=== PATIENT | male | born 1935 | race Caucasian/White ===

== ENCOUNTER 2020-04-06 07:11 | Observation (INO) ==
[2020-03-13 13:28] LABS: Basophils # (auto) 0.01 K/uL (0-0.2); Basophils % (auto) 0.2 %; Eosinophils # (auto) 0.07 K/uL (0-0.5); Eosinophils % (auto) 1.1 %; Hematocrit (blood only) 35.6 % (42-52); Hemoglobin 11.9 g/dL (14.0-18.0); Immature Granulocytes # (auto) 0.01 K/uL (0.00-0.02); Immature Granulocytes % (auto) 0.2 %; Lymphocytes # (auto) 1.46 K/uL (1.2-3.4); Lymphocytes % (auto) 22.8 %; Mean Corpuscular Hemoglobin 29.8 pg (25-34); Mean Corpuscular Hgb Conc 33.4 g/dL (32-36); Mean Corpuscular Volume 89.2 fL (80-100); Mean Platelet Volume 10.4 fL (7.4-10.4); Monocytes # (auto) 0.47 K/uL (0.11-0.59); Monocytes % (auto) 7.4 %; Neutrophils # (auto) 4.37 K/uL (1.4-6.5); Neutrophils % (auto) 68.3 %; Platelet Count 223 K/uL (130-400); RDW Coefficient of Variation 14.4 % (11.5-14.5); RDW Standard Deviation 47.3 fL (36.4-46.3); Red Blood Count 3.99 M/uL (4.7-6.1); White Blood Count 6.39 K/uL (4.8-10.8)
[2020-03-13 13:36] LABS: INR 1.1 (0.9-1.1); Prothrombin Time 11.5 Seconds (9.0-12.0)
[2020-03-13 13:53] LABS: Albumin Level 4.1 gm/dl (3.4-5.0); Aspartate Aminotransferase 24 U/L (15-37); BUN Creatinine Ratio 28.1 (10-20); Blood Urea Nitrogen 62 mg/dl (7-18); C Reactive Protein < 0.29 mg/dl (0-0.29); Calcium 9.4 mg/dl (8.5-10.1); Carbon Dioxide 20 mmol/L (21-32); Chloride 108 mmol/L (98-107); Est GFR (African American) 30.4; Est GFR (Non-African American) 26.2; Glucose 105 mg/dl (70-99); Potassium 4.6 mmol/L (3.5-5.1); Sodium 135 mmol/L (136-145)
[2020-03-13 14:03] LABS: Alanine Aminotransferase 25 U/L (12-78); Albumin Globulin Ratio 1.3 (0.9-2); Alkaline Phosphatase 48 U/L (45-117); Bilirubin,Total 0.4 mg/dl (0.2-1); Globulin 3.1 gm/dl (2.5-4.0); Total Protein 7.2 gm/dl (6.4-8.2)
--- NOTE | 2020-03-31 14:50 | Anesthesiology Consultation ---
Date of Service March 31, 2020 Assessment & Plan (1) Encounter for pre-operative examination: Pre op labs done 03/13 showed creatinine of 2.2, slightly worse than baseline of ~ 2.0. Results were sent to patient's adoption specialist for their records. Repeat BMP AM DOS at MDA discretion. COVID Status: As of 03/31 nurse assessment, patient denies travel to endemic area, known exposure/sick contacts, or symptoms of COVID19. Preoperative COVID19 testing to be completed on 04/01. Patient expressed concern on the phone with PAT nurse about memory loss/dementia with anesthesia. 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 He was encouraged to discuss these concerns with the anesthesia team AM DOS. Chart Review Chart Review: Acceptable Risk for Surgery and Patient NOT seen in Pre Admission Testing History Surgery Operation Date: 04/06/20 12:20 Proposed Procedures p Left Total Hip Replacement - Morteza Ruiz MD Height/Weight Height: 5 ft 10 in Weight: 79.379 kg Allergies Allergy/AdvReac Type Severity Reaction Status Date / Time hazelnut Allergy Severe Anaphylaxis Verified 03/31/20 12:34 Penicillins Allergy Severe AMOXICILLIN Verified 03/31/20 12:34 --diarrhea oyster extract Allergy Intermediate Vomiting Unverified 03/31/20 12:34 pollen extracts Allergy Intermediate TREE Verified 03/31/20 12:34 POLLEN-seasonal allergies Medications Home Medications Medication Instructions Recorded Confirmed Last Taken C,E,zinc,copper [id number] 1 cap PO HS 03/31/20 03/31/20 Unknown [Ocuvite Adult 50 Plus] allopurinol 300 mg PO QAM 03/31/20 03/31/20 Unknown amlodipine 10 mg PO QAM 03/31/20 03/31/20 Unknown cholecalciferol (vitamin D3) 2,000 mcg PO BID 03/31/20 03/31/20 Unknown [Vitamin D3] clindamycin HCl 600 mg PO UD PRN 03/31/20 03/31/20 Unknown clonidine HCl 0.1 mg PO HS 03/31/20 03/31/20 Unknown cyanocobalamin (vitamin B-12) 1,000 mcg PO DAILY 03/31/20 03/31/20 Unknown [Vitamin B-12] fenofibrate micronized 134 mg PO QAM 03/31/20 03/31/20 Unknown finasteride 5 mg PO HS 03/31/20 03/31/20 Unknown hydrochlorothiazide 12.5 mg PO QAM 03/31/20 03/31/20 Unknown levothyroxine 75 mcg PO QAM 03/31/20 03/31/20 Unknown lisinopril 10 mg PO QPM 03/31/20 03/31/20 Unknown magnesium oxide 400 mg PO DAILY 03/31/20 03/31/20 Unknown metoprolol succinate 50 mg PO QAM 03/31/20 03/31/20 Unknown metronidazole 1 applic TOPICAL BID 03/31/20 03/31/20 Unknown multivitamin 1 tab PO QAM 03/31/20 03/31/20 Unknown tamsulosin 0.4 mg PO QAM 03/31/20 03/31/20 Unknown Past Medical History Medical History (Updated 03/31/20 @ 15:14 by Shaan Prasad) Arthritis of left hip BPH (benign prostatic hyperplasia) CKD (chronic kidney disease) stage 3, GFR 30-59 ml/min Baseline creatinine ~ 2.0 GERD (gastroesophageal reflux disease) diet related, no medications High triglycerides Hypertension Hypothyroidism Lyme disease hx Osteoarthritis Peritonitis Seasonal allergies Skin cancer Small bowel obstruction Past Family History Family History Other No family history of adverse response to anesthesia Past Surgical History Surgical History H/O exploratory laparotomy r/t peritonitis and collapsed bowel. History of appendectomy with colon resection surgery History of cataract surgery bilateral History of cholecystectomy with colon resection surgery History of colonoscopy History of esophagogastroduodenoscopy (EGD) History of total hip arthroplasty right S/P colon resection 1950's Status post Mohs surgery Social History Smoking Status: Never smoker Do You Dip or Chew Tobacco: No Hx Alcohol Use: Yes Alcohol type: wine alcohol intake frequency: a few times a week Hx Substance Use: No substance use type: does not use Testing Laboratory Results 03/13/20 12:45 03/13/20 12:45 PT 11.5 Seconds (9.0-12.0) 03/13/20 12:45 INR 1.1 (0.9-1.1) 03/13/20 12:45 Blood Type O Positive 03/13/20 12:46 Antibody Screen NEGATIVE 03/13/20 12:46 Pt with known h/o CKD. Creatinine slightly above baseline of ~ 2.0. Labs forwarded to [facility] nephrology. Electrocardiogram Date: 03/13/20 Findings: + NSR @ (67bpm) Chest X-Ray Date: 03/13/20 Findings: + NAD
[~2020-04-06 07:11] MED LIST: ACETAMINOPHEN 500 MG TAB PO SCH; CEFAZOLIN 2000MG 2,000 MG/15 ML SYR IV SCH; FAMOTIDINE 20 MG TAB PO SCH; GABAPENTIN 300 MG CAP PO SCH; LR 500ML BOLUS, THEN 15ML/HR IV SCH; LR 60ML/HR IV SCH; METOCLOPRAMIDE HCL 10 MG TABLET PO SCH
[2020-04-06] MEDS ORDERED: BUPIVACAINE 0.5 % 5 MG/1 ML PF 10ML VIAL ONE (07:28)
[2020-04-06] MEDS ORDERED: fentaNYL citrate 100 MCG/2 ML VIAL ONE (07:45)
[2020-04-06] MEDS ORDERED: MIDAZOLAM HCL 1 MG/ML 2ML VIAL ONE (07:45)
[2020-04-06] MEDS ORDERED: fentaNYL citrate 100 MCG/2 ML VIAL IV PRN (08:47)
[2020-04-06] MEDS ORDERED: ePHEDrine sulfate 50 MG/ML AMP IV PRN (08:47)
[2020-04-06] MEDS ORDERED: ONDANSETRON INJ 2 MG/ML 2 ML VIAL IV PRN ×2 (08:47→11:34)
[2020-04-06] MEDS ORDERED: ATROPINE SULFATE 0.1 MG/ML 10ML SYR IV PRN (08:47)
--- NOTE | 2020-04-06 08:50 | History & Physical Bridge Note ---
Date of Service April 06, 2020 History & Physical Bridge Note I have examined the patient, reviewed the History & Physical and in the interval since the performance of the History & Physical I have noted the following changes of clinical significance: no changes noted
[2020-04-06] MEDS ORDERED: BACITRACIN INJ 50,000 UNIT VIAL ONE (08:54)
[2020-04-06] MEDS ORDERED: EPINEPHrine INJ 1 MG/ML AMP ONE (08:55)
[2020-04-06] MEDS ORDERED: BUPIVACAINE 0.5 % 5 MG/1 ML MPF 30ML VIAL ONE (08:55)
[2020-04-06] MEDS ORDERED: TRANEXAMIC ACID / 0.7% NACL 1000MG/100ML BAG IV ONE (09:33)
[2020-04-06] MEDS ORDERED: PROPOFOL IV EMULSION 10 MG/ML 20 ML VIAL IV ONE (10:25)
[2020-04-06] MEDS ORDERED: PHENYLEPHRINE 100MCG/ML 5ML SYR ONE (10:28)
[2020-04-06] MEDS ORDERED: ePHEDrine sulfate 50 MG/ML AMP ONE (10:28)
--- NOTE | 2020-04-06 10:43 | Post Operative Brief Note ---
PG Immediate Post Op with CF Date of Surgery April 06, 2020 Pre & Post Diagnosis Operation Date: 04/06/20 08:50 Pre-Op Diagnosis: Left Hip Degenerative Joint Disease Post-Op Diagnosis: Left Hip Degenerative Joint Disease I identified the patient and participated in the time-out.: Yes Procedure Operation Date: 04/06/20 08:50 Actual Procedures p Left Total Hip Arthroplasty--Uncemented(Left) - Morteza Ruiz MD Surgeon Morteza Ruiz MD Instructional Specialist Singh, PAC Estimated Blood Loss 200 Findings Consistent with Post-Op Diagnosis Fluids 1300 cc Specimens Specimen Description: A. Left Femoral Head Drains Rojas Catheter Anesthesia Type Spinal MAC Complications none Disposition Accompanied Patient To Recovery: Yes Disposition: Recovery Room
--- NOTE | 2020-04-06 10:57 | Operative Report ---
Post Operative Report Pre & Post Diagnosis Operation Date: 04/06/20 08:50 Pre-Op Diagnosis: Left Hip Degenerative Joint Disease Post-Op Diagnosis: Left Hip Degenerative Joint Disease I identified the patient and participated in the time-out.: Yes Procedure Operation Date: 04/06/20 08:50 Actual Procedures p Left Total Hip Arthroplasty--Uncemented(Left) - Morteza Ruiz MD Surgeon Morteza Ruiz MD Screen Making Supervisor Singh, PAC Estimated Blood Loss 200 Findings Consistent with Post-Op Diagnosis Operative findings revealed left hip DJD. He did have grade 4 [id number] disease of the superior aspect of the femoral head as well as some diffuse degenerative change of the acetabulum. Not a lot of osteophyte formation or eburnation. He did have some anterior acetabular osteophytes. Fluids 1300 cc. Specimens Left femoral head sent for pathology. Drains None. Anesthesia Type Spinal MAC Complications none Disposition Accompanied Patient To Recovery: Yes Disposition: Recovery Room Indications Patient is an 84-year-old quite healthy gentleman whose had a long history of intermittent hip problems. He had a right hip replacement done about 9 years ago and is done well from this. Over the past year he is developed increased pain discomfort in his left hip in a very similar fashion. He is actually resorted to using a cane for the past 6 months. X-rays show progressive hip arthritis. He elected proceed with total hip arthroplasty. Description of Procedure Operative implants consist of: 1. Biomet G7 size 58 mm acetabular shell. 2. 6.5 cancellus acetabular screws 135 mm length and 1 to 20 mm length. 3. Glenn hole eliminator. 4. Highly cross-linked polyethylene liner with a +5 offset, 58 mm outer diameter and 40 mm inner diameter. 5. [place] Corail size 14 KLA femoral stem. 6. +8.5/40 mm ceramic articular ball. Patient was taken to the operating room identified and placed on the operating table supine position protectors were properly padded. IV antibiotics arrived by anesthesia team. A spinal anesthetic and been implemented holding area. Rojas catheter was placed in sterile fashion. Patient was then placed in the right lateral decubitus position. An axillary roll was placed. A Stulberg hip positioner was used for positioning. The left hip and leg were then prepped and draped in usual sterile fashion. A posterior lateral posterior left hip was then performed through a curvilinear incision centered over the greater trochanter. Sharp dissection was cut through subcutaneous tissue down to level the IT band gluteal fascia. The IT band gluteal fascia then incised longitudinally in line with skin incision. The underlying greater truck bursa was excised. The piriformis and external rotators and the posterior capsule were then released as a single layer. Great care was taken throughout the procedure protect sciatic nerve at all times. Hip was internally rotated and dislocated. Femoral neck osteotomy cut was made with Final Cut about 15 mm above the lesser trochanter. Femoral head was removed and sent for pathology. The femur was retracted anteriorly. Attention drawn the acetabulum. The acetabular labrum was excised. Pulmonary fat was excised. Sequential reaming the acetabular was then performed begin with a size 47 and progressing up to 57. A 58 mm Biomet G7 acetabular shell was then placed in about 40 degrees lateral opening and 20 degrees of anteversion. Was fixed with two 6.5 cancellus acetabular screws. An anterior osteophyte was removed. Trial liner was placed. Attention drawn the femur. The proximal femur was entered with a cookie-cutter followed by canal finder. I broached beginning with size 8 and progressing up to 14. Got excellent fit of 14. Calcar reamer was used smooth and off the calcar. Then trialed the hip. His soft tissue tension was fairly lax. Therefore we elected to use a +5 offset acetabulum to move the femur away from the acetabular to maximize stability. I also increased the neck length slightly. I felt this re-created acceptable soft tissue tension. The hip was fully stable. And re-seem to re-create leg lengths equal. I did want maximize his stability based on his age. All trial implants were removed. An apex hole eliminator was placed. A +5 offset liner was impacted in position. A [place] KLA size 14 With a femoral stem was impacted in position. A +8.5/40 mm ceramic articular ball was placed. Hip was located and found to be stable. Attention drawn toward closing. The wound was irrigated cups ounce pulsatile lavage solution. I did inject locally with 60 cc of half percent Marcaine with epinephrine. The posterior capsule and external rotators were then repaired through drill holes in the posterior trochanter with #2 Tycron suture in a single layer. The IT band gluteal fascia then closed with #1 PDS suture running fashion with subcutaneous tissue then closed with 2 layers with a deep layer #1 Vicryl suture and subcutaneous tissues with 2-0 Dexon suture in a buried interrupted fashion. Sk in was closed with skin natalia. Leg was then cleaned dried a sterile dressing composed of Xeroform, 4 x 4's, sterile ABD pad and foam tape was applied. Patient then transferred to the recovery in stable condition. Patient tolerated procedure well no complications. I attest to the content of the Intraoperative Record and any orders documented therein. Any exceptions are noted below.
--- NOTE | 2020-04-06 11:04 | Anesthesiology Progress Note ---
Date of Service April 06, 2020 Anesthesia Post Procedure Vital Signs Vital Signs: Temp Pulse Pulse Resp BP BP Pulse Ox 04/06/20 10:40 97.3 F L 86 23 113/53 L 97 04/06/20 07:48 98.4 F 76 18 135/66 97 Transfer of Care Handoff Completed per policy Notes Mental Status: alert / awake / arousable and participated in evaluation Patient Amnestic to Procedure: Yes Nausea / Vomiting: adequately controlled Pain: adequately controlled Airway Patency, RR, SpO2: stable & adequate BP & HR: stable & adequate Hydration State: stable & adequate Neuraxial Anesthesia: was administered and sensory block is resolving Anesthetic Complications: no major complications apparent and Pt Satisfied with anesthetic care
--- NOTE | 2020-04-06 11:06 | XRay Report ---
AP PELVIS, CROSSTABLE LATERAL LEFT HIP History: Left total hip arthroplasty. Degenerative arthritis. Postop. FINDINGS: The patient is status post a left total hip arthroplasty. The hardware is intact. No fractu re or dislocation. Skin natalia are in place. Evidence for prior right total hip arthroplasty. IMPRESSION: Left total hip arthroplasty. No evidence for hardware complication. ACT 112: Negative or not required by law. Electronically signed by: Georges Jaimes M.D. 04/06/2020 11:05 AM
[2020-04-06] MEDS ORDERED: NO NSAIDS SCH (11:34)
[2020-04-06] MEDS ORDERED: METOCLOPRAMIDE HCL INJ 5 MG/ML 2 ML VIAL IV PRN (11:34)
[2020-04-06] MEDS ORDERED: bisacodyL 10 MG SUPP PR PRN (11:34)
[2020-04-06] MEDS ORDERED: SODIUM CHLORIDE 0.9% 1000ML 1,000 ML IV SCH (11:34)
[2020-04-06] MEDS ORDERED: NALOXONE HCL 0.4 MG/1 ML VIAL/CARP IV PRN (11:34)
[2020-04-06] MEDS ORDERED: HYDROmorphone INJ 0.5 MG/0.5 ML SYR IV PRN (11:34)
[2020-04-06] MEDS ORDERED: MAGNESIUM HYDROXIDE SUSP 30 ML UDC PO PRN (11:34)
[2020-04-06] MEDS ORDERED: ALUMINUM/MAGNESIUM SUSP 30 ML UDC PO PRN (11:34)
[2020-04-06] MEDS: TRAMADOL HCL 50 MG TABLET PO PRN ×2 (11:58→21:23)
[2020-04-06] MEDS: ACETAMINOPHEN 500 MG TAB PO SCH ×2 (14:13→21:24)
--- NOTE | 2020-04-06 15:01 | Progress Notes ---
DATE: 04/06/2020 SUBJECTIVE: An 84-year-old gentleman postop from left hip replacement. He is doing well. He says he feels great. No chest pain or shortness of breath. Not feeling dizzy or lightheaded. Does not have any hip pain yet. OBJECTIVE: VITAL SIGNS: Temperature 36.4. Vital signs stable. GENERAL: Shows a pleasant elderly male. He is sitting up in bed, looks comfortable. LUNGS: Clear to auscultation. HEART: Has a regular rate and rhythm. ABDOMEN: Soft, nontender, nondistended. EXTREMITIES: Grossly neurovascularly intact except as follows: Examination of the left lower extremity reveals the leg lengths are equal. Dressing is clean, dry and intact. Thigh is soft and supple. His hip is located. He is neurologically intact. X-RAYS: X-rays of the left hip from recovery room are reviewed. It shows left uncemented total hip arthroplasty. Components looked to be in good position. No signs of problems. ASSESSMENT: An 84-year-old gentleman postoperative from left hip replacement, doing well. Hip is located. He is neurologically intact. PLAN: 1. DVT prophylaxis including thigh-high TEDs, SCDs, and aspirin twice a day. 2. PT/OT. Weight bear as tolerated. Left total hip protocol. 3. Pain control, doing well with current pain regimen. 4. IV antibiotics x24 hours. 5. Disposition: Plan to discharge to home with some home health and his family's assistance once medically stable and adequately recovered.
[2020-04-06] MEDS: [UNRECOGNIZED DRUG - OTHER] SCH (15:05)
[2020-04-06] MEDS ORDERED: TRANEXAMIC ACID / 0.7% NACL 1,000 MG/100 ML BAG IV SCH (16:45)
[2020-04-06] MEDS: CEFAZOLIN 2000MG 2,000 MG/15 ML SYR IV SCH (16:45)
[2020-04-06] MEDS: ASCORBIC ACID 500 MG TAB PO SCH (17:56)
[2020-04-06] MEDS: FERROUS GLUCONATE 324 MG TAB PO SCH (17:56)
[2020-04-06] MEDS: cloNIDine HCL 0.1 MG TAB PO SCH (21:25)
[2020-04-06] MEDS: CHOLECALCIFEROL 1,000 UNITS 25 MCG TAB PO SCH (21:25)
[2020-04-06] MEDS: FINASTERIDE 5 MG TAB PO SCH (21:25)
[2020-04-06] MEDS: lisinopriL 10 MG TAB PO SCH (21:25)
[2020-04-06] MEDS: CEROVITE ADV FORMULA TAB PO SCH (21:25)
[2020-04-06] MEDS: SENNA 8.6 MG TAB PO SCH (21:26)
[2020-04-06] MEDS: DOCUSATE SODIUM 100 MG CAP PO SCH (21:29)
[2020-04-07] MEDS: [UNRECOGNIZED DRUG - OTHER] SCH ×3 (00:34→18:13)
[2020-04-07] MEDS: CEFAZOLIN 2000MG 2,000 MG/15 ML SYR IV SCH (00:34)
[2020-04-07] MEDS: LEVOTHYROXINE SODIUM 75 MCG TABLET PO SCH (06:01)
[2020-04-07] MEDS: ACETAMINOPHEN 500 MG TAB PO SCH ×3 (06:02→21:00)
[2020-04-07 06:48] LABS: Basophils # (auto) 0.01 K/uL (0-0.2); Basophils % (auto) 0.2 %; Eosinophils # (auto) 0.08 K/uL (0-0.5); Eosinophils % (auto) 1.2 %; Hemoglobin 10.8 g/dL (14.0-18.0); Immature Granulocytes # (auto) 0.01 K/uL (0.00-0.02); Immature Granulocytes % (auto) 0.2 %; Lymphocytes % (auto) 12.3 %; Mean Corpuscular Hemoglobin 29.3 pg (25-34); Mean Corpuscular Hgb Conc 32.7 g/dL (32-36); Mean Corpuscular Volume 89.4 fL (80-100); Mean Platelet Volume 9.7 fL (7.4-10.4); Monocytes # (auto) 0.92 K/uL (0.11-0.59); Monocytes % (auto) 14.2 %; Neutrophils # (auto) 4.67 K/uL (1.4-6.5); Neutrophils % (auto) 71.9 %; Platelet Count 177 K/uL (130-400); RDW Coefficient of Variation 14.3 % (11.5-14.5); RDW Standard Deviation 46.8 fL (36.4-46.3); Red Blood Count 3.69 M/uL (4.7-6.1); White Blood Count 6.49 K/uL (4.8-10.8)
[2020-04-07 07:31] LABS: BUN Creatinine Ratio 19.1 (10-20); Calcium 8.7 mg/dl (8.5-10.1); Creatinine Clr Calc Pharmacy 31.5 ml/min; Est GFR (African American) 39.2; Est GFR (Non-African American) 33.8
--- NOTE | 2020-04-07 08:25 | Anesthesiology Progress Note ---
Date of Service April 07, 2020 Anesthesia Post Procedure Vital Signs Vital Signs: Temp Pulse Pulse Pulse Resp BP BP 04/07/20 07:45 36.7 C 73 16 119/70 04/07/20 04:22 37.2 C 66 15 107/61 04/07/20 00:40 74 112/67 04/06/20 23:51 36.8 C 69 16 96/58 L 04/06/20 20:14 36.6 C 71 17 143/68 H 04/06/20 14:30 69 16 135/74 04/06/20 13:28 80 16 135/68 04/06/20 11:55 86 16 139/67 04/06/20 11:34 36.4 C L 90 17 138/70 04/06/20 11:20 88 16 131/65 04/06/20 11:10 36.2 C L 85 14 131/60 04/06/20 11:00 85 15 109/49 L 04/06/20 10:50 85 21 117/56 L 04/06/20 10:40 36.3 C L 86 23 113/53 L Pulse Ox 04/07/20 07:45 97 04/07/20 04:22 97 04/07/20 00:40 04/06/20 23:51 98 04/06/20 20:14 99 04/06/20 14:30 99 04/06/20 13:28 98 04/06/20 11:55 99 04/06/20 11:34 97 04/06/20 11:20 96 04/06/20 11:10 96 04/06/20 11:00 97 04/06/20 10:50 96 04/06/20 10:40 97 Notes Mental Status: alert / awake / arousable and participated in evaluation Patient Amnestic to Procedure: Yes Nausea / Vomiting: adequately controlled Pain: adequately controlled Airway Patency, RR, SpO2: stable & adequate BP & HR: stable & adequate Hydration State: stable & adequate Neuraxial Anesthesia: was administered and sensory block resolved Anesthetic Complications: no major complications apparent and Pt Satisfied with anesthetic care
[2020-04-07] MEDS: hydroCHLOROthiazide 25 MG TAB PO SCH (08:26)
[2020-04-07] MEDS: ASCORBIC ACID 500 MG TAB PO SCH ×2 (08:26→18:14)
[2020-04-07] MEDS: allopurinoL 300 MG TAB PO SCH (08:26)
[2020-04-07] MEDS: CHOLECALCIFEROL 1,000 UNITS 25 MCG TAB PO SCH ×2 (08:26→20:55)
[2020-04-07] MEDS: AMLODIPINE BESYLATE 5 MG TAB PO SCH (08:26)
[2020-04-07] MEDS: MULTIVITAMIN TAB PO SCH (08:26)
[2020-04-07] MEDS: FERROUS GLUCONATE 324 MG TAB PO SCH ×2 (08:26→18:15)
[2020-04-07] MEDS: MAGNESIUM OXIDE 400 MG TAB PO SCH (08:26)
[2020-04-07] MEDS: CYANOCOBALAMIN 500 MCG TABLET (VITAMIN B-12) PO SCH (08:26)
[2020-04-07] MEDS: METOPROLOL SUCC 50MG EXT REL TAB PO SCH (08:26)
[2020-04-07] MEDS: DOCUSATE SODIUM 100 MG CAP PO SCH ×2 (08:26→20:53)
[2020-04-07] MEDS: TAMSULOSIN HCL 0.4 MG CAP PO SCH (08:27)
[2020-04-07] MEDS: TRAMADOL HCL 50 MG TABLET PO PRN (08:32)
[2020-04-07] MEDS ORDERED: MULTIVITAMIN TAB PO SCH (09:00)
--- NOTE | 2020-04-07 15:48 | Progress Notes ---
DATE: 04/07/2020 SUBJECTIVE: An 84-year-old gentleman postop day 1 from a left hip replacement. He is doing well. Pain is controlled. Therapy went well. Denies any chest pain or shortness of breath. Not feeling dizzy or lightheaded. OBJECTIVE: VITAL SIGNS: Temperature 36.7. Vital signs stable. GENERAL: Shows a pleasant elderly male. He is sitting up at his bedside chair, looks comfortable. EXTREMITIES: Examination of the left hip reveals the dressing to be clean, dry and intact. Thigh is soft and supple. Hip is located. He can dorsiflex and plantarflex his foot appropriately. He is neurologically intact. LABORATORY DATA: Hemoglobin 10.8. Hematocrit 33.0. Electrolytes are stable. Creatinine is actually improved at 1.80. ASSESSMENT: An 84-year-old gentleman postoperative day 1 from left hip replacement, doing well. His pain is controlled. He is neurologically intact. Appears medically stable. PLAN: 1. DVT prophylaxis including thigh-high TEDs, SCDs, and aspirin twice a day. 2. PT/OT. Weight bear as tolerated. Left total hip protocol. 3. Pain control, doing well with current pain regimen. 4. Disposition: Plan to discharge to home with some home health once adequately recovered and medically stable.
[2020-04-07] MEDS: SENNA 8.6 MG TAB PO SCH (20:53)
[2020-04-07] MEDS: CEROVITE ADV FORMULA TAB PO SCH (20:53)
[2020-04-07] MEDS: FINASTERIDE 5 MG TAB PO SCH (20:53)
[2020-04-07] MEDS: cloNIDine HCL 0.1 MG TAB PO SCH (20:54)
[2020-04-07] MEDS: lisinopriL 10 MG TAB PO SCH (20:55)
[2020-04-07] MEDS: ASPIRIN 81 MG ECTAB PO SCH (21:25)
[2020-04-08] MEDS: [UNRECOGNIZED DRUG - OTHER] SCH ×2 (00:58→09:15)
[2020-04-08] MEDS: ACETAMINOPHEN 500 MG TAB PO SCH (05:16)
[2020-04-08] MEDS: LEVOTHYROXINE SODIUM 75 MCG TABLET PO SCH (05:17)
--- NOTE | 2020-04-08 07:28 | Orthopedic Progress Note ---
Date of Service April 08, 2020 Assessment & Plan (1) Status post total hip replacement, left: He is doing well and his pain is controlled. We will plan to discharge him home today with home health after physical therapy. Continue PT/OT. He is weightbearing as tolerated. Total hip precautions. Continue JACQUELINE stockings/SCDs, aspirin for DVT prophylaxis. Follow-up approximately 2 weeks postop. Subjective 84-year-old male now postop day 2 from a left total hip replacement. He is doing well. Not really having much pain. He describes a soreness around his hip. No chest pain or shortness of breath. Physical Exam Physical Exam: He is alert and oriented. No distress. He sitting in the bedside chair. He is able to stand on his own using a walker. Dressing is clean dry and intact to the left hip. Minimal swelling to his leg. He is able dorsiflex plantarflex appropriately. He is neurovascular intact. Results & Data ([facility]) Vital Signs (Past 12 Hours) Vital Signs Temp Pulse Resp BP Pulse Ox 04/07/20 23:11 37.1 C 72 15 94/54 L 97 PG Care Time/CCT Total # of Minutes Spent Total Time Spent with Patient: Total time spent is greater than 50% in coordination of care (as documented) at patient's floor/unit and/or counseling patient: Coding Level of Care Code None Diagnoses Status post total hip replacement, left Z96.642
[2020-04-08] MEDS: DOCUSATE SODIUM 100 MG CAP PO SCH (09:16)
[2020-04-08] MEDS: allopurinoL 300 MG TAB PO SCH (09:17)
[2020-04-08] MEDS: MULTIVITAMIN TAB PO SCH (09:17)
[2020-04-08] MEDS: CYANOCOBALAMIN 500 MCG TABLET (VITAMIN B-12) PO SCH (09:17)
[2020-04-08] MEDS: AMLODIPINE BESYLATE 5 MG TAB PO SCH (09:17)
[2020-04-08] MEDS: CHOLECALCIFEROL 1,000 UNITS 25 MCG TAB PO SCH (09:17)
[2020-04-08] MEDS: FERROUS GLUCONATE 324 MG TAB PO SCH (09:18)
[2020-04-08] MEDS: ASCORBIC ACID 500 MG TAB PO SCH (09:18)
[2020-04-08] MEDS: ASPIRIN 81 MG ECTAB PO SCH (09:18)
[2020-04-08] MEDS: METOPROLOL SUCC 50MG EXT REL TAB PO SCH (09:18)
[2020-04-08] MEDS: MAGNESIUM OXIDE 400 MG TAB PO SCH (09:18)
[2020-04-08] MEDS: TAMSULOSIN HCL 0.4 MG CAP PO SCH (09:18)
[2020-04-08] MEDS: hydroCHLOROthiazide 25 MG TAB PO SCH (09:18)
--- NOTE | 2020-04-13 07:35 | Discharge Summary ---
Date of Service April 13, 2020 Admission HPI Per Admitting Provider Documented in the H&P Admission Exam (Per Admitting) Constitutional Documented in the H&P Discharge Data Consultations 04/07/20 08:00 Consult Case Management - Discharge Planning Routine Procedures Performed Operation Date: 04/06/20 08:50 Actual Procedures p Left Total Hip Arthroplasty--Uncemented(Left) - Morteza Ruiz MD Hospital Course (1) Status post total hip replacement, left: 84-year-old male admitted on 04/06/2020 underwent total hip replacement. Tolerated the procedure well and there were no complications. He was transferred to the PACU postoperatively and later to the orthopedic floor for further care. He was given Ancef for antibiotic prophylaxis. He was given JACQUELINE stockings, SCDs, and aspirin for DVT prophylaxis. His hemoglobin, hematocrit, and vital signs were monitored during his hospital stay remained stable. He not requiring blood transfusions. There were no complications. By postoperative day 2 he was tolerating a regular diet, pain was controlled with oral pain medicine, and he was participating in physical therapy. On postop day 2 he was discharged home set up with home health services. He was given printed discharge instructions as well as new prescriptions for extra strength Tylenol, aspirin, and tramadol. Continue physical therapy. Continue total hip precautions. Weightbearing as tolerated. Continue JACQUELINE stockings. Follow-up approximately 2 weeks postop or sooner if any problems or concerns. Coding Level of Care Code None Diagnoses Status post total hip replacement, left Z96.642
== END 2020-04-08 13:47 | disposition home health service (06) ==
LOC: ASU 07:11 → 3E 07:11

== ENCOUNTER 2020-04-09 20:44 | Observation (INO) ==
[2020-04-09] MEDS ORDERED: SODIUM CHLORIDE 0.9% 1000ML 500 ML IV ONE (21:54)
--- NOTE | 2020-04-09 22:01 | Emergency Department Note ---
History of Present Illness General Chief complaint: Urinary Symptoms Stated complaint: URINARY ISSUES, BLOOD IN URINE Time Seen by Provider: 04/09/20 21:24 History of Present Illness Provider complaint: Difficulty urinating Onset (ago): day(s) 1 Location: genitals Severity: moderate Maximum Pain Intensity: 8 Current Pain Intensity: 8 Relieved By: + none 84-year-old male presents emergency department with difficulty urinating. Patient states he had his hip replaced yesterday and was discharged yesterday. He states today he noticed difficulty urinating and when the small amount of urine did come out it was bloody. He states he has a history of kidney stones. He denies any fevers. He states he has had problems with urinary retention in the past and has required catheters in the past. Home Medications Home Medications Medication Instructions Recorded Confirmed Type Ocuvite Adult 50 Plus 1 cap PO HS 03/31/20 04/09/20 History allopurinol 300 mg PO QAM 03/31/20 04/09/20 History amlodipine [Norvasc] 10 mg PO QAM 03/31/20 04/09/20 History cholecalciferol (vitamin D3) 2,000 mcg PO BID 03/31/20 04/09/20 History [Vitamin D3] clonidine HCl 0.1 mg PO HS 03/31/20 04/09/20 History cyanocobalamin (vitamin B-12) 1,000 mcg PO DAILY 03/31/20 04/09/20 History [Vitamin B-12] fenofibrate micronized 134 mg PO QAM 03/31/20 04/09/20 History finasteride 5 mg PO HS 03/31/20 04/09/20 History hydrochlorothiazide 12.5 mg PO QAM 03/31/20 04/09/20 History levothyroxine 75 mcg PO QAM 03/31/20 04/09/20 History lisinopril 10 mg PO QPM 03/31/20 04/09/20 History magnesium oxide 400 mg PO DAILY 03/31/20 04/09/20 History metoprolol succinate 50 mg PO QAM 03/31/20 04/09/20 History metronidazole 1 applic TOPICAL BID 03/31/20 04/09/20 History multivitamin 1 tab PO QAM 03/31/20 04/09/20 History tamsulosin 0.4 mg PO QAM 03/31/20 04/09/20 History acetaminophen 1,000 mg PO Q8 30 Days #180 tab 04/07/20 04/09/20 Rx aspirin 81 mg PO BID 45 Days #90 tab 04/07/20 04/09/20 Rx tramadol 50 - 100 mg PO Q6H PRN #30 tab 04/07/20 04/09/20 Rx Allergies Allergy/AdvReac Type Severity Reaction Status Date / Time hazelnut Allergy Severe Anaphylaxis Verified 04/09/20 21:41 Penicillins Allergy Severe AMOXICILLIN Verified 04/09/20 21:41 --diarrhea oyster extract Allergy Intermediate Vomiting Verified 04/09/20 21:41 pollen extracts Allergy Intermediate TREE Verified 04/09/20 21:41 POLLEN-seasonal allergies Past Med/Surg History Medical History Arthritis of left hip BPH (benign prostatic hyperplasia) CKD (chronic kidney disease) stage 3, GFR 30-59 ml/min Baseline creatinine ~ 2.0 GERD (gastroesophageal reflux disease) diet related, no medications High triglycerides Hypertension Hypothyroidism Lyme disease hx Osteoarthritis Peritonitis Seasonal allergies Skin cancer Small bowel obstruction Surgical History H/O exploratory laparotomy r/t peritonitis and collapsed bowel. 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 Beliefs That Will Affect Care: None marital status: Current Living Situation: Spouse Current Living Situation Comment: has dementia Feels Safe at Home: Yes Smoking Status: Never smoker Second Hand Exposure: No ; Hx Alcohol Use: Yes Alcohol type: wine Hx Substance Use: No Review of Systems A total of 10 systems reviewed and were otherwise negative Physical Exam Vital Signs Vital Signs - 24 hr 04/09/20 21:08 04/09/20 22:15 Temperature 37.1 C Temperature Source Oral Pulse Rate 86 Pulse Rate [Radial] 70 Pulse Rhythm Regular Pulse Rhythm [Radial] Regular Pulse Strength [Radial] Normal Respiratory Rate 16 18 Respiratory Effort / Characteristics Non-Labored Spontaneous Non-Labored Spontaneous Respiratory Depth Normal Normal Respiratory Pattern Regular Regular Blood Pressure 135/68 Blood Pressure [Left Arm] 112/50 L Blood Pressure Mean 90 Blood Pressure Mean [Left Arm] 70 Pulse Oximetry 97 98 Oxygen Delivery Method Room Air Room Air Sepsis Recent Fever Within 48 Hours No Sepsis New/Unexplained Change in Mental Status No Sepsis Action Taken by Nursing No Action Required Physical Exam GENERAL: He is oriented to person, place, and time. He appears well-developed and well-nourished. He does not appear distressed. HENT: Exam performed. - Head: Normocephalic and atraumatic. - Right Ear: External ear normal. No mastoid tenderness. - Left Ear: External ear normal. No mastoid tenderness. - Mouth/Throat: The oropharynx is clear and moist. No trismus in the jaw. No dental abscesses or uvula swelling. No oropharyngeal exudate or tonsillar abscesses. EYES: Conjunctivae and EOM are normal. Pupils are equal, round, and reactive to light. Right eye exhibits no discharge. Left eye exhibits no discharge. No scleral icterus. NECK: Normal range of motion. Neck supple. No JVD present. No spinous process tenderness present. No carotid bruit present. No rigidity. No tracheal deviation and normal range of motion present. No Brudzinski's sign and no Kernig's sign noted. CV: Normal rate, regular rhythm, normal heart sounds and intact distal pulses. There is no peripheral edema. Palpable radial pulses bue. PULM/CHEST: Effort normal and breath sounds normal. No respiratory distress. No stridor. He has no wheezes. He has no rales. - Chest Wall: He exhibits no tenderness. ABD: The abdomen is soft. Pain on palpation of the suprapubic area NEURO: He is alert and oriented to person, place, and time. No cranial nerve deficit or sensory deficit. Course Course 2129: The patient was evaluated in room A4. A complete history and physical exam was performed. 2199: Vital signs stable. Patient's POC creatinine 2.8. Baseline creatinine is 1.8. We will give the patient's and check formal labs. 2324: Vital signs stable. Patient's creatinine is 2.6 up from baseline of 1.8. Given the patient's urinary retention and elevated creatinine, patient will be admitted for acute kidney injury. Discussed with Dr. Alonso Mckeon hospitalist who accepts the patient. Administered Medications Discontinued Medications Sodium Chloride (Nss 1000ml) 500 mls @ 999 mls/hr IV .Q31M ONE Stop: 04/09/20 22:24 Last Infusion: 04/09/20 23:04 Dose: 0 mls/hr Documented by: [id number] Admin: 04/09/20 22:16 Dose: 999 mls/hr Documented by: [id number] Medical Decision Making Laboratory Data Result diagrams: 04/09/20 22:10 04/09/20 22:10 Lab Results 04/09/20 04/09/20 04/09/20 Range/Units 21:45 21:52 22:10 WBC 7.42 (4.8-10.8) K/uL RBC 3.33 L (4.7-6.1) M/uL Hgb 9.8 L (14.0-18.0) g/dL POC Hgb 9.5 L (14.0-18.0) g/dl Hct 30.1 L (42-52) % POC Hct 28 L (42-52) % MCV 90.4 (80-100) fL MCH 29.4 (25-34) pg MCHC 32.6 (32-36) g/dL RDW Std Deviation 48.2 H (36.4-46.3) fL RDW Coeff of Addie 14.4 (11.5-14.5) % Plt Count 200 (130-400) K/uL MPV 10.2 (7.4-10.4) fL Immature Gran % (Auto) 0.3 % Neut % (Auto) 73.2 % Lymph % (Auto) 14.0 % [place] % (Auto) 10.9 % Eos % (Auto) 1.5 % Baso % (Auto) 0.1 % Neut # (Auto) 5.43 (1.4-6.5) K/uL Lymph # (Auto) 1.04 L (1.2-3.4) K/uL [place] # (Auto) 0.81 H (0.11-0.59) K/uL Eos # (Auto) 0.11 (0-0.5) K/uL Baso # (Auto) 0.01 (0-0.2) K/uL Immature Gran # (Auto) 0.02 (0.00-0.02) K/uL POC Sodium 131 L (135-144) mmol/L Sodium (136-145) mmol/L POC Potassium 4.6 (3.3-5.0) mmol/L Potassium (3.5-5.1) mmol/L POC Chloride 102 (101-112) mmol/L Chloride (98-107) mmol/L Carbon Dioxide (21-32) mmol/L POC Total CO2 18 L (24-31) mmol/L Anion Gap (3-11) POC Anion Gap 16.0 (16-25) mmol/L POC BUN 47 H (7-18) mg/dl BUN (7-18) mg/dl Creatinine (0.6-1.4) mg/dl POC Creatinine 2.8 H (0.6-1.3) mg/dl Est Cr Clr Drug Dosing ml/min Est GFR ( Amer) Est GFR (Non-Af Amer) BUN/Creatinine Ratio (10-20) Glucose (70-99) mg/dl POC Glucose (other) 132 H (70-99) mg/dl Calcium (8.5-10.1) mg/dl POC Ioniz Calcium Flower 1.26 (1.12-1.32) mmol/l Urine Color [place] Urine Appearance Cloudy A (Clear) Urine pH 5.0 (4.5-7.5) Ur Specific [place] 1.019 (1.000-1.030) Urine Protein 1+ H (Negative) Urine Glucose (UA) Negative (Negative) Urine Ketones Negative (Negative) Urine Blood 3+ H (Negative) Urine Nitrite Negative (Negative) Urine Bilirubin Negative (Negative) Urine Urobilinogen Negative (Negative) Ur Leukocyte Esterase 2+ H (Negative) Urine WBC (Auto) 10-30 H (0-5) /hpf Urine RBC (Auto) >30 H (0-4) /hpf U Hyaline Cast (Auto) 0 (0-5) /lpf U Epithel Cells (Auto) 5-10 H (0-5) /lpf Urine Bacteria (Auto) Negative (Negative) Ur Renal Epithelial Cell Not Reportable Urine Yeast Not Reportable 04/09/20 Range/Units 22:10 WBC (4.8-10.8) K/uL RBC (4.7-6.1) M/uL Hgb (14.0-18.0) g/dL POC Hgb (14.0-18.0) g/dl Hct (42-52) % POC Hct (42-52) % MCV (80-100) fL MCH (25-34) pg MCHC (32-36) g/dL RDW Std Deviation (36.4-46.3) fL RDW Coeff of Addie (11.5-14.5) % Plt Count (130-400) K/uL MPV (7.4-10.4) fL Immature Gran % (Auto) % Neut % (Auto) % Lymph % (Auto) % [place] % (Auto) % Eos % (Auto) % Baso % (Auto) % Neut # (Auto) (1.4-6.5) K/uL Lymph # (Auto) (1.2-3.4) K/uL [place] # (Auto) (0.11-0.59) K/uL Eos # (Auto) (0-0.5) K/uL Baso # (Auto) (0-0.2) K/uL Immature Gran # (Auto) (0.00-0.02) K/uL POC Sodium (135-144) mmol/L Sodium 133 L (136-145) mmol/L POC Potassium (3.3-5.0) mmol/L Potassium 4.8 (3.5-5.1) mmol/L POC Chloride (101-112) mmol/L Chloride 103 (98-107) mmol/L Carbon Dioxide 22 (21-32) mmol/L POC Total CO2 (24-31) mmol/L Anion Gap 7.0 (3-11) POC Anion Gap (16-25) mmol/L POC BUN (7-18) mg/dl BUN 50 H (7-18) mg/dl Creatinine 2.61 H (0.6-1.4) mg/dl POC Creatinine (0.6-1.3) mg/dl Est Cr Clr Drug Dosing 21.8 ml/min Est GFR ( Amer) 25.0 Est GFR (Non-Af Amer) 21.6 BUN/Creatinine Ratio 19.1 (10-20) Glucose 127 H (70-99) mg/dl POC Glucose (other) (70-99) mg/dl Calcium 9.4 (8.5-10.1) mg/dl POC Ioniz Calcium [place]lower (1.12-1.32) mmol/l Urine Color Urine Appearance (Clear) Urine pH (4.5-7.5) Ur Specific [place] (1.000-1.030) Urine Protein (Negative) Urine Glucose (UA) (Negative) Urine Ketones (Negative) Urine Blood (Negative) Urine Nitrite (Negative) Urine Bilirubin (Negative) Urine Urobilinogen (Negative) Ur Leukocyte Esterase (Negative) Urine WBC (Auto) (0-5) /hpf Urine RBC (Auto) (0-4) /hpf U Hyaline Cast (Auto) (0-5) /lpf U Epithel Cells (Auto) (0-5) /lpf Urine Bacteria (Auto) (Negative) Ur Renal Epithelial Cell Urine Yeast Imaging Data Radiologist's Impression: PreliminaryFindingsOnly See Final Report For Complete Findings CT ABDOMEN & PELVIS Without Contrast: Artifact in the pelvis related to the patient's hip arthroplastieswhich limits evaluation of the distal ureters and bladder. Mild prominence of the right renal collecting systemand ureter. No obstructing stone seen along the visualized course of the ureter. Multiple nonobstructing stoneswithin the kidneys bilaterally. Few incompletelycharacterized high densityexophytic cortical lesions. Cholecystectomy. Recent postsurgical changes froma left hip arthroplasty. Postsurgical subcutaneous emphysema within the adjacent musculature. No hematoma or complication. Radiologist: Shorty Pineda MD Study ready at 22:00 and initial results transmitted at 22:08 MDM Narrative 2129: The patient was evaluated in room A4. A complete history and physical exam was performed. 2199: Vital signs stable. Patient's POC creatinine 2.8. Baseline creatinine is 1.8. We will give the patient's and check formal labs. 2324: Vital signs stable. Patient's creatinine is 2.6 up from baseline of 1.8. Given the patient's urinary retention and elevated creatinine, patient will be admitted for acute kidney injury. Discussed with Dr. Alonso gonzalez spitalist who accepts the patient. Impression & Plan PABLO (acute kidney injury), Acute retention of urine Discharge Plan Visit Data Chief Complaint: Urinary Symptoms Stated Complaint: URINARY ISSUES, BLOOD IN URINE ED Provider: Amador Landon Discharge Problem: PABLO (acute kidney injury), Acute retention of urine Patient Disposition: Being Evaluated by Hospitalist Forms Stand Alone Forms: My [facility] Prescriptions Prescriptions: No Action multivitamin Tablet 1 tab PO QAM RF: 0 clonidine HCl 0.1 mg Tablet 0.1 mg PO HS RF: 0 metoprolol succinate 50 mg Tablet Extended Release 24 Hr 50 mg PO QAM RF: 0 cyanocobalamin (vitamin B-12) [Vitamin B-12] 1,000 mcg Tablet 1,000 mcg PO DAILY RF: 0 fenofibrate micronized 134 mg Capsule 134 mg PO QAM RF: 0 levothyroxine 75 mcg Tablet 75 mcg PO QAM RF: 0 tamsulosin 0.4 mg Capsule 0.4 mg PO QAM RF: 0 amlodipine [Norvasc] 10 mg Tablet 10 mg PO QAM RF: 0 allopurinol 300 mg Tablet 300 mg PO QAM RF: 0 metronidazole 1 % Cream 1 applic TOPICAL BID RF: 0 hydrochlorothiazide 12.5 mg Tablet 12.5 mg PO QAM RF: 0 cholecalciferol (vitamin D3) [Vitamin D3] 50 mcg (2,000 unit) Capsule 2,000 mcg PO BID RF: 0 Ocuvite Adult 50 Plus 250-5-1 mg Capsule 1 cap PO HS RF: 0 finasteride 5 mg Tablet 5 mg PO HS RF: 0 lisinopril 10 mg Tablet 10 mg PO QPM RF: 0 magnesium oxide 400 mg magnesium Tablet 400 mg PO DAILY RF: 0 acetaminophen 500 mg Tablet 1,000 mg PO Q8 30 Days Qty: 180 RF: 0 tramadol 50 mg Tablet 50 - 100 mg PO Q6H PRN (Reason: pain) Qty: 30 RF: 0 aspirin 81 mg Tablet,Delayed Release (Dr/Ec) 81 mg PO BID 45 Days Qty: 90 RF: 0 Referrals Referrals: Celia Prajapati DO [Primary Care Provider] -
[2020-04-09 22:04] LABS: iSTAT Creatinine 2.8 mg/dl (0.6-1.3); iSTAT Hemoglobin 9.5 g/dl (14.0-18.0); iSTAT Ionized Calcium 1.26 mmol/l (1.12-1.32); iSTAT Potassium 4.6 mmol/L (3.3-5.0)
[2020-04-09 22:09] LABS: Appearance Urine Cloudy (Clear); Bacteria Urine Automated Negative (Negative); Bilirubin Urine Negative (Negative); Blood Urine 3+ (Negative); Color Urine Orange; Glucose Urine UA Negative (Negative); Ketones Urine Negative (Negative); Leukocyte Esterase Urine 2+ (Negative); Nitrite Urine Negative (Negative); Protein Urine 1+ (Negative); Specific Gravity Urine 1.019 (1.000-1.030); Urobilinogen Urine Negative (Negative)
[2020-04-09 22:24] LABS: Cast Urine Automated 0 /lpf (0-5); RBC Urine Automated >30 /hpf (0-4)
[2020-04-09 22:30] LABS: Basophils # (auto) 0.01 K/uL (0-0.2); Basophils % (auto) 0.1 %; Eosinophils # (auto) 0.11 K/uL (0-0.5); Eosinophils % (auto) 1.5 %; Hematocrit (blood only) 30.1 % (42-52); Hemoglobin 9.8 g/dL (14.0-18.0); Immature Granulocytes # (auto) 0.02 K/uL (0.00-0.02); Immature Granulocytes % (auto) 0.3 %; Lymphocytes # (auto) 1.04 K/uL (1.2-3.4); Mean Corpuscular Hemoglobin 29.4 pg (25-34); Mean Corpuscular Hgb Conc 32.6 g/dL (32-36); Mean Corpuscular Volume 90.4 fL (80-100); Mean Platelet Volume 10.2 fL (7.4-10.4); Monocytes # (auto) 0.81 K/uL (0.11-0.59); Monocytes % (auto) 10.9 %; Neutrophils # (auto) 5.43 K/uL (1.4-6.5); Neutrophils % (auto) 73.2 %; Platelet Count 200 K/uL (130-400); RDW Coefficient of Variation 14.4 % (11.5-14.5); RDW Standard Deviation 48.2 fL (36.4-46.3); Red Blood Count 3.33 M/uL (4.7-6.1); White Blood Count 7.42 K/uL (4.8-10.8)
[2020-04-09 22:57] LABS: BUN Creatinine Ratio 19.1 (10-20); Calcium 9.4 mg/dl (8.5-10.1); Creatinine Clr Calc Pharmacy 21.8 ml/min; Est GFR (Non-African American) 21.6; Potassium 4.8 mmol/L (3.5-5.1)
--- NOTE | 2020-04-10 02:18 | History and Physical Report ---
DATE OF ADMISSION: 04/10/2020 CHIEF COMPLAINT: Urinary retention, hematuria. HISTORY OF PRESENT ILLNESS: This is an 84-year-old male with past medical history significant for hypertriglyceridemia, hypomagnesemia, hypothyroidism, hypertension, chronic kidney disease stage III, vitamin B12 deficiency, vitamin D deficiency, BPH, rosacea, generalized osteoarthritis, who presents with urinary retention. The patient is status post recent left total hip replacement, was discharged yesterday home. After going home, he had trouble micturating. Initially he had micturated a little bit, but also noticed some blood in the micturition and today in the evening he was not able to micturate and had abdominal discomfort when he decided to come to the ER. He is status post Rojas and retention resolved. Now abdominal discomfort has resolved. CT of abdomen and pelvis was done and shows some bilateral nonobstructing kidney stones and UA was positive for hematuria and also urinary tract infection. The patient is currently resting comfortably and hemodynamically stable. The patient says it happened before with the prior surgeries. Denies any headache, no blurred vision, no earache, no runny nose, no sore throat, no cough, no chest pain, no shortness of breath, no nausea. Currently no abdominal pain. No blood in the stools or black stools. No swelling in the legs, no rash. ALLERGIES: TO AMOXICILLIN AND NUTS. PAST MEDICAL HISTORY: As mentioned above. PAST SURGICAL HISTORY: Removal of the terminal ileum and cecum in 1954, colonoscopy, cystourethroscopy for stone removal, multiple cystoscopies, EGDs, multiple lithotripsies, cataract surgeries bilateral, cholecystectomy, right total hip replacement in 2010 and left total hip replacement on 04/06/2020. MEDICATIONS: The patient is on hydrochlorothiazide 12.5 mg p.o. daily, metoprolol XL 50 mg p.o. daily, allopurinol 300 mg p.o. daily, amlodipine 10 mg p.o. daily, clonidine 0.5 mg p.o. at bedtime, fenofibrate 134 mg p.o. daily, levothyroxine 75 mcg p.o. daily, metronidazole gel apply twice daily to facial rash, Proscar 5 mg p.o. daily, Flomax 0.4 mg p.o. daily, lisinopril 10 mg p.o. daily, magnesium oxide 400 mg p.o. daily, vitamin D 4000 units p.o. daily, Ocuvite 1 tablet daily, vitamin B12 1000 mcg p.o. daily, multivitamin 1 tablet p.o. daily. FAMILY HISTORY: Significant for mother had diabetes and heart disorder; father had nephritis, at the age of 48; sister had lung disorder, at age of 53. SOCIAL HISTORY: . No smoking. Alcohol, 3 standard drinks of alcohol per week. No drug use. REVIEW OF SYSTEMS: As per HPI. Rest of the review of symptoms negative. PHYSICAL EXAMINATION: GENERAL: The patient is of moderate build, not in acute distress. VITAL SIGNS: Temperature 37.1, pulse 70, respiratory rate 16, blood pressure 115/56, oxygen 98% on room air. HEENT: No pallor, no icterus. NECK: No JVD, no neck masses. CARDIOVASCULAR: S1, S2 heard, regular rate and rhythm, no murmur, no gallop. RESPIRATORY SYSTEM: Normal AP diameter. No accessory muscle use. No wheezing, no crackles. ABDOMEN: Soft, bowel sounds present, nontender. No distention. CENTRAL NERVOUS SYSTEM: Cranial nerves II-XII grossly intact. Nonfocal. EXTREMITIES: No edema, no erythema. LABORATORY DATA: WBC 7.4, hemoglobin 9.8, hematocrit 30.1, platelets 200. Sodium 133, potassium 4.8, chloride 103, bicarbonate 22, BUN 50, creatinine 2.6, serum glucose 132, calcium 9.4. Urinalysis, positive for +1 protein, +3 blood, positive for leukocyte esterase, negative for bacteria. IMAGING DATA: CT of the abdomen and pelvis, preliminary report shows mild prominence of the right renal collecting system and ureter. No obstructing stones seen along the visualized course of the ureter, multiple nonobstructing stones within the kidneys bilaterally. ASSESSMENT AND PLAN: This is an 84-year-old male who presents with urinary retention and mild hematuria. 1. Urinary retention and mild hematuria. Just got discharged yesterday after left total hip replacement. Had similar episodes after surgeries in the past. Has history of benign prostatic hypertrophy, on Flomax and finasteride, which will continue. Currently status post Rojas and clear urine is draining. We will continue with IV fluids and consult urology in the a.m. for further recommendations and follow the final report of the CT scan. 2. Possible urinary tract infection. We will place him on Rocephin and follow the cultures. 3. Acute kidney injury on chronic kidney disease stage III, baseline creatinine around 2, final creatinine of 2.6. Getting fluids. Holding lisinopril/hydrochlorothiazide. Follow the labs in a.m. 4. Hypertriglyceridemia. Continue his home fenofibrate. 5. Hypertension. Continue amlodipine, Catapres, Toprol-XL. Holding lisinopril/hydrochlorothiazide. Will monitor the blood pressure. 6. Hypothyroidism. Continue Synthroid. 7. Hypomagnesemia, continue magnesium supplement. 8. Vitamin B12 and vitamin D deficiency, continue supplements. 9. Deep venous thrombosis prophylaxis, sequential compression devices for now and continue aspirin 81 mg b.i.d. Will hold aspirin if continues to have hematuria. DISPOSITION: Admit to medical floor. Expect to discharge home and follow with family doctor. PT and OT prior to discharge. Social service to help with discharge planning. RAY
[2020-04-10] MEDS ORDERED: SODIUM CHLORIDE 0.9% 1000ML 1,000 ML IV SCH (02:55)
[2020-04-10] MEDS ORDERED: ONDANSETRON INJ 2 MG/ML 2 ML VIAL IV PRN (02:55)
[2020-04-10] MEDS ORDERED: POLYETHYLENE (MIRALAX) 17 GM PACK PO PRN (02:55)
[2020-04-10] MEDS ORDERED: ACETAMINOPHEN 325 MG TAB PO PRN (02:55)
[2020-04-10] MEDS ORDERED: TRAMADOL HCL 50 MG TABLET PO PRN (02:55)
[2020-04-10] MEDS: ACETAMINOPHEN 500 MG TAB PO SCH ×2 (03:16→11:00)
[2020-04-10] MEDS ORDERED: cefTRIAXone SODIUM 2,000 MG in DEXTROSE 5% 50 ML IV SCH (04:00)
[2020-04-10] MEDS ORDERED: LEVOTHYROXINE SODIUM 75 MCG TABLET PO SCH (06:30)
[2020-04-10 07:21] LABS: Basophils # (auto) 0.01 K/uL (0-0.2); Basophils % (auto) 0.2 %; Eosinophils # (auto) 0.17 K/uL (0-0.5); Eosinophils % (auto) 2.8 %; Hematocrit (blood only) 29.2 % (42-52); Hemoglobin 9.9 g/dL (14.0-18.0); Immature Granulocytes # (auto) 0.02 K/uL (0.00-0.02); Immature Granulocytes % (auto) 0.3 %; Lymphocytes # (auto) 0.79 K/uL (1.2-3.4); Lymphocytes % (auto) 13.1 %; Mean Corpuscular Hemoglobin 29.9 pg (25-34); Mean Corpuscular Hgb Conc 33.9 g/dL (32-36); Mean Corpuscular Volume 88.2 fL (80-100); Mean Platelet Volume 9.9 fL (7.4-10.4); Monocytes # (auto) 0.69 K/uL (0.11-0.59); Monocytes % (auto) 11.5 %; Neutrophils # (auto) 4.34 K/uL (1.4-6.5); Neutrophils % (auto) 72.1 %; Platelet Count 206 K/uL (130-400); RDW Coefficient of Variation 14.6 % (11.5-14.5); RDW Standard Deviation 47.4 fL (36.4-46.3); Red Blood Count 3.31 M/uL (4.7-6.1); White Blood Count 6.02 K/uL (4.8-10.8)
--- NOTE | 2020-04-10 07:31 | CT Scan Report ---
CT SCAN OF THE ABDOMEN AND PELVIS WITHOUT CONTRAST CLINICAL HISTORY: hematuria difficulty urinating COMPARISON STUDY: No previous studies for comparison. TECHNIQUE: CT scan of the abdomen and pelvis was performed from the lung bases to the proximal femurs . Images are reviewed in the axial, sagittal, and coronal planes. IV contrast was not administered fo r this examination. A dose lowering technique was utilized adhering to the principles of ALARA. CT DOSE: 538.09 mGy.cm FINDINGS: Lower chest: There are mild dependent atelectatic changes. Liver: There is a nonspecific 1 cm right lobe hepatic hypodensity, possibly representing a cyst Gallbladder: Not visualized presumed surgically absent Spleen: There is mild splenomegaly (14 cm). Pancreas: Unremarkable. Adrenal glands: Unremarkable. Kidneys: There is bilateral nephrolithiasis. Is a 14 mm left renal cyst. Additionally there are bilat eral hyperdense exophytic renal lesions likely representing hyperdense cysts. No ureteral or bladder calculi are visualized. The distal ureters and bladder are partially obscured due to artifact from bi lateral hip arthroplasties Bowel: There are no transition zones to indicate bowel obstruction. There is no acute diverticulitis. By history the appendix is surgically absent. Peritoneum: There is no intraperitoneal free air or abdominal ascites. Vasculature: The abdominal aorta is normal in course and caliber. Adenopathy: None. Pelvic viscera: Evaluation of pelvis is limited due to artifact from bilateral hip arthroplasties. Th ere is an indwelling Rojas catheter present. Skeletal structures: No destructive osseous lesions are seen. There is gas present within the soft ti ssues and muscles surrounding the left hip consistent with recent surgery. IMPRESSION: 1. Bilateral nephrolithiasis. No ureteral calculi identified 2. Indwelling Rojas catheter 3. No evidence of bowel obstruction. No evidence of free air 4. Postsurgical changes relating to a recent total left hip arthroplasty. ACT 112: Negative or not required by law. Electronically signed by: Chris Bonilla M.D. 04/10/2020 7:29 AM
[2020-04-10 07:54] LABS: BUN Creatinine Ratio 23.8 (10-20); Creatinine Clr Calc Pharmacy 27.8 ml/min; Est GFR (African American) 33.7; Est GFR (Non-African American) 29.1; Potassium 4.3 mmol/L (3.5-5.1)
[2020-04-10] MEDS ORDERED: TRICOR~ORDER AWAITING ACTION SCH (08:00)
[2020-04-10] MEDS ORDERED: [UNRECOGNIZED DRUG - OTHER] SCH (08:00)
[2020-04-10] MEDS ORDERED: CYANOCOBALAMIN 500 MCG TABLET (VITAMIN B-12) PO SCH (09:00)
[2020-04-10] MEDS ORDERED: CHOLECALCIFEROL 1,000 UNITS 25 MCG TAB PO SCH (09:00)
[2020-04-10] MEDS ORDERED: AMLODIPINE BESYLATE 5 MG TAB PO SCH (09:00)
[2020-04-10] MEDS ORDERED: ASPIRIN 81 MG ECTAB PO SCH (09:00)
[2020-04-10] MEDS ORDERED: MAGNESIUM OXIDE 400 MG TAB PO SCH (09:00)
[2020-04-10] MEDS ORDERED: TAMSULOSIN HCL 0.4 MG CAP PO SCH (09:00)
[2020-04-10] MEDS ORDERED: allopurinoL 300 MG TAB PO SCH (09:00)
[2020-04-10] MEDS ORDERED: METOPROLOL SUCC 50MG EXT REL TAB PO SCH (09:00)
[2020-04-10] MEDS ORDERED: MULTIVITAMIN TAB PO SCH (09:00)
--- NOTE | 2020-04-10 10:56 | Urology Consultation ---
Date of Consultation April 10, 2020 Assessment & Plan (1) Acute retention of urine: Patient has a well known urologic history and is previously been a longtime Dr. Saravia patient. He has multiple issues including kidney stones, history of retention, incomplete emptying, gross hematuria, and meatal/urethral stricture. Discussed findings. Discussed concerns and issues. Patient is tolerating catheter very well at this time. He is previously attempted to get catheters out early and has at times ended up in the ER with retention. Patient is tolerating catheter well without major problems or issues. No current blood within the urine. Does have some mild blood at the meatus. Patient describes what sounds like a meatal stricture which is been previously dilated and has bled like this in the past. Discussed different options for this including application of triple antibiotic ointment or petroleum jelly or some other barrier type paste otherwise continue with catheter. Discussed options for removal. We will plan to keep for approximately 5 to 7 days and will set up a appointment in our office to have catheter removed. He was planning to get established with Dr. Whitt as he lives in the [facility] and would like to go to the clinic out there. Has been typically followed yearly with Dr. Saravia. Has a well-known history of kidney stones and on most recent imaging does have some small stones. Also has family history of stones Patient is very complicated medical and surgical history was all reviewed and summarized as above. Patient's imaging was reviewed interpreted by myself. We will set up for office visit with nursing and plan for future follow-up to establish with Dr. Whitt. (2) PABLO (acute kidney injury): (3) Hematuria, gross: History of Present Illness Attending Physician: Ortega Velázquez DO History of Present Illness Consult for urinary issues with incomplete emptying and possible retention. Patient has mild to moderate discomfort in pelvis and groin going to back and side in waves. Is dealing with acute illness. Has been deconditioned from this. Has decreased mobility significantly with acute issues. Patient is a longtime patient of Dr. Saravia and is previously had severe issues with kidney stones. Also developed urethral strictures as well as a meatal stricture. Patient has recently had episodes of bleeding and was most recently scoped by Dr. Saravia in September. At that time had somewhat irritated bladder due to stricture of the urethra which had been dilated. At this point patient has a new catheter in due to inability to void. During the placement of this catheter developed a meatal bleed which continues to have some mild oozing. Patient has not had complete return to normal bowel function. Has had some minor urinary issues in the past. Denies bleeding. No severe nausea or vomiting. Currently no fevers. Discussed with patient multifactorial nature of urinary issues, retention, and incomplete bladder emptying. Discussed concerns and issues. Discussed decreased mobility and trouble voiding. Discussed issues related to deconditioning and weakened state. Discussed possibility that patient had more moderate to severe issues and with the acute illness and deconditioning these issues became more prevalent and obvious. Discussed bowel function and possible issues related to decrease in function and its relation to other pelvic organs and systems. Discussed different medications, will use during hospitalization and their effect on ability to empty. Allergies Allergy/AdvReac Type Severity Reaction Status Date / Time hazelnut Allergy Severe Anaphylaxis Verified 04/09/20 21:41 Penicillins Allergy Severe AMOXICILLIN Verified 04/09/20 21:41 --diarrhea oyster extract Allergy Intermediate Vomiting Verified 04/09/20 21:41 pollen extracts Allergy Intermediate TREE Verified 04/09/20 21:41 POLLEN-seasonal allergies Home Medications Home Medications Medication Instructions Recorded Confirmed Type Ocuvite Adult 50 Plus 1 cap PO HS 03/31/20 04/09/20 History allopurinol 300 mg PO QAM 03/31/20 04/09/20 History amlodipine [Norvasc] 10 mg PO QAM 03/31/20 04/09/20 History cholecalciferol (vitamin D3) 2,000 mcg PO BID 03/31/20 04/09/20 History [Vitamin D3] clonidine HCl 0.1 mg PO HS 03/31/20 04/09/20 History cyanocobalamin (vitamin B-12) 1,000 mcg PO DAILY 03/31/20 04/09/20 History [Vitamin B-12] fenofibrate micronized 134 mg PO QAM 03/31/20 04/09/20 History finasteride 5 mg PO HS 03/31/20 04/09/20 History hydrochlorothiazide 12.5 mg PO QAM 03/31/20 04/09/20 History levothyroxine 75 mcg PO QAM 03/31/20 04/09/20 History lisinopril 10 mg PO QPM 03/31/20 04/09/20 History magnesium oxide 400 mg PO DAILY 03/31/20 04/09/20 History metoprolol succinate 50 mg PO QAM 03/31/20 04/09/20 History metronidazole 1 applic TOPICAL BID 03/31/20 04/09/20 History multivitamin 1 tab PO QAM 03/31/20 04/09/20 History tamsulosin 0.4 mg PO QAM 03/31/20 04/09/20 History acetaminophen 1,000 mg PO Q8 30 Days #180 tab 04/07/20 04/09/20 Rx aspirin 81 mg PO BID 45 Days #90 tab 04/07/20 04/09/20 Rx tramadol 50 - 100 mg PO Q6H PRN #30 tab 04/07/20 04/09/20 Rx Patient History Medical History Arthritis of left hip BPH (benign prostatic hyperplasia) CKD (chronic kidney disease) stage 3, GFR 30-59 ml/min Baseline creatinine ~ 2.0 GERD (gastroesophageal reflux disease) diet related, no medications High triglycerides Hypertension Hypothyroidism Lyme disease hx Osteoarthritis Peritonitis Seasonal allergies Skin cancer Small bowel obstruction Surgical History H/O exploratory laparotomy r/t peritonitis and collapsed bowel. History of appendectomy with colon resection surgery History of cataract surgery bilateral History of cholecystectomy with colon resection surgery History of colonoscopy History of esophagogastroduodenoscopy (EGD) History of total hip arthroplasty right S/P colon resection 1950's Status post Mohs surgery Family History Other No family history of adverse response to anesthesia Social History Preferred Language: Palestinian Communication Ability: Effective Physical Plant Manager Required: No Beliefs That Will Affect Care: None marital status: Current Living Situation: Spouse Current Living Situation Comment: has dementia Other Information That Helps Us Care for You: No Feels Safe at Home: Yes Safety Concerns: Feels Safe At This Time Smoking Status: Never smoker Second Hand Exposure: No ; Hx Alcohol Use: Yes Alcohol type: wine Hx Substance Use: No Review of Systems Review of Systems: All systems reviewed & are unremarkable except as noted in HPI & below Physical Exam Physical Exam: General: Alert and oriented x 3 in no acute distress. Patient is well nourished and well kept. HEENT: Normocephalic Atraumatic. Inspection normal. Cranial Nerves 2-12 Grossly intact. Nares are clear. Neck is supple. Normal inspection of face. Normal inspection of neck. Neurologic: No deficits on inspection. Baseline for motor function and sensory. Psychologic: Normal affect. Respiratory: Nonlabored. No use of accessory muscles. No tachypnea or dyspnea. Cardiovascular: No tachycardia Skin: [place] and Dry. No rashes or visible lesions. Extremities: Moving slowly secondary to recent surgery. No motor deficits on inspection Lymphatics: No edema Abdomen: Soft Non-distended. No acites. No rebound or guarding. Results & Data Vital Signs (Past 12 Hours) Vital Signs Temp Pulse Pulse Resp BP BP Pulse Ox 04/10/20 07:48 36.6 C 79 18 123/66 96 04/10/20 03:21 36.8 C 84 18 139/75 98 04/10/20 02:06 71 18 96/40 L 97 04/10/20 00:30 70 16 115/56 L 98 04/09/20 23:30 71 18 120/60 98 PG Care Time/CCT Total # of Minutes Spent Total Time Spent with Patient: Total time spent is greater than 50% in coordination of care (as documented) at patient's floor/unit and/or counseling patient: Coding Level of Care Code 06276 Inpt Consult Level 5 Diagnoses Acute retention of urine R33.8 PABLO (acute kidney injury) N17.9 Hematuria, gross R31.0
--- NOTE | 2020-04-10 12:23 | Hospitalist Progress Note ---
Date of Service April 10, 2020 Assessment & Plan (1) Hematuria, gross: (2) PABLO (acute kidney injury): (3) Acute retention of urine: (4) Status post total hip replacement, left: Zaman in Place and Feeling much better. DC 1-2 days as renal function improves, f/u c Dr Whitt as outpatient and remove zaman in the office. ROS-No Headache, No Visual Changes, No Nausea, No Vomiting, No Fever, No Chills, No Neck Pain or Stiffness, No Chest Pain, No Palpitations, No SOB, No HERNANDEZ, No Cough, No Sputum, No Wheezing, No Abdominal Pain, No Diarrhea, No Hematemesis, No Hemoptysis, No Unexpected Weight Loss, No Flank pain, No Melena, No Hematochezia, No Frequency, No Urgency, No Burning, No Hematuria, No Rashes, No Diaphoresis. Appetite is Normal Physical Exam Gen-AAO x 3, NAD, Afebrile Head-NCAT, EOMI, PERRLA, Anicteric Sclera, No Posterior Pharyngeal Erythema Neck-Supple, No JVD, No Thyromegaly, No Masses, No LAD, No Bruits Lungs-Clear to Auscultation Bilaterally, No Rales, No Rhonchi, No Wheezing, No Crepitus Chest-No S4, +S1, +S2, No S3, No Murmurs, No Rubs, No Gallops, No Ectopy Abdomen-Soft, Bowel Sounds Present, Non Tender, Non Distended, No Hepatomegaly, No Splenomegaly, No Palpable Masses, No Rebound, No Rigidity, No Guarding Musculoskeletal-Full Range of Motion Bilaterally, No CVAT Extremities-No Cyanosis, No Clubbing, No Edema Nuero-Cranial Nerves II-XII grossly intact, Motor WNL, DTRs WNL, Strength WNL, Non Focal Psych-Normal Mood Admission and Anticipated Discharge Date Admission Date: April 10, 2020 Anticipated date of discharge: 04/11/20 Results & Data Results & Data ([facility]) Vital Signs (Past 12 Hours) Vital Signs Temp Pulse Pulse Resp BP BP Pulse Ox 04/10/20 07:48 36.6 C 79 18 123/66 96 04/10/20 03:21 36.8 C 84 18 139/75 98 04/10/20 02:06 71 18 96/40 L 97 04/10/20 00:30 70 16 115/56 L 98
--- NOTE | 2020-04-10 13:31 | Discharge Summary ---
Date of Service April 10, 2020 Admission HPI Per Admitting Provider 84-year-old male with past medical history significant for hypertriglyceridemia, hypomagnesemia, hypothyroidism, hypertension, chronic kidney disease stage III, vitamin B12 deficiency, vitamin D deficiency, BPH, rosacea, generalized osteoarthritis, who presents with urinary retention. The patient is status post recent left total hip replacement, was discharged yesterday home. After going home, he had trouble micturating. Initially he had micturated a little bit, but also noticed some blood in the micturition and today in the evening he was not able to micturate and had abdominal discomfort when he decided to come to the ER. He is status post Zaman and retention resolved. Now abdominal discomfort has resolved. CT of abdomen and pelvis was done and shows some bilateral nonobstructing kidney stones and UA was positive for hematuria and also urinary tract infection. The patient is currently resting comfortably and hemodynamically stable. The patient says it happened before with the prior surgeries. Denies any headache, no blurred vision, no earache, no runny nose, no sore throat, no cough, no chest pain, no shortness of breath, no nausea. Currently no abdominal pain. No blood in the stools or black stools. No swelling in the legs, no rash. Admission Exam Per Admitting Provider PHYSICAL EXAMINATION: GENERAL: The patient is of moderate build, not in acute distress. VITAL SIGNS: Temperature 37.1, pulse 70, respiratory rate 16, blood pressure 115/56, oxygen 98% on room air. HEENT: No pallor, no icterus. NECK: No JVD, no neck masses. CARDIOVASCULAR: S1, S2 heard, regular rate and rhythm, no murmur, no gallop. RESPIRATORY SYSTEM: Normal AP diameter. No accessory muscle use. No wheezing, no crackles. ABDOMEN: Soft, bowel sounds present, nontender. No distention. CENTRAL NERVOUS SYSTEM: Cranial nerves II-XII grossly intact. Nonfocal. EXTREMITIES: No edema, no erythema. Principal Diagnosis Urine retention Hematuria, gross: PABLO (acute kidney injury): Acute retention of urine: Status post total hip replacement, left: Discharge Exam ROS-No Headache, No Visual Changes, No Nausea, No Vomiting, No Fever, No Chills, No Neck Pain or Stiffness, No Chest Pain, No Palpitations, No SOB, No HERNANDEZ, No Cough, No Sputum, No Wheezing, No Abdominal Pain, No Diarrhea, No Hematemesis, No Hemoptysis, No Unexpected Weight Loss, No Flank pain, No Melena, No Hematochezia, No Frequency, No Urgency, No Burning, No Hematuria, No Rashes, No Diaphoresis. Appetite is Normal Physical Exam Gen-AAO x 3, NAD, Afebrile Head-NCAT, EOMI, PERRLA, Anicteric Sclera, No Posterior Pharyngeal Erythema Neck-Supple, No JVD, No Thyromegaly, No Masses, No LAD, No Bruits Lungs-Clear to Auscultation Bilaterally, No Rales, No Rhonchi, No Wheezing, No Crepitus Chest-No S4, +S1, +S2, No S3, No Murmurs, No Rubs, No Gallops, No Ectopy Abdomen-Soft, Bowel Sounds Present, Non Tender, Non Distended, No Hepatomegaly, No Splenomegaly, No Palpable Masses, No Rebound, No Rigidity, No Guarding Musculoskeletal-Full Range of Motion Bilaterally, No CVAT Extremities-No Cyanosis, No Clubbing, No Edema Nuero-Cranial Nerves II-XII grossly intact, Motor WNL, DTRs WNL, Strength WNL, Non Focal Psych-Normal Mood +Zaman Discharge Data Allergies Allergy/AdvReac Type Severity Reaction Status Date / Time hazelnut Allergy Severe Anaphylaxis Verified 04/09/20 21:41 Penicillins Allergy Severe AMOXICILLIN Verified 04/09/20 21:41 --diarrhea oyster extract Allergy Intermediate Vomiting Verified 04/09/20 21:41 pollen extracts Allergy Intermediate TREE Verified 04/09/20 21:41 POLLEN-seasonal allergies Consultations 04/09/20 23:24 ED Decision to Admit Stat 04/10/20 02:55 Consult Case Management - Discharge Planning Routine 04/10/20 07:00 Consult Urology Routine Ordered Studies 04/09/20 21:29 CT abd pelvis wo con Urgent Current Diagnoses Acute kidney failure, unspecified (04/10/20) Gross hematuria (04/10/20) Other retention of urine (04/10/20) Presence of left artificial hip joint (04/10/20) Allergies hazelnut Allergy (Severe, Verified 04/09/20 21:41) Anaphylaxis Penicillins Allergy (Severe, Verified 04/09/20 21:41) AMOXICILLIN--diarrhea oyster extract Allergy (Intermediate, Verified 04/09/20 21:41) Vomiting pollen extracts Allergy (Intermediate, Verified 04/09/20 21:41) TREE POLLEN-seasonal allergies Height/Weight/Isolation Height 5 ft 10 in Weight 80.4 kg Chemistry 04/09/20 04/10/20 22:10 07:02 Sodium 133 L 139 Potassium 4.8 4.3 Chloride 103 110 H Carbon Dioxide 22 21 Anion Gap 7.0 8.0 BUN 50 H 49 H Creatinine 2.61 H 2.04 H D Glucose 127 H 138 H Urinalysis 04/09/20 21:45 Urine Color Cross Urine Appearance Cloudy A Urine pH 5.0 Ur Specific [place] 1.019 Urine Protein 1+ H Urine Glucose (UA) Negative Urine Ketones Negative Urine Blood 3+ H Urine Nitrite Negative Urine Bilirubin Negative Microbiology 04/09/20 21:45 Urine,Straight Cath Urine Culture - Preliminary No growth - Less than 1,000 colonies/mL, Final report to follow. Hospital Course (1) Hematuria, gross: (2) PABLO (acute kidney injury): (3) Acute retention of urine: (4) Status post total hip replacement, left: Zaman in Place and Feeling much better. DC today, f/u c Dr Whitt as outpatient and remove zaman in the office. Total Time Total Time Spent Total Time Spent (In Minutes): 45 mins Total Time Includes: Examination of the Patient, Discharge Planning, Medication Reconciliation and Communication With Other Providers Discharge Plan Discharge Items Patient Disposition: Home - Self-Care Reason For Visit: URINARY RETENTION Discharge Diagnosis: Urine retention Hematuria, gross: PABLO (acute kidney injury): Acute retention of urine: Status post total hip replacement, left: Condition on Discharge: Good Activity: Resume your previous activity Lifting: None Bathing: Keep incision dry Sexual Activity: When tolerated Exercise/Sports: None Driving/Machine Use: As directed by Ortho Weightbearing: Full weightbearing Non-emergency contact: Primary Care Provider, Surgeon and Urologist Call non-emergency contact if: you have any medication questions Follow-up/Referrals: Celia Prajapati DO [Primary Care Provider] - Rey Whitt MD [Physician] - (5-7 days) Diet: Regular Addtl Attending Provider Instructions: Remove zaman in office c Md [facility] Pending Studies at Discharge: No Stand-Alone Forms: My [facility], Smoking Cessation Medications and DC Order Prescriptions: Continued multivitamin Tablet 1 tab PO QAM RF: 0 clonidine HCl 0.1 mg Tablet 0.1 mg PO HS RF: 0 metoprolol succinate 50 mg Tablet Extended Release 24 Hr 50 mg PO QAM RF: 0 cyanocobalamin (vitamin B-12) [Vitamin B-12] 1,000 mcg Tablet 1,000 mcg PO DAILY RF: 0 fenofibrate micronized 134 mg Capsule 134 mg PO QAM RF: 0 levothyroxine 75 mcg Tablet 75 mcg PO QAM RF: 0 tamsulosin 0.4 mg Capsule 0.4 mg PO QAM RF: 0 amlodipine [Norvasc] 10 mg Tablet 10 mg PO QAM RF: 0 allopurinol 300 mg Tablet 300 mg PO QAM RF: 0 metronidazole 1 % Cream 1 applic TOPICAL BID RF: 0 hydrochlorothiazide 12.5 mg Tablet 12.5 mg PO QAM RF: 0 cholecalciferol (vitamin D3) [Vitamin D3] 50 mcg (2,000 unit) Capsule 2,000 mcg PO BID RF: 0 Ocuvite Adult 50 Plus 250-5-1 mg Capsule 1 cap PO HS RF: 0 finasteride 5 mg Tablet 5 mg PO HS RF: 0 lisinopril 10 mg Tablet 10 mg PO QPM RF: 0 magnesium oxide 400 mg magnesium Tablet 400 mg PO DAILY RF: 0 acetaminophen 500 mg Tablet 1,000 mg PO Q8 30 Days Qty: 180 RF: 0 tramadol 50 mg Tablet 50 - 100 mg PO Q6H PRN (Reason: pain) Qty: 30 RF: 0 aspirin 81 mg Tablet,Delayed Release (Dr/Ec) 81 mg PO BID 45 Days Qty: 90 RF: 0 Discharge Orders: Discharge Order (Routine); Ordered 04/10/20 Ordered By: Ortega Velázquez Admission Data Admit Date/Time: 04/10/20 00:59 Attending Provider: Ortega Velázquez Admit Provider: Delfino Gupta Primary Care Provider: Celia Prajapati Other Providers: Delfino Gupta ; Rodriguez aMyers ; Sinan Eng ; Channing Jasmine I. ; Rey Whitt ; Suzan Johns ; Mindy Alicea ; Jose Gamez ; Dinora Cuevas ; Yolette Oakley ; Filemon Alexander ; Jillian Shaw
[2020-04-10] MEDS ORDERED: cloNIDine HCL 0.1 MG TAB PO SCH (21:00)
[2020-04-10] MEDS ORDERED: FINASTERIDE 5 MG TAB PO SCH (21:00)
[2020-04-10] MEDS ORDERED: CEROVITE ADV FORMULA TAB PO SCH (21:00)
== END 2020-04-10 17:15 | disposition home or self-care (01) | DRG 683 ==
LOC: ED 20:44 → 3W 04-10 00:59 → INTOOBSV 04-10 00:59 → 3W 04-10 02:25

== ENCOUNTER 2021-08-19 10:52 | Inpatient (IN) ==
[2021-08-19] MEDS ORDERED: ONDANSETRON INJ 2 MG/ML 2 ML VIAL IV STA (11:06)
[2021-08-19] MEDS ORDERED: SODIUM CHLORIDE 0.9% 1000ML 1,000 ML IV SCH (11:15)
[2021-08-19] MEDS ORDERED: SODIUM CHLORIDE 0.9% 1000ML 500 ML IV ONE (11:25)
[2021-08-19 11:26] LABS: Basophils # (auto) 0.01 K/uL (0-0.2); Basophils % (auto) 0.2 %; Eosinophils # (auto) 0.02 K/uL (0-0.5); Eosinophils % (auto) 0.4 %; Hematocrit (blood only) 37.2 % (42-52); Hemoglobin 12.5 g/dL (14.0-18.0); Immature Granulocytes # (auto) 0.01 K/uL (0.00-0.02); Immature Granulocytes % (auto) 0.2 %; Lymphocytes # (auto) 1.18 K/uL (1.2-3.4); Lymphocytes % (auto) 21.1 %; Mean Corpuscular Hemoglobin 29.7 pg (25-34); Mean Corpuscular Hgb Conc 33.6 g/dL (32-36); Mean Corpuscular Volume 88.4 fL (80-100); Mean Platelet Volume 9.7 fL (7.4-10.4); Monocytes # (auto) 0.64 K/uL (0.11-0.59); Monocytes % (auto) 11.5 %; Neutrophils # (auto) 3.72 K/uL (1.4-6.5); Neutrophils % (auto) 66.6 %; Platelet Count 266 K/uL (130-400); RDW Coefficient of Variation 15.5 % (11.5-14.5); RDW Standard Deviation 49.6 fL (36.4-46.3); Red Blood Count 4.21 M/uL (4.7-6.1); White Blood Count 5.58 K/uL (4.8-10.8)
--- NOTE | 2021-08-19 12:21 | CT Scan Report ---
CT OF THE ABDOMEN AND PELVIS WITHOUT CONTRAST CLINICAL HISTORY: Abdominal pain and vomiting. COMPARISON STUDY: CT of the abdomen and pelvis May 26, 2020. KUB December 30, 2020. TECHNIQUE: Axial images of the abdomen and pelvis were obtained without IV contrast. Images were revi ewed in the axial, sagittal, and coronal planes. Automated exposure control was utilized for the swapna dy. A dose lowering technique was utilized adhering to the principles of ALARA. FINDINGS: Lung bases are unremarkable. There is mild cardiomegaly. A small hiatal hernia is present. No pneumatosis, free air or portal venous gas is present. Evaluation of the abdomen and pelvis is sub optimal on this unenhanced exam. A few small hypodense hepatic lesions are unchanged and CT of May 26, 2020. There is no biliary or pancreatic ductal dilatation. Unenhanced images of the spleen, adre nal glands and pancreas are unremarkable. Gallbladder is not visualized. Multiple bilateral renal les ions are noted. Several these are hyperdense. These are suboptimally assessed on this unenhanced exam but may reflect hyperdense cysts. Several left renal calculi measure up to 6 mm. No ureteral calculi are identified. Images of the pelvis are suboptimal given streak artifact from bilateral hip arthrop lasties. Colonic diverticulosis is noted without evidence for acute diverticulitis. There is moderate dilatation of the proximal to mid small bowel. Definite transition point is not identified however t he findings suggest a small bowel obstruction. Similar pattern was shown on CT of May 26, 2020. Th ere is mild associated mesenteric infiltration. Distal ileum is relatively decompressed. Caliber of t he abdominal aorta is normal. There is moderate plaque. No acute fracture or suspicious lesion is joshua ntified within the visualized skeletal structures. IMPRESSION: 1. Moderate dilatation of the proximal to mid small bowel. No discrete transition point identified ho wever the distal ileum is relatively decompressed. These findings favor a small bowel obstruction. An enteritis could appear similar although is considered less likely. Mild associated mesenteric infilt ration. 2. Left-sided nephrolithiasis. No ureteral calculi. 3. Colonic diverticulosis without evidence for acute diverticulitis. ACT 112: Negative or not required by law. Electronically signed by: Nilesh Mckeon M.D. 08/19/2021 12:20 PM
--- NOTE | 2021-08-19 12:27 | Emergency Department Note ---
Impression & Plan Small bowel obstruction, Nausea, vomiting, and diarrhea, Acute kidney injury superimposed on chronic kidney disease ED Provider Note Provider: Tk Gracia MD DATE OF SERVICE: 08/19/2021 CHIEF COMPLAINT: Abdominal distention, nausea HISTORY OF PRESENT ILLNESS: Patient is a 85-year-old female history of CKD, SBO, hip replacement presenting here today complaining of developing yesterday some nausea and some slight diarrhea. No longer passing gas but having belching and nausea one episode of vomiting. Patient states has not been able eat or drink much overnight. Patient with significant abdominal history and history of SBO. Patient states it feels similar. No fevers reported or trauma. Little bit unsteady or slightly lightheaded but denies any headache or focal numbness or weakness. Recovering from antibiotics for recent right lower leg cellulitis although he states this is much improved. REVIEW OF SYSTEMS: A total of 10 review of systems was obtained and negative except as stated above in the HPI. PAST MEDICAL HISTORY: As noted above MEDICATIONS: Reviewed home medications SOCIAL HISTORY: Lives at home with PHYSICAL EXAM: GENERAL: alert and oriented in no acute distress on stretcher Head: normocephalic and atraumatic EYES: No injection, discharge or icterus. NECK: Trachea midline. ENT: Mucous membranes pink and moist. LUNGS: Airway patent. No retractions. Breath sounds clear HEART: Regular rate and rhythm. No chest wall tenderness ABDOMEN: Abdominal distention minimal tenderness. SKIN: Acyanotic, warm, dry, without rashes EXTREMITIES: Without swelling, tenderness or deformity NEUROLOGICAL: No focal deficits. No aphasia. No facial droop or slurred speech. Ambulatory. EK beats per normal sinus rhythm with sinus arrhythmia. No PVC or PAC. No acute ST segment elevation or depression. QTC 435. CONTINUOUS CARDIAC MONITORING: was ordered and showed a heart rate of 70s-80s bpm in normal sinus rhythm Patient's laboratory studies and imaging reviewed. Differential includes Appendicitis, testicular torsion, infections, diverticulitis, UTI, obstruction, mesenteric ischemia, aortic pathology, inflammatory bowel disease, renal colic, PUD, pancreatitis, biliary pathology, hernia, volvulus, constipation, as well as other pathologies. IMPRESSION/MEDICAL DECISION MAKING: Patient presentation seem consistent unfortunately with recurrent of bowel obstruction. Basic labs were completed. CT scan favors small bowel obstruction less likely an enteritis. No longer passing flatus or having significant diarrhea today and more likely an SBO given the clinical history. No significant leukocytosis. Mild PABLO. Borderline hyponatremia. No labs concerning for hepatitis or pancreatitis. EKG reassuring and negative troponin doubt ACS/PA. Given the patient's age and comorbidities feel that nasal gastric tube decompression which has helped before will be beneficial as well some IV fluids (500mL gentle IVF hydration in ED). We further observation be beneficial. Do not feel he is a surgical abdomen. Hospitalist was consulted. X-ray to confirm NG tube placement was obtained. DIAGNOSIS: Small bowel obstruction, nausea and vomiting, PABLO on CKD DISPOSITION: Hospitalist will evaluate Patient was agreeable with this plan. Past Med/Surg History Medical History Arthritis of left hip BPH (benign prostatic hyperplasia) CKD (chronic kidney disease) stage 3, GFR 30-59 ml/min CKD (chronic kidney disease), stage IV GERD (gastroesophageal reflux disease) High triglycerides Hypertension Hypothyroidism Lyme disease Osteoarthritis Peritonitis Seasonal allergies Skin cancer Small bowel obstruction Surgical History H/O exploratory laparotomy History of appendectomy History of cataract surgery History of cholecystectomy History of colonoscopy History of esophagogastroduodenoscopy (EGD) History of total hip arthroplasty S/P colon resection Status post Mohs surgery Status post right hip replacement Family History Other Diabetes No family history of adverse response to anesthesia Social History Smoking Status: Never smoker Second Hand Exposure: No; Hx Alcohol Use: Yes Alcohol type: wine Hx Substance Use: No Preferred Language: Citizen Of [place] Communication Ability: Effective Technical Supervisor Required: No Beliefs That Will Affect Care: None marital status: Current Living Situation: Spouse Current Living Situation Comment: has dementia Feels Safe at Home: Yes Assistive Devices: Glasses Allergies Allergies Allergy/AdvReac Type Severity Reaction Status Date / Time hazelnut Allergy Severe Anaphylaxis Verified 08/19/21 11:43 Penicillins Allergy Severe AMOXICILLIN Verified 08/19/21 11:43 --diarrhea oyster extract Allergy Intermediate Vomiting Verified 08/19/21 11:43 pollen extracts Allergy Intermediate TREE Verified 08/19/21 11:43 POLLEN-seasonal allergies Home Meds Home Medications Medication Instructions Recorded Confirmed allopurinol 300 mg tablet 300 mg PO QAM 03/31/20 08/19/21 amlodipine 10 mg tablet (Norvasc) 10 mg PO QAM 03/31/20 08/19/21 cholecalciferol (vitamin D3) 50 4,000 unit PO DAILY 03/31/20 08/19/21 mcg (2,000 unit) capsule (Vitamin D3) clonidine HCl 0.1 mg tablet 0.1 mg PO HS 03/31/20 08/19/21 cyanocobalamin (vitamin B-12) 1,000 mcg PO DAILY 03/31/20 08/19/21 1,000 mcg tablet (Vitamin B-12) fenofibrate micronized 134 mg 134 mg PO QAM 03/31/20 08/19/21 capsule levothyroxine 75 mcg tablet 75 mcg PO QAM 03/31/20 08/19/21 magnesium oxide 400 mg PO DAILY 03/31/20 08/19/21 metoprolol succinate 50 mg 50 mg PO QAM 03/31/20 08/19/21 tablet,extended release 24 hr multivitamin 1 tab PO QAM 03/31/20 08/19/21 vit C,E,zinc,copper-[id number] 250 1 cap PO HS 03/31/20 08/19/21 mg-lutein 5 mg-zeaxanthin 1 mg capsule (Ocuvite Adult 50 Plus) furosemide 20 mg tablet 20 mg PO DAILY 07/09/21 08/19/21 metronidazole 0.75 % topical gel 1 applic TOPICAL BID 07/09/21 08/19/21 lisinopril 2.5 mg tablet 2.5 mg PO DAILY 08/19/21 08/19/21 Previous Rx's Medication Instructions Recorded finasteride 5 mg tablet 5 mg PO HS #90 tab 07/09/21 tamsulosin 0.4 mg capsule 0.4 mg PO QAM #90 cap 07/09/21 Results & Data (ED) Vital Signs Vital Signs - 24 hr 08/19/21 10:54 08/19/21 11:09 08/19/21 11:26 Temperature 36.9 C Temperature Source Temporal Artery Scan Pulse Rate 74 78 75 Pulse Rate from SpO2 Sensor 80 Pulse Rhythm Regular Respiratory Rate 18 18 18 Respiratory Effort / Characteristics Non-Labored Respiratory Depth Normal Blood Pressure 146/77 H Blood Pressure Mean 100 Pulse Oximetry 97 97 97 Oxygen Delivery Method Room Air Room Air Room Air Sepsis Recent Fever Within 48 Hours No Sepsis New/Unexplained Change in Mental Status No Sepsis Action Taken by Nursing No Action Required 08/19/21 11:30 08/19/21 12:30 Temperature Temperature Source Pulse Rate 74 68 Pulse Rate from SpO2 Sensor 78 Pulse Rhythm Respiratory Rate 17 16 Respiratory Effort / Characteristics Respiratory Depth Blood Pressure 134/90 143/83 H Blood Pressure Mean 104 103 Pulse Oximetry 96 97 Oxygen Delivery Method Room Air Room Air Sepsis Recent Fever Within 48 Hours Sepsis New/Unexplained Change in Mental Status Sepsis Action Taken by Nursing Laboratory Data Result diagrams: 08/19/21 11:17 08/19/21 12:31 Lab Results 08/19/21 08/19/21 08/19/21 Range/Units 11:17 11: 11:26 WBC 5.58 (4.8-10.8) K/uL RBC 4.21 L (4.7-6.1) M/uL Hgb 12.5 L (14.0-18.0) g/dL Hct 37.2 L (42-52) % MCV 88.4 (80-100) fL MCH 29.7 (25-34) pg MCHC 33.6 (32-36) g/dL RDW Std Deviation 49.6 H (36.4-46.3) fL RDW Coeff of Addie 15.5 H (11.5-14.5) % Plt Count 266 (130-400) K/uL MPV 9.7 (7.4-10.4) fL Immature Gran % (Auto) 0.2 % Neut % (Auto) 66.6 % Lymph % (Auto) 21.1 % Carroll % (Auto) 11.5 % Eos % (Auto) 0.4 % Baso % (Auto) 0.2 % Neut # (Auto) 3.72 (1.4-6.5) K/uL Lymph # (Auto) 1.18 L (1.2-3.4) K/uL Carroll # (Auto) 0.64 H (0.11-0.59) K/uL Eos # (Auto) 0.02 (0-0.5) K/uL Baso # (Auto) 0.01 (0-0.2) K/uL Immature Gran # (Auto) 0.01 (0.00-0.02) K/uL Sodium (136-145) mmol/L Potassium (3.5-5.1) mmol/L Chloride (98-107) mmol/L Carbon Dioxide (21-32) mmol/L Anion Gap (3-11) BUN (7-18) mg/dl Creatinine (0.6-1.4) mg/dl Est Cr Clr Drug Dosing ml/min Est GFR ( Amer) ml/min Est GFR (Non-Af Amer) ml/min BUN/Creatinine Ratio (10-20) Glucose (70-99) mg/dl Calcium (8.5-10.1) mg/dl Total Bilirubin (0.2-1) mg/dl AST (15-37) U/L ALT (12-78) U/L Alkaline Phosphatase (45-117) U/L Troponin I (0-0.045) ng/ml Total Protein (6.4-8.2) gm/dl Albumin (3.4-5.0) gm/dl Globulin (2.5-4.0) gm/dl Albumin/Globulin Ratio (0.9-2) Lipase (73-393) U/L COVID-19 Eval Order Covid19 at [facility] SARS-CoV-2 (PCR) NEGATIVE (Negative) 08/19/21 Range/Units 12:31 WBC (4.8-10.8) K/uL RBC (4.7-6.1) M/uL Hgb (14.0-18.0) g/dL Hct (42-52) % MCV (80-100) fL MCH (25-34) pg MCHC (32-36) g/dL RDW Std Deviation (36.4-46.3) fL RDW Coeff of Addie (11.5-14.5) % Plt Count (130-400) K/uL MPV (7.4-10.4) fL Immature Gran % (Auto) % Neut % (Auto) % Lymph % (Auto) % Carroll % (Auto) % Eos % (Auto) % Baso % (Auto) % Neut # (Auto) (1.4-6.5) K/uL Lymph # (Auto) (1.2-3.4) K/uL Carroll # (Auto) (0.11-0.59) K/uL Eos # (Auto) (0-0.5) K/uL Baso # (Auto) (0-0.2) K/uL Immature Gran # (Auto) (0.00-0.02) K/uL Sodium 135 L (136-145) mmol/L Potassium 4.7 (3.5-5.1) mmol/L Chloride 108 H (98-107) mmol/L Carbon Dioxide 21 (21-32) mmol/L Anion Gap 6.0 (3-11) BUN 51 H (7-18) mg/dl Creatinine 2.24 H (0.6-1.4) mg/dl Est Cr Clr Drug Dosing 25.7 ml/min Est GFR ( Amer) 29.9 ml/min Est GFR (Non-Af Amer) 25.8 ml/min BUN/Creatinine Ratio 22.9 H (10-20) Glucose 127 H (70-99) mg/dl Calcium 8.9 (8.5-10.1) mg/dl Total Bilirubin 0.4 (0.2-1) mg/dl AST 14 L (15-37) U/L ALT 17 (12-78) U/L Alkaline Phosphatase 46 (45-117) U/L Troponin I < 0.015 (0-0.045) ng/ml Total Protein 6.8 (6.4-8.2) gm/dl Albumin 3.2 L (3.4-5.0) gm/dl Globulin 3.6 (2.5-4.0) gm/dl Albumin/Globulin Ratio 0.9 (0.9-2) Lipase 82 (73-393) U/L COVID-19 Eval Order SARS-CoV-2 (PCR) (Negative) Administered Medications Discontinued Medications Sodium Chloride (Nss 1000ml) 1,000 mls @ 999 mls/hr IV .[id number] [id number] Stop: 08/19/21 12:15 Last Admin: 08/19/21 11:35 Dose: Not Given Documented by: [id number] Sodium Chloride (Nss 1000ml) 500 mls @ 999 mls/hr IV .Q31M ONE Stop: 08/19/21 11:55 Last Infusion: 08/19/21 12:02 Dose: 0 mls/hr Documented by: [id number] Admin: 08/19/21 11:31 Dose: 999 mls/hr Documented by: [id number] Ondansetron HCl (Ondansetron Inj 2 Mg/Ml 2 Ml Vial) 4 mg IV NOW STA Stop: 08/19/21 11:07 Last Admin: 08/19/21 11:34 Dose: 4 mg Documented by: [id number] Imaging Data Radiologist's Impression: Abdomen/Pelvis CT 08/19/21 11:06 CT OF THE ABDOMEN AND PELVIS WITHOUT CONTRAST CLINICAL HISTORY: Abdominal pain and vomiting. COMPARISON STUDY: CT of the abdomen and pelvis May 26, 2020. KUB December 30, 2020. TECHNIQUE: Axial images of the abdomen and pelvis were obtained without IV contrast. Images were reviewed in the axial, sagittal, and coronal planes. Automated exposure control was utilized for the study. A dose lowering technique was utilized adhering to the principles of ALARA. FINDINGS: Lung bases are unremarkable. There is mild cardiomegaly. A small hiatal hernia is present. No pneumatosis, free air or portal venous gas is present. Evaluation of the abdomen and pelvis is suboptimal on this unenhanced exam. A few small hypodense hepatic lesions are unchanged and CT of May 26, 2020. There is no biliary or pancreatic ductal dilatation. Unenhanced images of the spleen, adrenal glands and pancreas are unremarkable. Gallbladder is not visualized. Multiple bilateral renal lesions are noted. Several these are hyperdense. These are suboptimally assessed on this unenhanced exam but may reflect hyperdense cysts. Several left renal calculi measure up to 6 mm. No ureteral calculi are identified. Images of the pelvis are suboptimal given streak artifact from bilateral hip arthroplasties. Colonic diverticulosis is noted without evidence for acute diverticulitis. There is moderate dilatation of the proximal to mid small bowel. Definite transition point is not identified however the findings suggest a small bowel obstruction. Similar pattern was shown on CT of May 26, 2020. There is mild associated mesenteric infiltration. Distal ileum is relatively decompressed. Caliber of the abdominal aorta is normal. There is moderate plaque. No acute fracture or suspicious lesion is identified within the visualized skeletal structures. IMPRESSION: 1. Moderate dilatation of the proximal to mid small bowel. No discrete transition point identified however the distal ileum is relatively decompressed. These findings favor a small bowel obstruction. An enteritis could appear si milar although is considered less likely. Mild associated mesenteric infiltration. 2. Left-sided nephrolithiasis. No ureteral calculi. 3. Colonic diverticulosis without evidence for acute diverticulitis. ACT 112: Negative or not required by law. Electronically signed by: Nilesh Mckeon M.D. 08/19/2021 12:20 PM Discharge Plan Visit Data Chief Complaint: Diarrhea Stated Complaint: DIARRHEA,VOMITING ED Provider: Tk Gracia Discharge Problem: Small bowel obstruction, Nausea, vomiting, and diarrhea, Acute kidney injury superimposed on chronic kidney disease Patient Disposition: Admitted As Inpatient Discharge Instructions Interventions: ED Discharge Assessment Last Done: 08/19/21 16:02
--- NOTE | 2021-08-19 12:50 | History & Physical Report ---
Date of Service August 19, 2021 Assessment & Plan (1) SBO (small bowel obstruction): Plan: - Admit to med surg CT abd reviewed showin. Moderate dilatation of the proximal to mid small bowel. No discrete transition point identified however the distal ileum is relatively decompressed. These findings favor a small bowel obstruction. An enteritis could appear similar although is considered less likely. Mild associated mesenteric infiltration. 2. Left-sided nephrolithiasis. No ureteral calculi. 3. Colonic diverticulosis without evidence for acute diverticulitis. - NGT to be in the ER - Keep NPO, allow chips to moisten mouth, cont IVFs, recieved 1 L so far. Hold lasix, appears euvolemic to slightly hypovolemic with dry MM. - Pain control and bowel regimen on board - Conservative treatment for now - Consult general surgery - has followed previously with Dr. Michael (2) CKD (chronic kidney disease), stage IV: Plan: - Hx of such, chronic, holding lasix as above - Cr 2.24 BUN 51 on admission, appears cr. baseline is 1.8-1.2. Continue IVFs. (3) Hypertension: Plan: - Convert antihypertensive medications to IV -metoprolol to IV vasotec, hold PO meds - Has not taken BP meds since 08/18 morning, and took lasix last on 08/17 due to feeling dehydrated. Continue to hold lasix while NPO and getting fluids. Monitor volume status closely. (4) Hypothyroidism: Plan: -Continue levothyroxine IV for now, convert to po again once allowed (5) BPH (benign prostatic hyperplasia): Plan: -Resume Flomax once able to take p.o. meds DVT ppx: - teds, scds CODE: DNR/DNI Dispo: From home, likely to remain in the hospital x 1-2 days History of Present Illness Primary Care Provider: Celia Prajapati, This is an 85 yo M with PMHx of CKD stage IV, hypothyroidism, HLD, BPH and multiple abdominal surgeries including bowel resection, cholecystectomy, appendectomy. Pt has hx of SBO, last episode was in May 2020 where he was admitted for a similar presentation. Today pt presented with diarrhea, belching, increased abdominal pain, distention, nausea and vomiting. He repor ts this worsened yesterday morning after eating a piece of toast. By dinnertime when he attempted to eat chicken noodle soup his abdominal was significantly distended, at 9 PM he started vomiting. Patient continues to vomit through today and belching excessively however it does relieve some pressure. He has been walking without any difficulty. Diarrhea episodes of seem to slow down at this point. He also notes he did not take Lasix yesterday morning as he was beginning to feel dehydrated, i.e. dry mouth. CT abd/pelvis confirms SBO. NGT discussed with the patient and he is willing to have it placed. Allergies Allergy/AdvReac Type Severity Reaction Status Date / Time hazelnut Allergy Severe Anaphylaxis Verified 08/19/21 11:43 Penicillins Allergy Severe AMOXICILLIN Verified 08/19/21 11:43 --diarrhea oyster extract Allergy Intermediate Vomiting Verified 08/19/21 11:43 pollen extracts Allergy Intermediate TREE Verified 08/19/21 11:43 POLLEN-seasonal allergies Home Medications Medication Instructions Recorded Confirmed Type allopurinol 300 mg tablet 300 mg PO QAM 03/31/20 08/19/21 History amlodipine 10 mg tablet (Norvasc) 10 mg PO QA 03/31/20 08/19/21 History cholecalciferol (vitamin D3) 50 4,000 unit PO DAILY 03/31/20 08/19/21 History mcg (2,000 unit) capsule (Vitamin D3) clonidine HCl 0.1 mg tablet 0.1 mg PO 03/31/20 08/19/21 History cyanocobalamin (vitamin B-12) 1,000 mcg PO DAILY 03/31/20 08/19/21 History 1,000 mcg tablet (Vitamin B-12) fenofibrate micronized 134 mg 134 mg PO QA 03/31/20 08/19/21 History capsule levothyroxine 75 mcg tablet 75 mcg PO QAM 03/31/20 08/19/21 History magnesium oxide 400 mg PO DAILY 03/31/20 08/19/21 History metoprolol succinate 50 mg 50 mg PO QAM 03/31/20 08/19/21 History tablet,extended release 24 hr multivitamin 1 tab PO QAM 03/31/20 08/19/21 History vit C,E,zinc,copper-[id number] 250 1 cap PO 03/31/20 08/19/21 History mg-lutein 5 mg-zeaxanthin 1 mg capsule (Ocuvite Adult 50 Plus) finasteride 5 mg tablet 5 mg PO HS #90 tab 07/09/21 08/19/21 Rx furosemide 20 mg tablet 20 mg PO DAILY 07/09/21 08/19/21 History metronidazole 0.75 % topical gel 1 applic TOPICAL BID 07/09/21 08/19/21 History tamsulosin 0.4 mg capsule 0.4 mg PO QAM #90 cap 07/09/21 08/19/21 Rx lisinopril 2.5 mg tablet 2.5 mg PO DAILY 08/19/21 08/19/21 History Past Med/Surg History Medical History Arthritis of left hip BPH (benign prostatic hyperplasia) CKD (chronic kidney disease) stage 3, GFR 30-59 ml/min CKD (chronic kidney disease), stage IV GERD (gastroesophageal reflux disease) High triglycerides Hypertension Hypothyroidism Lyme disease Osteoarthritis Peritonitis Seasonal allergies Skin cancer Small bowel obstruction Surgical History H/O exploratory laparotomy History of appendectomy History of cataract surgery History of cholecystectomy History of colonoscopy History of esophagogastroduodenoscopy (EGD) History of total hip arthroplasty S/P colon resection Status post Mohs surgery Status post right hip replacement Family History Other Diabetes No family history of adverse response to anesthesia Social History Smoking Status: Never smoker Second Hand Exposure: No; Hx Alcohol Use: Yes Alcohol type: wine Hx Substance Use: No Preferred Language: Romanian Communication Ability: Effective Custodial Services Manager Required: No Beliefs That Will Affect Care: None marital status: Current Living Situation: Spouse Current Living Situation Comment: has dementia Other Information That Helps Us Care for You: No Feels Safe at Home: Yes Assistive Devices: None Review of Systems Review of Systems: Constitutional: No fever, sweats or chills Eyes: No diplopia, no worsening or blurred vision ENT: normal hearing, no trouble swallowing Respiratory: No cough, sputum, dyspnea at rest or on exertion Cardiovascular: No chest pain, tightness or palpitations Abdomen: + As per HPI, + pain, + nausea, +, +diarrhea, no constipation Musculoskeletal: No joint pain, calf pain, swelling Neurologic: No weakness, numbness/tingling, or balance problems Psychiatric: No anxiety or depression Skin: No rash or itch Physical Exam Physical Exam: General: awake, alert, no apparent distress Head: Normocephalic, atraumatic ENT: PERRL, EOMI, no pharyngeal exudate, + mucous membranes dry Chest: Clear to auscultation, on room air, no adventitious breath sounds Cardiac: Regular rate and rhythm, no murmur, no JVD, normal peripheral pulses, good capillary refill Abdominal: + Significantly distended, high-pitched tinkling bowel sounds heard in right upper quadrant, + hypoactive elsewhere, pain with palpation, no guarding or rebound. Extremities: Normal inspection, no peripheral edema or erythema, calfs nontender to palpation Psych: Normal mood and affect Neuro: AAO x 3, strength intact bilaterally and rated 5/5, no motor deficits, speech is clear, no peripheral sensory deficits Results & Data Results & Data ([facility]) Vital Signs (Past 12 Hours) Vital Signs Temp Pulse Resp BP Pulse Ox 08/19/21 11:26 75 18 97 08/19/21 10:54 36.9 C 74 18 146/77 H 97 Diagnostic Findings Abdomen/Pelvis CT 08/19/21 11:06 CT OF THE ABDOMEN AND PELVIS WITHOUT CONTRAST CLINICAL HISTORY: Abdominal pain and vomiting. COMPARISON STUDY: CT of the abdomen and pelvis May 26, 2020. KUB December 30, 2020. TECHNIQUE: Axial images of the abdomen and pelvis were obtained without IV contrast. Images were reviewed in the axial, sagittal, and coronal planes. Automated exposure control was utilized for the study. A dose lowering technique was utilized adhering to the principles of ALARA. FINDINGS: Lung bases are unremarkable. There is mild cardiomegaly. A small hiatal hernia is present. No pneumatosis, free air or portal venous gas is present. Evaluation of the abdomen and pelvis is suboptimal on this unenhanced exam. A few small hypodense hepatic lesions are unchanged and CT of May 26, 2020. There is no biliary or pancreatic ductal dilatation. Unenhanced images of the spleen, adrenal glands and pancreas are unremarkable. Gallbladder is not visualized. Multiple bilateral renal lesions are noted. Several these are hyperdense. These are suboptimally assessed on this unenhanced exam but may reflect hyperdense cysts. Several left renal calculi measure up to 6 mm. No ureteral calculi are identified. Images of the pelvis are suboptimal given streak artifact from bilateral hip arthroplasties. Colonic diverticulosis is noted without evidence for acute diverticulitis. There is moderate dilatation of the proximal to mid small bowel. Definite transition point is not identified however the findings suggest a small bowel obstruction. Similar pattern was shown on CT of May 26, 2020. There is mild associated mesenteric infiltration. Distal ileum is relatively decompressed. Caliber of the abdominal aorta is normal. There is moderate plaque. No acute fracture or suspicious lesion is identified within the visualized skeletal structures. IMPRESSION: 1. Moderate dilatation of the proximal to mid small bowel. No discrete transition point identified however the distal ileum is relatively decompressed. These findings favor a small bowel obstruction. An enteritis could appear similar although is considered less likely. Mild associated mesenteric infiltration. 2. Left-sided nephrolithiasis. No ureteral calculi. 3. Colonic diverticulosis without evidence for acute diverticulitis. ACT 112: Negative or not required by law. Electronically signed by: Nilesh Mckeon M.D. 08/19/2021 12:20 PM Code Status & VTE Plan Code Status DNR/DNI-discussed with the patient and his daughter at bedside Supervising Physician Co-Signing Physician Notes Patient is an 84-year-old male with history of CKD stage IV, hypothyroidism, history of multiple abdominal surgeries and other medical problems presents with history of abdominal distention, pain, diarrhea, nausea, vomiting since this morning. Patient denies any chest pain, shortness of breath, fever, chills, blood in stools, dysuria. He admits to having dizziness with ambulation today. Please review HPI for complete details of presentation. CT abdomen showed proximal to mid small bowel dilatation, distal ileus decompressed, findings suggestive of small bowel obstruction. Also noted nephrolithiasis on the left side. NG tube was placed. Blood work showed creatinine 2.24. Sodium 135. Patient admits to not eating well since couple of days. On exam patient is moderately built and nourished, no apparent distress, normocephalic atraumatic, lungs are clear to auscultation, normal breath sounds, S1-S2, no murmur, trace pedal edema, abdomen soft, distended, mild generalized tenderness, decreased bowel sounds, alert, awake, oriented, grossly no focal deficits. Patient is admitted for management of small bowel obstruction. Conservative management for now including n.p.o., IV fluids, NG tube placement. General surgery consulted. Will obtain stool studies if patient develops diarrhea. Monitor renal function closely. I personally reviewed the record. Patient is interviewed and examined at bedside. Patient's care is coordinated with Adriana Cano PA-C. Please refer to the documentation above for details of patient's presentation and for discussion of other issues.
[2021-08-19 13:21] LABS: Alanine Aminotransferase 17 U/L (12-78); Albumin Level 3.2 gm/dl (3.4-5.0); Aspartate Aminotransferase 14 U/L (15-37); BUN Creatinine Ratio 22.9 (10-20); Blood Urea Nitrogen 51 mg/dl (7-18); Calcium 8.9 mg/dl (8.5-10.1); Carbon Dioxide 21 mmol/L (21-32); Chloride 108 mmol/L (98-107); Creatinine Clr Calc Pharmacy 25.7 ml/min; Est GFR (African American) 29.9 ml/min; Est GFR (Non-African American) 25.8 ml/min; Glucose 127 mg/dl (70-99); Lipase 82 U/L (73-393); Potassium 4.7 mmol/L (3.5-5.1); Sodium 135 mmol/L (136-145)
[2021-08-19 13:26] LABS: Albumin Globulin Ratio 0.9 (0.9-2); Alkaline Phosphatase 46 U/L (45-117); Bilirubin,Total 0.4 mg/dl (0.2-1); Globulin 3.6 gm/dl (2.5-4.0); Total Protein 6.8 gm/dl (6.4-8.2); Troponin I < 0.015 ng/ml (0-0.045)
--- NOTE | 2021-08-19 14:20 | XRay Report ---
XR chest 1V portable CLINICAL HISTORY: Nasogastric tube. COMPARISON STUDY: Chest radiograph March 13, 2020. FINDINGS: Mild bibasilar opacities favor atelectasis. There is no pneumothorax or pleural effusion. C ardiomediastinal silhouette is stable. Tip of nasogastric tube projects over the gastric cardia. IMPRESSION: 1. Tip of nasogastric tube projects over the gastric cardia. The tube could be advanced 6 cm. 2. Bibasilar opacities which favor atelectasis. ACT 112: Negative or not required by law. Electronically signed by: Nilesh Mckeon M.D. 08/19/2021 2:19 PM
--- NOTE | 2021-08-19 15:59 | Electrocardiogram Report ---
Test Reason : Blood Pressure : / mmHG Vent. Rate : 074 BPM Atrial Rate : 074 BPM P-R Int : 188 ms QRS Dur : 078 ms QT Int : 392 ms P-R-T Axes : 053 018 034 degrees QTc Int : 435 ms Normal sinus rhythm with sinus arrhythmia Normal ECG When compared with ECG of 13-MAR-2020 13:20, No significant change was found Confirmed by Eladio Kline ([id number]) on 08/19/2021 3:58:54 PM Referred By: REFERRED SELF Confirmed By:Jer Kline
--- NOTE | 2021-08-19 16:16 | XRay Report ---
KUB HISTORY: Status post placement of an enteric tube NG tube placement COMPARISON: CT abdomen and pelvis of same day FINDINGS: Persistent small bowel distention suggestive of obstruction. Air is also noted within the l arge bowel. Status post placement of an enteric tube with distal tip projected medially within the ga stric fundus. No renal calculi. No ureteral calculi. No pneumoperitoneum or pneumatosis. Lower abdom en is excluded from the [id number]. Spondylitic spurring of the spine. No fracture. IMPRESSION: 1. Persistent small bowel distention suggestive of obstruction. 2. Status post placement of an enteric tube with distal tip within the gastric fundus. ACT 112: Negative or not required by law. The above report was generated using voice recognition software. It may contain grammatical, syntax o r spelling errors. Electronically signed by: Boris Alvarado M.D. 08/19/2021 4:15 PM
[2021-08-19] MEDS ORDERED: ACETAMINOPHEN 325 MG TAB PO PRN (16:30)
[2021-08-19] MEDS ORDERED: ONDANSETRON INJ 2 MG/ML 2 ML VIAL IV PRN (16:30)
[2021-08-19] MEDS ORDERED: ENALAPRILAT 0.625 MG in SYRINGE 9.5 ML IV PRN (16:30)
[2021-08-19] MEDS ORDERED: MoRPHine SULFATE 2 MG/ML CARP IV PRN (18:28)
[2021-08-19] MEDS: SODIUM CHLORIDE 0.9% 1000ML 1,000 ML IV SCH (18:45)
--- NOTE | 2021-08-19 20:03 | Surgery Consultation ---
Date of Consultation August 19, 2021 Assessment & Plan (1) SBO (small bowel obstruction): pt is a 85 year-old male who was admitted to hospital for SBO, IMP: SBO Plan, no emergent surgery indication now, agree with conservative treatment, NPO, NG tube, IV fluid, control pain, repeat labs and KUB in morning, will F/U, possible surgery treatment if pt develops worse symptoms, pt understood, he agrees with the plan, I answered all questions, Supervising Physician Co-Signing Physician Notes Patient is an 84-year-old male with history of CKD stage IV, hypothyroidism, history of multiple abdominal surgeries and other medical problems presents with history of abdominal distention, pain, diarrhea, nausea, vomiting since this morning. Patient denies any chest pain, shortness of breath, fever, chills, blood in stools, dysuria. He admits to having dizziness with ambulation today. Please review HPI for complete details of presentation. CT abdomen showed proximal to mid small bowel dilatation, distal ileus decompressed, findings suggestive of small bowel obstruction. Also noted nephrolithiasis on the left side. NG tube was placed. Blood work showed creatinine 2.24. Sodium 135. Patient admits to not eating well since couple of days. On exam patient is moderately built and nourished, no apparent distress, normocephalic atraumatic, lungs are clear to auscultation, normal breath sounds, S1-S2, no murmur, trace pedal edema, abdomen soft, distended, mild generalized tenderness, decreased bowel sounds, alert, awake, oriented, grossly no focal deficits. Patient is admitted for management of small bowel obstruction. Conservative management for now including n.p.o., IV fluids, NG tube placement. General surgery consulted. Will obtain stool studies if patient develops diarrhea. Monitor renal function closely. I personally reviewed the record. Patient is interviewed and examined at bedside. Patient's care is coordinated with Adriana Cano PA-C. Please refer to the documentation above for details of patient's presentation and for discussion of other issues. History of Present Illness Reason for Consultation: SBO Attending Physician: Elton La MD History of Present Illness History of Present Illness Primary Care Provider: Celia Prajapati, DO This is an 85 yo M with PMHx of CKD stage IV, hypothyroidism, HLD, BPH and multiple abdominal surgeries including bowel resection, cholecystectomy, appendectomy. Pt has hx of SBO, last episode was in May 2020 where he was admitted for a similar presentation. Today pt presented with diarrhea, belching, increased abdominal pain, distention, nausea and vomiting. He reports this worsened yesterday morning after eating a piece of toast. By dinnertime when he attempted to eat chicken noodle soup his abdominal was significantly distended, at 9 PM he started vomiting. Patient continues to vomit through today and belching excessively however it does relieve some pressure. He has been walking without any difficulty. Diarrhea episodes of seem to slow down at this point. He also notes he did not take Lasix yesterday morning as he was beginning to feel dehydrated, i.e. dry mouth. CT abd/pelvis confirms SBO. NGT discussed with the patient and he is willing to have it placed. I ( Sadie nowak MD ) got a call for consult SBO, I reviewed pt's H/P, labs, CT scan with pt, Allergies Allergy/AdvReac Type Severity Reaction Status Date / Time hazelnut Allergy Severe Anaphylaxis Verified 08/19/21 11:43 Penicillins Allergy Severe AMOXICILLIN Verified 08/19/21 11:43 --diarrhea oyster extract Allergy Intermediate Vomiting Verified 08/19/21 11:43 pollen extracts Allergy Intermediate TREE Verified 08/19/21 11:43 POLLEN-seasonal allergies Home Medications Medication Instructions Recorded Confirmed Type allopurinol 300 mg tablet 300 mg PO QAM 03/31/20 08/19/21 Histo ry amlodipine 10 mg tablet (Norvasc) 10 mg PO QAM 03/31/20 History cholecalciferol (vitamin D3) 50 4,000 unit PO DAILY 03/31/20 08/19/21 History mcg (2,000 unit) capsule (Vitamin D3) clonidine HCl 0.1 mg tablet 0.1 mg PO HS 03/31/20 08/19/21 His tory cyanocobalamin (vitamin B-12) 1,000 mcg PO DAILY 03/31/20 08/19/21 H istory 1,000 mcg tablet (Vitamin B-12) fenofibrate micronized 134 mg 134 mg PO QAM 03/31/20 08/19/21 H istory capsule levothyroxine 75 mcg tablet 75 mcg PO QAM 03/31/20 08/19/21 His tory magnesium oxide 400 mg PO DAILY 03/31/20 08/19/21 History metoprolol succinate 50 mg 50 mg PO QAM 03/31/20 08/19/21 Hist ory tablet,extended release 24 hr multivitamin 1 tab PO QAM 03/31/20 08/19/21 History vit C,E,zinc,copper-wysnp2g 250 1 cap PO HS 03/31/20 08/19/21 History mg-lutein 5 mg-zeaxanthin 1 mg capsule (Ocuvite Adult 50 Plus) finasteride 5 mg tablet 5 mg PO HS #90 tab 07/09/21 08/19/21 Rx furosemide 20 mg tablet 20 mg PO DAILY 07/09/21 08/19/21 History metronidazole 0.75 % topical gel 1 applic TOPICAL BID 07/09/21 History tamsulosin 0.4 mg capsule 0.4 mg PO QAM #90 cap 07/09/21 08/19/21 Rx lisinopril 2.5 mg tablet 2.5 mg PO DAILY 08/19/21 08/19/21 Histor y Past Med/Surg History Medical History Arthritis of left hip BPH (benign prostatic hyperplasia) CKD (chronic kidney disease) stage 3, GFR 30-59 ml/min CKD (chronic kidney disease), stage IV GERD (gastroesophageal reflux disease) High triglycerides Hypertension Hypothyroidism Lyme disease Osteoarthritis Peritonitis Seasonal allergies Skin cancer Small bowel obstruction Surgical History H/O exploratory laparotomy History of appendectomy History of cataract surgery History of cholecystectomy History of colonoscopy History of esophagogastroduodenoscopy (EGD) History of total hip arthroplasty S/P colon resection Status post Mohs surgery Status post right hip replacement Family History Other Diabetes No family history of adverse response to anesthesia Social History Smoking Status: Never smoker Second Hand Exposure: No; Hx Alcohol Use: Yes Alcohol type: wine Hx Substance Use: No Preferred Language: [place] Communication Ability: Effective Er Medical Technician Required: No Beliefs That Will Affect Care: None marital status: Current Living Situation: Spouse Current Living Situation Comment: has dementia Other Information That Helps Us Care for You: No Feels Safe at Home: Yes Assistive Devices: None Review of Systems Review of Systems: Constitutional: No fever, sweats or chills Eyes: No diplopia, no worsening or blurred vision ENT: normal hearing, no trouble swallowing Respiratory: No cough, sputum, dyspnea at rest or on exertion Cardiovascular: No chest pain, tightness or palpitations Abdomen: + As per HPI, + pain, + nausea, +, +diarrhea, no constipation Musculoskeletal: No joint pain, calf pain, swelling Neurologic: No weakness, numbness/tingling, or balance problems Psychiatric: No anxiety or depression Skin: No rash or itch Allergies Allergy/AdvReac Type Severity Reaction Status Date / Time hazelnut Allergy Severe Anaphylaxis Verified 08/19/21 11:43 Penicillins Allergy Severe AMOXICILLIN Verified 08/19/21 11:43 --diarrhea oyster extract Allergy Intermediate Vomiting Verified 08/19/21 11:43 pollen extracts Allergy Intermediate TREE Verified 08/19/21 11:43 POLLEN-seasonal allergies Home Medications Medication Instructions Recorded Confirmed Type allopurinol 300 mg tablet 300 mg PO QAM 03/31/20 08/19/21 History amlodipine 10 mg tablet (Norvasc) 10 mg PO QAM 03/31/20 08/19/21 History cholecalciferol (vitamin D3) 50 4,000 unit PO DAILY 03/31/20 08/19/21 History mcg (2,000 unit) capsule (Vitamin D3) clonidine HCl 0.1 mg tablet 0.1 mg PO HS 03/31/20 08/19/21 History cyanocobalamin (vitamin B-12) 1,000 mcg PO DAILY 03/31/20 08/19/21 History 1,000 mcg tablet (Vitamin B-12) fenofibrate micronized 134 mg 134 mg PO QAM 03/31/20 08/19/21 History capsule levothyroxine 75 mcg tablet 75 mcg PO QAM 03/31/20 08/19/21 History magnesium oxide 400 mg PO DAILY 03/31/20 08/19/21 History metoprolol succinate 50 mg 50 mg PO QAM 03/31/20 08/19/21 History tablet,extended release 24 hr multivitamin 1 tab PO QAM 03/31/20 08/19/21 History vit C,E,zinc,copper-acnwg5p 250 1 cap PO HS 03/31/20 08/19/21 History mg-lutein 5 mg-zeaxanthin 1 mg capsule (Ocuvite Adult 50 Plus) finasteride 5 mg tablet 5 mg PO HS #90 tab 07/09/21 08/19/21 Rx furosemide 20 mg tablet 20 mg PO DAILY 07/09/21 08/19/21 History metronidazole 0.75 % topical gel 1 applic TOPICAL BID 07/09/21 08/19/21 History tamsulosin 0.4 mg capsule 0.4 mg PO QAM #90 cap 07/09/21 08/19/21 Rx lisinopril 2.5 mg tablet 2.5 mg PO DAILY 08/19/21 08/19/21 History Patient History Medical History Arthritis of left hip BPH (benign prostatic hyperplasia) CKD (chronic kidney disease) stage 3, GFR 30-59 ml/min CKD (chronic kidney disease), stage IV GERD (gastroesophageal reflux disease) High triglycerides Hypertension Hypothyroidism Lyme disease Osteoarthritis Peritonitis Seasonal allergies Skin cancer Small bowel obstruction Surgical History H/O exploratory laparotomy History of appendectomy History of cataract surgery History of cholecystectomy History of colonoscopy History of esophagogastroduodenoscopy (EGD) History of total hip arthroplasty S/P colon resection Status post Mohs surgery Status post right hip replacement Family History Other Diabetes No family history of adverse response to anesthesia Social History Smoking Status: Never smoker Second Hand Exposure: No; Hx Alcohol Use: Yes Alcohol type: wine Hx Substance Use: No Preferred Language: [place] Communication Ability: Effective Er Medical Technician Required: No Beliefs That Will Affect Care: None marital status: Current Living Situation: Spouse Current Living Situation Comment: has dementia Other Information That Helps Us Care for You: No Feels Safe at Home: Yes Assistive Devices: None Physical Exam Constitutional: WD/WN, vitals as above Eyes: PERRL, conjunctivae normal, anicteric sclerae Neck: trachea midline, no thyromegaly Respiratory: normal respiratory effort, lungs clear to auscultation Cardiovascular: RRR, no murmur, no edema Gastrointestinal (Abdomen): multiple scar on abdomen, mild tenderness at periumbilical area, no rebound pain, BS +, no distend Musculoskeletal: no cyanosis or clubbing, extremities motor strength 5/5 Neurologic: patellar DTR's 2+ bilat, sensation intact Psychiatric: A+Ox3, euthymic affect Results & Data ([facility]) Vital Signs (Past 12 Hours) Vital Signs Temp Pulse Resp BP BP Pulse Ox 08/19/21 17:50 36.4 C L 16 170/95 H 96 08/19/21 15:30 88 17 153/69 H 96 08/19/21 15:00 85 16 94 08/19/21 14:30 89 16 160/83 H 95 08/19/21 14:00 85 16 152/74 H 95 08/19/21 13:30 84 14 141/68 H 96 08/19/21 13:00 82 20 152/74 H 97 08/19/21 12:30 68 16 143/83 H 97 08/19/21 11:30 74 17 134/90 96 08/19/21 11:26 75 18 97 08/19/21 11:09 78 18 97 08/19/21 10:54 36.9 C 74 18 146/77 H 97 Laboratory Results Abnormal lab results 08/19/21 08/19/21 Range/Units 11:17 12:31 RBC 4.21 L (4.7-6.1) M/uL Hgb 12.5 L (14.0-18.0) g/dL Hct 37.2 L (42-52) % RDW Std Deviation 49.6 H (36.4-46.3) fL RDW Coeff of Addie 15.5 H (11.5-14.5) % Lymph # (Auto) 1.18 L (1.2-3.4) K/uL Nance # (Auto) 0.64 H (0.11-0.59) K/uL Sodium 135 L (136-145) mmol/L Chloride 108 H (98-107) mmol/L BUN 51 H (7-18) mg/dl Creatinine 2.24 H (0.6-1.4) mg/dl BUN/Creatinine Ratio 22.9 H (10-20) Glucose 127 H (70-99) mg/dl AST 14 L (15-37) U/L Albumin 3.2 L (3.4-5.0) gm/dl Diagnostic Findings CT OF THE ABDOMEN AND PELVIS WITHOUT CONTRAST CLINICAL HISTORY: Abdominal pain and vomiting. COMPARISON STUDY: CT of the abdomen and pelvis May 26, 2020. KUB December 30, 2020. TECHNIQUE: Axial images of the abdomen and pelvis were obtained without IV contrast. Images were reviewed in the axial, sagittal, and coronal planes. Automated exposure control was utilized for the study. A dose lowering technique was utilized adhering to the principles of ALARA. FINDINGS: Lung bases are unremarkable. There is mild cardiomegaly. A small hiatal hernia is present. No pneumatosis, free air or portal venous gas is present. Evaluation of the abdomen and pelvis is suboptimal on this unenhanced exam. A few small hypodense hepatic lesions are unchanged and CT of May 26, 2020. There is no biliary or pancreatic ductal dilatation. Unenhanced images of the spleen, adrenal glands and pancreas are unremarkable. Gallbladder is not visualized. Multiple bilateral renal lesions are noted. Several these are hyperdense. These are suboptimally assessed on this unenhanced exam but may reflect hyperdense cysts. Several left renal calculi measure up to 6 mm. No ureteral calculi are identified. Images of the pelvis are suboptimal given streak artifact from bilateral hip arthroplasties. Colonic diverticulosis is noted without evidence for acute diverticulitis. There is moderate dilatation of the proximal to mid small bowel. Definite transition point is not identified however the findings suggest a small bowel obstruction. Similar pattern was show n on CT of May 26, 2020. There is mild associated mesenteric infiltration. Distal ileum is relatively decompressed. Caliber of the abdominal aorta is normal. There is moderate plaque. No acute fracture or suspicious lesion is identified within the visualized skeletal structures. IMPRESSION: 1. Moderate dilatation of the proximal to mid small bowel. No discrete transition point identified however the distal ileum is relatively decompressed. These findings favor a small bowel obstruction. An enteritis could appear similar although is considered less likely. Mild associated mesenteric infil tration. 2. Left-sided nephrolithiasis. No ureteral calculi. 3. Colonic diverticulosis without evidence for acute diverticulitis.
[2021-08-20] MEDS: SODIUM CHLORIDE 0.9% 1000ML 1,000 ML IV SCH ×2 (04:51→14:52)
[2021-08-20 08:42] LABS: Hemoglobin 12.7 g/dL (14.0-18.0); Mean Corpuscular Hemoglobin 29.4 pg (25-34); Mean Corpuscular Hgb Conc 33.4 g/dL (32-36); Mean Platelet Volume 9.7 fL (7.4-10.4); Platelet Count 282 K/uL (130-400); RDW Coefficient of Variation 15.4 % (11.5-14.5); RDW Standard Deviation 49.9 fL (36.4-46.3); Red Blood Count 4.32 M/uL (4.7-6.1); White Blood Count 5.48 K/uL (4.8-10.8)
[2021-08-20] MEDS: LEVOTHYROXINE SODIUM IV SCH (08:44)
[2021-08-20 09:55] LABS: Calcium 10.1 mg/dl (8.5-10.1); Creatinine Clr Calc Pharmacy 30.8 ml/min; Est GFR (African American) 38.6 ml/min; Est GFR (Non-African American) 33.3 ml/min; Magnesium 2.1 mg/dl (1.8-2.4); Phosphorus 2.9 mg/dl (2.5-4.9); Potassium 3.8 mmol/L (3.5-5.1)
--- NOTE | 2021-08-20 10:42 | Surgery Progress Note ---
Date of Service August 20, 2021 Assessment & Plan (1) SBO (small bowel obstruction): Plan: Recurrent SBO in setting of multiple abdominal surgeries + liquid stool abdomen distended but soft no leukocytosis KUB ordered today NGT with dark bilious/brown output- 700 cc since placement + bowel sounds Plan: Will repeat KUB today to further evaluate Continue NPO, NGT to LIS ambulate hallway to increase GI motility pain management as needed [facility] surgery covering this weekend Dr. Brar has seen patient and agrees with above. Admission and Anticipated Discharge Date Admission Date: August 19, 2021 Subjective not having much abdominal pain bloating, gas sensation, abdomen feels bloated but less firm today liquid stool again this morning + belching no nausea or vomiting Physical Exam Constitutional: WD/WN, vitals as above no acute distress and not ill appearing Respiratory: normal respiratory effort; no respiratory distress, no labored breathing and no retractions Gastrointestinal (Abdomen): Inspection/Auscultation: + abdomen distended, normal bowel sounds and + abdominal surgical scar (midline laparotomy scars ); no high-pitched sounds Percussion/Palpation: + abdomen tender (upper mid and right abdomen) and abdomen soft; no guarding and abdomen not rigid NGT tube with dark bilious brown output Skin: no rashes, warm and dry Psychiatric: Orientation: alert and oriented x 3 Results & Data ([facility]) Vital Signs (Past 12 Hours) Vital Signs Temp Pulse Resp BP Pulse Ox 08/20/21 07:36 37.5 C 82 16 152/70 H 94 Laboratory Results 08/20/21 08/20/21 08/20/21 Range/Units Unknown 08:17 08:17 WBC 5.48 (4.8-10.8) K/uL RBC 4.32 L (4.7-6.1) M/uL Hgb 12.7 L (14.0-18.0) g/dL Hct 38.0 L (42-52) % MCV 88.0 (80-100) fL MCH 29.4 (25-34) pg MCHC 33.4 (32-36) g/dL RDW Std Deviation 49.9 H (36.4-46.3) fL RDW Coeff of Addie 15.4 H (11.5-14.5) % Plt Count 282 (130-400) K/uL MPV 9.7 (7.4-10.4) fL Immature Gran % (Auto) % Neut % (Auto) % Lymph % (Auto) % [place] % (Auto) % Eos % (Auto) % Baso % (Auto) % Neut # (Auto) (1.4-6.5) K/uL Lymph # (Auto) (1.2-3.4) K/uL [place] # (Auto) (0.11-0.59) K/uL Eos # (Auto) (0-0.5) K/uL Baso # (Auto) (0-0.2) K/uL Immature Gran # (Auto) (0.00-0.02) K/uL Sodium 142 D (136-145) mmol/L Potassium 3.8 D (3.5-5.1) mmol/L Chloride 113 H (98-107) mmol/L Carbon Dioxide 20 L (21-32) mmol/L Anion Gap 9.0 (3-11) BUN 40 H (7-18) mg/dl Creatinine 1.81 H D (0.6-1.4) mg/dl Est Cr Clr Drug Dosing 30.8 ml/min Est GFR ( Amer) 38.6 ml/min Est GFR (Non-Af Amer) 33.3 ml/min BUN/Creatinine Ratio 22.0 H (10-20) Glucose 112 H (70-99) mg/dl Calcium 10.1 (8.5-10.1) mg/dl Phosphorus 2.9 (2.5-4.9) mg/dl Magnesium 2.1 (1.8-2.4) mg/dl Total Bilirubin (0.2-1) mg/dl AST (15-37) U/L ALT (12-78) U/L Alkaline Phosphatase (45-117) U/L Troponin I (0-0.045) ng/ml Total Protein (6.4-8.2) gm/dl Albumin (3.4-5.0) gm/dl Globulin (2.5-4.0) gm/dl Albumin/Globulin Ratio (0.9-2) Lipase (73-393) U/L Stl C. diff Tox B Gene Negative Cdiff Gene (Neg) COVID-19 Eval Order SARS-CoV-2 (PCR) (Negative) 08/19/21 08/19/21 08/19/21 Range/Units 12:31 11:26 11:26 WBC (4.8-10.8) K/uL RBC (4.7-6.1) M/uL Hgb (14.0-18.0) g/dL Hct (42-52) % MCV (80-100) fL MCH (25-34) pg MCHC (32-36) g/dL RDW Std Deviation (36.4-46.3) fL RDW Coeff of Addie (11.5-14.5) % Plt Count (130-400) K/uL MPV (7.4-10.4) fL Immature Gran % (Auto) % Neut % (Auto) % Lymph % (Auto) % [place] % (Auto) % Eos % (Auto) % Baso % (Auto) % Neut # (Auto) (1.4-6.5) K/uL Lymph # (Auto) (1.2-3.4) K/uL [place] # (Auto) (0.11-0.59) K/uL Eos # (Auto) (0-0.5) K/uL Baso # (Auto) (0-0.2) K/uL Immature Gran # (Auto) (0.00-0.02) K/uL Sodium 135 L (136-145) mmol/L Potassium 4.7 (3.5-5.1) mmol/L Chloride 108 H (98-107) mmol/L Carbon Dioxide 21 (21-32) mmol/L Anion Gap 6.0 (3-11) BUN 51 H (7-18) mg/dl Creatinine 2.24 H (0.6-1.4) mg/dl Est Cr Clr Drug Dosing 25.7 ml/min Est GFR ( Amer) 29.9 ml/min Est GFR (Non-Af Amer) 25.8 ml/min BUN/Creatinine Ratio 22.9 H (10-20) Glucose 127 H (70-99) mg/dl Calcium 8.9 (8.5-10.1) mg/dl Phosphorus (2.5-4.9) mg/dl Magnesium (1.8-2.4) mg/dl Total Bilirubin 0.4 (0.2-1) mg/dl AST 14 L (15-37) U/L ALT 17 (12-78) U/L Alkaline Phosphatase 46 (45-117) U/L Troponin I < 0.015 (0-0.045) ng/ml Total Protein 6.8 (6.4-8.2) gm/dl Albumin 3.2 L (3.4-5.0) gm/dl Globulin 3.6 (2.5-4.0) gm/dl Albumin/Globulin Ratio 0.9 (0.9-2) Lipase 82 (73-393) U/L Stl C. diff Tox B Gene (Neg) COVID-19 Eval Order Covid19 at [facility] SARS-CoV-2 (PCR) NEGATIVE (Negative) 08/19/21 Range/Units 11:17 WBC 5.58 (4.8-10.8) K/uL RBC 4.21 L (4.7-6.1) M/uL Hgb 12.5 L (14.0-18.0) g/dL Hct 37.2 L (42-52) % MCV 88.4 (80-100) fL MCH 29.7 (25-34) pg MCHC 33.6 (32-36) g/dL RDW Std Deviation 49.6 H (36.4-46.3) fL RDW Coeff of Addie 15.5 H (11.5-14.5) % Plt Count 266 (130-400) K/uL MPV 9.7 (7.4-10.4) fL Immature Gran % (Auto) 0.2 % Neut % (Auto) 66.6 % Lymph % (Auto) 21.1 % [place] % (Auto) 11.5 % Eos % (Auto) 0.4 % Baso % (Auto) 0.2 % Neut # (Auto) 3.72 (1.4-6.5) K/uL Lymph # (Auto) 1.18 L (1.2-3.4) K/uL [place] # (Auto) 0.64 H (0.11-0.59) K/uL Eos # (Auto) 0.02 (0-0.5) K/uL Baso # (Auto) 0.01 (0-0.2) K/uL Immature Gran # (Auto) 0.01 (0.00-0.02) K/uL Sodium (136-145) mmol/L Potassium (3.5-5.1) mmol/L Chloride (98-107) mmol/L Carbon Dioxide (21-32) mmol/L Anion Gap (3-11) BUN (7-18) mg/dl Creatinine (0.6-1.4) mg/dl Est Cr Clr Drug Dosing ml/min Est GFR ( Amer) ml/min Est GFR (Non-Af Amer) ml/min BUN/Creatinine Ratio (10-20) Glucose (70-99) mg/dl Calcium (8.5-10.1) mg/dl Phosphorus (2.5-4.9) mg/dl Magnesium (1.8-2.4) mg/dl Total Bilirubin (0.2-1) mg/dl AST (15-37) U/L ALT (12-78) U/L Alkaline Phosphatase (45-117) U/L Troponin I (0-0.045) ng/ml Total Protein (6.4-8.2) gm/dl Albumin (3.4-5.0) gm/dl Globulin (2.5-4.0) gm/dl Albumin/Globulin Ratio (0.9-2) Lipase (73-393) U/L Stl C. diff Tox B Gene (Neg) COVID-19 Eval Order SARS-CoV-2 (PCR) (Negative) Diagnostic Findings XR KUB/Abdomen 1 view CLINICAL HISTORY: follow-up SBO. COMPARISON STUDY: CT of the abdomen and pelvis from 08/19/2021 TECHNIQUE: Single view of the abdomen. FINDINGS: Compared to the CT examination, moderately dilated loops of small bowel are again seen within the mid upper abdomen. Findings are again characteristic of at least a partial small bowel obstruction. There is noted to be air within the colon. The patient's NG tube has been slightly retracted and is just entering the gastric fundus. It should be further advanced. There is no evidence for organomegaly or gross intra-abdominal mass. No abnormal calcifications are seen along the course of the urinary tracts bilaterally. No acute osseous pathology. IMPRESSION: 1.Compared to the CT, radiographic findings of a partial small bowel obstruction are seen. 2. NG tube has been slightly retracted and should be further advanced into the stomach.
--- NOTE | 2021-08-20 13:06 | XRay Report ---
XR KUB/Abdomen 1 view CLINICAL HISTORY: follow-up SBO. COMPARISON STUDY: CT of the abdomen and pelvis from 08/19/2021 TECHNIQUE: Single view of the abdomen. FINDINGS: Compared to the CT examination, moderately dilated loops of small bowel are again seen within the mid upper abdomen. Findings are again characteristic of at least a partial small bowel obstruction. Ther e is noted to be air within the colon. The patient's NG tube has been slightly retracted and is just entering the gastric fundus. It should be further advanced. There is no evidence for organomegaly or gross intra-abdominal mass. No abnormal calcifications are seen along the course of the urinary tracts bilaterally. No acute osseous patholo gy. IMPRESSION: 1.Compared to the CT, radiographic findings of a partial small bowel obstruction are seen. 2. NG tube has been slightly retracted and should be further advanced into the stomach. The floor will be called with the results of the study. ACT 112: Negative or not required by law. Electronically signed by: Monster Ibarra M.D. 08/20/2021 1:04 PM
--- NOTE | 2021-08-20 14:31 | Hospitalist Progress Note ---
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 No discrete transition point identified however the distal ileum is relatively decompressed. These findings favor a small bowel obstruction NGT placed in ED Repeat KUB with persistent small bowel dilatation which favors a small bowel ob struction Keep NPO, allow chips to moisten mouth, cont IVFs, continue to hold lasix Per surgery, continue NPO, NGT to LIS, ambulate hallway to increase GI motility, added IV PPI, pain management as needed [place] [facility] covering this weekend (2) CKD (chronic kidney disease), stage IV: Plan: Hx of such, chronic, holding lasix as above Cr 2.24 BUN 51 on admission, appears cr. baseline is 1.8-1.2 --> Cr improved to 1.81 today Continue IV fluids (3) Hypertension: Plan: Antihypertensive medications converted to IV -Metoprolol to IV Vasotec, hold lasix (4) Hypothyroidism: Plan: Continue levothyroxine IV for now, convert to po again once allowed (5) BPH (benign prostatic hyperplasia): Plan: Resume Flomax once able to take p.o. meds DVT ppx: Started on SQ heparin CODE: DNR/DNI Dispo: Admitted to med/surg Patient seen in collaboration with Dr. La. Please see addendum. Admission and Anticipated Discharge Date Admission Date: August 19, 2021 Supervising Physician Co-Signing Physician Notes Patient is seen and examined at bedside. States having bowel movement this morning. Still feels bloated and complains to have belching. Abdomen less d istended today. Offers no other complaints. On exam patient is moderately built and nourished, no apparent distress, normocephalic atraumatic, lungs are clear to auscultation, normal breath sounds, S1-S2, no murmur, trace pedal edema, abdomen soft, distended, non tender, decreased bowel sounds, alert, awake, oriented, grossly no focal deficits. Small bowel obstruction. Continue NG tube, bowel rest, IV fluids. KUB today showed persistent SBO. Plan to repeat KUB tomorrow again. Renal function slowly improving with IV fluids. I personally reviewed the record. Patient is interviewed and examined at bedside. Patient's care is coordinated with Brianna Ruiz PA-C. Please refer to the documentation above for details of patient's presentation and for discussion of other issues. Subjective Seen and examined in 375-1. Abdominal pain improved but still feeling bloated with belching. Liquid stool this morning. No fever, chills, headache, light headedness, nausea, vomiting, CP, SOB, dysuria. Review of Systems Review of Systems: At least ten systems reviewed and negative except as noted in the HPI. Physical Exam Physical Exam: Gen: WD/WN, NAD, sitting in bedside chair, A&Ox3, NG tube in place with dark output HEENT: Normocephalic, atraumatic, conjunctivae moist, sclerae anicteric, mucous membranes moist Lung: Clear to Auscultation bilaterally, no wheezes/rales/rhonchi Heart: Regular rate, regular rhythm, no murmurs, rubs, or gallops Abdomen: Distended and firm, non-tender, +BS x 4 Extremities: no edema Skin: Warm, no rash Results & Data Results & Data ([facility]) Vital Signs (Past 12 Hours) Vital Signs Temp Pulse Resp BP Pulse Ox 08/20/21 07:36 37.5 C 82 16 152/70 H 94 Laboratory Results Short CBC 08/20/21 Range/Units 08:17 WBC 5.48 (4.8-10.8) K/uL Hgb 12.7 L (14.0-18.0) g/dL Hct 38.0 L (42-52) % Plt Count 282 (130-400) K/uL BMP 08/20/21 08:17 Sodium 142 D Potassium 3.8 D Chloride 113 H Carbon Dioxide 20 L BUN 40 H Creatinine 1.81 H D Glucose 112 H Calcium 10.1 Diagnostic Findings Abdomen/Pelvis CT 08/19/21 11:06 CT OF THE ABDOMEN AND PELVIS WITHOUT CONTRAST CLINICAL HISTORY: Abdominal pain and vomiting. COMPARISON STUDY: CT of the abdomen and pelvis May 26, 2020. KUB December 30, 2020. TECHNIQUE: Axial images of the abdomen and pelvis were obtained without IV contrast. Images were reviewed in the axial, sagittal, and coronal planes. Automated exposure control was utilized for the study. A dose lowering technique was utilized adhering to the principles of ALARA. FINDINGS: Lung bases are unremarkable. There is mild cardiomegaly. A small hiatal hernia is present. No pneumatosis, free air or portal venous gas is present. Evaluation of the abdomen and pelvis is suboptimal on this unenhanced exam. A few small hypodense hepatic lesions are unchanged and CT of May 26, 2020. There is no biliary or pancreatic ductal dilatation. Unenhanced images of the spleen, adrenal glands and pancreas are unremarkable. Gallbladder is not visualized. Multiple bilateral renal lesions are noted. Several these are hyperdense. These are suboptimally assessed on this unenhanced exam but may reflect hyperdense cysts. Several left renal calculi measure up to 6 mm. No ureteral calculi are identified. Images of the pelvis are suboptimal given streak artifact from bilateral hip arthroplasties. Colonic diverticulosis is noted without evidence for acute diverticulitis. There is moderate dilatation of the proximal to mid small bowel. Definite transition point is not identified however the findings suggest a small bowel obstruction. Similar pattern was shown on CT of May 26, 2020. There is mild associated mesenteric infiltration. Distal ileum is relatively decompressed. Caliber of the abdominal aorta is normal. There is moderate plaque. No acute fracture or suspicious lesion is identified within the visualized skeletal structures. IMPRESSION: 1. Moderate dilatation of the proximal to mid small bowel. No discrete transition point identified however the distal ileum is relatively decompressed. These findings favor a small bowel obstruction. An enteritis could appear similar although is considered less likely. Mild associated mesenteric infiltration. 2. Left-sided nephrolithiasis. No ureteral calculi. 3. Colonic diverticulosis without evidence for acute diverticulitis. ACT 112: Negative or not required by law. Electronically signed by: Nilesh Mckeon M.D. 08/19/2021 12:20 PM Chest X-Ray 08/19/21 13:47 XR chest 1V portable CLINICAL HISTORY: Nasogastric tube. COMPARISON STUDY: Chest radiograph March 13, 2020. FINDINGS: Mild bibasilar opacities favor atelectasis. There is no pneumothorax or pleural effusion. Cardiomediastinal silhouette is stable. Tip of nasogastric tube projects over the gastric cardia. IMPRESSION: 1. Tip of nasogastric tube projects over the gastric cardia. The tube could be advanced 6 cm. 2. Bibasilar opacities which favor atelectasis. ACT 112: Negative or not required by law. Electronically signed by: Nilesh Mckeon M.D. 08/19/2021 2:19 PM KUB X-Ray 08/19/21 15:54 KUB HISTORY: Status post placement of an enteric tube NG tube placement COMPARISON: CT abdomen and pelvis of same day FINDINGS: Persistent small bowel distention suggestive of obstruction. Air is also noted within the large bowel. Status post placement of an enteric tube with distal tip projected medially within the gastric fundus. No renal calculi. No ureteral calculi. No pneumoperitoneum or pneumatosis. Lower abdomen is excluded from the [id number]. Spondylitic spurring of the spine. No fracture. IMPRESSION: 1. Persistent small bowel distention suggestive of obstruction. 2. Status post placement of an enteric tube with distal tip within the gastric fundus. ACT 112: Negative or not required by law. The above report was generated using voice recognition software. It may contain grammatical, syntax or spelling errors. Electronically signed by: Boris Alvarado M.D. 08/19/2021 4:15 PM KUB X-Ray 08/20/21 08:48 XR KUB/Abdomen 1 view CLINICAL HISTORY: follow-up SBO. COMPARISON STUDY: CT of the abdomen and pelvis from 08/19/2021 TECHNIQUE: Single view of the abdomen. FINDINGS: Compared to the CT examination, moderately dilated loops of small bowel are again seen within the mid upper abdomen. Findings are again characteristic of at least a partial small bowel obstruction. There is noted to be air within the colon. The patient's NG tube has been slightly retracted and is just entering the gastric fundus. It should be further advanced. There is no evidence for organomegaly or gross intra-abdominal mass. No abnormal calcifications are seen along the course of the urinary tracts bilaterally. No acute osseous pathology. IMPRESSION: 1.Compared to the CT, radiographic findings of a partial small bowel obstruction are seen. 2. NG tube has been slightly retracted and should be further advanced into the stomach. The floor will be called with the results of the study. ACT 112: Negative or not required by law. Electronically signed by: Monster Ibarra M.D. 08/20/2021 1:04 PM KUB X-Ray 08/20/21 13:22 KUB CLINICAL HISTORY: Evaluate NG tube. COMPARISON STUDY: KUB performed earlier today. FINDINGS: Tip of nasogastric tube projects over the proximal body the stomach. Sidehole is at the gastroesophageal junction. The tube could be advanced an additional 5 cm. Moderate small bowel dilatation is again noted. 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 IMPRESSION: 1. Tip of nasogastric tube projects over the proximal body of the stomach with sidehole at the level of the gastroesophageal junction. The tube could be advanced an additional 5 cm. 2. Persistent small bowel dilatation which favors a small bowel obstruction. ACT 112: Negative or not required by law. Electronically signed by: Nilesh Mckeon M.D. 08/20/2021 2:29 PM
[2021-08-20] MEDS: FAMOTIDINE 20 MG in SYRINGE 3 ML IV SCH (15:05)
[2021-08-20] MEDS: HEPARIN SOD 5,000 UNIT/0.5 ML VIAL SQ SCH (20:53)
--- NOTE | 2021-08-21 05:21 | Surgery Progress Note ---
Date of Service August 21, 2021 Assessment & Plan (1) SBO (small bowel obstruction): Plan: Continue NG tube until abdomen is less distended; NG tube is drained 40 cc last shift Continue analgesics Continue antiemetics Encourage use of incentive spirometry Increase activity as tolerated Repeat KUB is ordered for this morning; will follow up when available Follow up on a.m. labs when available She is currently not receiving any IV fluids; will reinstitute IV fluids until oral intake able to be advanced Subcutaneous heparin is in place for DVT prevention Admission and Anticipated Discharge Date Admission Date: August 19, 2021 Supervising Physician Co-Signing Physician Notes I personally saw and evaluated the patient with Garcia Delgado PA-C and agree with the assessment and plan. 85 yo with SBO -Still with abdominal distension, KUB with some improvement -He HGT with bilious output still, will leave in place today -Repeat KUB in AM Subjective Patient is resting comfortably in bed. He denies any nausea or vomiting. Patient says that he had a liquid bowel movement earlier this morning and is passing some flatus. He notes he does not have much in the way of an appetite. He denies any shortness of breath. Physical Exam Gastrointestinal (Abdomen): Abdomen is noted to have mild distention. There is some tympany with percussion. There is minimal tenderness with palpation. Sounds are hypoactive. Results & Data ([facility]) Vital Signs (Past 12 Hours) Vital Signs Temp Pulse Resp BP Pulse Ox 08/20/21 22:48 36.8 C 95 H 14 137/70 96 PG Care Time/CCT Total # of Minutes Spent Total Time Spent with Patient: Total time spent is greater than 50% in coordination of care (as documented) at patient's floor/unit and/or counseling patient: Coding Level of Care Code 16134 Subseq Hosp Care Lvl 1 Diagnoses SBO (small bowel obstruction) K56.609
[2021-08-21] MEDS: LACTATED RINGER'S 1,000 ML IV SCH ×2 (05:48→18:22)
[2021-08-21 06:23] LABS: Hemoglobin 11.8 g/dL (14.0-18.0); Mean Corpuscular Hemoglobin 29.6 pg (25-34); Mean Corpuscular Hgb Conc 33.7 g/dL (32-36); Mean Corpuscular Volume 87.9 fL (80-100); Mean Platelet Volume 9.6 fL (7.4-10.4); Platelet Count 230 K/uL (130-400); RDW Coefficient of Variation 15.6 % (11.5-14.5); RDW Standard Deviation 49.7 fL (36.4-46.3); Red Blood Count 3.98 M/uL (4.7-6.1); White Blood Count 5.92 K/uL (4.8-10.8)
[2021-08-21 07:01] LABS: BUN Creatinine Ratio 21.4 (10-20); Calcium 9.1 mg/dl (8.5-10.1); Creatinine Clr Calc Pharmacy 37.9 ml/min; Est GFR (African American) 49.7 ml/min; Est GFR (Non-African American) 42.9 ml/min; Potassium 3.3 mmol/L (3.5-5.1)
--- NOTE | 2021-08-21 07:36 | XRay Report ---
KUB CLINICAL HISTORY: Small bowel obstruction. COMPARISON STUDY: KUB August 20, 2021. 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 Tip of nasogastric tube projects over the body of the stomach. Gas within the colon and rectum has increased. Several loops of dilated smal l bowel are again noted. Small bowel dilatation has improved. IMPRESSION: Persistent, but improving, small bowel obstruction. ACT 112: Negative or not required by law. Electronically signed by: Nilesh Mckeon M.D. 08/21/2021 7:34 AM
[2021-08-21] MEDS: HEPARIN SOD 5,000 UNIT/0.5 ML VIAL SQ SCH ×2 (09:49→20:40)
[2021-08-21] MEDS: FAMOTIDINE 20 MG in SYRINGE 3 ML IV SCH (09:49)
[2021-08-21] MEDS: POTASSIUM CHLORIDE / WTR 10 MEQ/100 ML PLCT IV SCH ×2 (12:09→14:41)
--- NOTE | 2021-08-21 18:05 | Hospitalist Progress Note ---
Date of Service August 21, 2021 Assessment & Plan (1) SBO (small bowel obstruction): Plan: Recurrent SBO H/O Multiple abdominal surgeries --CT abd reviewed showing moderate dilatation of the proximal to mid small bowel. No discrete transition point identified however the distal ileum is relatively decompressed. These findings favor a small bowel obstruction Continue NG tube Continue IV fluids Continue bowel rest Encouraged to ambulate Bowel function slowly improving KUB today showed minimal improvement of SBO Appreciate surgery input (2) CKD (chronic kidney disease), stage IV: Plan: Hx of such, chronic, holding Lasix as above Cr 2.24 BUN 51 on admission Baseline ~ 2 Monitor renal function (3) Hypertension: Plan: Hold home p.o. meds Resume as able IV Vasotec as needed (4) Hypothyroidism: Plan: Continue levothyroxine IV for now while NPO (5) BPH (benign prostatic hyperplasia): Plan: Resume Flomax as able DVT Px: SQ heparin CODE STATUS: DNR/DNI Admission and Anticipated Discharge Date Admission Date: August 19, 2021 Subjective Patient is seen and examined at bedside States having liquid bowel movement today Denies any nausea, vomiting, abdominal pain Also denies any chest pain, shortness of breath, dizziness Offers no other complaints Review of Systems Review of Systems: All systems reviewed & are unremarkable except as noted in Subjective Physical Exam Physical Exam: Physical Exam: Vitals signs as noted above General Appearance:Moderately built and nourished, no apparent distress Head: normocephalic, Atraumatic Eyes: normal inspection, EOMI Neck: supple, Trachea midline Respiratory/Chest: Normal breath sounds, CTA Cardiovascular: S1, S2, No murmur Abdomen/GI:Soft, Non tender, Mild distention, decreased Bowel sounds Extremities/Musculoskeletal:normal inspection, no edema Neurologic/Psych:AAOX3, grossly no focal neurological deficits Skin: normal color, warm Results & Data Results & Data ([facility]) Vital Signs (Past 12 Hours) Vital Signs Temp Pulse Resp BP Pulse Ox 08/21/21 16:56 36.6 C 68 18 173/83 H 98 08/21/21 08:59 37.0 C 79 16 166/78 H 94 Laboratory Results Short CBC 08/21/21 Range/Units 05:41 WBC 5.92 (4.8-10.8) K/uL Hgb 11.8 L (14.0-18.0) g/dL Hct 35.0 L (42-52) % Plt Count 230 (130-400) K/uL BMP 08/21/21 05:41 Sodium 145 Potassium 3.3 L Chloride 115 H Carbon Dioxide 22 BUN 31 H Creatinine 1.47 H D Glucose 97 Calcium 9.1
--- NOTE | 2021-08-22 05:39 | Surgery Progress Note ---
Date of Service August 22, 2021 Assessment & Plan (1) SBO (small bowel obstruction): Plan: NG tube remains in place which has drained 950 cc of bilious drainage over the past 24 hours; prior to removing we will discuss with attending if clamping trial should be pursued Continue analgesics Continue antiemetics Continue use of incentive spirometry Ambulate as able Check KUB this morning Continue IV fluid for hydration measures while n.p.o. until oral intake is adequate Subcutaneous heparin is in place for DVT prevention Admission and Anticipated Discharge Date Admission Date: August 19, 2021 Supervising Physician Co-Signing Physician Notes I personally saw and evaluated the patient with Garcia Delgado PA-C and agree with the assessment and plan. 85 yo with SBO -He continues to pass a lot of flatus -Remove NGT and start sips/chips -Repeat KUB in AM Subjective Patient notes that he had a large amount of flatus this morning with some further liquid bowel movement. He denies any nausea vomiting. He denies any worsening abdominal pain. Physical Exam Gastrointestinal (Abdomen): Bowel sounds are hypoactive. Patient continues to have a mildly distended abdomen. There is minimal tympany with percussion. There is minimal pain with palpation. Results & Data ([facility]) Vital Signs (Past 12 Hours) Vital Signs Temp Pulse Resp BP Pulse Ox 08/21/21 22:15 36.9 C 81 16 156/78 H 95 PG Care Time/CCT Total # of Minutes Spent Total Time Spent with Patient: Total time spent is greater than 50% in coordination of care (as documented) at patient's floor/unit and/or counseling patient: Coding Level of Care Code 72660 Subseq Hosp Care Lvl 1 Diagnoses SBO (small bowel obstruction) K56.609
[2021-08-22 06:22] LABS: Hematocrit (blood only) 35.4 % (42-52); Hemoglobin 11.4 g/dL (14.0-18.0); Mean Corpuscular Hemoglobin 29.1 pg (25-34); Mean Corpuscular Hgb Conc 32.2 g/dL (32-36); Mean Corpuscular Volume 90.3 fL (80-100); Mean Platelet Volume 9.6 fL (7.4-10.4); Platelet Count 208 K/uL (130-400); RDW Coefficient of Variation 15.7 % (11.5-14.5); RDW Standard Deviation 51.6 fL (36.4-46.3); Red Blood Count 3.92 M/uL (4.7-6.1); White Blood Count 7.19 K/uL (4.8-10.8)
[2021-08-22] MEDS: LACTATED RINGER'S 1,000 ML IV SCH ×2 (06:22→19:41)
[2021-08-22 06:41] LABS: BUN Creatinine Ratio 18.7 (10-20); Calcium 9.3 mg/dl (8.5-10.1); Creatinine Clr Calc Pharmacy 38.2 ml/min; Est GFR (African American) 50.1 ml/min; Est GFR (Non-African American) 43.2 ml/min; Potassium 3.7 mmol/L (3.5-5.1)
--- NOTE | 2021-08-22 07:25 | XRay Report ---
KUB CLINICAL HISTORY: Small bowel obstruction. COMPARISON STUDY: KUB August 21, 2021. FINDINGS: Tip of nasogastric tube is within the proximal stomach. Sidehole projects over the gastroes ophageal junction. Several loops of dilated small bowel are noted. These are similar to prior exam. B ilateral hip arthroplasties are partially imaged. IMPRESSION: 1. No significant change in small bowel dilatation. This suggests a partial small bowel obstruction. 2. Tip of nasogastric tube projects over the proximal stomach. The tube could be advanced 4 cm. ACT 112: Negative or not required by law. Electronically signed by: Nilesh Mckeon M.D. 08/22/2021 7:24 AM
[2021-08-22] MEDS: FAMOTIDINE 20 MG in SYRINGE 3 ML IV SCH (08:53)
[2021-08-22] MEDS: HEPARIN SOD 5,000 UNIT/0.5 ML VIAL SQ SCH ×2 (08:53→21:55)
--- NOTE | 2021-08-22 17:14 | Hospitalist Progress Note ---
Date of Service August 22, 2021 Assessment & Plan (1) SBO (small bowel obstruction): Plan: Recurrent SBO H/O Multiple abdominal surgeries --CT abd reviewed showing moderate dilatation of the proximal to mid small bowel. No discrete transition point identified however the distal ileum is relatively decompressed. These findings favor a small bowel obstruction NG tube discontinued Continue IV fluids Continue bowel rest Encouraged to ambulate Bowel function improving KUB today showed partial SBO Appreciate surgery input Denies any abdominal pain currently (2) CKD (chronic kidney disease), stage IV: Plan: Hx of such, chronic, holding Lasix as above Cr 2.24 BUN 51 on admission Baseline ~ 2 Monitor renal function (3) Hypertension: Plan: Hold home p.o. meds Resume as able IV Vasotec as needed (4) Hypothyroidism: Plan: Continue levothyroxine IV for now while NPO (5) BPH (benign prostatic hyperplasia): Plan: Resume Flomax as able DVT Px: SQ heparin CODE STATUS: DNR/DNI Admission and Anticipated Discharge Date Admission Date: August 19, 2021 Subjective Patient is seen and examined at bedside Sitting in the hallways during my encounter KUB today showed persistent small bowel obstruction Patient states having significant flatus today Denies any nausea, vomiting, abdominal pain NG tube discontinued Also reports having bowel movements today Denies chest pain, shortness of breath, dizziness Review of Systems Review of Systems: All systems reviewed & are unremarkable except as noted in Subjective Physical Exam Physical Exam: Physical Exam: Vitals signs as noted above General Appearance:Moderately built and nourished, no apparent distress Head: normocephalic, Atraumatic Eyes: normal inspection, EOMI Neck: supple, Trachea midline Respiratory/Chest: Normal breath sounds, CTA Cardiovascular: S1, S2, No murmur Abdomen/GI:Soft, Non tender, Mild distention, decreased Bowel sounds Extremities/Musculoskeletal:normal inspection, no edema Neurologic/Psych:AAOX3, grossly no focal neurological deficits Skin: normal color, warm Results & Data Results & Data ([facility]) Vital Signs (Past 12 Hours) Vital Signs Temp Pulse Resp BP Pulse Ox 08/22/21 15:23 36.4 C L 82 18 171/79 H 98 08/22/21 07:04 37.0 C 90 16 168/65 H 98 Laboratory Results Short CBC 08/22/21 Range/Units 05:46 WBC 7.19 (4.8-10.8) K/uL Hgb 11.4 L (14.0-18.0) g/dL Hct 35.4 L (42-52) % Plt Count 208 (130-400) K/uL [facility] 08/22/21 05:46 Sodium 146 H Potassium 3.7 Chloride 114 H Carbon Dioxide 24 BUN 27 H Creatinine 1.46 H Glucose 93 Calcium 9.3
[2021-08-23 07:30] LABS: BUN Creatinine Ratio 20.2 (10-20); Calcium 9.3 mg/dl (8.5-10.1); Creatinine Clr Calc Pharmacy 41.6 ml/min; Est GFR (African American) 55.6 ml/min; Potassium 3.6 mmol/L (3.5-5.1)
[2021-08-23 07:50] LABS: Magnesium 1.7 mg/dl (1.8-2.4); Phosphorus 2.6 mg/dl (2.5-4.9)
[2021-08-23] MEDS: ENOXAPARIN INJ 40 MG/0.4 ML SYR SQ SCH (08:28)
[2021-08-23] MEDS: FAMOTIDINE 20 MG in SYRINGE 3 ML IV SCH (08:30)
[2021-08-23] MEDS: LACTATED RINGER'S 1,000 ML IV SCH (08:30)
[2021-08-23] MEDS: LEVOTHYROXINE SODIUM IV SCH (08:55)
--- NOTE | 2021-08-23 09:16 | XRay Report ---
XR KUB/Abdomen 1 view CLINICAL HISTORY: Follow-up suspected small bowel obstruction. COMPARISON STUDY: 08/22/2021 TECHNIQUE: Single view of the abdomen. FINDINGS: Compared to previous examination, there is again mild to moderate gaseous distention of small bowel l oops again suspicious for at least a partial small bowel obstruction. Hemidiaphragms were not include d on this study and the NG tube is not visualized. There is no evidence for organomegaly or gross int ra-abdominal mass. No abnormal calcifications are seen along the course of the urinary tracts bilater ally. No acute osseous pathology. IMPRESSION: 1.Compared to previous examination, there is again no significant interval change in small bowel dila tation, again suspicious for at least partial small bowel obstruction. The hemidiaphragms were not in cluded on this study and NG tube cannot be assessed. ACT 112: Negative or not required by law. Electronically signed by: Monster Ibarra M.D. 08/23/2021 9:15 AM
[2021-08-23] MEDS ORDERED: MAGNESIUM SULFATE / D5W 1 GM/100 ML BAG IV ONE ×2 (09:47→10:00)
[2021-08-23] MEDS ORDERED: LEVOTHYROXINE SODIUM 75 MCG TABLET PO SCH (11:00)
[2021-08-23] MEDS: lisinopril 2.5 MG TAB PO SCH (12:18)
[2021-08-23] MEDS: TAMSULOSIN HCL 0.4 MG CAP PO SCH (12:19)
[2021-08-23] MEDS: amLODIPine BESYLATE 5 MG TAB PO SCH (12:19)
[2021-08-23] MEDS: METOPROLOL SUCC 50MG EXT REL TAB PO SCH (12:19)
--- NOTE | 2021-08-23 12:23 | Surgery Progress Note ---
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 Brar has seen patient and agrees with above. 08/23/2021 12:24PM, F/U SBO, doing better, passed BM, clear diet, KUB tomorrow, continue treatment, will F/U, Admission and Anticipated Discharge Date Admission Date: August 19, 2021 Supervising Physician Co-Signing Physician Notes I personally saw and evaluated the patient with Garcia Delgado PA-C and agree with the assessment and plan. 85 yo with SBO -He continues to pass a lot of flatus -Remove NGT and start sips/chips -Repeat KUB in AM Subjective Patient is seen and examined at bedside Sitting in the hallways during my encounter KUB today showed persistent small bowel obstruction Patient states having significant flatus today Denies any nausea, vomiting, abdominal pain NG tube discontinued Also reports having bowel movements today Denies chest pain, shortness of breath, dizziness 08/23/2021 12:21PM Dr. Brar F/U SBO, pt is doing better passed BM x 2, no abdominal pain, no nausea, no vomiting, NG tube was pulled out, KUB-PSBO, Physical Exam Constitutional: WD/WN, vitals as above Eyes: PERRL, conjunctivae normal, anicteric sclerae Neck: trachea midline, no thyromegaly Respiratory: normal respiratory effort, lungs clear to auscultation Cardiovascular: RRR, no murmur, no edema Gastrointestinal (Abdomen): soft, NT, Nd, BS + Musculoskeletal: no cyanosis or clubbing, extremities motor strength 5/5 Neurologic: patellar DTR's 2+ bilat, sensation intact Psychiatric: A+Ox3, euthymic affect Results & Data ([facility]) Vital Signs (Past 12 Hours) Vital Signs Temp Pulse Resp BP BP Pulse Ox 08/23/21 10:34 36.6 C 70 16 163/86 H 98 08/23/21 08:11 36.7 C 74 16 180/67 H 96 Diagnostic Findings XR KUB/Abdomen 1 view CLINICAL HISTORY: Follow-up suspected small bowel obstruction. COMPARISON STUDY: 08/22/2021 TECHNIQUE: Single view of the abdomen. FINDINGS: Compared to previous examination, there is again mild to moderate gaseous distention of small bowel loops again suspicious for at least a partial small bowel obstruction. Hemidiaphragms were not included on this study and the NG tube is not visualized. There is no evidence for organomegaly or gross intra- abdominal mass. No abnormal calcifications are seen along the course of the urinary tracts bilaterally. No acute osseous pathology. IMPRESSION: 1.Compared to previous examination, there is again no significant interval change in small bowel dilatation, again suspicious for at least partial small bowel obstruction. The hemidiaphragms were not included on this study and NG tube cannot be assessed.
--- NOTE | 2021-08-23 14:36 | Hospitalist Progress Note ---
Date of Service August 23, 2021 Assessment & Plan (1) SBO (small bowel obstruction): Plan: Recurrent SBO H/O Multiple abdominal surgeries CT abd reviewed showing moderate dilatation of the proximal to mid small bowel. No discrete transition point identified however the distal ileum is relatively decompressed. These findings favor a small bowel obstruction NG tube discontinued 08/22. Had loose bowel movement on 08/23 (normal per patient) Start clear liquids today Continue IV fluids Encouraged to ambulate Monitor electrolytes -K+ 3.6, MG +1.7 today. MG+ replaced General surgery consult, input appreciated (2) CKD (chronic kidney disease), stage IV: Plan: Baseline creatinine ~2.0 Creatinine 1.3 today Monitor renal functions (3) Hypertension: Plan: BP intermittently elevated, likely due to not receiving p.o. meds Resume p.o. meds today (amlodipine, clonidine, lisinopril, metoprolol) Continue to hold Lasix are receiving IVF (4) Hypothyroidism: Plan: Resume p.o. levothyroxine today (5) BPH (benign prostatic hyperplasia): Plan: Resume Flomax today DVT prophylaxis: SQ Lovenox CODE STATUS: DNR/DNI Dispo: Likely DC home within the next 2 days. Admission and Anticipated Discharge Date Admission Date: August 19, 2021 Supervising Physician Co-Signing Physician Notes Patient is seen and examined at bedside. States feeling well. Denies any nausea, vomiting, abdominal pain. Had bowel movements today. Tolerating clear liquid diet. On exam patient is moderately built and nourished, no apparent distress, normocephalic atraumatic, lungs are clear to auscultation, S1-S2, no murmur, abdomen soft, nontender, bowel sounds present, alert, awake, oriented, grossly no focal deficits. Small bowel obstruction. Started on clear liquid diet today. Received IV fluids. Appreciate surgery input. Restart home medications for hypertension. Clinically improving. I personally reviewed the record. Patient is interviewed and examined at bedside. Patient's care is coordinated with Mindy Garcia MAINTENANCE MECHANIC HELPER. Please refer to the documentation above for details of patient's presentation and for discussion of other issues. Subjective Patient seen and examined. Follow-up for small bowel obstruction. NG tube removed, patient reports marked improvement in his symptoms. Had loose bowel movement this morning, normal per patient. Ambulating in the halls. Abdominal distention improved, no further nausea. Denies chest pain or shortness of breath Review of Systems Review of Systems: All systems reviewed & are unremarkable except as noted in Subjective Physical Exam Constitutional: WD/WN, vitals as above no acute distress Respiratory: normal respiratory effort, lungs clear to auscultation Cardiovascular: Rate/Rhythm: regular rate and regular rhythm Vessels: normal peripheral pulses Extremities: no edema Gastrointestinal (Abdomen): Inspection/Auscultation: normal bowel sounds Percussion/Palpation: abdomen soft; abdomen nontender Skin: no rashes, warm and dry Neurologic: no focal motor deficits Psychiatric: A+Ox3, euthymic affect Results & Data Results & Data ([facility]) Vital Signs (Past 12 Hours) Vital Signs Temp Pulse Resp BP BP Pulse Ox 08/23/21 10:34 36.6 C 70 16 163/86 H 98 08/23/21 08:11 36.7 C 74 16 180/67 H 96 Laboratory Results BMP 08/23/21 06:33 Sodium 145 Potassium 3.6 Chloride 112 H Carbon Dioxide 23 BUN 27 H Creatinine 1.34 Glucose 75 Calcium 9.3 Diagnostic Findings KUB X-Ray 08/23/21 08:17 XR KUB/Abdomen 1 view CLINICAL HISTORY: Follow-up suspected small bowel obstruction. COMPARISON STUDY: 08/22/2021 TECHNIQUE: Single view of the abdomen. FINDINGS: Compared to previous examination, there is again mild to moderate gaseous distention of small bowel loops again suspicious for at least a partial small bowel obstruction. Hemidiaphragms were not included on this study and the NG tube is not visualized. There is no evidence for organomegaly or gross intra- abdominal mass. No abnormal calcifications are seen along the course of the urinary tracts bilaterally. No acute osseous pathology. IMPRESSION: 1.Compared to previous examination, there is again no significant interval change in small bowel dilatation, again suspicious for at least partial small bowel obstruction. The hemidiaphragms were not included on this study and NG tube cannot be assessed. ACT 112: Negative or not required by law. Electronically signed by: Monster Ibarra M.D. 08/23/2021 9:15 AM
[2021-08-23] MEDS: cloNIDine HCL 0.1 MG TAB PO SCH (21:16)
[2021-08-23] MEDS: FINASTERIDE 5 MG TAB PO SCH (21:16)
[2021-08-24] MEDS: LEVOTHYROXINE SODIUM 75 MCG TABLET PO SCH (06:20)
[2021-08-24 06:49] LABS: BUN Creatinine Ratio 17.3 (10-20); Calcium 8.5 mg/dl (8.5-10.1); Creatinine Clr Calc Pharmacy 43.6 ml/min; Est GFR (African American) 58.8 ml/min; Est GFR (Non-African American) 50.7 ml/min; Magnesium 1.7 mg/dl (1.8-2.4); Potassium 3.3 mmol/L (3.5-5.1)
[2021-08-24] MEDS ORDERED: MAGNESIUM SULFATE / D5W 1 GM/100 ML BAG IV ONE (07:17)
[2021-08-24] MEDS: TAMSULOSIN HCL 0.4 MG CAP PO SCH (07:47)
[2021-08-24] MEDS: METOPROLOL SUCC 50MG EXT REL TAB PO SCH (07:47)
[2021-08-24] MEDS: amLODIPine BESYLATE 5 MG TAB PO SCH (07:47)
[2021-08-24] MEDS: lisinopril 2.5 MG TAB PO SCH (07:48)
[2021-08-24] MEDS: ENOXAPARIN INJ 40 MG/0.4 ML SYR SQ SCH (07:48)
[2021-08-24] MEDS: FAMOTIDINE 20 MG in SYRINGE 3 ML IV SCH (07:53)
[2021-08-24] MEDS: POTASSIUM CHLORIDE CRTAB 20 MEQ TABCR PO SCH ×2 (07:53→12:05)
--- NOTE | 2021-08-24 09:50 | XRay Report ---
KUB CLINICAL HISTORY: f/u SBO COMPARISON STUDY: KUB August 23, 2021. 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 A few loops of mildly dilated small wolfgang wel are noted. Small bowel dilatation has improved. Gas within portions of the colon is noted. IMPRESSION: Mild small bowel dilatation, decreased since prior exam. ACT 112: Negative or not required by law. Electronically signed by: Nilesh Mckeon M.D. 08/24/2021 9:49 AM
--- NOTE | 2021-08-24 12:34 | Surgery Progress Note ---
Date of Service August 24, 2021 Assessment & Plan (1) SBO (small bowel obstruction): Plan: Recurrent SBO in setting of multiple abdominal surgeries + liquid stool abdomen distended but soft no leukocytosis KUB ordered today NGT with dark bilious/brown output- 700 cc since placement + bowel sounds Plan: Will repeat KUB today to further evaluate Continue NPO, NGT to LIS ambulate hallway to increase GI motility pain management as needed [facility] surgery covering this weekend Dr. Brar has seen patient and agrees with above. 08/23/2021 12:24PM, F/U SBO, doing better, passed BM, clear diet, KUB tomorrow, continue treatment, will F/U, 08/24/2021 12:35PM doing fine, no abdominal pain, tolerated clear diet, pt wants to try regular soft diet, pt can be discharged home tomorrow if he tolerated diet, sign off today, F/U pa 2 weeks, please call with questions, thanks, Admission and Anticipated Discharge Date Admission Date: August 19, 2021 Supervising Physician Co-Signing Physician Notes Patient is seen and examined at bedside. States feeling well. Denies any nausea, vomiting, abdominal pain. Had bowel movements today. Tolerating clear liquid diet. On exam patient is moderately built and nourished, no apparent distress, normocephalic atraumatic, lungs are clear to auscultation, S1-S2, no murmur, abdomen soft, nontender, bowel sounds present, alert, awake, oriented, grossly no focal deficits. Small bowel obstruction. Started on clear liquid diet today. Received IV fluids. Appreciate surgery input. Restart home medications for hypertension. Clinically improving. I personally reviewed the record. Patient is interviewed and examined at bedside. Patient's care is c oordinated with Mindy Garcia OEM SALES MANAGER. Please refer to the documentation above for details of patient's presentation and for discussion of other issues. Subjective Patient seen and examined. Follow-up for small bowel obstruction. NG tube removed, patient reports marked improvement in his symptoms. Had loose bowel movement this morning, normal per patient. Ambulating in the halls. Abdominal distention improved, no further nausea. Denies chest pain or shortness of breath 08/24/2021 12:33PM doing better, tolerated clear diet, passed BM x1. no abdominal pain, KUB - better, Physical Exam Constitutional: WD/WN, vitals as above Eyes: PERRL, conjunctivae normal, anicteric sclerae Neck: trachea midline, no thyromegaly Respiratory: normal respiratory effort, lungs clear to auscultation Cardiovascular: RRR, no murmur, no edema Gastrointestinal (Abdomen): soft, NT, ND, BS + Musculoskeletal: no cyanosis or clubbing, extremities motor strength 5/5 Neurologic: patellar DTR's 2+ bilat, sensation intact Psychiatric: A+Ox3, euthymic affect Results & Data ([place]) Vital Signs (Past 12 Hours) Vital Signs Temp Pulse Resp BP Pulse Ox 08/24/21 07:27 36.8 C 81 18 139/73 96 Laboratory Results Abnormal lab results 08/24/21 Range/Units 06:21 Potassium 3.3 L (3.5-5.1) mmol/L Chloride 111 H (98-107) mmol/L BUN 22 H (7-18) mg/dl Magnesium 1.7 L (1.8-2.4) mg/dl Diagnostic Findings KUB CLINICAL HISTORY: f/u SBO COMPARISON STUDY: KUB August 23, 2021. 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 A few loops of mildly dilated small bowel are noted. Small bowel dilatation has improved. Gas within portions of the colon is noted. IMPRESSION: Mild small bowel dilatation, decreased since prior exam.
--- NOTE | 2021-08-24 13:44 | Hospitalist Progress Note ---
Date of Service August 24, 2021 Assessment & Plan (1) SBO (small bowel obstruction): Plan: Recurrent SBO H/O Multiple abdominal surgeries CT abd reviewed showing moderate dilatation of the proximal to mid small bowel. No discrete transition point identified however the distal ileum is relatively decompressed. These findings favor a small bowel obstruction NG tube discontinued 08/22. Had loose bowel movement on 08/23 and 08/24 (normal per patient) Tolerated clear liquids, advance to full liquid diet as per general surgery. If tolerates full liquids, can advance to soft diet this evening. DC IVF Encouraged to ambulate Monitor electrolytes -K+ 3.3, MG +1.7 today, replace, follow electrolytes in a.m. General surgery consult, input appreciated (2) CKD (chronic kidney disease), stage IV: Plan: Baseline creatinine ~2.0 Creatinine 1.28 today Monitor renal functions (3) Hypertension: Plan: BP improved after home p.o. meds resumed Continue amlodipine, clonidine, lisinopril, metoprolol Likely resume Lasix tomorrow (4) Hypothyroidism: Plan: Continue levothyroxine (5) BPH (benign prostatic hyperplasia): Plan: Continue Flomax DVT prophylaxis: SQ Lovenox CODE STATUS: DNR/DNI Dispo: Likely DC home tomorrow Admission and Anticipated Discharge Date Admission Date: August 19, 2021 Supervising Physician Co-Signing Physician Notes Patient is seen and examined at bedside. Continues to improve clinically. KUB showed improving small bowel obstruction. Tolerating diet. No new complaints. Denies any nausea, vomiting, abdominal pain. On exam patient is moderately built and nourished, no apparent distress, normocephalic atraumatic, lungs are clear to auscultation, S1-S2, no murmur, abdomen soft, nontender, bowel sounds present, alert, awake, oriented, grossly no focal deficits. Small bowel obstruction. Advance to low fiber diet today. Received IV fluids. Appreciate surgery input. Likely discharge in 24 to 48 hours if continues to improve. I personally reviewed the record. Patient is interviewed and examined at bedside. Patient's care is coordinated with Mindy Garcia PLANT NURSERY WORKER. Please refer to the documentation above for details of patient's presentation and for discussion of other issues. Subjective Patient seen and examined. Follow-up for small bowel obstruction. NG tube removed yesterday, patient continues to do well. Tolerating clear liquids and eager for diet to be advanced. Had loose bowel movement this morning, normal per patient. Continues to frequently ambulate in the halls. Abdominal distention resolved, no further nausea. Denies chest pain and shortness of breath. Review of Systems Review of Systems: All systems reviewed & are unremarkable except as noted in Subjective Physical Exam Constitutional: no acute distress Ambulating in room independently Respiratory: normal respiratory effort, lungs clear to auscultation Cardiovascular: Rate/Rhythm: regular rate and regular rhythm Vessels: normal peripheral pulses Extremities: no edema Gastrointestinal (Abdomen): Inspection/Auscultation: normal bowel sounds Percussion/Palpation: abdomen soft; abdomen nontender Skin: no rashes, warm and dry Neurologic: moves all extremities; no focal motor deficits Psychiatric: A+Ox3, euthymic affect Results & Data Results & Data ([facility]) Vital Signs (Past 12 Hours) Vital Signs Temp Pulse Resp BP Pulse Ox 08/24/21 07:27 36.8 C 81 18 139/73 96 Laboratory Results [facility] 08/24/21 06:21 Sodium 140 Potassium 3.3 L Chloride 111 H Carbon Dioxide 26 BUN 22 H Creatinine 1.28 Glucose 98 Calcium 8.5 Diagnostic Findings KUB X-Ray 08/24/21 08:00 KUB CLINICAL HISTORY: f/u SBO COMPARISON STUDY: KUB August 23, 2021. 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 A few loops of mildly dilated small bowel are noted. Small bowel dilatation has improved. Gas within portions of the colon is noted. IMPRESSION: Mild small bowel dilatation, decreased since prior exam. ACT 112: Negative or not required by law. Electronically signed by: Nilesh Mckeon M.D. 08/24/2021 9:49 AM
[2021-08-24] MEDS: cloNIDine HCL 0.1 MG TAB PO SCH (20:02)
[2021-08-24] MEDS: FINASTERIDE 5 MG TAB PO SCH (20:02)
[2021-08-25] MEDS: LEVOTHYROXINE SODIUM 75 MCG TABLET PO SCH (06:04)
[2021-08-25 07:06] LABS: BUN Creatinine Ratio 15.2 (10-20); Calcium 8.3 mg/dl (8.5-10.1); Est GFR (African American) 51.4 ml/min; Est GFR (Non-African American) 44.3 ml/min; Magnesium 1.6 mg/dl (1.8-2.4); Potassium 3.6 mmol/L (3.5-5.1)
[2021-08-25] MEDS: lisinopril 2.5 MG TAB PO SCH (08:24)
[2021-08-25] MEDS: METOPROLOL SUCC 50MG EXT REL TAB PO SCH (08:25)
[2021-08-25] MEDS: ENOXAPARIN INJ 40 MG/0.4 ML SYR SQ SCH (08:25)
[2021-08-25] MEDS: MAGNESIUM SULFATE / D5W 1 GM/100 ML BAG IV SCH ×2 (08:27→10:09)
[2021-08-25] MEDS: amLODIPine BESYLATE 5 MG TAB PO SCH (08:28)
[2021-08-25] MEDS: TAMSULOSIN HCL 0.4 MG CAP PO SCH (08:29)
[2021-08-25] MEDS: FAMOTIDINE 20 MG in SYRINGE 3 ML IV SCH (08:32)
--- NOTE | 2021-08-25 16:05 | Discharge Summary ---
Date of Service August 25, 2021 Admission HPI Per Admitting Provider This is an 85 yo M with PMHx of CKD stage IV, hypothyroidism, HLD, BPH and multiple abdominal surgeries including bowel resection, cholecystectomy, appendectomy. Pt has hx of SBO, last episode was in May 2020 where he was admitted for a similar presentation. Today pt presented with diarrhea, belching, increased abdominal pain, distention, nausea and vomiting. He reports this worsened yesterday morning after eating a piece of toast. By dinnertime when he attempted to eat chicken noodle soup his abdominal was significantly distended, at 9 PM he started vomiting. Patient continues to vomit through today and belching excessively however it does relieve some pressure. He has been walking without any difficulty. Diarrhea episodes of seem to slow down at this point. He also notes he did not take Lasix yesterday morning as he was beginning to feel dehydrated, i.e. dry mouth. CT abd/pelvis confirms SBO. NGT discussed with the patient and he is willing to have it placed. Admission Exam Per Admitting Provider General: awake, alert, no apparent distress Head: Normocephalic, atraumatic ENT: PERRL, EOMI, no pharyngeal exudate, + mucous membranes dry Chest: Clear to auscultation, on room air, no adventitious breath sounds Cardiac: Regular rate and rhythm, no murmur, no JVD, normal peripheral pulses, good capillary refill Abdominal: + Significantly distended, high-pitched tinkling bowel sounds heard in right upper quadrant, + hypoactive elsewhere, pain with palpation, no guarding or rebound. Extremities: Normal inspection, no peripheral edema or erythema, calfs nontender to palpation Psych: Normal mood and affect Neuro: AAO x 3, strength intact bilaterally and rated 5/5, no motor deficits, speech is clear, no peripheral sensory deficits Principal Diagnosis Small bowel obstruction Discharge Exam Constitutional no acute distress Sitting on the edge of the bed Respiratory normal respiratory effort, lungs clear to auscultation Cardiovascular Rate/Rhythm: regular rate and regular rhythm Vessels: normal peripheral pulses Extremities: no edema Gastrointestinal (Abdomen) Inspection/Auscultation: normal bowel sounds Percussion/Palpation: abdomen soft; abdomen nontender Skin no rashes, warm and dry Neurologic moves all extremities and awake; no focal motor deficits Psychiatric A+Ox3, euthymic affect Discharge Data Allergies Allergy/AdvReac Type Severity Reaction Status Date / Time hazelnut Allergy Severe Anaphylaxis Verified 08/19/21 11:43 Penicillins Allergy Severe AMOXICILLIN Verified 08/19/21 11:43 --diarrhea oyster extract Allergy Intermediate Vomiting Verified 08/19/21 11:43 pollen extracts Allergy Intermediate TREE Verified 08/19/21 11:43 POLLEN-seasonal allergies Consultations General surgery Ordered Studies CT ABD/pelvis 08/19/2021 IMPRESSION: 1. Moderate dilatation of the proximal to mid small bowel. No discrete transition point identified however the distal ileum is relatively decompressed. These findings favor a small bowel obstruction. An enteritis could appear similar although is considered less likely. Mild associated mesenteric infiltration. 2. Left-sided nephrolithiasis. No ureteral calculi. 3. Colonic diverticulosis without evidence for acute diverticulitis. Hospital Course (1) SBO (small bowel obstruction): 85 yo M with PMHx of CKD stage IV, HTN, hypothyroidism, HLD, BPH and multiple abdominal surgeries including bowel resection, cholecystectomy, appendectomy who presented to the ED for evaluation of diarrhea, abdominal pain, distention, nausea and vomiting. Patient with history of recurrent small bowel obstructions. CT ABD/pelvis showed evidence of small bowel obstruction. General surgery was consulted and followed along during hospitalization. NG tube was placed and subsequently removed on 08/22. Patient received IV fluids, electrolytes were monitored and patient did require potassium and magnesium supplementation. Recommend checking electrolytes within 1 week. Patient's diet was slowly advanced which he tolerated. He continued to have loose bowel movements which are normal for him. Patient's renal functions remained stable during hospitalization. His routine medications for HTN, hypothyroidism, BPH were resumed once NG tube was removed. There were no issues with patient's chronic medical problems. He was ambulating in the halls independently throughout his hospital stay and on the day of discharge. Total Time Total Time Spent Total Time Spent (In Minutes): 35 Discharge Plan Discharge Items Patient Disposition: Home - Self-Care Reason For Visit: DIARRHEA,VOMITING Discharge Diagnosis: Bowel Obstruction Activity: Resume your previous activity Non-emergency contact: Primary Care Provider and Surgeon Call non-emergency contact if: you have any medication questions, your symptoms worsen and you have a fever Follow-up/Referrals: Celia Prajapati DO [Primary Care Provider] - 09/03/21 2:30 pm (Date & Time 09/03/2021 2:30 PM Provider Celia Prajapati DO Department Family Medicine [facility] ) Sadie Brar MD [Physician] - (please make appointment within 2 weeks) Diet: Heart Healthy and Low Fiber Addtl Attending Provider Instructions: You were admitted to the hospital for a small bowel obstruction. You have had previous abdominal surgeries that created scar tissue which makes you more prone to having bowel obstructions. You were treated with an NG tube and your symptoms resolved. Diet was slowly advanced which you tolerated. Make sure to eat a low fiber diet. Please call and schedule an appointment with Dr. Brar (surgeon) for 2 weeks. Keep follow up appointment as scheduled with PCP. No changes were made in your home medications. It was a pleasure taking care of you. If you have any questions about your hospitalization or if you need to reach a member of the [facility] Hospitalist team, please call [phone]. HERRERA Gamez Pending Studies at Discharge: No Stand-Alone Forms: My [facility] [employer], Smoking Cessation Medications and DC Order Prescriptions: Continued metronidazole 0.75 % gel 1 applic topical BID RF: 0 furosemide 20 mg tablet 20 mg PO DAILY RF: 0 tamsulosin 0.4 mg capsule 0.4 mg PO QAM Qty: 90 RF: 3 finasteride 5 mg tablet 5 mg PO HS Qty: 90 RF: 3 multivitamin Tablet 1 tab PO QAM RF: 0 clonidine HCl 0.1 mg Tablet 0.1 mg PO HS RF: 0 metoprolol succinate 50 mg Tablet Extended Release 24 Hr 50 mg PO QAM RF: 0 cyanocobalamin (vitamin B-12) [Vitamin B-12] 1,000 mcg Tablet 1,000 mcg PO DAILY RF: 0 fenofibrate micronized 134 mg Capsule 134 mg PO QAM RF: 0 levothyroxine 75 mcg Tablet 75 mcg PO QAM RF: 0 amlodipine [Norvasc] 10 mg Tablet 10 mg PO QAM RF: 0 allopurinol 300 mg Tablet 300 mg PO QAM RF: 0 cholecalciferol (vitamin D3) [Vitamin D3] 50 mcg (2,000 unit) Capsule 4,000 unit PO DAILY RF: 0 Ocuvite Adult 50 Plus 250-5-1 mg Capsule 1 cap PO HS RF: 0 magnesium oxide 400 mg magnesium Tablet 400 mg PO DAILY RF: 0 lisinopril 2.5 mg tablet 2.5 mg PO DAILY RF: 0 Discharge Orders: Discharge Order (Routine); Ordered 08/25/21 Ordered By: Mindy Garcia Admission Data Admit Date/Time: 08/19/21 12:52 Attending Provider: Madyson Bennett Admit Provider: Elton La Primary Care Provider: Celia Prajapati Other Providers: Sadie Brar ; Sinan Epstein Other Interventions: Discharge Summary Assessment (RN) Last Done: 08/25/21 13:06 Supervising Physician Co-Signing Physician Notes I have seen and examined the patient and have discussed the case with the provider above. I agree with the assessment and plan as stated. He appears stable and ready for discharge. My exam reflects that above. Agree with plan and follow-up with PRP in one week. DO Donald
== END 2021-08-25 14:00 | disposition home or self-care (01) | DRG 389 ==
LOC: ED 10:52 → SUATTDRO 12:52 → EDINP 12:52 → 3N 16:02

== ENCOUNTER 2025-02-08 17:00 | Inpatient (IN) ==
--- OUTSIDE RECORDS SUMMARY | 2025-02-08 17:08 | External Medical Summary | Summary of Care ---
Author Name Unknown Organization [facility] Address [address] [facility] [place] [address] Phone [phone] Care Team Providers Care Biological Aide Name Role Phone Celia Prajapati DO Primary Care Provider Reason for Visit * Reason Comments Outpatient Testing Encounter Details Date Type Department Care Team (Late st Contact Info) Description 01/07/2025 2:50 PM EDT Laboratory Laboratory [address] [place] [phone] [address] [place] [address] Chronic kidney disease, stage 3b (HCC); High potassium Allergies Active Allergy Reactions Criticality Noted Date Comments Amoxicillin 09/22/2001 diarrhea and abdominal cramps with Augmentin Amoxicillin-Pot Clavulanate 07/29/2024 Hazelnut (Filbert) 07/29/2024 Levofloxacin 11/03/2021 RASH Food (See Comments) Edema face/lips/tongue 11/19/2009 Oyster Extract High 08/19/2021 Other Reaction(s): Vomiting Pollen Extract High 08/19/2021 Other Reaction(s): TREE POLLEN-seasonal allergies Sulfa Antibiotics 07/05/2021 diarrhea Wound Dressing Adhesive 05/08/2024 Zio patch documented as of this encounter (statuses as of 01/07/2025) Medications MULTIVITAMINS PO TABS 1 tablet daily 0 0 7 Active [facility] VITAMIN B-12 1000 MCG PO TABSIndications:B1 2 deficiency 1 TABLET DAILY 1 Tab 0 2 Active OCUVITE-LUTEIN PO CAPS 1 daily 3 Active VITAMIN D 1000 UNITS PO CAPSIndications:Vi tamin D deficiency Take by mouth 2 times a day. 1 Cap 0 5 Active Magnesium Oxide 400 MG Capsule Take 1 Cap by mouth daily. 90 Cap 1 7 Active clindamycin (CLEOCIN) 150 MG CapsuleIndications :take all four tablet before dental work Take 4 Capsules by mouth. Active Tamsulosin HCl 0.4 MG Oral Capsule (Flomax)Indication s:BPH with obstruction/lower urinary tract symptoms TAKE 1 CAPSULE BY MOUTH EVERY DAY IN THE MORNING 90 Capsule 3 4 Active Triamcinolone Acetonide 0.1 % External Cream (Aristocort)Indica tions:Irritant contact dermatitis due to other chemical products Apply topically to affected area 2 times a day. To affected area. 60 g 5 4 Active amLODIPine Besylate 5 MG Oral Tablet (Norvasc) Take 1 Tablet by mouth in the morning. 90 Tablet 3 4 Active Finasteride 5 MG Oral Tablet (Proscar)Indicatio ns:BPH with obstruction/lower urinary tract symptoms Take 1 Tablet by mouth in the morning. 90 Tablet 3 4 Active Furosemide 20 MG Oral Tablet (Lasix) Take 1 Tablet by mouth in the morning. 90 Tablet 3 4 Active Allopurinol 300 MG Oral Tablet (Zyloprim)Indicati ons:Calculus of kidney Take 1 Tablet by mouth in the morning. 90 Tablet 1 4 Active Metoprolol Succinate ER 50 MG Oral Tablet Extended Release 24 Hour (toPROL XL)Indications:HTN , goal below 150/90 Take 1 Tablet by mouth in the morning. 90 Tablet 3 4 Active metroNIDAZOLE 0.75 % External Gel (Metrogel)Indicati ons:Rosacea APPLY TOPICALLY TO FACE TWICE A DAY 45 g 1 5 Active Lisinopril 5 MG Oral Tablet (Prinivil)Indicati ons:HTN, goal below 150/90 Take 1 Tablet by mouth every night at bedtime. 90 Tablet 1 5 Active Levothyroxine Sodium 125 MCG Oral Tablet (Levoxyl)Indicatio ns:Acquired hypothyroidism Take 1 Tablet by mouth in the morning. (at least 30 min prior to breakfast or other meds). 90 Tablet 1 5 Active Fenofibrate 145 MG Oral Tablet (Tricor)Indication s:High triglycerides Take 1 Tablet by mouth in the morning. 90 Tablet 1 5 Active documented as of this encounter (statuses as of 01/07/2025) Active Problems Problem Noted Date Diagnosed Date History of gout 12/17/2024 Mild aortic stenosis 05/08/2024 Chronic diarrhea 03/16/2022 Recurrent UTI 10/20/2021 Nocturia 10/20/2021 Urge incontinence 10/20/2021 Chronic kidney disease, stage 3b 03/30/2021 Overview: Per CKD protocol Personal history of kidney stones 03/02/2021 Overview (03/02/2021): Placed on allopurinol. Bilateral leg edema 03/02/2021 Benign hypertension with stage 3b chronic kidney disease 02/23/2021 Overview: Per CKD protocol H/O dysplastic nevus 05/20/2020 Overview (05/20/2020): Mildly atypical nevus (L upper abdomen) H/O nonmelanoma skin cancer 10/03/2017 HTN, goal below 150/90 02/11/2016 Acquired hypothyroidism 09/01/2015 Generalized osteoarthritis 07/29/2015 Vitamin D deficiency 08/12/2012 Rosacea 11/30/2011 B12 deficiency 10/03/2011 Iron deficiency anemia 10/03/2011 Hypertriglyceridemia 09/22/2009 Overview (09/22/2009): Per Lipid Taxonomy. BPH with obstruction/lower urinary tract symptom s 11/15/2006 documented as of this encounter (statuses as of 01/07/2025) Resolved Problems Problem Noted Date Diagnosed Date Resolved Date Gout 06/05/2020 03/02/2021 Belching 03/08/2019 03/02/2021 Benign hypertension with CKD (chronic kidney disease) stage III 10/03/2017 02/25/2021 Overview: Per CKD protocol AK (actinic keratosis) 03/30/201610/03 Prediabetes 07/30/2015 03/28/2017 Degenerative disc disease, cervical 07/29/2015 10/03/2017 HTN, goal below 140/90 02/24/201502/10 Hypomagnesemia 11/06/2014 03/16/2022 Hypertension goal BP (blood pressure) < 140/80 08/26/2014 02/05/2015 Lyme arthritis of multiple joints 02/24/2014 10/03/2017 Basal cell carcinoma of mosque region 10/03/2013 10/03/2017 Overview (10/03/2013): left side Hypothyroidism 10/03/2011 09/01/2015 Venous insufficiency 09/27/2011 015 Esophageal reflux 06/08/2011 03/08/2019 Heart failure, diastolic, due to HTN 10/21/2010 08/26/2014 Hypertensive heart disease 10/21/2010 1 10/26/2013 HTN, goal below 130/80 11/11/200908/26 Overview (11/11/2009): Modified per HTN Taxonomy. HTN, GOAL BELOW 140/90 08/21/200911/11 Overview (11/11/2009): Modified per HTN Taxonomy. OSTEOARTHRITIS LOCALIZED, SECONDARY( Ankle) 10/24/2008 07/29/2015 Pernicious anemia 03/25/2008 03/28/2017 Calculus of ureter 2006 8 BPH without obstruction/lowe r urinary tract symptoms 2006 08/23/2007 ADVANCE DIRECTIVE INFORMATION 07/19/2006 10/03/2017 Overview (07/19/2006): No, Advance Directive brochure given to patient at prior appointment. Special screening for malign ant neoplasms, colon 04/25/2006 08/23/2007 Overview (04/25/2006): Colonoscopy 04/20/06-- diverticulosis and hyperplastic polyp, repeat 10 years Mixed dyslipidemia 07/25/2005 9 Overview (09/22/2009): Per Lipid Taxonomy. LOC PRIM OSTEOART-PELVIS 01/12/200506/2008 Primary localized osteoarthr osis of pelvic region or thigh 01/12/2005 07/29/2015 LOC PRIM OSTEOARTH-ANKLE 07/14/200406/2008 PLANTAR FIBROMATOSIS 07/14/2004 008 Carotid stenosis, non-symptomatic 02/11/2004 10/03/2017 Benign localized hyperplasia of prostate without urinary obstruction and other lower urinary tract symptoms (LUTS) 10/31/2003 01/09/2008 Rosacea 06/06/2008 Peritonitis NEC 01/09/2008 Calculus of kidney 7 Reflux esophagitis 8 Acute gastritis 01/09/2008 Overview (07/17/2017): ICD-10 update of inactive term INTESTINAL OBSTRUCT NOS 12/15 BENIGN HYPERTENSION 08/21/20 09 Overview (08/21/2009): Modified per HTN Taxonomy. Benign hypertensive kidney d isease with chronic kidney disease stage I through stage IV, or unspecified(403.10) 01/09/2008 Kidney disease, chronic, sta ge III (GFR 30-59 ml/min) 01/26/2018 Mitral valve disorder 2012 Mitral valve regurgitation 1 12/04/2016 Impaired fasting glucose 08/2014 Intestinal obstruction 02/03 SBO (small bowel obstruction) 02/24/2015 documented as of this encounter (statuses as of 01/07/2025) Immunizations Name Administration Dates Next Due COVID-19 mRNA, LNP-s, No Pre serve, 2-Dose Series (Moderna) 08/06/2021,12/09/2020,11/09/2020 COVID-19, MRNA-LNP, PF, 30 M CG/0.3 mL, 12 YRS AND ABOVE, IM (Xcelaero-Comirnaty) 09/29/2023 Covid-19, Mrna, Lnp-s, Pf, B ivalent, 30 Mcg, IM, 12 yrs and above (Pfizer) 08/03/2022 H1N1 2009 Influenza, IM 09/26/2009 Pneumococcal Conjugate Vacc, 13 Valent (Prevnar) 09/01/2015 Season Influenza, Quad, PF, Adjuvanted, 65+ Yrs, IM (FLUAD) 08/10/2020 Seasonal Influenza Vac., MDV , IM, 0.5 mL (Fluzone) 07/21/2014,09/16/2013,08/08/2012,2010,07/28/2010,07/20/2009,07/21/2008,1 10/23/2006,07/19/2006 Seasonal Influenza, High Dos e, Trivalent, PF, IM (Fluzone HD) 08/19/2024 Seasonal Influenza, PF, 6 M & above, IM , (FluLaval or Fluzone) 07/15/2019,08/23/2018,08/02/2017 Seasonal Influenza, Quadriva lent Hd (Fluzone Hd) 09/29/2023,09/05/2022,09/07/2021 Seasonal Influenza, Quadriva lent, No Preserve, IM 09/19/2016,07/29/2015 TDAP (age 10 and older)(Boostrix) 03/27/2019 documented as of this encounter Social History Tobacco Use Types Packs/Day Years Used Date Smoking Tobacco: Never Smokeless Tobacco: Never Alcohol Use Standard Drinks/Week Comments Yes 3 (1 standard drink = 0.6 oz pur e alcohol) PHQ-2 Answer Date Recorded PHQ-2 Score 0 06/05/2020 Sex and Gender Information Value Date Recorded Sex Assigned at Not on file Legal Sex Male 5:27 AM EST Gender Identity Not on file Sexual Orientation Not on file 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 Not on file Not on file Not on le documented as of this encounter Plan of Treatment Upcoming Encounters Date Type Department Care Team (Late st Contact Info) Description 01/14/2025 3:30 PM EDT Office Visit Nephrology [address] [place] [phone] Ana Maria Kowalski PA-C [address] [place] [address] 02/17/2025 9:20 AM EDT Office Visit Neurology [facility] [address] [place] [address] Enmanuel Carlson MD [address] [place] [address] 06/11/2025 2:20 PM EDT Office Visit Dermatology [address] [place] [address] Mindy Alves PA-C [address] [place] [address] [place] [phone] 07/16/2025 2:30 PM EDT Office Visit Family Medicine [address] [place] [phone] Celia Prajapati DO [address] [place] [address] [place] [address] Pending Results Name Type Priority Associated Diagnoses Date /Time BASIC METABOLIC PANEL Lab Routine Chronic kidney disease, stage 3b (HCC) High potassium 01/07/2025 2:51 PM EDT Health Maintenance Due Date Last Done Comments Zoster Vaccines (1 of 2) 1985 Adult Wellness Visit 05/26/2018 05/26/2017 Depression Screening 06/05/2021 06/05/2020 COVID-19 Vaccine ( season) 2024 09/29/2023, 08/03/2022, 08/06/2021, Additional history exists Albumin/Creatinine Ratio 05/02/202505/02/2 024, 03/21/2023, 01/12/2023, Additional history exists CKD PHOS USE SMARTSET 07904 05/02/202504/15, 05/31/2023, 06/22/2022, Additional history exists CKD HGB USE SMARTSET 61099 12/17/202512/17, 12/17/2024, 05/02/2024, Additional history exists TSH 12/17/2025 12/17/2024, 04/15, 09/26/2023, Additional history exists DTap/Tdap Vaccines (2 - Td or Tdap) 03/27/2029 03/27/2019, 10/29/2002 Pneumococcal Vaccine: 50+ Years Completed 09/01/2015, 10/17/2009, 09/28/2001 Influenza Vaccine (FLU shot) Completed 01/2024, 09/29/2023, 09/29/2023, Additional history exists HPV (Gardasil) Vaccine Aged Out No lo nger eligible based on patient's age to complete this topic Hepatitis B Vaccine Aged Out No longe r eligible based on patient's age to complete this topic MENINGOCOCCAL (MENACTRA/MENVEO) Aged Out No longer eligible based on patient's age to complete this topic Meningitis B Vaccine (Bexsero/Trumemba) Aged Out No longer eligible based on patient's age to complete this topic documented as of this encounter Medical Devices Not on filedocumented as of this encounter Visit Diagnoses Diagnosis Chronic kidney disease, stage 3b (HCC) High potassium Hyperpotassemia documented in this encounter Care Teams Biological Aide Relationship Specialty Start Date End Date Celia Prajapati DO [address] [place] [address] [place] [phone] PCP - General Internal Medicine 11/20/18 documented as of this encounter
--- OUTSIDE RECORDS SUMMARY | 2025-02-08 17:08 | External Medical Summary | Summary of Care ---
Author Name Unknown Organization [facility] Address [address] [facility] [place] [address] Phone [phone] Care Team Providers Care Video Journalist Name Role Phone PrajapatiCelia DO Primary Care Provider [phone] Encounter Details Date Type Department Care Team (Late st Contact Info) Description 12/23/2024 Orders Only PATIENT PORTAL DO NOT DELETE THIS DEPT USED BY [place] [phone] Allergies Active Allergy Reactions Criticality Noted Date [...] as of this encounter (statuses as of 12/23/2024) Medications MULTIVITAMINS PO TABS 1 tablet daily [...] the morning. 90 Tablet 1 4 Active Levothyroxine Sodium 112 MCG Oral Tablet (Levoxyl)Indicatio ns:Acquired hypothyroidism Take 1 Tablet by mouth in the morning. (at least 30 min prior to breakfast or other meds). 90 Tablet 1 4 Active Metoprolol Succinate ER 50 MG Oral Tablet Extended Release 24 Hour (toPROL XL)Indications:HTN , goal below 150/90 Take 1 Tablet by mouth in the morning. 90 Tablet 3 4 Active Potassium Citrate ER 15 MEQ (1620 MG) Oral Tablet Extended Release TAKE 1 TABLET BY MOUTH TWICE A DAY 180 Tablet 3 4 Active metroNIDAZOLE 0.75 % External Gel (Metrogel)Indicati ons:Rosacea APPLY TOPICALLY TO FACE TWICE A DAY 45 g 1 5 Active Lisinopril 5 MG Oral Tablet (Prinivil)Indicati ons:HTN, goal below 150/90 Take 1 Tablet by mouth every night at bedtime. 90 Tablet 1 Active documented as of this encounter (statuses as of 12/23/2024) Active Problems Problem Noted Date Diagnosed Date [...] as of this encounter (statuses as of 12/23/2024) Resolved Problems Problem Noted Date Diagnosed Date [...] joints 02/24/2014 10/03/2017 Basal cell carcinoma of yazidi region 10/03/2013 10/03/2017 Overview (10/03/2013): left side [...] as of this encounter (statuses as of 12/23/2024) Immunizations Name Administration Dates Next Due COVID-19 mRNA, LNP-s, No Pre serve, 2-Dose Series (Moderna) 08/06/2021,12/09/2020,11/09/2020 COVID-19, MRNA-LNP, PF, 30 M CG/0.3 mL, 12 YRS AND ABOVE, IM (PFIZER-Comirnaty) 09/29/2023 Covid-19, Mrna, Lnp-s, Pf, B ivalent, [...] 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 file Not on file Not on fi le documented as of this encounter Plan of Treatment Upcoming Encounters Date Type Department Care Team (Late st Contact Info) Description 02/17/2025 9:20 AM EDT Office Visit Neurology [facility] [address] [facility] [place] [address] Enmanuel Carlson MD [address] [facility] [place] [address] 06/11/2025 2:20 PM EDT Office Visit Dermatology [address] [place] [address] Mindy Alves PA-C [address] [place] [address] [place] [phone] 07/16/2025 2:30 PM EDT Office Visit Family Medicine [address] [place] [phone] [address] [place] [address] Health Maintenance Due Date Last Done Comments Zoster Vaccines (1 of 2) 1985 Adult Wellness Visit 05/26/2018 05/26/2017 Depression Screening 06/05/2021 06/05/2020 COVID-19 Vaccine ( season) 2024 09/29/2023, 08/03/2022, 08/06/2021, Additional history exists Albumin/Creatinine Ratio 05/02/2025 024, 03/21/2023, 01/12/2023, Additional history exists CKD PHOS USE SMARTSET 05274 05/02/202504/15, 05/31/2023, 06/22/2022, Additional history exists CKD HGB USE SMARTSET 05218 12/17/202512/17, 12/17/2024, 05/02/2024, Additional history exists TSH [...] Not on filedocumented as of this encounter Care Teams Video Journalist Relationship Specialty Start Date End Date Celia Prajapati DO [address] [place] [address] [place] [phone] PCP - General Internal Medicine 11/20/18 documented as of this encounter
--- OUTSIDE RECORDS SUMMARY | 2025-02-08 17:08 | External Medical Summary | Summary of Care ---
Author Name Unknown Organization [facility] Address [address] [place] [address] Phone [phone] Care Team Providers Care Plasterer Rough Name Role Phone Celia Prajapati DO Primary Care Provider [phone] Reason for Referral * Evaluate & Treat - Unlimited Visits (Within 10 days (routine)) - Authorized Specialty Diagnoses / Procedures Referred By Contmohini t Referred To Contact Military Analyst Diagnoses HTN, goal below 130/80 Ana Maria Kowalski PA-C [address] [place] [address] Phone: tel: fax: Referral ID Status Reason Start Date Expiration Date Visits Requested Visits Authorized [id number] Authorized Specialty Services Required 01/16/2025 1 1 Question Answer Referral Priority Within 10 days (routine) Program Type Chronic Disease Management Chronic Disease Management Hypertension Where should this appointment be scheduled? [facility] Alarm Settings Standard per protocol Any specialized instructions 130/80 Comments Patient with equipment but issues transmitting for review. Pt now with new phone would like to get re-setup to see if successful Reason for Visit * Reason Comments Chronic Kidney Disease (CKD) Encounter Details Date Type Department Care Team (Latest Contact Info) Description 01/14/2025 3:30 PM EDT Office Visit Nephrology [address] [place] [address] Ana Maria Kowalski PA-C [address] [place] [address] Stage 3b chronic kidney disease (HCC)*; HTN, goal below 130/80; Hyperuricemia; Calcium nephrolithiasis Allergies Active Allergy Reactions Criticality Noted Date [...] as of this encounter (statuses as of 01/16/2025) Medications MULTIVITAMINS PO TABS 1 tablet daily [...] as of this encounter (statuses as of 01/16/2025) Active Problems Problem Noted Date Diagnosed Date [...] as of this encounter (statuses as of 01/16/2025) Resolved Problems Problem Noted Date Diagnosed Date [...] joints 02/24/2014 10/03/2017 Basal cell carcinoma of christian region 10/03/2013 10/03/2017 Overview (10/03/2013): left side [...] 10/31/2003 01/09/2008 Rosacea 06/06/2008 Peritonitis NEC 01/09/2008 Overview (01/15/2025): ICD-10 Update of Inactive Term Calculus of kidney 7 Reflux esophagitis 8 Acute gastritis 01/09/2008 Overview (07/17/2017): ICD-10 update of inactive term INTESTINAL OBSTRUCT NOS /03/2008 BENIGN HYPERTENSION 08/21/20 09 Overview (08/21/2009): Modified [...] as of this encounter (statuses as of 01/16/2025) Immunizations Name Administration Dates Next Due COVID-19 mRNA, LNP-s, No Pre serve, 2-Dose Series (Moderna) 08/06/2021,12/09/2020,11/09/2020 COVID-19, MRNA-LNP, PF, 30 M CG/0.3 mL, 12 YRS AND ABOVE, IM (LifeNexus-ComirnatSimpleTherapy) 09/29/2023 Covid-19, Mrna, Lnp-s, Pf, B ivalent, [...] 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 Not on file Not on file Not on fi le documented as of this encounter Last Filed Vital Signs Vital Sign Reading Time Taken Comments Blood Pressure 170/92 01/14/2025 3:30 PM EDT Pulse 75 01/14/2025 3:30 PM EDT Temperature 36.4 °C (97.5 °F) 01/14/2025 3:28 PM ED T Respiratory Rate 18 01/14/2025 3:28 PM EDT Oxygen Saturation 97% 01/14/2025 3:28 PM EDT Inhaled Oxygen Concentration - - Weight 90.3 kg (199 lb) 01/14/2025 3:28 PM EDT Height - - Body Mass Index 28.55 07/29/2024 3:07 PM EDT documented in this encounter Progress Notes * Ana Maria Kowalski PA-C - 01/14/2025 3:30 PM EDT NEPHROLOGY CLINIC NOTE Nephrology [address] [place] [address] Patient Name: Enmanuel Booker Patient Active Problem List Diagnosis BPH with obstruction/lower urinary tract symptoms Hypertriglyceridemia B12 deficiency Iron deficiency anemia Rosacea Vitamin D deficiency Generalized osteoarthritis Acquired hypothyroidism HTN, goal below 150/90 H/O nonmelanoma skin cancer H/O dysplastic nevus Benign hypertension with stage 3b chronic kidney disease (HCC) Personal history of kidney stones Bilateral leg edema Chronic kidney disease, stage 3b (HCC) Recurrent UTI Nocturia Urge incontinence Chronic diarrhea Mild aortic stenosis History of gout BACKGROUND: 89 year old male presents for f/u of mild albuminuria 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 Past Medical history includes resistant HTN; bp is well controlled and checks it at home. summer had symptomatic hypotension Had 30 day course of cipro to treat voiding sx in spring 2021; no issues since. Has had nephrolithiasis since 1977. Passed 2 stones June 2018. Had cystoscopy same month> intense bladder irritation but no urethral stricture seen; finasteride added. Repeat cystoscopy scheduled for 09/24/19. this was first stone event in several years Follows w/ dr ramírez> dR Whitt. Had urorisk in 02/2018 >> pH on that was >7; cytra 3 dose was halved; now insurance will no longer cover citra 3 but does cover urocit. Passed a stone Barillas's 2021 Had L THR in 03/2020; c/b post op urinary retention after d/c needed zaman; now resolved; then SBO early May; also improving; 15 lb wt loss and some lower bp at home and light headedness at times. L hip replacement went well pt in 1950s had partial colectomy and terminal ileum removed; ultimately reconnected bowels; did have open abdomen for 2 mos d/t peritonitis. Unusual cellulitis/tick borne illnesses 2020 -April 2021 had course of Abtx/ 2 abtx from ?tick borne illness > Late March had scratchy/sore throat; next day runny nose etc; hydrated and rested. Then or second of April wakes w/ R arm proximally very swollen, painful, and black and blue w/ bruishes extending to R forearm. Next AM leg distally on R was swollen and red/painful. RLe still swells, still some redness. Had 2 abtx for ?Lyme dz; pt has had it 2X before and usually p/w arthralgias. Then a few days later on 2 abtx had temp to 100.9; Recurred a few days later x 1. Woke a few days later w/ all 5 R toes black and blue w/ marked fatigue; then arm eventually resolved. ? Dx; ? If Lyme disease or other. -Had another cellulitis episode Jun 2021 >>started on Bactrim for right lower extremity cellulitis--but had diarrhea w/ it and stopped it and also stopped d/t renal function. Issues w/ cellulitis since April 16, 2021; R wrist and w/ F. Initially dx'd Also had urgent visit 06/24 for 4 days F 102;covid negative. Tx'd ultimately w/ keflex; leg was 2-3 times bigger than baseline. Given small supply of lasix to take in lieu of hctz to help w/ edema -Also in Jun 2021 had LEFT great toe black and blue; in R arm in April was also black and blue. Wassystemically ill and came on abrubptly> ok at breakfast and not by mid morning. Hospitalized Aug 2021 [facility] August for bowel obstruction and adhesions. UTI same timeframe - couldn't get in w/ Dr Whitt. Still followign with Dr Jasmine. Had extended UTI -- cleared after one month of cipro starting in October. Had cystoscope this winter as well. Golfs a lot. 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 Cares for his and neighbor's yard as of 2019. Has never had gout attack but hx of hyperuricemia. 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 Doing well physically but can't dress /bath herself. His daugther is nruse as well Today 01/14/25 Denies any recent hospitalizations, procedures or infections. Overall feeling "good no aches or pains just getting older" No changes to medications Does still have bp cuff at home and checking pressures Was recording on phone but misplaced phone while out to lunch Continues checking bps and reports 140s in the am and 130 s in the afternoon and down to 118s at night Reports being in building was stressful. just passed approx 2 months ago and she use to work in the building as a nurse Patient tearful with telling story. Patient reports drinking water and fruit juice daily . Drinks 16oz in the mornings right when he wakes up REVIEW OF SYSTEMS General: No fatigue, Respiratory: No wheezing, No shortness of breath Cardiovascular:No chest pain, No palpitations, and No syncope, No falls Gastrointestinal: No nausea, vomiting, diarrhea No blood in stools Urinary: No dysuira, No hematuria. No flank pain Musculoskeletal: No edema Skin: No itching Current Outpatient Medications Medication Sig Dispense Refill MULTIVITAMINS PO TABS 1 tablet daily 0 0 CVS VITAMIN B-12 1000 MCG PO TABS 1 TABLET DAILY 1 Tab 0 OCUVITE-LUTEIN PO CAPS 1 daily VITAMIN D 1000 UNITS PO CAPS Take by mouth 2 times a day. 1 Cap 0 Magnesium Oxide 400 MG Capsule Take 1 Cap by mouth daily. 90 Cap 1 clindamycin (CLEOCIN) 150 MG Capsule Take 4 Capsules by mouth. Tamsulosin HCl 0.4 MG Oral Capsule (Flomax) TAKE 1 CAPSULE BY MOUTH EVERY DAY IN THE MORNING 90 Capsule 3 amLODIPine Besylate 5 MG Oral Tablet (Norvasc) Take 1 Tablet by mouth in the morning. 90 Tablet 3 Finasteride 5 MG Oral Tablet (Proscar) Take 1 Tablet by mouth in the morning. 90 Tablet 3 Furosemide 20 MG Oral Tablet (Lasix) Take 1 Tablet by mouth in the morning. 90 Tablet 3 Allopurinol 300 MG Oral Tablet (Zyloprim) Take 1 Tablet by mouth in the morning. 90 Tablet 1 Metoprolol Succinate ER 50 MG Oral Tablet Extended Release 24 Hour (toPROL XL) Take 1 Tablet by mouth in the morning. 90 Tablet 3 metroNIDAZOLE 0.75 % External Gel (Metrogel) APPLY TOPICALLY TO FACE TWICE A DAY 45 g 1 Lisinopril 5 MG Oral Tablet (Prinivil) Take 1 Tablet by mouth every night at bedtime. 90 Tablet 1 Levothyroxine Sodium 125 MCG Oral Tablet (Levoxyl) Take 1 Tablet by mouth in the morning. (at least30 min prior to breakfast or other meds). 90 Tablet 1 Fenofibrate 145 MG Oral Tablet (Tricor) Take 1 Tablet by mouth in the morning. 90 Tablet 1 Triamcinolone Acetonide 0.1 % External Cream (Aristocort) Apply topically to affected area 2 times a day. To affected area. 60 g 5 No current facility-administered medications for this visit. PHYSICAL EXAMINATION Last 4 BP Readings: BP Readings from Last 4 Encounters: 01/14/25 170/92 12/17/24 143/89 08/19/24 161/82 07/29/24 138/68 Last 3 Weights: Wt Readings from Last 3 Encounters: 01/14/25 90.3 kg (199 lb) 12/17/24 90.1 kg (198 lb 9.6 oz) 08/19/24 87.1 kg (192 lb) BP 170/92 (BP Site: Right Arm) | Pulse 75 | Temp 36.4 °C (97.5 °F) | Resp 18 | Wt 90.3 kg (199 lb) | SpO2 97% | BMI 28.55 kg/m² | BSA 2.11 m² Wt Readings from Last 1 Encounters: 01/14/25 90.3 kg (199 lb) General appearance: alert, no apparent distress. Ambulatory without assistance HEAD: Normocephalic, No masses, lesions, tenderness Respiratory: clear to auscultation and no wheezes Heart: regular rate and regular rhythm Abdomen: abdomen soft, non-tender, and no CVA tenderness EXTREMITIES: Scant pitting edema, No cyanosis or clubbing Skin: skin color, texture, turgor are normal NEURO: alert & oriented x 3 with fluent speech, no focal motor/sensory deficits No tremor Patient is a reliable historian of events LABS: Latest Reference Range & Units 08/30/23 14:34 09/26/23 14:30 05/02/24 13:49 12/17/24 13:57 01/03/25 10:47 01/07/25 14:51 SODIUM 135 - 146 mmol/L 135 136 137 141 140 138 POTASSIUM 3.5 - 5.1 mmol/L 4.8 4.8 4.9 5.2 (H) 5.5 (H) 5.2 (H) CHLORIDE 98 - 107 mmol/L 103 102 101 106 106 105 CO2 22 - 32 mmol/L 23 22 23 22 22 21 (L) BUN 6 - 20 mg/dL 43 (H) 42 (H) 42 (H) 44 (H) 41 (H) 38 (H) CREATININE 0.6 - 1.2 mg/dL 1.5 (H) 1.6 (H) 1.7 (H) 1.5 (H) 1.7 (H) 1.5 (H) EGFR >=60 mL/min 43 (L) 43 (L) 39 (L) 45 (L) 38 (L) 44 (L) ANION GAP 7 - 15 mmol/L 9 12 13 13 12 12 GLUCOSE 70 - 120 mg/dL 104 95 99 100 99 107 CALCIUM 8.4 - 10.2 mg/dL 8.9 8.9 9.3 9.3 9.6 9.3 Magnesium 1.5 - 2.6 mg/dL 1.9 (H): Data is abnormally high (L): Data is abnormally low Latest Reference Range & Units 01/05/22 15:41 03/09/22 09:21 06/22/22 15:17 01/12/23 15:53 03/21/23 10:57 05/02/24 13:49 Albumin / Creatinine Ratio, Urine <30 mg/g Creat 76 (H) 18 92 (H) 82 (H) 23 29 (H): Data is abnormally high EXAM XR ABDOMEN 1 VIEW - 05/02/2024 2:07 pm HISTORY kidney stones TECHNIQUE Single AP supine view of the abdomen was obtained. COMPARISON 03/21/2023. FINDINGS 6 mm left renal calculus. Bowel gas pattern is nonobstructive. Degenerative changes in the spine. Bilateral hip arthroplasties. IMPRESSION IMPRESSION Left renal calculus. ASSESSMENT/PLAN: The patient's most recent labs (from this month ago) were reviewed and the assessment/plan is as follows: Stage 3b chronic kidney disease (HCC) (Primary) - NEPHROLOGY FOLLOW UP APPT (DEPARTMENT USE ONLY); Future; Expected date: 07/16/2025 - BASIC METABOLIC PANEL; Future; Expected date: 07/16/2025 - URINALYSIS WITH MICROSCOPIC EXAM; Future; Expected date: 07/16/2025 - ALBUMIN / CREATININE RATIO, URINE; Future; Expected date: 07/16/2025 - PTH; Future; Expected date: 07/16/2025 - 25-HYDROXY VITAMIN D; Future; Expected date: 07/16/2025 - PHOSPHORUS; Future; Expected date: 07/16/2025 HTN, goal below 130/80 Elevated in office today - stress?? T with remote bp program equipment and new phone - NEw referral placed BP monitoring advised Continue Lisinopril 5 mg, Amlodipine 5 mg, metoprolol ER 50 mg and Lasix 20 mg - NEPHROLOGY FOLLOW UP APPT (DEPARTMENT USE ONLY); Future; Expected date: 07/16/2025 - REMOTE PATIENT MONITORING REFERRAL Hyperuricemia Uric acid levels stable at 6.5 continue Allopurinol 300 mg - NEPHROLOGY FOLLOW UP APPT (DEPARTMENT USE ONLY); Future; Expected date: 07/16/2025 Calcium nephrolithiasis No recent concerns. Cont to push fluids. 6 mm left renal calculus noted with imaging in April 2024 will cont to monitor - NEPHROLOGY FOLLOW UP APPT (DEPARTMENT USE ONLY); Future; Expected date: 07/16/2025 Labs placed for further assessment Referral replaced with remote program - pt with equipment Monitor BP !!!!! Monitor fluid intake Avoid medicines like aleve, advil, ibuprofen, aspirin more than 81 mg daily and other NSAIDS which are not good for kidney patients. Take only tylenol (acetaminophen) up to 2000 mg daily as needed for pain or as directed by your primary care provider. Reviewed previous status of kidney function and goals of care. All questions were answered. JEF BarronC Nephrology [address] [place] [address] CKD 3 w/ acceptable chemistries and no albuminuria. Chemistries and volume stat good. Current UTI sxs that have not resolved with antibiotics use Stage 3b chronic kidney disease (HCC) (Primary) - NEPHROLOGY FOLLOW UP APPT (DEPARTMENT USE ONLY); Future; Expected date: 02/16/2025 - MAGNESIUM; Future; Expected date: 09/18/2024 - BASIC METABOLIC PANEL; Future; Expected date: 09/18/2024 HTN, goal below 130/80 BP elevated in office today. MTM clinic for monitoring given remote program not feasible Continue lisinopril, lasix, amlodipine, metoprolol current doses - BASIC METABOLIC PANEL; Future; Expected date: 09/18/2024 - PHARMACIST MEDS THERAPY MGMT REFERRAL OP UTI symptoms Ongoing symptoms concern infection not resolved- repeat testing with culture - CULTURE, URINE, QUANTITATIVE - URINALYSIS, REFLEX TO CULTURE (NOT FOR NEUTROPENIC PATIENTS) Hyperuricemia Uric acid lvs stable at 4.7 cont with Allopurinol 300 mg daily-labs placed for assessment of medication dosing - URIC ACID; Future; Expected date: 09/18/2024 Calcium nephrolithiasis Imaging 05/08 showing stone to the left. No stone activity - fu with Urology Dr. Jasmine yearly Localized swelling of both lower extremities Stable- improved with elevation only Need for prophylactic vaccination and inoculation against influenza - INFLUENZA VAC., TRIVALENT, HD, PF, 65 AND ABOVE, 0.5 ML IM (FLUZONE HD) Labs placed No changes to medication made Push fluids Repeat urinary labs for further assessment of UTI sxs - if negative culture and continue symptoms fu with pcp or urology Avoid medicines like aleve, advil, ibuprofen, aspirin more than 81 mg daily and other NSAIDS which are not good for kidney patients. Take only tylenol (acetaminophen) up to 2000 mg daily as needed for pain or as directed by your primary care provider. Reviewed previous status of kidney function and goals of care. All questions were answered. JEF BarronC Nephrology, [address] [place] [address] Stage 3b chronic kidney disease (HCC) (Primary) - ALBUMIN / CREATININE RATIO, URINE; Future; Expected date: 02/20/2024 - URINALYSIS WITH MICROSCOPIC EXAM; Future; Expected date: 02/20/2024 - URIC ACID; Future; Expected date: 02/20/2024 - PTH; Future; Expected date: 02/20/2024 - BASIC METABOLIC PANEL; Future; Expected date: 02/20/2024 - HGB; Future; Expected date: 02/20/2024 - PHOSPHORUS; Future; Expected date: 02/20/2024 - 25-HYDROXY VITAMIN D; Future; Expected date: 02/20/2024 HTN, goal below 140/90 Situational hypertension Calcium nephrolithiasis HTN, goal below 130/80 Hyperuricemia Cardiac arrhythmia, unspecified cardiac arrhythmia type Heart murmur Follow Up: Return in about 6 months (around 07/18/2024) for clinic visit w/ [place], clinic visit w/ . | For: clinic visit w/ [place], clinic visit w/ | Check-out note: waitlist HTN w/ acceptable control in clinic today and generally though did have HTN urgency evaluation pastfew mos -MTM -c ? New onset a fib today in clinic and new murmur not previously auscultated >> no cardiology care that I am aware of but will verify>> recommend zio and TTE given recnet HTN uirgency ER eval and new findings on heart exam; did not get a chance to d/w pt before he left > see TE; [facility] ECG showed PVCs w/ SR and nonspecific T wave abnormalities >> so not clear/definitively normal Stone dz queiscent -cont urocit -continue aggressive fluid itnake -look at this issue in greater depth next visit given othe racgtive issues CKD 3 w/ accepta bel chemistries and no albuminuria on labs above -update labs -cont lisinopril -continue meds to control hyperuricemia documented in this encounter Nursing Notes * Lianna Agustin RN - 01/14/2025 3:30 PM EDT Follow up visit today. No recent illness or hospital stays. recently passed. documented in this encounter Plan of Treatment Upcoming Encounters Date Type Department Care Team (Late st Contact Info) Description 02/17/2025 9:20 AM EDT Office Visit Neurology [facility] [address] [place] [address] Enmanuel Carlson MD [address] [place] [address] 06/11/2025 2:20 PM EDT Office Visit Dermatology [address] [place] [address] Mindy Alves PA-C [address] [place] [address] [place] [address] 07/16/2025 2:30 PM EDT Office Visit Family Medicine [address] [place] [phone] Celia Prajapati [address] [place] [address] 11/17/2025 11:40 AM EST Office Visit Nephrology, [place] [address] [facility] [address] [place] [address] Cathy Arana MD [address] [facility] [place] [address] Scheduled Orders Name Type Priority Associated Diagnoses Orde r Schedule BASIC METABOLIC PANEL Lab Routine Stage 3b chronic kidney disease (HCC) Expected: 07/16/2025, Expires: 01/14/2026 URINALYSIS WITH MICROSCOPIC EXAM Lab Routine Stage 3b chronic kidney disease (HCC) Expected: 07/16/2025, Expires: 01/14/2026 ALBUMIN / CREATININE RATIO, URINE Lab Routine Stage 3b chronic kidney disease (HCC) Expected: 07/16/2025, Expires: 01/14/2026 PTH Lab Routine Stage 3b chronic kidney disease (HCC) Expected: 07/16/2025, Expires: 01/14/2026 25-HYDROXY VITAMIN D Lab Routine Stage 3b chronic kidney disease (HCC) Expected: 07/16/2025, Expires: 01/14/2026 PHOSPHORUS Lab Routine Stage 3b chronic kidney disease (HCC) Expected: 07/16/2025, Expires: 01/14/2026 Scheduled Referrals Name Type Priority Associated Diagnoses Orde r Schedule REMOTE PATIENT MONITORING REFERRAL Referral Within 10 days (routine) HTN, goal below 130/80 Ordered: 01/16/2025 Health Maintenance Due Date Last Done Comments Depression Screening 1947 Zoster Vaccines (1 of 2) 1985 Adult Wellness Visit 05/26/2018 05/26/2017 COVID-19 Vaccine ( season) 2024 09/29/2023, 08/03/2022, 08/06/2021, Additional history exists Albumin/Creatinine Ratio 05/02/2025 024, 03/21/2023, 01/12/2023, Additional history exists CKD PHOS USE SMARTSET 93806 05/02/2025 07/05/2024, 05/31/2023, 06/22/2022, Additional history exists CKD HGB USE SMARTSET 00828 12/17/202512/17, 12/17/2024, 05/02/2024, Additional history exists TSH [...] as of this encounter Visit Diagnoses Diagnosis Stage 3b chronic kidney disease (HCC)- Primary HTN, goal below 130/80 Unspecified essential hypertension Hyperuricemia Other abnormal blood chemistry Calcium nephrolithiasis Calculus of kidney documented in this encounter Care Teams Plasterer Rough Relationship Specialty Start Date End Date Celia Prajapati DO [address] [place] [address] [place] [phone] PCP - General Internal Medicine 11/20/18 documented as of this encounter
--- OUTSIDE RECORDS SUMMARY | 2025-02-08 17:08 | External Medical Summary ---
Author Name Unknown Address Unknown Organization [id number]:[facility] [address] [place] [address] Laboratory Report Ordering Provider Test Date Status DANIEL BRUMFIELD 01/07/2025 14:51:12 Final Please send result to Ana Maria Rainey as well. Observation Date Value Abnormality Reference (Units ) Status BUN 01/07/2025 14:51:12 38 Above high normal 6-20 (mg/dL) Final Creatinine 01/07/2025 14:51:12 1.5 Above high normal 0.6-1.2 (mg/dL) Final Glomerular filtration rate/1.73 sq M.predicted [Volume Rate/Area] in Serum, Plasma or Blood by Creatinine-based formula (CKD-EPI) 01/07/2025 14:51:12 44 Below low normal >=60 (mL/min) Final eGFR is calculated based on the CKD-EPI 2020 equation. Sodium 01/07/2025 14:51:12 138 135-146 (m mol/L) Final Potassium 01/07/2025 14:51:12 5.2 Above high normal 3. 5-5.1 (mmol/L) Final Cl 01/07/2025 14:51:12 105 98-107 (mm ol/L) Final CO2 01/07/2025 14:51:12 21 Below low normal 22- 32 (mmol/L) Final Anion gap 01/07/2025 14:51:12 12 7-15 (mmol /L) Final Glucose 01/07/2025 14:51:12 107 70-120 (mg /dL) Final Calcium 01/07/2025 14:51:12 9.3 8.4-10.2 ( mg/dL) Final Performing Location [facility] [address] [place] [address]
--- OUTSIDE RECORDS SUMMARY | 2025-02-08 17:08 | External Medical Summary | Summary of Care ---
Author Name Unknown Organization [facility] Address [address] [facility] [place] [address] Phone [phone] Care Team Providers Care Printer'S Devil Name Role Phone Brissa Sanchez DO Primary Care Provider Reason for Visit * Reason Comments Outpatient Testing Encounter Details Date Type Department Care Team (Late st Contact Info) Description 12/17/2024 2:00 PM EST Laboratory Laboratory [address] [place] [phone] [address] [place] [address] High potassium*; Chronic kidney disease, stage 3b (HCC); Acquired hypothyroidism; B12 deficiency; High triglycerides; Stage 3b chronic kidney disease (HCC); Hyperuricemia Allergies Active Allergy Reactions Criticality Noted Date [...] as of this encounter (statuses as of 01/06/2025) Medications MULTIVITAMINS PO TABS 1 tablet daily 0 0 02/15/20 07 Active [facility] VITAMIN B-12 1000 MCG PO TABSIndications:B 12 deficiency 1 TABLET DAILY 1 Tab 0 01/10/20 12 Active OCUVITE-LUTEIN PO CAPS 1 daily 09/16/20 13 Active VITAMIN D 1000 UNITS PO CAPSIndications:V itamin D deficiency Take by mouth 2 times a day. 1 Cap 0 01/14/20 15 Active Magnesium Oxide 400 MG Capsule Take 1 Cap by mouth daily. 90 Cap 1 10/18/19 17 Active clindamycin (CLEOCIN) 150 MG CapsuleIndication s:take all four tablet before dental work Take 4 Capsules by mouth. Active Tamsulosin HCl 0.4 MG Oral Capsule (Flomax)Indicatio ns:BPH with obstruction/lower urinary tract symptoms TAKE 1 CAPSULE BY MOUTH EVERY DAY IN THE MORNING 90 Capsule 3 03/05/20 24 Active Triamcinolone Acetonide 0.1 % External Cream (Aristocort)Indic ations:Irritant contact dermatitis due to other chemical products Apply topically to affected area 2 times a day. To affected area. 60 g 5 04/02/20 24 Active amLODIPine Besylate 5 MG Oral Tablet (Norvasc) Take 1 Tablet by mouth in the morning. 90 Tablet 3 04/19/20 24 Active Finasteride 5 MG Oral Tablet (Proscar)Indicati ons:BPH with obstruction/lower urinary tract symptoms Take 1 Tablet by mouth in the morning. 90 Tablet 3 05/27/20 24 Active Furosemide 20 MG Oral Tablet (Lasix) Take 1 Tablet by mouth in the morning. 90 Tablet 3 07/30/20 24 Active Allopurinol 300 MG Oral Tablet (Zyloprim)Indicat ions:Calculus of kidney Take 1 Tablet by mouth in the morning. 90 Tablet 1 09/04/20 24 Active Metoprolol Succinate ER 50 MG Oral Tablet Extended Release 24 Hour (toPROL XL)Indications:HT N, goal below 150/90 Take 1 Tablet by mouth in the morning. 90 Tablet 3 09/07/20 24 Active metroNIDAZOLE 0.75 % External Gel (Metrogel)Indicat ions:Rosacea APPLY TOPICALLY TO FACE TWICE A DAY 45 g 1 11/05/19 25 Active Lisinopril 5 MG Oral Tablet (Prinivil)Indicat ions:HTN, goal below 150/90 Take 1 Tablet by mouth every night at bedtime. 90 Tablet 1 11/06/19 25 Active Levothyroxine Sodium 125 MCG Oral Tablet (Levoxyl)Indicati ons:Acquired hypothyroidism Take 1 Tablet by mouth in the morning. (at least 30 min prior to breakfast or other meds). 90 Tablet 1 01/07/20 25 Active Fenofibrate 145 MG Oral Tablet (Tricor)Indicatio ns:High triglycerides Take 1 Tablet by mouth in the morning. 90 Tablet 1 01/07/20 25 Active Levothyroxine Sodium 112 MCG Oral Tablet (Levoxyl)Indicati ons:Acquired hypothyroidism Take 1 Tablet by mouth in the morning. (at least 30 min prior to breakfast or other meds). 90 Tablet 1 09/04/20 24 025 Discontinued Potassium Citrate ER 15 MEQ (1620 MG) Oral Tablet Extended Release TAKE 1 TABLET BY MOUTH TWICE A DAY 180 Tablet 3 10/14/20 24 025 Discontinued documented as of this encounter (statuses as of 01/06/2025) Active Problems Problem Noted Date Diagnosed Date [...] as of this encounter (statuses as of 01/06/2025) Resolved Problems Problem Noted Date Diagnosed Date [...] as of this encounter (statuses as of 01/06/2025) Immunizations Name Administration Dates Next Due COVID-19 mRNA, LNP-s, No Pre serve, 2-Dose Series (Moderna) 08/06/2021,12/09/2020,11/09/2020 COVID-19, MRNA-LNP, PF, 30 M CG/0.3 mL, 12 YRS AND ABOVE, IM (P[employer]ER-Comirnaty) 09/29/2023 Covid-19, Mrna, Lnp-s, Pf, B ivalent, 30 Mcg, IM, 12 yrs and above (Pfizer) 08/03/2022 H1N1 2009 Influenza, IM 09/26/2009 Pneumococcal Conjugate Vacc, 13 Valent (Prevnar) 09/01/2015 Pneumococcal Polysaccharide PPV23 (Pneumovax) 09/28/2001 Season Influenza, Quad, PF, Adjuvanted, 65+ Yrs, IM (FLUAD) 08/10/2020 Seasonal Influenza Vac., MDV , IM, 0.5 mL (Fluzone) 07/21/2014,09/16/2013,08/08/2012,09/27,07/28/2010,07/20/2009,07/21/2008 ,08/23/2007,07/19/2006,07/16/2005,06/17 Seasonal Influenza, High Dos e, Trivalent, PF, IM (Fluzone HD) 08/19/2024 Seasonal Influenza, PF, 6 M & above, IM , (FluLaval or Fluzone) 07/15/2019,08/23/2018,08/02/2017 Seasonal Influenza, Quadriva lent Hd (Fluzone Hd) 09/29/2023,09/05/2022,09/07/2021 Seasonal Influenza, Quadriva lent, No Preserve, IM 09/19/2016,07/29/2015 TD - Tetanus/Diptheria (ADULT) 10/29/2002 TDAP (age 10 and older)(Boostrix) 03/27/2019 documented [...] 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 Please discuss low potassium diet with patient - and patient to repeat labs in 2 wks if still elevated will look into modifying potassium citrate (for stones) documented in this encounter Plan of Treatment Upcoming Encounters Date Type Department Care Team (Late st Contact Info) Description 02/17/2025 9:20 AM EDT Office Visit Neurology [facility] [address] [place] [address] Enmanuel Carlson MD [address] [place] [address] 06/11/2025 2:20 PM EDT Office Visit Dermatology [address] [place] [address] Mindy Alves PA-C [address] [place] [address] [place] [address] 07/16/2025 2:30 PM EDT Office Visit Family Medicine [address] [place] [phone] Brissa Sanchez DO [address] [place] [address] [place] [phone] Scheduled Orders Name Type Priority Associated Diagnoses Orde r Schedule BASIC METABOLIC PANEL Lab Routine Chronic kidney disease, stage 3b (HCC) High potassium Expected: 01/06/2025 (Approximate), Expires: 01/06/2026 Health Maintenance Due Date Last Done Comments Zoster Vaccines (1 of 2) 1985 Adult Wellness Visit 05/26/2018 05/26/2017 Depression Screening 06/05/2021 06/05/2020 COVID-19 Vaccine ( season) 2024 09/29/2023, 08/03/2022, 08/06/2021, Additional history exists Albumin/Creatinine Ratio 05/02/2025 024, 03/21/2023, 01/12/2023, Additional history exists CKD PHOS USE SMARTSET 09417 05/02/202504/15, 05/31/2023, 06/22/2022, Additional history exists CKD HGB USE SMARTSET 36185 12/17/202512/17, 12/17/2024, 05/02/2024, Additional history exists TSH [...] Not on filedocumented as of this encounter Procedures Procedure Name Priority Date/Time Associated Diagnosis Comments ANEMIA REFLEX CHEMISTRY HOLD Routine 12/17/2024 1:57 PM EST Stage 3b chronic kidney disease (HCC) ANEMIA CBC Routine 12/17/2024 1:57 PM EST Stage 3b chronic kidney disease (HCC) DIFFERENTIAL, AUTOMATED Routine 12/17/2024 1:57 PM EST Stage 3b chronic kidney disease (HCC) DIFFERENTIAL, AUTOMATED Routine 12/17/2024 1:57 PM EST Stage 3b chronic kidney disease (HCC) BASIC METABOLIC PANEL Routine 12/17/2024 1:57 PM EST Chronic kidney disease, stage 3b (HCC) URIC ACID Routine 12/17/2024 1:57 PM EST Hyperuricemia TRIGLYCERIDES Routine 12/17/2024 1:57 PM EST High triglycerides TSH Routine 12/17/2024 1:57 PM EST Acquired hypothyroidism MAGNESIUM Routine 12/17/2024 1:57 PM EST Stage 3b chronic kidney disease (HCC) VITAMIN B12 Routine 12/17/2024 1:57 PM EST B12 deficiency documented in this encounter Results * ANEMIA REFLEX CHEMISTRY HOLD (12/17/2024 1:57 PM EST) Blood Venous blood specimen / Unknown Venipuncture / Unknown 12/17/2024 1:57 PM EST 12/17/2024 1:57 PM EST us Brissa Sanchez DO LAB BLOOD ORDERABLES Final R esult [facility] [address] [place] [address] * (ABNORMAL) DIFFERENTIAL, AUTOMATED (12/17/2024 1:57 PM EST) WBC 9.95 4.00 - 10.80 K/uL 12/17/2024 10:38 PM EST [facility] Neutrophils % 64.0 40.0 - 75.0 % 12/17/2024 10:38 PM EST [facility] Lymphocytes % 19.8 18.0 - 42.0 % 12/17/2024 10:38 PM EST [facility] Monocytes % 11.6(H) 1.0 - 11.0 % 12/17/2024 10:38 PM EST [facility] Eosinophils % 3.5 0.0 - 6.0 % 12/17/2024 10:38 PM EST [facility] Basophils % 0.6 0.0 - 2.0 % 12/17/2024 10:38 PM EST [facility] Immature Granulocytes % 0.5 0.0 - 2.0 % 12/17/2024 10:38 PM EST [facility] Absolute Neutrophils 6.37 1.80 - 7.70 K/uL 12/17/2024 10:38 PM EST [facility] Absolute Lymphocytes 1.97 1.00 - 4.80 K/ul 12/17/2024 10:38 PM EST [facility] Absolute Monocytes 1.15(H) 0.00 - 1.10 K/uL 12/17/2024 10:38 PM EST [facility] Absolute Eosinophils 0.35 0.00 - 0.70 K/uL 12/17/2024 10:38 PM EST [facility] Absolute Basophils 0.06 0.00 - 0.20 K/uL 12/17/2024 10:38 PM EST [facility] Absolute Immature Granulocytes 0.05 0.00 - 0.20 K/uL 12/17/2024 10:38 PM EST [facility] Blood Venous blood specimen / Unknown Venipuncture / Unknown 12/17/2024 1:57 PM EST 12/17/2024 1:57 PM EST us Brissa Sanchez DO LAB BLOOD ORDERABLES Final R esult [facility] [address] [place] [address] * (ABNORMAL) ANEMIA CBC (12/17/2024 1:57 PM EST) WBC 9.95 4.00 - 10.80 K/uL 12/17/2024 10:38 PM EST [facility] RBC 4.44 4.50 - 5.25 M/uL 12/17/2024 10:38 PM EST [facility] HGB 13.7(L) 14.0 - 16.8 g/dL 12/17/2024 10:38 PM EST [facility] Comment: Anemia reflex testing triggers on a HGB < 12.0 for Females and HGB < 13.0 for Males in accordance with the WHO Anemia Guidelines Anemia reflex testing triggers on a HGB < 12.0 for Females and HGB < 13.0 for Males in accordance with the WHO Anemia Guidelines HCT 42.0 40.0 - 48.4 % 12/17/2024 10:38 PM EST [facility] MCV 94.6 82.0 - 99.5 fL 12/17/2024 10:38 PM EST [facility] MCH 30.9 27.0 - 34.0 pg 12/17/2024 10:38 PM EST [facility] MCHC 32.6 32.0 - 36.0 g/dL 12/17/2024 10:38 PM EST [facility] RDW 14.8 11.5 - 15.5 % 12/17/2024 10:38 PM EST [facility] PLT 198 140 - 400 K/uL 12/17/2024 10:38 PM EST [facility] MPV 10.4 6.6 - 11.1 fL 12/17/2024 10:38 PM EST [facility] nRBCs 0 <=0 /100 WBCs 12/17/2024 10:38 PM EST [facility] Blood Venous blood specimen / Unknown Venipuncture / Unknown 12/17/2024 1:57 PM EST 12/17/2024 1:57 PM EST us Brissa Sanchez DO LAB BLOOD ORDERABLES Final R esult LAB[facility]ATORY [facility] [address] [place] [address] * URIC ACID (12/17/2024 1:57 PM EST) Uric Acid 6.5 3.4 - 7.0 mg/dL 12/18/2024 12:10 AM EST [facility] Blood Venous blood specimen / Unknown Venipuncture / Unknown 12/17/2024 1:57 PM EST 12/17/2024 1:57 PM EST Ana Maria Vincent Dex OLIVA-Nikos LAB BLOOD ORDERABLES Final Result Performing Organization Address [facility] Co de Phone Number [facility] [address] [place] [address] * MAGNESIUM (12/17/2024 1:57 PM EST) [facility] Magnesium 1.9 1.5 - 2.6 mg/dL 12/18/2024 12:10 AM EST [facility] Blood Venous blood specimen / Unknown Venipuncture / Unknown 12/17/2024 1:57 PM EST 12/17/2024 1:57 PM EST Ana Maria Melisa OLIVA-Nikos LAB BLOOD ORDERABLES Final Result Performing Organization Address [facility] Phone Number [facility] [address] [place] [address] * (ABNORMAL) TRIGLYCERIDES (12/17/2024 1:57 PM EST) [facility] Triglycerides 406(H) <=174 mg/dL 12/18/2024 12:10 AM EST [facility] Comment: Triglyceride Reference Ranges (mg/dL): <150 Acceptable 150-174 Borderline high 175-499 High >=500 Very high Blood Venous blood specimen / Unknown Venipuncture / Unknown 12/17/2024 1:57 PM EST 12/17/2024 1:57 PM EST Brissa Sanchez DO LAB BLOOD ORDERABLES Final R esult Performing Organization Address [facility] Phone Number [facility] [address] [place] [address] * VITAMIN B12 (12/17/2024 1:57 PM EST) [facility] Vitamin B12 484 232 - 1,245 pg/mL 12/18/2024 1:01 AM EST [facility] Blood Venous blood specimen / Unknown Venipuncture / Unknown 12/17/2024 1:57 PM EST 12/17/2024 1:57 PM EST Brissa Gutierres Sanchez LAB BLOOD ORDERABLES Final R esult Performing Organization Address [facility] Co de Phone Number [facility]ORY [facility] [address] [place] [address] * (ABNORMAL) TSH (12/17/2024 1:57 PM EST) TSH 4.50(H) 0.27 - 4.20 uIU/mL 12/18/2024 1:01 AM EST [facility] Blood Venous blood specimen / Unknown Venipuncture / Unknown 12/17/2024 1:57 PM EST 12/17/2024 1:57 PM EST Brissa Nenita Sanchez LAB BLOOD ORDERABLES Final R esult Performing Organization Address [facility] de Phone Number [facility]ORY [facility] [address] [place] [address] * (ABNORMAL) BASIC METABOLIC PANEL (12/17/2024 1:57 PM EST) BUN 44(H) 6 - 20 mg/dL 12/18/2024 12:10 AM EST [facility] CREATININE 1.5(H) 0.6 - 1.2 mg/dL 12/18/2024 12:10 AM EST [facility] EGFR 45(L) >=60 mL/min 12/18/2024 12:10 AM EST [facility] Comment:eGFR is calculated b ased on the CKD-EPI 2020 equation. SODIUM 141 135 - 146 mmol/L 12/18/2024 12:10 AM EST [facility] POTASSIUM 5.2(H) 3.5 - 5.1 mmol/L 12/18/2024 12:10 AM EST [facility] CHLORIDE 106 98 - 107 mmol/L 12/18/2024 12:10 AM EST [facility] CO2 22 22 - 32 mmol/L 12/18/2024 12:10 AM EST [facility] ANION GAP 13 7 - 15 mmol/L 12/18/2024 12:10 AM EST [facility] GLUCOSE 100 70 - 120 mg/dL 12/18/2024 12:10 AM EST [facility] CALCIUM 9.3 8.4 - 10.2 mg/dL 12/18/2024 12:10 AM EST [facility] Blood Venous blood specimen / Unknown Venipuncture / Unknown 12/17/2024 1:57 PM EST 12/17/2024 1:57 PM EST Brissa Sanchez DO LAB BLOOD ORDERABLES Final R esult [facility] [address] [facility] [place] [address] documented in this encounter Visit Diagnoses Diagnosis High potassium- Primary Hyperpotassemia Chronic kidney disease, stage 3b (HCC) Acquired hypothyroidism Unspecified hypothyroidism B12 deficiency Other B-complex deficiencies High triglycerides Pure hyperglyceridemia Stage 3b chronic kidney disease (HCC) Hyperuricemia Other abnormal blood chemistry documented in this encounter Care Teams Printer'S Devil Relationship Specialty Start Date End Date Brissa Sanchez DO [address] [place] [address] [place] [phone] PCP - General Internal Medicine 11/20/18 documented as of this encounter
--- OUTSIDE RECORDS SUMMARY | 2025-02-08 17:08 | External Medical Summary | Summary of Care ---
Author Name Unknown Organization [facility] Address [address] [facility] [place] [address] Phone [phone] Care Team Providers Care Truck Shop Mechanic Name Role Phone Celia Prajapati Primary Care Provider [phone] Reason for Visit * Reason Onset Date Comments Test Results 12/20/2024 Encounter Details Date Type Department Care Team (Late st Contact Info) Description 12/20/2024 Telephone Nephrology, Gonzalez Bourgeois [address] [facility] [place] [address] ZemaitisAna Maria PA-C [address] [facility] [place] [address] Test Results Allergies Active Allergy Reactions Criticality Noted Date [...] as of this encounter (statuses as of 12/20/2024) Medications MULTIVITAMINS PO TABS 1 tablet daily [...] at bedtime. 90 Tablet 1 5 Active documented as of this encounter (statuses as of 12/20/2024) Active Problems Problem Noted Date Diagnosed Date [...] as of this encounter (statuses as of 12/20/2024) Resolved Problems Problem Noted Date Diagnosed Date [...] joints 02/24/2014 10/03/2017 Basal cell carcinoma of religious region 10/03/2013 10/03/2017 Overview (10/03/2013): left side [...] as of this encounter (statuses as of 12/20/2024) Immunizations Name Administration Dates Next Due COVID-19 mRNA, LNP-s, No Pre serve, 2-Dose Series (Moderna) 08/06/2021,12/09/2020,11/09/2020 COVID-19, MRNA-LNP, PF, 30 M CG/0.3 mL, 12 YRS AND ABOVE, IM ([employer]-Comirnaty) 09/29/2023 Covid-19, Mrna, Lnp-s, Pf, B ivalent, [...] 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 * Telephone Encounter - Lianna Agustin RN - 12/20/2024 2:33 PM EST ----- Message from Ana Maria D Zemaitis sent at 12/18/2024 11:48 AM EST ----- Renal function stable- potassium elevated. Please discuss low potassium diet with patient - and patient to repeat labs in 2 wks if still elevated will look into modifying potassium citrate (for stones) documented in this encounter Plan of Treatment Upcoming Encounters Date Type Department Care Team (Late st Contact Info) Description 02/17/2025 9:20 AM EDT Office Visit Neurology [facility] [place] [address] [place] [address] Enmanuel Carlson MD [address] [place] [address] 06/11/2025 2:20 PM EDT Office Visit Dermatology [address] [place] [address] Mindy Alves, MARTHA [address] [place] [address] [place] [address] 07/16/2025 2:30 PM EDT Office Visit Family Medicine [address] [place] [phone] Celia Prajapati [address] [place] [address] Health Maintenance Due Date Last Done Comments Zoster Vaccines (1 of 2) 1985 Adult Wellness Visit 05/26/2018 05/26/2017 Depression Screening 06/05/2021 06/05/2020 COVID-19 Vaccine ( season) 2024 09/29/2023, 08/03/2022, 08/06/2021, Additional history exists Albumin/Creatinine Ratio 05/02/2025 024, 03/21/2023, 01/12/2023, Additional history exists CKD PHOS USE SMARTSET 17041 05/02/202504/15, 05/31/2023, 06/22/2022, Additional history exists CKD HGB USE SMARTSET 56128 12/17/202512/17, 12/17/2024, 05/02/2024, Additional history exists TSH [...] filedocumented as of this encounter Care Teams Truck Shop Mechanic Relationship Specialty Start Date End Date Celia Prajapati DO [address] [place] [address] [place] [phone] PCP - General Internal Medicine 11/20/18 documented as of this encounter
--- OUTSIDE RECORDS SUMMARY | 2025-02-08 17:08 | External Medical Summary ---
Author Name Unknown Address Unknown Organization K01:[facility]ATORY [facility] [address] [facility] [address] [place] [address] Laboratory Report Ordering Provider Test Date Status JOHNNA RIVAS 01/03/2025 10:47:57 Final Observation Date Value Abnormality Reference (Units ) Status BUN 01/03/2025 10:47:57 41 Above high normal 6-20 (mg/dL) Final Creatinine 01/03/2025 10:47:57 1.7 Above high normal 0.6-1.2 (mg/dL) Final Glomerular filtration rate/1.73 sq M.predicted [Volume Rate/Area] in Serum, Plasma or Blood by Creatinine-based formula (CKD-EPI) 01/03/2025 10:47:57 38 Below low normal >=60 (mL/min) Final eGFR is calculated based on the CKD-EPI 2020 equation. Sodium 01/03/2025 10:47:57 140 135-146 (m mol/L) Final Potassium 01/03/2025 10:47:57 5.5 Above high normal 3. 5-5.1 (mmol/L) Final Cl 01/03/2025 10:47:57 106 98-107 (mm ol/L) Final CO2 01/03/2025 10:47:57 22 22-32 (mmo l/L) Final Anion gap 01/03/2025 10:47:57 12 7-15 (mmol /L) Final Glucose 01/03/2025 10:47:57 99 70-120 (mg /dL) Final Calcium 01/03/2025 10:47:57 9.6 8.4-10.2 ( mg/dL) Final Performing Location LAB[facility]ATORY [facility] [address] [place] [address]
--- OUTSIDE RECORDS SUMMARY | 2025-02-08 17:08 | External Medical Summary | Summary of Care ---
Author Name Unknown Organization [facility] Address [address] [facility] [place] [address] Phone [phone] Care Team Providers Care Component Engineer Name Role Phone PrajapatiCelia santiago Primary Care Provider Encounter Details Date Type Department Care Team (Late st Contact Info) Description 12/18/2024 Orders Only Nephrology, Gonzalez Bourgeois [address] [place] [address] Zemaitis, Ana Maria Vincent PA-C [address] [place] [address] Acute hyperkalemia* Allergies Active Allergy Reactions Criticality Noted Date [...] as of this encounter (statuses as of 12/18/2024) Medications MULTIVITAMINS PO TABS 1 tablet daily [...] as of this encounter (statuses as of 12/18/2024) Active Problems Problem Noted Date Diagnosed Date [...] as of this encounter (statuses as of 12/18/2024) Resolved Problems Problem Noted Date Diagnosed Date [...] joints 02/24/2014 10/03/2017 Basal cell carcinoma of cheondoism region 10/03/2013 10/03/2017 Overview (10/03/2013): left side [...] as of this encounter (statuses as of 12/18/2024) Immunizations Name Administration Dates Next Due COVID-19 mRNA, LNP-s, No Pre serve, 2-Dose Series (Moderna) 08/06/2021,12/09/2020,11/09/2020 COVID-19, MRNA-LNP, PF, 30 M CG/0.3 mL, 12 YRS AND ABOVE, IM ([employer]-Comirnaty) 09/29/2023 Covid-19, Mrna, Lnp-s, Pf, B ivalent, [...] 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 Not on file Not on file Not on fi le documented as of this encounter Plan of Treatment Upcoming Encounters Date Type Department Care Team (Late st Contact Info) Description 02/17/2025 9:20 AM EDT Office Visit Neu[facility] [address] [place] [address] Enmanuel Carlson MD [address] [place] [address] 06/11/2025 2:20 PM EDT Office Visit Dermatology [address] [place] [address] Mindy Alves PA-C [address] [place] [address] [place] [address] 07/16/2025 2:30 PM EDT Office Visit Family Medicine [address] [place] [phone] Celia Prajapati, [address] [place] [address] [place] [address] Scheduled Orders Name Type Priority Associated Diagnoses Orde r Schedule BASIC METABOLIC PANEL Lab Routine Acute hyperkalemia Expected: 01/01/2025, Expires: 12/18/2025 Health Maintenance Due Date Last Done Comments Zoster Vaccines (1 of 2) 1985 Adult Wellness Visit 05/26/2018 05/26/2017 Depression Screening 06/05/2021 06/05/2020 COVID-19 Vaccine ( season) 2024 09/29/2023, 08/03/2022, 08/06/2021, Additional history exists Albumin/Creatinine Ratio 05/02/20252 024, 03/21/2023, 01/12/2023, Additional history exists CKD PHOS USE SMARTSET 27556 05/02/202504/15, 05/31/2023, 06/22/2022, Additional history exists CKD HGB USE SMARTSET 29452 12/17/202512/17, 12/17/2024, 05/02/2024, Additional history exists TSH [...] as of this encounter Visit Diagnoses Diagnosis Acute hyperkalemia- Primary Hyperpotassemia documented in this encounter Care Teams Component Engineer Relationship Specialty Start Date End Date Celia Prajapait DO [address] [place] [address] [place] [phone] PCP - General Internal Medicine 11/20/18 documented as of this encounter
--- OUTSIDE RECORDS SUMMARY | 2025-02-08 17:08 | External Medical Summary | Summary of Care ---
Author Name Unknown Organization [facility] Address [address] [facility] [place] [address] Phone [phone] Care Team Providers Care Day Haul Or Farm Charter Bus Driver Name Role Phone Celia Prajapati DO Primary Care Provider Reason for Visit * Reason Comments Outpatient Testing Encounter Details Date Type Department Care Team (Late st Contact Info) Description 01/03/2025 10:50 AM EDT Laboratory Laboratory [address] [place] [phone] [address] [place] [address] Acute hyperkalemia Allergies Active Allergy Reactions Criticality Noted Date [...] as of this encounter (statuses as of 01/03/2025) Medications MULTIVITAMINS PO TABS 1 tablet daily 0 0 05/02/200 7 Active [facility] VITAMIN B-12 1000 MCG [...] as of this encounter (statuses as of 01/03/2025) Active Problems Problem Noted Date Diagnosed Date [...] as of this encounter (statuses as of 01/03/2025) Resolved Problems Problem Noted Date Diagnosed Date [...] joints 02/24/2014 10/03/2017 Basal cell carcinoma of [place] region 10/03/2013 10/03/2017 Overview (10/03/2013): left side [...] as of this encounter (statuses as of 01/03/2025) Immunizations Name Administration Dates Next Due COVID-19 [...] 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 Not on file Not on file Not on fi le documented as of this encounter Plan of Treatment Upcoming Encounters Date Type Department Care Team (Late st Contact Info) Description 02/17/2025 9:20 AM EDT Office Visit Neurology [employer] [facility] [place] [address] Enmanuel Carlson MD 200 [facility] [place] [address] 06/11/2025 2:20 PM EDT Office Visit Dermatology [address] [place] [address] Mindy Alves PA-C [address] [place] [address] [place] [address] 07/16/2025 2:30 PM EDT Office Visit Family Medicine [address] [place] [phone] Celia Prajapati, [address] [place] [address] Pending Results Name Type Priority Associated Diagnoses Date /Time BASIC METABOLIC PANEL Lab Routine Acute hyperkalemia 01/03/2025 10:47 AM EDT Health Maintenance Due Date Last Done Comments Zoster Vaccines (1 of 2) 1985 Adult Wellness Visit 05/26/2018 05/26/2017 Depression Screening 06/05/2021 06/05/2020 COVID-19 Vaccine ( season) 2024 09/29/2023, 08/03/2022, 08/06/2021, Additional history exists Albumin/Creatinine Ratio 05/02/2025 024, 03/21/2023, 01/12/2023, Additional history exists CKD PHOS USE SMARTSET 86757 05/02/202504/15, 05/31/2023, 06/22/2022, Additional history exists CKD HGB USE SMARTSET 25568 12/17/202512/17, 12/17/2024, 05/02/2024, Additional history exists TSH [...] of this encounter Visit Diagnoses Diagnosis Acute hyperkalemia Hyperpotassemia documented in this encounter Care Teams Day Haul [employer] Farm Charter Bus Driver Relationship Specialty Start Date End Date Celia Prajapati DO [address] [place] [address] [place] [phone] PCP - General Internal Medicine 11/20/18 documented as of this encounter
--- OUTSIDE RECORDS SUMMARY | 2025-02-08 17:08 | External Medical Summary | Summary of Care ---
Author Name Unknown Organization [facility] Address [address] [facility] [place] [address] Phone [phone] Care Team Providers Care Grapple Skidder Operator Name Role Phone PrajapatiCelia DO Primary Care Provider Reason for Visit * Reason Onset Date Comments Referral 01/31/2025 HTN Sanding Machine Buffer Encounter Details Date Type Department Care Team (Late st Contact Info) Description 01/31/2025 Telephone Pharmacy, [facility] [address] [facility] [place] [address] [facility] [address] [facility] [place] [address] Referral (HTN Sanding Machine Buffer) Allergies Active Allergy Reactions Criticality Noted Date [...] as of this encounter (statuses as of 01/31/2025) Medications MULTIVITAMINS PO TABS 1 tablet daily [...] as of this encounter (statuses as of 01/31/2025) Active Problems Problem Noted Date Diagnosed Date [...] as of this encounter (statuses as of 01/31/2025) Resolved Problems Problem Noted Date Diagnosed Date [...] joints 02/24/2014 10/03/2017 Basal cell carcinoma of [place] region 10/03/2013 10/03/2017 Overview (10/03/2013): left side [...] as of this encounter (statuses as of 01/31/2025) Immunizations Name Administration Dates Next Due COVID-19 [...] 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 Please schedule. Initial appt length: n/a, prn telephonic appts Preferred Clinic for Appointment: [facility] (based on PCP location) Patient referred to [facility] clinic for [facility] HTN program on behalf of Dr. Yasmeen sosa. Referral reviewed and relevant pre-visit information listed below: Follow-up as scheduled. eLmuel Ascencio [facility] 01/31/2025, 3:56 PM * Telephone Encounter - Amy HutchisonAlbertina - 01/31/2025 3:44 PM EDT Comments Patient has been successfully enrolled to the [id number] hypertension self- management program.Standard alarm settings for this patient have been set as follows: Average BP over 7 days > 130/80 Singular Systolic BP Reading < 90 or > 180 Singular Diastolic BP Reading <50 or > 120 Patient has been advised to take blood pressure daily. Please let us know if you would like any of the parameters or instructions altered for this patient. Pharmacist Medication Therapy Management: Minimum frequency patient should be seen in person for medication management: as appropriate per clinical condition and patient status By my signature, I understand that my patient Enmanuel Booker will have his medication therapy managed by the [facility] ([facility]) per established policies, procedures, and protocols. I also certify that this referral may serve as an initiation of service forthe management of drug therapy in the above noted patient. [facility] providers will be responsible for scheduling patient visits, obtaining appropriate laboratory studies, and adjusting medication management therapy per patient's need, in addition to those roles spelled out in the clinic policy, procedures, and drug management protocols. I understand that the service provided by the [facility] Clinic is voluntary and have informed patient that they can refuse the service at their discretion. I am aware that the [facility] Clinic will provide me with a copy of the patient encounter via my [email or web address] In[employer]le[employer] [place] Magazineet. I authorize the [facility] Clinic to carry out these activities on my behalf. I consider this program to be a necessary part of the patient's medical care. ERIKA GARCIA LPN Order Specific Questions Referral Priority Within 10 days (routine) Where should this appointment be scheduled? Mike Referring Provider Role: Specialist Specialty: Nephro Reason for Referral: HTN Goal BP: < 130/80 documented in this encounter Plan of Treatment Upcoming Encounters Date Type Department Care Team (Late st Contact Info) Description 02/17/2025 9:20 AM EDT Office Visit Neurology [facility] [address] [facility] [address] [place] [address] Enmanuel Carlson MD [address] [facility] [address] [place] [address] 06/11/2025 2:20 PM EDT Office Visit Dermatology [address] [place] [address] Midny Alves PA-C [address] [place] [address] [place] [address] 07/16/2025 2:30 PM EDT Office Visit Family Medicine [address] [place] [phone] Celia Prajapati [address] [place] [address] 11/17/2025 11:40 AM EST Office Visit Nephrology, [facility] [place] [address] Cathy Arana MD 200 [facility] [place] [address] Health Maintenance Due Date Last Done Comments Depression Screening 1947 Zoster Vaccines (1 of 2) 1985 Adult Wellness Visit 05/26/2018 05/26/2017 COVID-19 Vaccine ( season) 2024 09/29/2023, 08/03/2022, 08/06/2021, Additional history exists Albumin/Creatinine Ratio 05/02/20252 024, 03/21/2023, 01/12/2023, Additional history exists CKD PHOS USE SMARTSET 54599 05/02/202504/15, 05/31/2023, 06/22/2022, Additional history exists CKD HGB USE SMARTSET 05811 12/17/202512/17, 12/17/2024, 05/02/2024, Additional history exists TSH [...] as of this encounter Visit Diagnoses Diagnosis HTN, goal below 130/80- Primary Unspecified essential hypertension documented in this encounter Care Teams Grapple Skidder Operator Relationship Specialty Start Date End Date Celia Prajapati DO [address] [place] [address] [place] [phone] PCP - General Internal Medicine 11/20/18 documented as of this encounter
--- OUTSIDE RECORDS SUMMARY | 2025-02-08 17:08 | External Medical Summary | Summary of Care ---
Author Name Unknown Organization [facility] Address [address] [facility] [place] [address] Phone [phone] Care Team Providers Care Metal Furniture Repairer Name Role Phone PrajapatiCelia DO Primary Care Provider Reason for Visit * Reason Onset Date Comments Referral 01/31/2025 HTN Preservationist Encounter Details Date Type Department Care Team (Late st Contact Info) Description 01/31/2025 Telephone Pharmacy, [facility] [address] [facility] [place] [address] [facility] [address] [facility] [place] [address] Referral (HTN Preservationist) Allergies Active Allergy Reactions Criticality Noted Date [...] 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 Please schedule. Initial appt length: n/a, prn telephonic appts Preferred Clinic for Appointment: [facility] (based on PCP location) Patient referred to [facility] clinic for [facility] HTN program on behalf of Dr. Yasmeen sosa. Referral reviewed and relevant pre-visit information listed below: Follow-up as scheduled. Lemuel Ascencio [facility] 01/31/2025, 3:56 PM * Telephone Encounter - Amy HutchisonAlbertina - 01/31/2025 3:44 PM EDT Comments Patient has been successfully enrolled to the [id number] hypertension self- management program.Standard alarm settings for [...] have his medication therapy managed by the [facility]ication Therapy Disease Management [facility] ([facility]) per established policies, procedures, and protocols. I also certify that this referral may serve as an initiation of service forthe management of drug therapy in the above noted patient. [facility] providers will be responsible for scheduling patient visits, obtaining appropriate laboratory studies, and adjusting medication management therapy per patient's need, in addition to those roles spelled out in the clinic policy, procedures, and drug management protocols. I understand that the service provided by the [facility] Clinic is voluntary and have informed patient that they can refuse the service at their discretion. I am aware that the [facility] Clinic will provide me with a copy of the patient encounter via my iwi InVolumentalet. I authorize the [facility] Clinic to carry out these activities on [...] 9:20 AM EDT Office Visit Neurology [facility] [place] [address] [facility] [address] [place] [address] Enmanuel Carlson MD [address] [facility] [address] [place] [address] 06/11/2025 2:20 PM EDT Office Visit Dermatology [address] [place] [address] Mindy Alves PA-C [address] [place] [address] [place] [address] 07/16/2025 2:30 PM EDT Office Visit Family Medicine [address] [place] [phone] Celia Prajapati [address] [place] [address] 11/17/2025 11:40 AM EST Office Visit Nephrology, [facility] [place] [address] Cathy Arana MD [address] [facility] [place] [address] Health Maintenance Due Date Last Done Comments Depression Screening 1947 Zoster Vaccines (1 of 2) 1985 Adult Wellness Visit 05/26/2018 05/26/2017 COVID-19 Vaccine ( season) 2024 09/29/2023, 08/03/2022, 08/06/2021, Additional history exists Albumin/Creatinine Ratio 05/02/20252 024, 03/21/2023, 01/12/2023, Additional history exists CKD PHOS USE SMARTSET 52412 05/02/202504/15, 05/31/2023, 06/22/2022, Additional history exists CKD HGB USE SMARTSET 71338 12/17/202512/17, 12/17/2024, 05/02/2024, Additional history exists TSH [...] hypertension documented in this encounter Care Teams Metal Furniture Repairer Relationship Specialty Start Date End Date Celia Prajapati DO [address] [place] [address] [place] [address] PCP - General Internal Medicine 11/20/18 documented as of this encounter
--- OUTSIDE RECORDS SUMMARY | 2025-02-08 17:09 | External Medical Summary | Summary of Care ---
Author Name Unknown Organization [facility] Address [address] [facility] [place] [address] Phone [phone] Care Team Providers Care Supervisor Histology Name Role Phone Brissa Sanchez DO Primary Care Provider Reason for Visit * Reason Onset Date Comments Medication Refill 11/06/2024 Encounter Details Date Type Department Care Team (Late st Contact Info) Description 11/06/2024 Refill Family Medicine [address] [place] [phone] Brissa Sanchez DO [address] [place] [address] [place] [address] HTN, goal below 150/90 Allergies Active Allergy Reactions Criticality Noted Date [...] as of this encounter (statuses as of 11/06/2024) Medications MULTIVITAMINS PO TABS 1 tablet daily 0 0 05/02/20 07 Active [facility] VITAMIN B-12 1000 MCG PO TABSIndications:B1 2 deficiency 1 TABLET DAILY 1 Tab 0 01/10/20 12 Active OCUVITE-LUTEIN PO CAPS 1 daily 09/16/20 13 Active VITAMIN D 1000 UNITS PO CAPSIndications:Vi tamin D deficiency Take by mouth 2 times a day. 1 Cap 0 01/14/20 15 Active Magnesium Oxide 400 MG Capsule Take 1 Cap by mouth daily. 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 90 Tablet 3 05/27/20 24 Active Furosemide 20 MG Oral Tablet (Lasix) Take 1 Tablet by mouth in the morning. 90 Tablet 3 07/30/20 24 Active Ciprofloxacin HCl 250 MG Oral Tablet (Cipro)Indications :Acute cystitis without hematuria Take 1 Tablet by mouth in the morning and 1 Tablet before bedtime. 10 Tablet 08/22/20 24 Active Allopurinol 300 MG Oral Tablet (Zyloprim)Indicati ons:Calculus of kidney Take 1 Tablet by mouth in the morning. 90 Tablet 1 09/04/20 24 Active Levothyroxine Sodium 112 MCG Oral Tablet (Levoxyl)Indicatio ns:Acquired hypothyroidism Take 1 Tablet by mouth in the morning. (at least 30 min prior to breakfast or other meds). 90 Tablet 1 09/04/20 24 Active Metoprolol Succinate ER 50 MG Oral Tablet Extended Release 24 Hour (toPROL XL)Indications:HTN , goal below 150/90 Take 1 Tablet by mouth in the morning. 90 Tablet 3 09/07/20 24 Active Potassium Citrate ER 15 MEQ (1620 MG) Oral Tablet Extended Release TAKE 1 TABLET BY MOUTH TWICE A DAY 180 Tablet 3 10/14/20 24 Active metroNIDAZOLE 0.75 % External Gel (Metrogel)Indicati ons:Rosacea APPLY TOPICALLY TO FACE TWICE A DAY 45 g 1 11/05/19 25 Active Lisinopril 5 MG Oral Tablet (Prinivil)Indicati ons:HTN, goal below 150/90 Take 1 Tablet by mouth every night at bedtime. 90 Tablet 1 11/06/19 25 Active Lisinopril 5 MG Oral Tablet (Prinivil)Indicati ons:HTN, goal below 150/90 Take 1 Tablet by mouth every night at bedtime. 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 Authorizing Provider: BRISSA SANCHEZ * Telephone Encounter - Alma Delia Shanks RN - 11/06/2024 1:37 PM ESTPending Prescriptions: Disp Refills Lisinopril 5 MG Oral Tablet (Prinivil) 90 Tab*1 Sig: Take 1 Tablet by mouth every night at bedtime. * Telephone Encounter - Charito Johnson OSA - 11/06/2024 1:35 PM EST Did you pend patient's preferred pharmacy and medication before forwarding?yes Pharmacy: [id number] [address] [facility] Pending Prescriptions: Disp Refills Lisinopril 5 MG Oral Tablet (Prinivil) 90 Tab*1 Sig: Take 1 Tablet by mouth every night at bedtime. Last Visit: 05/08/2024 (in office), Visit date not found (telemedicine) Next Visit: 12/24/2024 If no future appointments scheduled, and last appointment is greater than a year ago, please schedule patient for a follow-up appointment Last date the medication was ordered: 05-28-24 Is this request for a controlled substance?No Urine Drug Screen:No results found. However, due to the size of the patient record, not all encounters were searched. Please check Results Review for a complete set of results. Patient Phone Numbers Labs: Lab Results Component Value Date/Time CREAT 1.7 (H) 05/02/2024 01:49 PM CREAT 1.7 (H) 08/26/2020 02:57 PM POTASSIUM 4.9 05/02/2024 01:49 PM POTASSIUM 5.1 08/26/2020 02:57 PM TSH 4.48 (H) 05/02/2024 01:49 PM TSH 2.80 06/05/2020 12:01 PM LDL 50 05/02/2024 01:49 PM LDL 61 03/21/2023 10:57 AM LDL 66 02/11/2020 12:53 PM LDL 53 11/06/2018 09:11 AM ALT 29 05/02/2024 01:49 PM ALT 18 06/05/2020 12:01 PM HGBA1C 5.2 03/02/2017 10:20 AM documented in this encounter Plan of Treatment Upcoming Encounters Date Type Department Care Team (Late st Contact Info) Description 12/24/2024 2:30 PM EDT Office Visit Family Medicine [address] [place] [phone] Brissa Sanchez [address] [place] [address] 06/11/2025 2:20 PM EDT Office Visit Dermatology [address] [place] [address] Mindy Alves PA-C [address] [place] [address] [place] [address] Health Maintenance Due Date Last Done Comments Zoster Vaccines (1 of 2) 1985 Adult Wellness Visit 05/26/2018 05/26/2017 Depression Screening 06/05/2021 06/05/2020 COVID-19 Vaccine ( season) 2024 09/29/2023, 08/03/2022, 08/06/2021, Additional history exists Albumin/Creatinine Ratio 05/02/2025 024, 03/21/2023, 01/12/2023, Additional history exists CKD HGB USE SMARTSET 82718 05/02/202505/02, 03/21/2023, 03/21/2023, Additional history exists CKD PHOS USE SMARTSET 48798 05/02/202504/15, 05/31/2023, 06/22/2022, Additional history exists TSH 05/02/2025 05/02/2024, 09/15, 03/21/2023, Additional history exists DTap/Tdap Vaccines (2 - [...] encounter Visit Diagnoses Diagnosis HTN, goal below 150/90 documented in this encounter Care Teams Supervisor Histology Relationship Specialty Start Date End Date Brissa Sanchez DO [address] [place] [address] [place] [address] PCP - General Internal Medicine 11/20/18 documented as of this encounter
--- OUTSIDE RECORDS SUMMARY | 2025-02-08 17:09 | External Medical Summary ---
Author Name Unknown Address Unknown Organization K01:[facility] [place] [address] [place] [address] Laboratory Report Ordering Provider Test Date Status JOHNNA RIVAS 12/17/2024 13:57:53 Final Observation Date Value Abnormality Reference (Units ) Status Uric Acid 12/17/2024 13:57:53 6.5 3.4-7.0 (m g/dL) Final Performing Location [facility] [place] [address] [place] [address]
--- OUTSIDE RECORDS SUMMARY | 2025-02-08 17:09 | External Medical Summary | Summary of Care ---
Author Name Unknown Organization [facility] Address [address] [facility] [place] [address] Phone [phone] Care Team Providers Care Heating And Ventilating Tender Name Role Phone Brissa Sanchez DO Primary Care Provider Reason for Visit * Reason Onset Date Comments Medication Refill 09/04/2024 Encounter Details Date Type Department Care Team (Late st Contact Info) Description 09/04/2024 Refill Family Medicine [address] [place] [phone] Brissa Sanchez DO [address] [place] [address] [place] [address] Calculus of kidney; Acquired hypothyroidism Allergies Active Allergy Reactions Criticality Noted Date [...] as of this encounter (statuses as of 09/04/2024) Medications MULTIVITAMINS PO TABS 1 tablet daily [...] morning. 90 Tablet 3 04/19/20 24 Active Lisinopril 5 MG Oral Tablet (Prinivil)Indicati ons:HTN, goal below 150/90 Take 1 Tablet by mouth every night at bedtime. 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 90 Tablet 3 05/27/20 24 Active Potassium Citrate ER 15 MEQ (1620 MG) Oral Tablet Extended Release TAKE 1 TABLET BY MOUTH TWICE A DAY 180 Tablet 1 07/30/20 24 Active metroNIDAZOLE 0.75 % External Gel (Metrogel)Indicati ons:Rosacea APPLY TOPICALLY TO FACE TWICE A DAY 45 g 1 07/29/20 24 Active Metoprolol Succinate ER 50 MG Oral Tablet Extended Release 24 Hour (toPROL XL)Indications:HTN , goal below 150/90 Take 1 Tablet by mouth in the morning. 90 Tablet 3 07/30/20 24 Active Furosemide 20 MG Oral Tablet [...] meds). 90 Tablet 1 09/04/20 24 Active Levothyroxine Sodium 112 MCG Oral Tablet (Levoxyl)Indicatio ns:Acquired hypothyroidism Take 1 Tablet by mouth in the morning. (at least 30 min prior to breakfast or other meds). 90 Tablet 1 05/08/20 24 024 Discontin ued(Refil l) Allopurinol 300 MG Oral Tablet (Zyloprim)Indicati ons:Calculus of kidney Take 1 Tablet by mouth in the morning. 90 Tablet 1 05/28/20 24 024 Discontin ued(Refil l) documented as of this encounter (statuses as of 09/04/2024) Active Problems Problem Noted Date Diagnosed Date [...] as of this encounter (statuses as of 09/04/2024) Resolved Problems Problem Noted Date Diagnosed Date [...] joints 02/24/2014 10/03/2017 Basal cell carcinoma of [place] region 10/03/2013 10/03/2017 Overview (10/03/2013): left side [...] as of this encounter (statuses as of 09/04/2024) Immunizations Name Administration Dates Next Due COVID-19 mRNA, LNP-s, No Pre serve, 2-Dose Series (Moderna) 08/06/2021,12/09/2020,11/09/2020 COVID-19, MRNA-LNP, PF, 30 M CG/0.3 mL, 12 YRS AND ABOVE, IM ([facility]) 09/29/2023 Covid-19, Mrna, Lnp-s, Pf, B ivalent, [...] 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 Authorizing Provider: BRISSA SANCHEZ Levothyroxine Sodium 112 MCG Oral Tablet (*90 Tab*1 Sig: Take 1 Tablet by mouth in the morning. (at least 30 min prior to breakfast or other meds). Authorizing Provider: BRISSA SANCHEZ --- * Telephone Encounter - Alma Delia Shanks RN - 09/04/2024 1:33 PM ESTPending Prescriptions: Disp Refills Allopurinol 300 MG Oral Tablet (Zyloprim) 90 Tab*1 Sig: Take 1 Tablet by mouth in the morning. Levothyroxine Sodium 112 MCG Oral Tablet (*90 Tab*1 Sig: Take 1 Tablet by mouth in the morning. (at least 30 min prior to breakfast or other meds). * Telephone Encounter - Chloé Rodriguez OSA - 09/04/2024 12:49 PM EST Did you pend patient's preferred pharmacy and medication before forwarding?yes Pharmacy: [id number] [facility] Pending Prescriptions: Disp Refills Allopurinol 300 MG Oral Tablet (Zyloprim) 90 Tab*1 Sig: Take 1 Tablet by mouth in the morning. Levothyroxine Sodium 112 MCG Oral Tablet *90 Tab*1 Sig: Take 1 Tablet by mouth in the morning. (at least 30 min prior to breakfast or other meds). Last Visit: 05/08/2024 (in office), Visit date not found (telemedicine) Next Visit: 12/24/2024 If no future appointments scheduled, and last appointment is greater than a year ago, please schedule patient for a follow-up appointment Last date the medication was ordered: 05.08.24 Is this request for a controlled substance?No [...] Description 12/24/2024 2:30 PM EDT Office Visit [address] [phone] Brissa Sanchez, [address] [place] [address] 06/11/2025 2:20 PM EDT Office Visit Dermatology [address] [place] [address] Mindy Alves PA-C [address] [place] [address] [place] [phone] Health Maintenance Due Date Last Done Comments Zoster Vaccines (1 of 2) 1985 Adult Wellness Visit 05/26/2018 05/26/2017 Depression Screening 06/05/2021 06/05/2020 COVID-19 Vaccine ( season) 2024 09/29/2023, 08/03/2022, 08/06/2021, Additional history exists Albumin/Creatinine Ratio 05/02/2025 024, 03/21/2023, 01/12/2023, Additional history exists CKD HGB USE SMARTSET 20781 05/02/202505/02, 03/21/2023, 03/21/2023, Additional history exists CKD PHOS USE SMARTSET 97431 05/02/202504/15, 05/31/2023, 06/22/2022, Additional history exists TSH 05/02/2025 05/02/2024, 09/15, 03/21/2023, Additional history exists DTap/Tdap Vaccines (2 - Td or Tdap) 03/27/2029 03/27/2019, 10/29/2002 Pneumococcal Vaccine: 65+ Years Completed 09/01/2015, 10/17/2009, 09/28/2001 Influenza Vaccine [...] as of this encounter Visit Diagnoses Diagnosis Calculus of kidney Acquired hypothyroidism Unspecified hypothyroidism documented in this encounter Care Teams Heating And Ventilating Tender Relationship Specialty Start Date End Date Brissa Sanchez DO [address] [place] [address] [place] [phone] PCP - General Internal Medicine 11/20/18 documented as of this encounter
--- OUTSIDE RECORDS SUMMARY | 2025-02-08 17:09 | External Medical Summary | Summary of Care ---
Author Name Unknown Organization [facility] Address [address] [facility] [place] [address] Phone [phone] Care Team Providers Care Liner Inserter Name Role Phone Celia Prajapati Primary Care Provider Reason for Visit * Reason Comments eRx-Medication Refill Encounter Details Date Type Department Care Team (Late st Contact Info) Description 11/05/2024 Refill Dermatology [address] [place] [address] Romelia Alves PA-C [address] [place] [address] [place] [address] Rosacea Allergies Active Allergy Reactions Criticality Noted Date [...] as of this encounter (statuses as of 11/05/2024) Medications MULTIVITAMINS PO TABS 1 tablet daily [...] 24 Active Lisinopril 5 MG Oral Tablet (Prinivil)Indicat [...] Active Ciprofloxacin HCl 250 MG Oral Tablet (Cipro)Indication s:Acute cystitis without hematuria Take 1 Tablet by [...] DAY 45 g 1 11/05/19 25 Active metroNIDAZOLE 0.75 % External Gel (Metrogel)Indicat ions:Rosacea APPLY TOPICALLY TO FACE TWICE A DAY 45 g 1 07/29/20 24 025 Discontinued documented as of this encounter (statuses as of 11/05/2024) Active Problems Problem Noted Date Diagnosed Date [...] as of this encounter (statuses as of 11/05/2024) Resolved Problems Problem Noted Date Diagnosed Date [...] joints 02/24/2014 10/03/2017 Basal cell carcinoma of sikhism region 10/03/2013 10/03/2017 Overview (10/03/2013): left side [...] as of this encounter (statuses as of 11/05/2024) Immunizations Name Administration Dates Next Due COVID-19 [...] 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 Not on file Not on fi le documented as of this encounter Miscellaneous Notes * Telephone Encounter - Romelia Alves PA-C - 11/05/2024 11:40 AM EST Signed Prescriptions: Disp Refills metroNIDAZOLE 0.75 % External Gel (Metroge*45 g 1 Sig: APPLY TOPICALLY TO FACE TWICE A DAYAuthorizing Provider: ROMELIA ALVES * Telephone Encounter - Jessy Quezada LPN - 11/05/2024 11:27 AM ESTPending Prescriptions: Disp Refills metroNIDAZOLE 0.75 % External Gel [Pharmac*45 g 1 Sig: APPLY TOPICALLY TO FACE TWICE A DAY * Telephone Encounter - Jessy Quezada LPN - 11/05/2024 11:27 AM EST Pending Prescriptions: Disp Refills metroNIDAZOLE 0.75 % External Gel (Metrog*45 g 1 Sig: APPLY TOPICALLY TO FACE TWICE A DAY 06/10/2024 (in office), Visit date not found (telemedicine) 06/11/2025 Patient Phone Numbers Labs: Lab Results Component [...] 2:30 PM EDT Office Visit Family Medicine [address] [place] [phone] Celia Prajapati [address] [place] [phone] 06/11/2025 2:20 PM EDT Office Visit Dermatology [address] [place] [address] Romelia Alves PA-C [address] [place] [address] [place] [address] Health Maintenance Due Date Last Done Comments Zoster Vaccines (1 of 2) 1985 Adult Wellness Visit 05/26/2018 05/26/2017 Depression Screening 06/05/2021 06/05/2020 COVID-19 Vaccine ( season) 2024 09/29/2023, 08/03/2022, 08/06/2021, Additional history exists Albumin/Creatinine Ratio 05/02/202505/02/2 024, 03/21/2023, 01/12/2023, Additional history exists CKD HGB USE SMARTSET 27552 05/02/202505/02, 03/21/2023, 03/21/2023, Additional history exists CKD PHOS USE SMARTSET 26100 05/02/2025 07/05/2024, 05/31/2023, 06/22/2022, Additional history exists TSH 05/02/2025 [...] as of this encounter Visit Diagnoses Diagnosis Rosacea documented in this encounter Care Teams Liner Inserter Relationship Specialty Start Date End Date Celia Prajapati DO [address] [place] [address] [place] [phone] PCP - General Internal Medicine 11/20/18 documented as of this encounter
--- OUTSIDE RECORDS SUMMARY | 2025-02-08 17:09 | External Medical Summary | Summary of Care ---
Author Name Unknown Organization [facility] Address [address] [facility] [place] [address] Phone [phone] Care Team Providers Care Wood Processing Worker Name Role Phone Brissa Sanchez DO Primary Care Provider [phone] Reason for Visit * Reason Onset Date Comments Medication Refill 09/07/2024 Encounter Details Date Type Department Care Team (Late st Contact Info) Description 09/07/2024 Refill Family Medicine [address] [place] [phone] Brissa Sanchez DO [address] [place] [address] [place] [address] HTN, goal below 150/90 Allergies Active Allergy [...] as of this encounter (statuses as of 09/07/2024) Medications MULTIVITAMINS PO TABS 1 tablet daily [...] DAY 45 g 1 07/29/20 24 Active Furosemide 20 MG Oral Tablet [...] morning. 90 Tablet 3 09/07/20 24 Active Metoprolol Succinate ER 50 MG Oral Tablet Extended Release 24 Hour (toPROL XL)Indications:HTN , goal below 150/90 Take 1 Tablet by mouth in the morning. 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 on file Not on file Not on fi le documented as of this encounter Miscellaneous Notes * Telephone Encounter - Caitlyn Stringer, [facility] - 09/07/2024 8:43 PM EST Signed Prescriptions: Disp Refills Metoprolol Succinate ER 50 MG Oral Tablet *90 Tab*3 Sig: Take 1 Tablet by mouth in the morning.Authorizing Provider: BRISSA SANCHEZ User: CAITLYN STRINGER documented in this encounter Plan of Treatment Upcoming Encounters Date Type Department Care Team (Late st Contact Info) Description 12/24/2024 2:30 PM EDT Office Visit Family Medicine [address] [place] [phone] Brissa Sanchez, [address] [place] [address] 06/11/2025 2:20 PM EDT Office Visit Dermatology [address] [place] [address] Mindy Alves PA-C [address] [place] [address] [place] [address] Health Maintenance Due Date Last Done Comments Zoster Vaccines (1 of 2) 1985 Adult Wellness Visit 05/26/2018 05/26/2017 Depression Screening 06/05/2021 06/05/2020 COVID-19 Vaccine ( season) 2024 09/29/2023, 08/03/2022, 08/06/2021, Additional history exists Albumin/Creatinine Ratio 05/02/20252 024, 03/21/2023, 01/12/2023, Additional history exists CKD HGB USE SMARTSET 42885 05/02/202505/02, 03/21/2023, 03/21/2023, Additional history exists CKD PHOS USE SMARTSET 10328 05/02/202504/15, 05/31/2023, 06/22/2022, Additional history exists TSH [...] 150/90 documented in this encounter Care Teams Wood Processing Worker Relationship Specialty Start Date End Date Brissa Sanchez DO [address] [place] [address] [place] [phone] PCP - General Internal Medicine 11/20/18 documented as of this encounter
--- OUTSIDE RECORDS SUMMARY | 2025-02-08 17:09 | External Medical Summary | Summary of Care ---
Author Name Unknown Organization [facility] Address [address] [facility] [place] [address] Phone [phone] Care Team Providers Care Ip Technology Transactions Attorney Name Role Phone Celia Prajapati Primary Care Provider Reason for Visit * Reason Onset Date Comments Appointment 2024 Encounter Details Date Type Department Care Team (Late st Contact Info) Description 2024 Telephone Nephrology, [facility] [address] [facility] [place] [address] Cathy Arana MD [address] [facility] [place] [address] Appointment Allergies Active Allergy Reactions Criticality Noted Date [...] as of this encounter (statuses as of 2024) Medications MULTIVITAMINS PO TABS 1 tablet daily [...] the morning. 90 Tablet 3 4 Active Lisinopril 5 MG Oral Tablet (Prinivil)Indicati ons:HTN, goal below 150/90 Take 1 Tablet by mouth every night at bedtime. 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 90 Tablet 3 4 Active Potassium Citrate ER 15 MEQ (1620 MG) Oral Tablet Extended Release TAKE 1 TABLET BY MOUTH TWICE A DAY 180 Tablet 1 4 Active metroNIDAZOLE 0.75 % External Gel (Metrogel)Indicati ons:Rosacea APPLY TOPICALLY TO FACE TWICE A DAY 45 g 1 4 Active Furosemide 20 MG Oral Tablet (Lasix) Take 1 Tablet by mouth in the morning. 90 Tablet 3 4 Active Ciprofloxacin HCl 250 MG Oral Tablet (Cipro)Indications :Acute cystitis without hematuria Take 1 Tablet by mouth in the morning and 1 Tablet before bedtime. 10 Tablet 4 Active Allopurinol 300 MG Oral Tablet [...] the morning. 90 Tablet 3 4 Active documented as of this encounter (statuses as of 2024) Active Problems Problem Noted Date Diagnosed Date [...] as of this encounter (statuses as of 2024) Resolved Problems Problem Noted Date Diagnosed Date [...] joints 02/24/2014 10/03/2017 Basal cell carcinoma of yazidism region 10/03/2013 10/03/2017 Overview (10/03/2013): left side [...] as of this encounter (statuses as of 2024) Immunizations Name Administration Dates Next Due COVID-19 mRNA, LNP-s, No Pre serve, 2-Dose Series (Moderna) 08/06/2021,12/09/2020,11/09/2020 COVID-19, MRNA-LNP, PF, 30 M CG/0.3 mL, 12 YRS AND ABOVE, IM ([facility]) 09/29/2023 Covid-19, Mrna, Lnp-s, Pf, B ivalent, [...] 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 documented in this encounter Plan of Treatment Upcoming Encounters Date Type Department Care Team (Late st Contact Info) Description 12/24/2024 2:30 PM EDT Office Visit Family Medicine [address] [place] [phone] Celia Prajapati, [address] [place] [address] 06/11/2025 2:20 PM EDT Office Visit Dermatology [address] [place] [address] Mindy Alves PA-C [address] [place] [address] [place] [address] Health Maintenance Due Date Last Done Comments Zoster Vaccines (1 of 2) 1985 Adult Wellness Visit 05/26/2018 05/26/2017 Depression Screening 06/05/2021 06/05/2020 COVID-19 Vaccine ( season) 2024 09/29/2023, 08/03/2022, 08/06/2021, Additional history exists Albumin/Creatinine Ratio 05/02/2025 024, 03/21/2023, 01/12/2023, Additional history exists CKD HGB USE SMARTSET 85912 05/02/202505/02, 03/21/2023, 03/21/2023, Additional history exists CKD PHOS USE SMARTSET 94233 05/02/202504/15, 05/31/2023, 06/22/2022, Additional history exists TSH [...] filedocumented as of this encounter Care Teams Ip Technology Transactions Attorney Relationship Specialty Start Date End Date Celia Prajapati DO [address] [place] [address] [place] [phone] PCP - General Internal Medicine 11/20/18 documented as of this encounter
--- OUTSIDE RECORDS SUMMARY | 2025-02-08 17:09 | External Medical Summary | Summary of Care ---
Author Name Unknown Organization [facility] Address [address] [facility] [place] [address] Phone [phone] Care Team Providers Care Paper Machine Supervisor Name Role Phone Celia Prajapati DO Primary Care Provider Reason for Visit * Reason Comments Outpatient Testing Encounter Details Date Type Department Care Team (Late st Contact Info) Description 12/17/2024 2:00 PM EST Laboratory Laboratory [address] [place] [phone] [address] [place] [address] Chronic kidney disease, stage 3b (HCC); Acquired [...] as of this encounter (statuses as of 12/17/2024) Medications MULTIVITAMINS PO TABS 1 tablet daily [...] as of this encounter (statuses as of 12/17/2024) Active Problems Problem Noted Date Diagnosed Date [...] as of this encounter (statuses as of 12/17/2024) Resolved Problems Problem Noted Date Diagnosed Date [...] joints 02/24/2014 10/03/2017 Basal cell carcinoma of hindu region 10/03/2013 10/03/2017 Overview (10/03/2013): left side [...] as of this encounter (statuses as of 12/17/2024) Immunizations Name Administration Dates Next Due COVID-19 mRNA, LNP-s, No Pre serve, 2-Dose Series (Moderna) 08/06/2021,12/09/2020,11/09/2020 COVID-19, MRNA-LNP, PF, 30 M CG/0.3 mL, 12 YRS AND ABOVE, IM (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 file Not on file Not on fi le documented as of this encounter Plan of Treatment Upcoming Encounters Date Type Department Care Team (Late st Contact Info) Description 02/17/2025 9:20 AM EDT Office Visit Neurology [facility] Garcia [address] [place] [address] Enmanuel Carlson MD [address] [facility] [place] [address] 06/11/2025 2:20 PM EDT Office Visit Dermatology [address] [place] [address] Mindy Alves PA-C [address] [place] [address] [place] [address] 07/16/2025 2:30 PM EDT Office Visit Family Medicine [address] [place] [phone] Celia Prajapati DO [address] [place] [address] [place] [phone] Pending Results Name Type Priority Associated Diagnoses Date /Time BASIC METABOLIC PANEL Lab Routine Chronic kidney disease, stage 3b (HCC) 12/17/2024 1:57 PM EST TSH Lab Routine Acquired hypothyroidism 12/17/2024 1:57 PM EST VITAMIN B12 Lab Routine B12 deficiency 12/17/2024 1:57 PM EST TRIGLYCERIDES Lab Routine High triglycerides 12/17/2024 1:57 PM EST MAGNESIUM Lab Routine Stage 3b chronic kidney disease (HCC) 12/17/2024 1:57 PM EST URIC ACID Lab Routine Hyperuricemia 12/17/2024 1:57 PM EST CBC WITH WBC DIFFERENTIAL AND ANEMIA REFLEX WORKUP Lab Routine Stage 3b chronic kidney disease (HCC) 12/17/2024 1:57 PM EST ANEMIA CBC Lab Routine Stage 3b chronic kidney disease (HCC) 12/17/2024 1:57 PM EST DIFFERENTIAL, AUTOMATED Lab Routine Stage 3b chronic kidney disease (HCC) 12/17/2024 1:57 PM EST ANEMIA REFLEX CHEMISTRY HOLD Lab Routine Stage 3b chronic kidney disease (HCC) 12/17/2024 1:57 PM EST Health Maintenance Due Date Last Done Comments Zoster Vaccines (1 of 2) 1985 Adult Wellness Visit 05/26/2018 05/26/2017 Depression Screening 06/05/2021 06/05/2020 COVID-19 Vaccine ( season) 2024 09/29/2023, 08/03/2022, 08/06/2021, Additional history exists Albumin/Creatinine Ratio 05/02/202505/02/2 024, 03/21/2023, 01/12/2023, Additional history exists CKD HGB USE SMARTSET 00476 05/02/202505/02, 03/21/2023, 03/21/2023, Additional history exists CKD PHOS USE SMARTSET 97594 05/02/202504/15, 05/31/2023, 06/22/2022, Additional history exists TSH [...] Diagnosis Chronic kidney disease, stage 3b (HCC) Acquired hypothyroidism Unspecified hypothyroidism B12 deficiency Other B-complex deficiencies High triglycerides Pure hyperglyceridemia Stage 3b chronic kidney disease (HCC) Hyperuricemia Other abnormal blood chemistry documented in this encounter Care Teams Paper Machine Supervisor Relationship Specialty Start Date End Date Celia Prajapati DO [address] [place] [address] [place] [phone] PCP - General Internal Medicine 11/20/18 documented as of this encounter
--- OUTSIDE RECORDS SUMMARY | 2025-02-08 17:09 | External Medical Summary ---
Author Name Unknown Address Unknown Organization K01:[facility] [place] [address] [place] [address] Laboratory Report Ordering Provider Test Date Status DANIEL BRUMFIELD 12/17/2024 13:57:53 Final Observation Date Value Abnormality Reference (Units ) Status TSH 12/17/2024 13:57:53 4.50 Above high normal 0. 27-4.20 (uIU/mL) Final Performing Location [facility] [place] [address] [place] [address]
--- OUTSIDE RECORDS SUMMARY | 2025-02-08 17:09 | External Medical Summary | Summary of Care ---
Author Name Unknown Organization [facility] Address [address] [facility] [place] [address] Phone [phone] Care Team Providers Care Security Coordinator Name Role Phone Celia Prajapati DO Primary Care Provider Reason for Visit * Reason Comments Re-Check Pt denies any concer ns. 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 90 Tablet 1 11/06/19 25 Active Ciprofloxacin HCl 250 MG Oral Tablet (Cipro)Indication s:Acute cystitis without hematuria Take 1 Tablet by mouth in the morning and 1 Tablet before bedtime. 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 Not on file Not on file Not on fi le documented as of this encounter Last Filed Vital Signs Vital Sign Reading Time Taken Comments Blood Pressure 143/89 12/17/2024 1:13 PM EST Pulse 87 12/17/2024 1:13 PM EST Temperature 36.2 °C (97.1 °F) 12/17/2024 1:13 PM ES T Respiratory Rate - - Oxygen Saturation 97% 12/17/2024 1:13 PM EST Inhaled Oxygen Concentration - - Weight 90.1 kg (198 lb 9.6 oz) 12/17/2024 1:13 P M EST Height - - Body Mass Index 28.5 07/29/2024 3:07 PM EDT documented in this encounter Progress Notes * Celia Prajapati, DO - 12/17/2024 1:17 PM EST Subjective: Enmanuel Booker is a 89 year old male. Chief Complaint Patient presents with Re-Check Pt denies any concerns. HPI: Enmanuel Booker presents today for routine follow up. His earlier this year. He denies concerns today. BP is improved today from his previous visit but diastolic number is still a little high. He does have a home BP cuff but it was connected to his I-phone and this was displaced and had to be replacedand he has not been able to surgical supervisor the new one. In the past it was high in morning and then came down nicely afterwards. No gout flares. 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 Has not passed a kidney stone in some time. He is voiding well on finasteride and flomax. Nocturia x 1 - usually about 3 AM. Denies fluid in his legs. Remains on furosemide with potassium. He believes he got his RSV vaccine at the [facility] on [facility]. I do not see it on his immunization record, so will need to check. No current UTI symptoms. Sometimes has trouble swallowing if he doesn't chew his food well enough. In the past he has had tohave emergent endoscopy for a food impaction and had dilation done at that time. PMH: Patient Active Problem List Diagnosis BPH with [...] Urge incontinence Chronic diarrhea Mild aortic stenosis Current Outpatient Medications Medication Sig Dispense Refill [...] DAY IN THE MORNING 90 Capsule 3 Triamcinolone Acetonide 0.1 % External Cream (Aristocort) Apply topically to affected area 2 times a day. To affected area. 60 g 5 amLODIPine Besylate 5 MG Oral Tablet (Norvasc) [...] mouth in the morning. 90 Tablet 1 Levothyroxine Sodium 112 MCG Oral Tablet (Levoxyl) Take 1 Tablet by mouth in the morning. (at least30 min prior to breakfast or other meds). 90 Tablet 1 Metoprolol Succinate ER 50 MG Oral Tablet Extended Release 24 Hour (toPROL XL) Take 1 Tablet by mouth in the morning. 90 Tablet 3 Potassium Citrate ER 15 MEQ (1620 MG) Oral Tablet Extended Release TAKE 1 TABLET BY MOUTH TWICE A DAY 180 Tablet 3 metroNIDAZOLE 0.75 % External Gel (Metrogel) APPLY TOPICALLY TO FACE TWICE A DAY 45 g 1 Lisinopril 5 MG Oral Tablet (Prinivil) Take 1 Tablet by mouth every night at bedtime. 90 Tablet 1 Ciprofloxacin HCl 250 MG Oral Tablet (Cipro) Take 1 Tablet by mouth in the morning and 1 Tablet before bedtime. (Patient not taking: Reported on 12/17/2024) 10 Tablet 0 No current facility-administered medications for this visit. Review of patient's allergies indicates: Allergen Reactions Oyster Extract Other Reaction(s): Vomiting Pollen Extract Other Reaction(s): TREE POLLEN-seasonal allergies Amoxicillin diarrhea and abdominal cramps with Augmentin Amoxicillin-Pot Clavulanate Hazelnut (Filbert) Levofloxacin RASH Nuts [Food (See Comments)] Edema face/lips/tongue Sulfa Antibiotics diarrhea Wound Dressing Adhesive Zio patch Objective: BP 143/89 | Pulse 87 | Temp 97.1 °F (36.2 °C) | Wt 198 lb 9.6 oz (90.1 kg) | SpO2 97% | BMI 28.50kg/m² | BSA 2.11 m² General: alert, healthy, no distress, well nourished, and well developed, hard of hearing Neck: supple, no adenopathy, thyroid normal size, non-tender, without nodularity Heart: regular rate & rhythm, no murmur, and occasional missed beat - suspect PVC Lungs: chest symmetric with normal AP diameter, no chest deformities noted, normal respiratory rateand rhythm, lungs clear to auscultation Abdomen: abdomen soft, non-tender, and normal bowel sounds Extremities: no joint deformities, effusion, or inflammation, no edema Neuro Exam: alert & oriented x 3 with fluent speech, no focal motor/sensory deficits, gait normal Skin: skin color, texture, turgor are normal, no rashes or significant lesions ASSESSMENT/PLAN: BPH with obstruction/lower urinary tract symptoms (Primary) - continue finasteride and flomax Stage 3b chronic kidney disease (HCC) - follows with nephrology - BASIC METABOLIC PANEL; Future; Expected date: 12/17/2024 - CBC WITH WBC DIFFERENTIAL AND ANEMIA REFLEX WORKUP; Future; Expected date: 12/17/2024 B12 deficiency - recheck levels today HTN, goal below 150/90 - borderline here and at home. Monitor and adjust if continues to run high. Acquired hypothyroidism - continue levothyroxine. - TSH; Future; Expected date: 12/17/2024 Elevated uric acid level - on allupurinol Follow-up: Return in about 6 months (around 06/19/2025). | Check-out note: Labs today Celia Prajapati DO documented in this encounter Plan of Treatment Upcoming Encounters Date Type Department Care Team (Late st Contact Info) Description 02/17/2025 9:20 AM EDT Office Visit Neurology [facility] [place] [address] [facility] [place] [address] Enmanuel Carlson MD [address] [place], [place] [address] 06/11/2025 2:20 PM EDT Office Visit Dermatology [address] [place] [address] Mindy Alves PA-C [address] [place] [address] [place] [address] 07/16/2025 2:30 PM EDT Office Visit Family Medicine [address] [place] [phone] Celia Prajapati [address] [place] [address] Pending Results Name Type Priority Associated Diagnoses Date /Time CBC WITH WBC DIFFERENTIAL AND ANEMIA REFLEX WORKUP Lab Routine Stage 3b chronic kidney disease (HCC) 12/17/2024 1:57 PM EST Scheduled Orders Name Type Priority Associated Diagnoses Orde r Schedule CBC WITH WBC DIFFERENTIAL AND ANEMIA REFLEX WORKUP Lab Routine Stage 3b chronic kidney disease (HCC) Expected: 12/17/2024 (Approximate), Expires: 12/17/2025 Health Maintenance Due Date Last Done Comments Zoster Vaccines (1 of 2) 1985 Adult Wellness Visit 05/26/2018 05/26/2017 Depression Screening 06/05/2021 06/05/2020 COVID-19 Vaccine ( season) 2024 09/29/2023, 08/03/2022, 08/06/2021, Additional history exists Albumin/Creatinine Ratio 05/02/202505/02/2 024, 03/21/2023, 01/12/2023, Additional history exists CKD HGB USE SMARTSET 72862 05/02/202505/02, 03/21/2023, 03/21/2023, Additional history exists CKD PHOS USE SMARTSET 61889 05/02/2025 0705/2024, 05/31/2023, 06/22/2022, Additional history exists TSH 05/02/2025 [...] as of this encounter Visit Diagnoses Diagnosis BPH with obstruction/lower urinary tract symptoms- Primary Hypertrophy of prostate with urinary obstruction and other lower urinary tract symptoms (LUTS) Stage 3b chronic kidney disease (HCC) B12 deficiency Other B-complex deficiencies HTN, goal below 150/90 Acquired hypothyroidism Unspecified hypothyroidism Elevated uric acid in blood Other abnormal blood chemistry documented in this encounter Care Teams Security Coordinator Relationship Specialty Start Date End Date Celia Prajapati DO [address] [place] [address] [place] [phone] PCP - General Internal Medicine 11/20/18 documented as of this encounter"
--- OUTSIDE RECORDS SUMMARY | 2025-02-08 17:09 | External Medical Summary ---
Author Name Unknown Address Unknown Organization K01:[place] [place] [address] [place] [address] Laboratory Report Ordering Provider Test Date Status JOHNNA RIVAS 12/17/2024 13:57:53 Final Observation Date Value Abnormality Reference (Units ) Status Magnesium 12/17/2024 13:57:53 1.9 1.5-2.6 (m g/dL) Final Performing Location LABORATORY [facility] - [address] [place] [address]
--- OUTSIDE RECORDS SUMMARY | 2025-02-08 17:09 | External Medical Summary | Summary of Care ---
Author Name Unknown Organization [facility] Address [address] [facility] [place] [address] Phone [phone] Care Team Providers Care Diet Aide Name Role Phone Celia Prajapati Primary Care Provider Reason for Visit * Reason Onset Date Comments Medication Refill 2024 Encounter Details Date Type Department Care Team (Late st Contact Info) Description 2024 Refill [facility] [address] [facility] [place] [phone] Manuel Calhoun MD [address] [place] [address] Allergies Active Allergy Reactions Criticality Noted Date [...] morning. 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 Not on file Not on file Not on fi le documented as of this encounter Miscellaneous Notes * Telephone Encounter - Manuel Calhoun MD - 2024 4:29 PM ESTSigned Prescriptions: Disp Refills Potassium Citrate ER 15 MEQ (1620 MG) Oral*180 Ta*3 Sig: TAKE 1 TABLET BY MOUTH TWICE A DAY Authorizing Provider: MANUEL CALHOUN * Telephone Encounter - Lianna Agustin RN - 2024 4:09 PM ESTPending Prescriptions: Disp Refills Potassium Citrate ER 15 MEQ (1620 MG) Oral*180 Ta*3 Sig: TAKE 1 TABLET BY MOUTH TWICE A DAY * Telephone Encounter - Lianna Agustin RN - 2024 2:46 PM EST Prescription request received from pharmacy pending. Please authorize. Last OV 08/19/24 Needs 6 month follow up- Note sent to ventilating equipment installer. documented in this encounter Plan of Treatment Upcoming Encounters Date Type Department Care Team (Late st Contact Info) Description 12/24/2024 2:30 PM EDT Office Visit Family Medicine [address] [place] [phone] Cel[address] [place] [address] 06/11/2025 2:20 PM EDT Office Visit Dermatology [address] [place] [address] Mindy Alves PA-C [address] [place] [address] [place] [address] Health Maintenance Due Date Last Done Comments Zoster Vaccines (1 of 2) 1985 Adult Wellness Visit 05/26/2018 05/26/2017 Depression Screening 06/05/2021 06/05/2020 COVID-19 Vaccine ( season) 2024 09/29/2023, 08/03/2022, 08/06/2021, Additional history exists Albumin/Creatinine Ratio 05/02/2025 024, 03/21/2023, 01/12/2023, Additional history exists CKD HGB USE SMARTSET 98200 05/02/202505/02, 03/21/2023, 03/21/2023, Additional history exists CKD PHOS USE SMARTSET 00832 05/02/202504/15, 05/31/2023, 06/22/2022, Additional history exists TSH [...] filedocumented as of this encounter Care Teams Diet Aide Relationship Specialty Start Date End Date Celia Prajapati DO [address] [place] [address] [place] [phone] PCP - General Internal Medicine 11/20/18 documented as of this encounter
--- OUTSIDE RECORDS SUMMARY | 2025-02-08 17:09 | External Medical Summary ---
Author Name Unknown Address Unknown Organization K01:LABORATORY [facility] [place] - [address] [place], [place] [address] [address] Laboratory Report Ordering Provider Test Date Status DANIEL BRUMFIELD 12/17/2024 13:57:53 Final Observation Date Value Abnormality Reference (Units ) Status WBC, Total 12/17/2024 13:57:53 9.95 4.00-10.8 0 (K/uL) Final RBC 12/17/2024 13:57:53 4.44 4.50-5.25 (M/uL) Final Hemoglobin 12/17/2024 13:57:53 13.7 Below low normal 14 .0-16.8 (g/dL) Final Anemia reflex testing trigge rs on a HGB < 12.0 for Females and HGB < 13.0 for Males in accordance with the WHO Anemia Guidelines
Anemia reflex testing triggers on a HGB < 12.0 for Females and HGB < 13.0 for Males in accordance with the WHO Anemia Guidelines HCT 12/17/2024 13:57:53 42.0 40.0-48.4 (%) Final MCV 12/17/2024 13:57:53 94.6 82.0-99.5 (fL) Final MCH 12/17/2024 13:57:53 30.9 27.0-34.0 (pg) Final MCHC 12/17/2024 13:57:53 32.6 32.0-36.0 (g/dL) Final RDW 12/17/2024 13:57:53 14.8 11.5-15.5 (%) Final Platelets 12/17/2024 13:57:53 198 140-400 (K /uL) Final MPV 12/17/2024 13:57:53 10.4 6.6-11.1 ( fL) Final Nucleated erythrocytes/100 leukocytes [Ratio] in Blood by Automated count 12/17/2024 13:57:53 0 <=0 (/100 WBCs) Fi nal Performing Location LAB[facility]ATORY [facility] [place] - [address] [facility] [address]
--- OUTSIDE RECORDS SUMMARY | 2025-02-08 17:09 | External Medical Summary ---
Author Name Unknown Address Unknown Organization K01:LABORATORY [facility] [place] - [facility] [address] [address] [place] [address] Laboratory Report Ordering Provider Test Date Status DANIEL BRUMFIELD 12/17/2024 13:57:53 Final Observation Date Value Abnormality Reference (Units ) Status BUN 12/17/2024 13:57:53 44 Above high normal 6-20 (mg/dL) Final Creatinine 12/17/2024 13:57:53 1.5 Above high normal 0.6-1.2 (mg/dL) Final Glomerular filtration rate/1.73 sq M.predicted [Volume Rate/Area] in Serum, Plasma or Blood by Creatinine-based formula (CKD-EPI) 12/17/2024 13:57:53 45 Below low normal >=60 (mL/min) Final eGFR is calculated based on the CKD-EPI 2020 equation. Sodium 12/17/2024 13:57:53 141 135-146 (m mol/L) Final Potassium 12/17/2024 13:57:53 5.2 Above high normal 3. 5-5.1 (mmol/L) Final Cl 12/17/2024 13:57:53 106 98-107 (mm ol/L) Final CO2 12/17/2024 13:57:53 22 22-32 (mmo l/L) Final Anion gap 12/17/2024 13:57:53 13 7-15 (mmol /L) Final Glucose 12/17/2024 13:57:53 100 70-120 (mg /dL) Final Calcium 12/17/2024 13:57:53 9.3 8.4-10.2 ( mg/dL) Final Performing Location LABORATORY [facility] [place] - [address] [place] [address]
--- OUTSIDE RECORDS SUMMARY | 2025-02-08 17:09 | External Medical Summary | Summary of Care ---
Author Name Unknown Organization [facility] Address [address] [facility] [place] [address] Phone [phone] Care Team Providers Care Cloth Boil Off Machine Operator Name Role Phone Celia Prajapati DO Primary Care Provider Reason for Visit * Reason Onset Date Comments Referral 09/05/2024 Spoke to pt he d oesn't want to schedule MTDM HTN appt/pt dc at this time Encounter Details Date Type Department Care Team (Late st Contact Info) Description 09/05/2024 Telephone [facility], Prabhakar Bird [address] [place] [address] [place] [phone] Celia Prajapati DO [address] [place] [address] [place] [phone] Referral (Spoke to pt he doesn't want to s... Allergies Active Allergy Reactions Criticality Noted Date [...] as of this encounter (statuses as of 09/05/2024) Medications MULTIVITAMINS PO TABS 1 tablet daily [...] A DAY 45 g 1 4 Active Metoprolol Succinate ER 50 [...] other meds). 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 Patient is discharged from [facility] services at this time. Thank you, Christine Araiza Warehouse Distribution Manager Centralized [facility] Services 09/05/2024,4:29 PM documented in this encounter Plan of Treatment Upcoming Encounters Date Type Department Care Team (Late st Contact Info) Description 12/24/2024 2:30 PM EDT Office Visit Family Medicine [address] [place] [phone] Celia Prajapati DO [address] [place] [address] [place] [address] 06/11/2025 2:20 PM EDT Office Visit Dermatology [address] [place] [address] Mindy Alves PA-C [address] [place] [address] [place] [phone] Health Maintenance Due Date Last Done Comments Zoster Vaccines (1 of 2) 1985 Adult Wellness Visit 05/26/2018 05/26/2017 Depression Screening 06/05/2021 06/05/2020 COVID-19 Vaccine ( season) 2024 09/29/2023, 08/03/2022, 08/06/2021, Additional history exists Albumin/Creatinine Ratio 05/02/2025 024, 03/21/2023, 01/12/2023, Additional history exists CKD HGB USE SMARTSET 27451 05/02/202505/02, 03/21/2023, 03/21/2023, Additional history exists CKD PHOS USE SMARTSET 02008 05/02/202504/15, 05/31/2023, 06/22/2022, Additional history exists TSH [...] filedocumented as of this encounter Care Teams Cloth Boil Off Machine Operator Relationship Specialty Start Date End Date Celia Prajapati DO [address] [place] [address] [place] [phone] PCP - General Internal Medicine 11/20/18 documented as of this encounter
--- OUTSIDE RECORDS SUMMARY | 2025-02-08 17:09 | External Medical Summary ---
Author Name Unknown Address Unknown Organization K01[place] [facility] [place] [address] [place] [address] Laboratory Report Ordering Provider Test Date Status DANIEL BRUMFIELD 12/17/2024 13:57:53 Final Observation Date Value Abnormality Reference (Units ) Status Triglyceride 12/17/2024 13:57:53 406 Above high normal <=174 (mg/dL) Final Triglyceride Reference Range s (mg/dL):
<150 Acceptable
150-174 Borderline high
175-499 High
>=500 Very high Performing Location [facility] [place] [address] [place] [address]
--- OUTSIDE RECORDS SUMMARY | 2025-02-08 17:10 | External Medical Summary | Summary of Care ---
Author Name Unknown Organization [facility] Address [address] [place] [address] Phone [phone] Care Team Providers Care Senior Nurse Manager Name Role Phone PrajapatiCelia santiago Primary Care Provider Reason for Referral * Evaluate & Treat - Unlimited Visits (Within 10 days (routine)) - Authorized Specialty Diagnoses / Procedures Referred By Francisco t Referred To Contact Pharmacist / Pharmacy Diagnoses HTN, goal below 130/80 Ana Maria Kowalski PA-C [address] [place] [address] Referral ID Status Reason Start Date Expiration Date Visits Requested Visits Authorized [id number] Authorized Specialty Services Required 08/21/2024 02/17/2025 99 99 Question Answer Referral Priority Within 10 days (routine) Where should this appointment be scheduled? [facility] Referring Provider Role: Specialist Specialty: Nephro Reason for Referral: HTN Goal BP: < 130/80 Comments Pharmacist Medication Therapy Management: Minimum frequency patient should be seen in person for medication management: as appropriate per clinical condition and patient status By my signature, I understand that my patient Enmanuel Booker will have his medication therapy managed by the [facility] ([facility]) per established policies, procedures, and protocols. I also certify that this referral may serve as an initiation of service for the management of drug therapy in the above noted patient. [facility] providers will be responsible for scheduling patient visits, obtaining appropriate laboratory studies, and adjusting medication management therapy per patient's need, in addition to those roles spelled out in the clinic policy, procedures, and drug management protocols. I understand that the service provided by the [facility] is voluntary and have informed patient that they can refuse the service at their discretion. I am aware that the [facility] will provide me with a copy of the patient encounter via my [employer]. I authorize the [facility] to carry out these activities on my behalf. I consider this program to be a necessary part of the patient's medical care. Ana Maria Kowalski PA-C Reason for Visit * Reason Onset Date Comments Chronic Kidney Disease (CKD) Medication Administration 08/19/2024 Flu an d/or Pneumo Inj Encounter Details Date Type Department Care Team (Late st Contact Info) Description 08/19/2024 2:30 PM EST Office Visit [facility] [address] [facility] [place] [address] Ana Maria Kowalski PA-C [address] [facility] [place] [address] Stage 3b chronic kidney disease (HCC)*; HTN, goal below 130/80; UTI symptoms; Hyperuricemia; Calcium nephrolithiasis; Localized swelling of both lower extremities; Need for prophylactic vaccination and inoculation against influenza Allergies Active Allergy Reactions Criticality Noted Date [...] as of this encounter (statuses as of 08/21/2024) Medications Medication Sig Dispensed Refills Start Date End Date Status MULTIVITAMINS PO TABS 1 tablet daily 0 0 02/14/2007 Active [facility] VITAMIN B-12 1000 MCG PO TABSIndications:B12 deficiency 1 TABLET DAILY 1 Tab 0 01/10/2012 Active OCUVITE-LUTEIN PO CAPS 1 daily 09/16/2013 Active VITAMIN D 1000 UNITS PO CAPSIndications:Vitam in D deficiency Take by mouth 2 times a day. 1 Cap 0 01/13/2015 Active Magnesium Oxide 400 MG Capsule Take 1 Cap by mouth daily. 90 Cap 1 10/18/2016 Active clindamycin (CLEOCIN) 150 MG CapsuleIndications:ta ke all four tablet before dental work Take 4 Capsules by mouth. Active Tamsulosin HCl 0.4 MG Oral Capsule (Flomax)Indications:B PH with obstruction/lower urinary tract symptoms TAKE 1 CAPSULE BY MOUTH EVERY DAY IN THE MORNING 90 Capsule 3 03/05/2024 Active Triamcinolone Acetonide 0.1 % External Cream (Aristocort)Indicatio ns:Irritant contact dermatitis due to other chemical products Apply topically to affected area 2 times a day. To affected area. 60 g 5 04/02/2024 Active amLODIPine Besylate 5 MG Oral Tablet (Norvasc) Take 1 Tablet by mouth in the morning. 90 Tablet 3 04/19/2024 Active Levothyroxine Sodium 112 MCG Oral Tablet (Levoxyl)Indications: Acquired hypothyroidism Take 1 Tablet by mouth in the morning. (at least 30 min prior to breakfast or other meds). 90 Tablet 1 05/08/2024 Active Allopurinol 300 MG Oral Tablet (Zyloprim)Indications :Calculus of kidney Take 1 Tablet by mouth in the morning. 90 Tablet 1 05/28/2024 Active Lisinopril 5 MG Oral Tablet (Prinivil)Indications :HTN, goal below 150/90 Take 1 Tablet by mouth every night at bedtime. 90 Tablet 1 05/28/2024 Active Finasteride 5 MG Oral Tablet (Proscar)Indications: BPH with obstruction/lower urinary tract symptoms Take 1 Tablet by mouth in the morning. 90 Tablet 3 05/27/2024 Active Potassium Citrate ER 15 MEQ (1620 MG) Oral Tablet Extended Release TAKE 1 TABLET BY MOUTH TWICE A DAY 180 Tablet 1 07/30/2024 Active metroNIDAZOLE 0.75 % External Gel (Metrogel)Indications :Rosacea APPLY TOPICALLY TO FACE TWICE A DAY 45 g 1 07/29/2024 Active Metoprolol Succinate ER 50 MG Oral Tablet Extended Release 24 Hour (toPROL XL)Indications:HTN, goal below 150/90 Take 1 Tablet by mouth in the morning. 90 Tablet 3 07/30/2024 Active Furosemide 20 MG Oral Tablet (Lasix) Take 1 Tablet by mouth in the morning. 90 Tablet 3 07/30/2024 Active documented as of this encounter (statuses as of 08/21/2024) Active Problems Problem Noted Date Diagnosed Date Mild aortic stenosis 05/08/2024 Chronic diarrhea 03/16/2022 Recurrent UTI 10/20/2021 Nocturia 10/20/2021 Urge incontinence 10/20/2021 Chronic kidney disease, stage 3b 03/30/2021 Overview: Per CKD protocol Personal history of kidney stones 03/02/2021 Overview: Placed on allopurinol. Bilateral leg edema 03/02/2021 Benign hypertension with stage 3b chronic kidney disease 02/23/2021 Overview: Per CKD protocol H/O dysplastic nevus 05/20/2020 Overview: Mildly atypical nevus (L upper abdomen) H/O nonmelanoma skin cancer 10/03/2017 HTN, goal below 150/90 02/11/2016 Acquired hypothyroidism 09/01/2015 Generalized osteoarthritis 07/29/2015 Vitamin D deficiency 08/12/2012 Rosacea 11/30/2011 B12 deficiency 10/03/2011 Iron deficiency anemia 10/03/2011 Hypertriglyceridemia 09/22/2009 Overview: Per Lipid Taxonomy. BPH with obstruction/lower urinary tract symptom s 11/15/2006 documented as of this encounter (statuses as of 08/21/2024) Resolved Problems Problem Noted Date Diagnosed Date [...] joints 02/24/2014 10/03/2017 Basal cell carcinoma of advent region 10/03/2013 10/03/2017 Overview: left side Hypothyroidism 10/03/2011 09/01/2015 Venous insufficiency 09/27/2011 015 Esophageal reflux 06/08/2011 03/08/2019 Heart failure, diastolic, due to HTN 10/21/2010 08/26/2014 Hypertensive heart disease 10/21/2010 1 10/26/2013 HTN, goal below 130/80 11/11/200908/26 Overview: Modified per HTN Taxonomy. HTN, GOAL BELOW 140/90 08/21/200911/11 Overview: Modified per HTN Taxonomy. OSTEOARTHRITIS LOCALIZED, SECONDARY( Ankle) 10/24/2008 07/29/2015 Pernicious anemia 03/25/2008 03/28/2017 Calculus of ureter 2006 8 BPH without obstruction/lowe r urinary tract symptoms 2006 08/23/2007 ADVANCE DIRECTIVE INFORMATION 07/19/2006 10/03/2017 Overview: No, Advance Directive brochure given to patient at prior appointment. Special screening for malign ant neoplasms, colon 04/25/2006 08/23/2007 Overview: Colonoscopy 04/20/06-- diverticulosis and hyperplastic polyp, repeat 10 years Mixed dyslipidemia 07/25/2005 9 Overview: Per Lipid Taxonomy. LOC PRIM OSTEOART-PELVIS 01/12/200506/2008 Primary localized osteoarthr osis of pelvic region or thigh 01/12/2005 07/29/2015 LOC PRIM OSTEOARTH-ANKLE 07/14/200406/2008 PLANTAR FIBROMATOSIS 07/14/2004 008 Carotid stenosis, non-symptomatic 02/11/2004 10/03/2017 Benign localized hyperplasia of prostate without urinary obstruction and other lower urinary tract symptoms (LUTS) 10/31/2003 01/09/2008 Rosacea 06/06/2008 Peritonitis NEC 01/09/2008 Calculus of kidney 7 Reflux esophagitis 8 Acute gastritis 01/09/2008 Overview: ICD-10 update of inactive term INTESTINAL OBSTRUCT NOS 12/15 BENIGN HYPERTENSION 08/21/20 09 Overview: Modified per HTN Taxonomy. Benign hypertensive kidney d isease with chronic kidney disease stage I through stage IV, or unspecified(403.10) 01/09/2008 Kidney disease, chronic, sta ge III (GFR 30-59 ml/min) 01/26/2018 Mitral valve disorder 2012 Mitral valve regurgitation 1 12/04/2016 Impaired fasting glucose 08/2014 Intestinal obstruction 02/03 SBO (small bowel obstruction) 02/24/2015 documented as of this encounter (statuses as of 08/21/2024) Immunizations Name Administration Dates Next Due COVID-19 mRNA, LNP-s, No Pre serve, 2-Dose Series (Moderna) 08/06/2021,12/09/2020,11/09/2020 COVID-19, MRNA-LNP, PF, 30 M CG/0.3 mL, 12 YRS AND ABOVE, IM [facility] 09/29/2023 Covid-19, Mrna, Lnp-s, Pf, B ivalent, [...] Date Smoking Tobacco: Never Smokeless Tobacco: Never Tobacco Cessation:Counseling Given: Not Answered Alcohol Use Standard Drinks/Week Comments Yes 3 (1 standard drink = 0.6 oz pur e alcohol) PHQ-2 Answer Date Recorded PHQ-2 Score 0 06/05/2020 Sex and Gender Information Value Date Recorded Sex Assigned at Not on file Gender Identity Not on file Sexual Orientation Not on file Job Start Date Occupation Industry Not on file Not on file Not on file documented as of this encounter Last Filed Vital Signs Vital Sign Reading Time Taken Comments Blood Pressure 161/82 08/19/2024 3:29 PM EST Pulse 90 08/19/2024 3:29 PM EST Temperature 36.2 °C (97.2 °F) 08/19/2024 3:22 PM ES T Respiratory Rate 16 08/19/2024 3:22 PM EST Oxygen Saturation 93% 08/19/2024 3:22 PM EST Inhaled Oxygen Concentration - - Weight 87.1 kg (192 lb) 08/19/2024 3:22 PM EST Height - - Body Mass Index 27.55 07/29/2024 3:07 PM EDT documented in this encounter Patient Instructions * Patient Instructions* Lianna Agustin RN - 08/19/2024 3:26 PM EST ~~PATIENT INSTRUCTIONS FOR FLU SHOT~~ Possible side effects of influenza vaccine, (flu shot), are usually mild and include: 1. Soreness or redness at injection site 2. Low grade fever 3. Body aches You may use Tylenol/Acetaminophen as needed for these symptoms. LET YOUR DOCTOR KNOW IMMEDIATELY IF YOU HAVE DIFFICULTY BREATHING OR SWALLOWING, EXPERIENCE ITCHINGOF FEET OR HANDS, HAVE SWELLING OF EYES, FACE OR INSIDE OF NOSE. documented in this encounter Progress Notes * Lianna Agustin RN - 08/19/2024 3:26 PM EST PRE - ADMINISTRATION DOCUMENTATION Are you experiencing any cold symptoms or fever? No Have you had Guillain-Hooven Syndrome (an illness that causes paralysis) within the last 6 weeks? No Have you had the flu shot in the past? YES Have you ever had a reaction to the flu shot? No Lianna Agustin RN, 08/19/2024 3:26 PM Immunization Administration Documentation Time Out Procedure Performed: Yes Patient Identified (Ask Name/Date of ): Yes Does the patient have a fever greater than 101 degrees today? No Patient allergic to latex? No VFC Stock: No Immunization(s) verified: Yes, Immunization Name: Flu, VIS Sheet(s) given: Yes Verified Side and Site: Yes Verified Shot(s) with Parent(s)/Patient: Yes * Ana Maria Kowalski PA-C - 08/19/2024 2:30 PM EST NEPHROLOGY CLINIC NOTE Nephrology, [address] [place] [address] Patient Name: Enmanuel Booker Patient Active Problem [...] Urge incontinence Chronic diarrhea Mild aortic stenosis BACKGROUND: 88 year old male presents for f/u of [...] L hip replacement went well pt in had partial colectomy and terminal ileum removed; [...] not by mid morning. Hospitalized Aug 2021 [facility] August for bowel obstruction and adhesions. UTI same timeframe - couldn't get in w/ Dr Whitt. Still followign with Dr Jasmine. Had extended UTI -- cleared after one month of cipro starting in October. Had cystoscope this winter as well. Golfs a lot. 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 Cares for his and neighbor's yard as of 2019. Has never had gout attack but hx of hyperuricemia. 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 Doing well physically but can't dress /bath herself. His daugther is nruse as well TODAY 08/19/24: Denies any recent hospitalizations, procedures. Dx of UTI in July treated with 10 course of Keflex. Reports symptoms have improved- no longer burning or frequent urination - However symptoms have not completely resolved Urine dip completed but does not appear a culture was completed No other interval events including no stones. No worries of lyme disease recently. Was doing remote bp monitoring and gets readings to phone but not transmitting to [employer] Reports no new equipment . Continues checking bps and reports 140s in the am and 130 s in the afternoon and down to 118s at night Drinks gatorade most of the time half and half >> drinks 32 oz x 2-3 Reports drinking hernandez since urinary symptoms Cont to care for his whose dementia is progressive. REVIEW OF SYSTEMS General: No fatigue, No change in weight Head: No significant headache Respiratory: No wheezing, No shortness of breath Cardiovascular:No chest pain, No palpitations, and No syncope, No falls Gastrointestinal: No blood in stools Urinary: + dysuira, No hematuria. No flank pain Musculoskeletal: + edema since hips replaced- resolves overnight Skin: No itching Current Outpatient Medications Medication [...] mouth in the morning. 90 Tablet 3 Levothyroxine Sodium 112 MCG Oral Tablet (Levoxyl) Take 1 Tablet by mouth in the morning. (at least30 min prior to breakfast or other meds). 90 Tablet 1 Allopurinol 300 MG Oral Tablet (Zyloprim) Take 1 Tablet by mouth in the morning. 90 Tablet 1 Lisinopril 5 MG Oral Tablet (Prinivil) Take 1 Tablet by mouth every night at bedtime. 90 Tablet 1 Finasteride 5 MG Oral Tablet (Proscar) Take 1 Tablet by mouth in the morning. 90 Tablet 3 Potassium Citrate ER 15 MEQ (1620 MG) Oral Tablet Extended Release TAKE 1 TABLET BY MOUTH TWICE A DAY 180 Tablet 1 metroNIDAZOLE 0.75 % External Gel (Metrogel) APPLY TOPICALLY TO FACE TWICE A DAY 45 g 1 Metoprolol Succinate ER 50 MG Oral Tablet Extended Release 24 Hour (toPROL XL) Take 1 Tablet by mouth in the morning. 90 Tablet 3 Furosemide 20 MG Oral Tablet (Lasix) Take 1 Tablet by mouth in the morning. 90 Tablet 3 No current facility-administered medications for this visit. PHYSICAL EXAMINATION Last 4 BP Readings: BP Readings from Last 4 Encounters: 08/19/24 161/82 07/29/24 138/68 05/08/24 152/90 03/20/24 128/70 Last 3 Weights: Wt Readings from Last 3 Encounters: 08/19/24 87.1 kg (192 lb) 07/29/24 88.2 kg (194 lb 6.4 oz) 05/08/24 86.8 kg (191 lb 6.4 oz) BP 161/82 (BP Site: Right Arm, BP Position: Sitting, BP Cuff Size: Regular) | Pulse 90 | Temp 36.2 °C (97.2 °F) | Resp 16 | Wt 87.1 kg (192 lb) | SpO2 93% | BMI 27.55 kg/m² | BSA 2.07 m² Wt Readings from Last 1 Encounters: 08/19/24 87.1 kg (192 lb) General appearance: alert, no apparent distress. Ambulatory without assistance HEAD: Normocephalic, No masses, lesions, tenderness Respiratory: clear to auscultation, no wheezes, and no crackles Heart: regular rate and regular rhythm Abdomen: abdomen soft, non-tender, and no CVA tenderness EXTREMITIES: + 1 pitting edema bilateral lower ext right>left , No cyanosis or clubbing Skin: skin color, texture, turgor are normal NEURO: alert & oriented x 3 with fluent speech, no focal motor/sensory deficits No tremor Patient is a reliable historian of events LABS: Latest Reference Range & Units 01/12/23 15:53 03/21/23 10:57 05/31/23 15:55 08/30/23 14:34 09/26/23 14:30 05/02/24 13:49 SODIUM 135 - 146 mmol/L 141 141 135 135 136 137 POTASSIUM 3.5 - 5.1 mmol/L 4.8 5.0 5.0 4.8 4.8 4.9 CHLORIDE 98 - 107 mmol/L 105 107 101 103 102 101 CO2 22 - 32 mmol/L 23 23 22 23 BUN 6 - 20 mg/dL 38 (H) 40 (H) 41 (H) 43 (H) 42 (H) 42 (H) CREATININE 0.6 - 1.2 mg/dL 1.4 (H) 1.5 (H) 1.6 (H) 1.5 (H) 1.6 (H) 1.7 (H) EGFR >=60 mL/min 48 (L) 46 (L) 42 (L) 43 (L) 43 (L) 39 (L) ANION GAP 7 - 15 mmol/L 14 12 11 9 12 13 GLUCOSE 70 - 120 mg/dL 95 102 91 104 95 99 CALCIUM 8.4 - 10.2 mg/dL 9.8 9.3 9.0 8.9 8.9 9.3 (H): Data is abnormally high (L): Data is abnormally low Latest Reference Range & Units 03/09/22 09:21 06/22/22 15:17 01/12/23 15:53 03/21/23 10:57 05/02/24 13:49 Albumin / Creatinine Ratio, Urine <30 mg/g Creat 18 92 (H) 82 (H) 23 29 (H): Data is abnormally high Latest Reference Range & Units 06/05/20 12:01 02/26/21 08:41 01/05/22 15:41 03/07/22 10:17 03/21/23 10:57 05/02/24 13:49 Uric Acid 3.4 - 7.0 mg/dL 4.7 4.6 5.1 5.4 4.8 4.7 IMAGING: EXAM XR ABDOMEN 1 VIEW - 05/02/2024 2:07 pm HISTORY kidney stones TECHNIQUE Single AP supine view of the abdomen was obtained. COMPARISON 03/21/2023. FINDINGS 6 mm left renal calculus. Bowel gas pattern is nonobstructive. Degenerative changes in the spine. Bilateral hip arthroplasties. IMPRESSION IMPRESSION Left renal calculus. ASSESSMENT/PLAN: The patient's most recent labs (from 3 months ago) were reviewed and the assessment/plan is as follows: CKD 3 w/ acceptable chemistries and no [...] below 130/80 BP elevated in office today. [facility] clinic for monitoring given remote program not [...] All questions were answered. JEF BarronC Nephrology, [address] [place] [address] Stage 3b chronic kidney disease (HCC) (Primary) [...] 6 months (around 07/18/2024) for clinic visit frnakie/ [place], clinic visit w/ . | For: clinic visit frankie/ [place], clinic visit w/ | Check-out note: [...] pt before he left > see TE; [facility] ECG showed PVCs w/ SR and nonspecific [...] in this encounter Nursing Notes * Lianna Agustin, RN - 08/19/2024 3:26 PM EST Followw up visit today. Went to urgent care recently for urinary frequency. Was treated for 10 dayswith Keflex. States symptoms are improved. Urine specimen obtained this visit. documented in this encounter Miscellaneous Notes * Result Encounter Note - Ana Maria Kowalski PA-C - 08/21/2024 12:01 PM EST Awaiting culture report documented in this encounter Plan of Treatment Upcoming Encounters Date Type Department Care Team (Late st Contact Info) Description 12/24/2024 2:30 PM EDT Office Visit Family Medicine [address] [place] [phone] Celia Prajapati DO [address] [place] [address] [place] [id number] 06/11/2025 2:20 PM EDT Office Visit Dermatology [address] [place] [address] Mindy Alves PA-C [address] [place] [address] [place] [address] 07/07/2025 1:40 PM EDT Office Visit Nephrology, [facility] [address] [facility] [address] [place] [address] Cathy Arana MD [address] [facility] [place] [address] Pending Results Name Type Priority Associated Diagnoses Date /Time CULTURE, URINE, QUANTITATIVE Lab Routine UTI symptoms 08/19/2024 4:07 PM EST Scheduled Orders Name Type Priority Associated Diagnoses Orde r Schedule MAGNESIUM Lab Routine Stage 3b chronic kidney disease (HCC) Expected: 09/18/2024, Expires: 08/19/2025 URIC ACID Lab Routine Hyperuricemia Expected: 09/18/2024, Expires: 08/19/2025 BASIC METABOLIC PANEL Lab Routine Stage 3b chronic kidney disease (HCC) HTN, goal below 130/80 Expected: 09/18/2024, Expires: 08/19/2025 Scheduled Referrals Name Type Priority Associated Diagnoses Orde r Schedule PHARMACIST MEDS THERAPY MGMT REFERRAL OP Referral Within 10 days (routine) HTN, goal below 130/80 Ordered: 08/21/2024 Health Maintenance Due Date Last Done Comments Zoster Vaccines (1 of 2) 1985 Adult Wellness Visit 05/26/2018 05/26/2017 Depression Screening 06/05/2021 06/05/2020 COVID-19 Vaccine ( season) 2024 09/29/2023, 08/03/2022, 08/06/2021, Additional history exists Albumin/Creatinine Ratio 05/02/2025 024, 03/21/2023, 01/12/2023, Additional history exists CKD HGB USE SMARTSET 46075 05/02/202505/02, 03/21/2023, 03/21/2023, Additional history exists CKD PHOS USE SMARTSET 42837 05/02/202504/15, 05/31/2023, 06/22/2022, Additional history exists TSH [...] Procedure Name Priority Date/Time Associated Diagnosis Comments URINALYSIS, REFLEX TO CULTURE Routine 08/19/2024 4:07 PM EST UTI symptoms URINALYSIS, REFLEX TO CULTURE (CUP ONLY) Routine 08/19/2024 4:07 PM EST UTI symptoms Calcium nephrolithiasis URINALYSIS, REFLEX TO CULTURE (NOT FOR NEUTROPENIC PATIENTS) Routine 08/19/2024 4:07 PM EST CULTURE, URINE, QUANTITATIVE Routine 08/19/2024 4:07 PM EST UTI symptoms documented in this encounter Results * (ABNORMAL) URINALYSIS, REFLEX TO CULTURE (08/19/2024 4:07 PM EST) Color, Urine Yellow Light Yellow, Yellow, Dark Yellow 08/19/2024 4:41 PM [place] [address] Clarity, Urine Slightly Cloudy(A) Clear 08/19/2024 4:[address] Glucose, Urine Negative Negative mg/dL 08/19/2024 4:[address] Bilirubin, Urine Negative Negative 08/19/2024 4:[address] Ketone, Urine Negative Negative mg/dL 08/19/2024 4:[address] Specific [place], Urine 1.015 1.003 - 1.030 08/19/2024 4:41 PM [place] [address] Blood, Urine Small(A) Negative 08/19/2024 4:[address] pH, Urine 5.5 5.0 - 7.5 Units 08/19/2024 4:[address] Protein, Urine 30(A) Negative mg/dL 08/19/2024 4:[address] Urobilinogen, Urine 0.2 0.2, 1.0 mg/dL 08/19/2024 4:[address] Nitrite, Urine Positive(A) Negative 08/19/2024 4:[address] Esterase, Urine Large(A) Negative 08/19/2024 4:[address] RBC, Urine 08/19/2024 4:41 PM [place] [address] Comment:Kasper obscured by W BCs. WBC, Urine 50+(A) 0 - 2 /HPF 08/19/2024 4:41 PM [place] [address] Bacteria, Urine 08/19/2024 4:41 PM [place] [address] Comment:Kasper obscured by W BCs. Culture, Urine 08/19/2024 4:41 PM [place] [address] Comment:Quantitative urine c ulture to be performed Urine Urine specimen obtained by clean catch procedure / Unknown Non-blood Collection / Unknown 08/19/2024 4:07 PM EST 08/19/2024 4:19 PM EST Ana Maria FUCHSC LAB URINE ORD ERABLES Performing Organization Address City/[facility]/ZIP Co de Phone Number [facility] [address] [place] [address] * URINALYSIS, REFLEX TO CULTURE (CUP ONLY) (08/19/2024 4:07 PM EST) Urinalysis, Reflex to Culture Specimen Specimen collected and received 08/19/2024 6:01 PM EST [facility] Urine Urine specimen obtained by clean catch procedure / Unknown Non-blood Collection / Unknown 08/19/2024 4:07 PM EST 08/19/2024 4:19 PM EST Ana Maria Vincent Dex THOMAS LAB URINE ORD ERABLES Performing Organization Address [facility]/ZIP Co de Phone Number [facility] [address] [place] [address] documented in this encounter Visit Diagnoses Diagnosis Stage 3b chronic kidney disease (HCC)- Primary HTN, goal below 130/80 Unspecified essential hypertension UTI symptoms Other symptoms involving urinary system Hyperuricemia Other abnormal blood chemistry Calcium nephrolithiasis Calculus of kidney Localized swelling of both lower extremities Need for prophylactic vaccination and inoculation against influenza documented in this encounter Care Teams Senior Nurse Manager Relationship Specialty Start Date End Date Celia Prajapati DO [address] [place] [address] [place] [id number] PCP - General Internal Medicine 11/20/18 documented as of this encounter"
--- OUTSIDE RECORDS SUMMARY | 2025-02-08 17:10 | External Medical Summary | Summary of Care ---
Author Name Unknown Organization [facility] Address [address] [facility] [place] [address] Phone [phone] Care Team Providers Care Bacon Skinner Name Role Phone Celia Prajapati Primary Care Provider Reason for Visit * Reason Onset Date Comments Test Results 08/22/2024 Encounter Details Date Type Department Care Team (Late st Contact Info) Description 08/22/2024 Telephone Nephrology, [facility] [address] [facility] [place] [address] ZemaitisAna Maria PA-C [address] [facility] [place] [address] Test Results Allergies Active Allergy Reactions Criticality [...] as of this encounter (statuses as of 08/22/2024) Medications Medication Sig Dispensed Refills Start Date [...] as of this encounter (statuses as of 08/22/2024) Active Problems Problem Noted Date Diagnosed Date [...] as of this encounter (statuses as of 08/22/2024) Resolved Problems Problem Noted Date Diagnosed Date [...] joints 02/24/2014 10/03/2017 Basal cell carcinoma of episcopal region 10/03/2013 10/03/2017 Overview: left side Hypothyroidism [...] as of this encounter (statuses as of 08/22/2024) Immunizations Name Administration Dates Next Due COVID-19 mRNA, LNP-s, No Pre serve, 2-Dose Series (Moderna) 08/06/2021,12/09/2020,11/09/2020 COVID-19, MRNA-LNP, PF, 30 M CG/0.3 mL, 12 YRS AND ABOVE, IM [facility] 09/29/2023 Covid-19, Mrna, Lnp-s, Pf, B ivalent, [...] on file documented as of this encounter Miscellaneous Notes * Telephone Encounter - Lianna Agustin RN - 08/22/2024 3:47 PM EST TE with pt. He has taken Cipro in past. * Telephone Encounter - Ana Maria Kowalski PA-C - 08/22/2024 3:30 PM EST Urine culture shows positive to e coli + amoxicillin and +bactrim allergy Please confirm patient with no issues with cipro (pt has taken in the pass) given reported allergy to levofloxacin (rash) Ana Maria Kowalski PA-C documented in this encounter Plan of Treatment Upcoming Encounters Date Type Department Care Team (Late st Contact Info) Description 12/24/2024 2:30 PM EDT Office Visit Family Medicine [address] [address] Alo Celia Gutierres, [address] [place] [address] [place] [phone] 06/11/2025 2:20 PM EDT Office Visit Dermatology [address] [place] [address] Mindy Alves PA-C [address] [place] [address] [place] [phone] 07/07/2025 1:40 PM EDT Office Visit Nephrology, [facility] [address] [facility] [place] [address] Cathy Arana MD [address] [place] [address] Health Maintenance Due Date Last Done Comments Zoster Vaccines (1 of 2) 1985 Adult Wellness Visit 05/26/2018 05/26/2017 Depression Screening 06/05/2021 06/05/2020 COVID-19 Vaccine ( season) 2024 09/29/2023, 08/03/2022, 08/06/2021, Additional history exists Albumin/Creatinine Ratio 05/02/2025 024, 03/21/2023, 01/12/2023, Additional history exists CKD HGB USE SMARTSET 66527 05/02/202505/02, 03/21/2023, 03/21/2023, Additional history exists CKD PHOS USE SMARTSET 16524 05/02/202504/15, 05/31/2023, 06/22/2022, Additional history exists TSH [...] filedocumented as of this encounter Care Teams Bacon Skinner Relationship Specialty Start Date End Date Celia Prajapati DO [address] [place] [address] [place] [phone] PCP - General Internal Medicine 11/20/18 documented as of this encounter
--- OUTSIDE RECORDS SUMMARY | 2025-02-08 17:10 | External Medical Summary ---
Author Name Unknown Address Unknown Organization [id number]:[facility] [place] [address] [facility] [address] Laboratory Report Ordering Provider Test Date Status JOHNNA RIVAS 08/19/2024 16:07:20 Final Observation Date Value Abnormality Reference (Units ) Status Bacteria identified in Specimen by Culture 08/19/2024 16:07:20 [id number]^ESCHE RICHIA COLI Abnormal Final >100,000 colonies/mL Escheri bridger coli Performing Location [facility] [place] [address] [facility] [address] Ordering Provider Test Date Status JOHNNA RIVAS 08/19/2024 16:07:20 Final Observation Date Value Abnormality Reference (Units ) Status Ampicillin 08/19/2024 16:07:20 <=2 Susceptible Final Cefazolin 08/19/2024 16:07:20 <=4 Susceptible Final Cefepime susceptibility 08/19/2024 16:07:20 <=1 Susceptible Final Ceftriaxone suceptibility 08/19/2024 16:07:20 <=1 Susceptible Final Ciprofloxacin 08/19/2024 16:07:20 <=0.25 Susceptible Final Due to serious side effects, the FDA has advised against using Ciprofloxacin to treat uncomplicated UTIs and respiratory tract infections unless there are no alternative treatment options. Gentamicin susceptibility 08/19/2024 16:07:20 <=1 Susc eptible Final Nitrofurantoin susceptibility 08/19/2024 16:07:20 <=16 Susceptible Final Piperacillin + Tazobactamsusceptibility 08/19/2024 16:07:20 <=4 Susceptible Final TMP-SMZ susceptibility 08/19/2024 16:07:20 <=20 Suscept ible Final Test: Culture, Urine, Quanti tative
Specimen Source: Urine, Clean Catch
Specimen Type: Urine
Specimen Date: 08/19/2024 1607
Result Date: 08/22/2024 1508
Result Status: Final result
Abnormal: Yes
Resulting Lab: [facility]
[address]
[place] [address]

CULTURE

>100,000 colonies/mL Escherichia coli (Abnormal)

SUSCEPTIBILITY

Escherichia coli
METHOD MICROBROTH
DILUTIONS

AMPICILLIN <=2 Susceptible
CEFAZOLIN <=4 Susceptible
CEFEPIME <=1 Susceptible
CEFTRIAXONE <=1 Susceptible
CIPROFLOXACIN <=0.25 Susceptible
[1]
GENTAMICIN <=1 Susceptible
NITROFURANTOIN <=16 Susceptible
PIPERACILLIN TAZOBACTAM <=4 Susceptible
TRIMETH/SULFAMETHOXAZOLE <=20 Susceptible

[1] Due to serious side effects, the FDA has advised against using
Ciprofloxacin to treat uncomplicated UTIs and respiratory tract infections
unless there are no alternative treatment options.

null Performing Location [facility] [place] - [address] [place] [address]
--- OUTSIDE RECORDS SUMMARY | 2025-02-08 17:10 | External Medical Summary | Summary of Care ---
Author Name Unknown Organization [facility] Address [address] [facility] [place] [address] Phone [phone] Care Team Providers Care Eight Section Blower Name Role Phone Celia Prajapati Primary Care Provider Reason for Visit * Reason Onset Date Comments Test Results 08/22/2024 Encounter Details Date Type Department Care Team (Late st Contact Info) Description 08/22/2024 Telephone Nephrology, [facility] [address] [facility] [place] [address] ZemaitisAna Maria PA-C [address] [facility] [place] [address] Test Results Allergies Active Allergy Reactions Criticality [...] the morning. 90 Tablet 3 07/30/2024 Active Ciprofloxacin HCl 250 MG Oral Tablet (Cipro)Indications:Ac [place] cystitis without hematuria Take 1 Tablet by mouth in the morning and 1 Tablet before bedtime. 10 Tablet 08/22/2024 Active documented as of this encounter (statuses [...] joints 02/24/2014 10/03/2017 Basal cell carcinoma of anglican region 10/03/2013 10/03/2017 Overview: left side Hypothyroidism [...] INTESTINAL OBSTRUCT NOS 12/15 BENIGN HYPERTENSION 08/21/20 Overview: Modified per HTN Taxonomy. Benign hypertensive [...] encounter Miscellaneous Notes * Addendum Note - Ana Maria Oropeza PA-C - 08/22/2024 4:10 PM ESTAddended by: ANA MARIA OROPEZA on: 08/22/2024 04:10 PM Modules accepted: Orders * Telephone Encounter - Ana Maria Oropeza PA-C - 08/22/2024 4:09 PM EST Don Oropeza PA-C * Telephone Encounter - Lianna Agustin RN - 08/22/2024 3:47 PM EST TE with pt. He has taken Cipro in past. * Telephone Encounter - Ana Maria Oropeza PA-C - 08/22/2024 3:30 PM EST Urine culture shows positive to e coli + amoxicillin and +bactrim allergy Please confirm patient with no issues with cipro (pt has taken in the pass) given reported allergy to levofloxacin (rash) Ana Maria Oropeza PA-C documented in this encounter Plan of Treatment Upcoming Encounters Date Type Department Care Team (Late st Contact Info) Description 12/24/2024 2:30 PM EDT Office Visit Family Medicine [address] [place] [phone] [address] [place] [address] 06/11/2025 2:20 PM EDT Office Visit Dermatology [address] [place] [address] Mindy Alves PA-C [address] [place] [address] [place] [address] 07/07/2025 1:40 PM EDT Office Visit Nephrology, [facility] [address] [place] [address] Cathy Arana MD [address] [facility] [place] [address] Health Maintenance Due Date Last Done Comments Zoster Vaccines (1 of 2) 1985 Adult Wellness Visit 05/26/2018 05/26/2017 Depression Screening 06/05/2021 06/05/2020 COVID-19 Vaccine ( season) 2024 09/29/2023, 08/03/2022, 08/06/2021, Additional history exists Albumin/Creatinine Ratio 05/02/2025 024, 03/21/2023, 01/12/2023, Additional history exists CKD HGB USE SMARTSET 89452 05/02/202505/02, 03/21/2023, 03/21/2023, Additional history exists CKD PHOS USE SMARTSET 72133 05/02/202504/15, 05/31/2023, 06/22/2022, Additional history exists TSH [...] of this encounter Visit Diagnoses Diagnosis Acute cystitis without hematuria- Primary Acute cystitis documented in this encounter Care Teams Eight Section Blower Relationship Specialty Start Date End Date Celia Prajapati DO [address] [place] [address] [place] [phone] PCP - General Internal Medicine 11/20/18 documented as of this encounter
--- OUTSIDE RECORDS SUMMARY | 2025-02-08 17:10 | External Medical Summary ---
Author Name Unknown Address Unknown Organization K09:[facility] [place] [address] Laboratory Report Ordering Provider Test Date Status CASEY RIVASITIS 08/19/2024 16:07:20 Final Observation Date Value Abnormality Reference (Units ) Status Color of Urine by Auto 08/19/2024 16:07:20 Yellow Light Yellow, Yellow, Dark Yellow Final Clarity, Urine 08/19/2024 16:07:20 Slightly Cloudy Abnormal Clear Final Glucose [Mass/volume] in Urine by Automated test strip 08/19/2024 16:07:20 Negative Negative (mg/dL) Final Bilirubin.total [Presence] in Urine by Automated test strip 08/19/2024 16:07:20 Negative Negative Final Ketones [Mass/volume] in Urine by Automated test strip 08/19/2024 16:07:20 Negative Negative (mg/dL) Final Specific gravity, Urine 08/19/2024 16:07:20 1.015 1.003-1.030 Final Hemoglobin [Presence] in Urine by Automated test strip 08/19/2024 16:07:20 Small Abnormal Negative Final pH, Urine 08/19/2024 16:07:20 5.5 5.0-7.5 (Units) Final Protein [Mass/volume] in Urine by Automated test strip 08/19/2024 16:07:20 30 Abnormal Negative (mg/dL) Final Urobilinogen [Mass/volume] in Urine by Automated test strip 08/19/2024 16:07:20 0.2 0.2, 1.0 (mg/dL) Final Nitrite [Presence] in Urine by Automated test strip 08/19/2024 16:07:20 Positive Abnormal Negative Final Leukocyte esterase [Presence] in Urine by Automated test strip 08/19/2024 16:07:20 Large Abnormal Negative Final RBC, Urine 08/19/2024 16:07:20 Final K[place] obscured by WBCs.<br/ > WBC, Urine 08/19/2024 16:07:20 50+ Abnormal 0-2 (/HPF ) Final Bacteria [#/area] in Urine s ediment by Microscopy high power field 08/19/2024 16:07:20 Final Kasper obscured by WBCs.<br/ > CULTURE, URINE - [facility] 08/19/2024 16:07:20 Final Quantitative urine culture t o be performed Performing Location [facility] [address] [place] [address]
--- NOTE | 2025-02-08 17:20 | Emergency Department Note ---
History of Present Illness General Chief Complaint: Constipation Stated Complaint: ADHESIONS ON BOWEL, SWELL, BLOCKAGE Time Seen by Provider: 02/08/25 17:09 History of Present Illness Provider Complaint: abdominal pain Onset (ago): 1 day(s) Pain Consistency: constant Location: diffuse Severity: moderate Maximum Pain Intensity: 8 Current Pain Intensity: 8 Quality: + stabbing, + aching, + fullness, + sharp and + dull Relieved By: + nothing Exacerbated By: + nothing Context: + history of similar episodes (Feels like previous bowel obstructions); no foreign travel, no possible food poisoning, no sick contacts, no recent antibiotic use, no recent surgery/procedure or no recent injury Associated Symptoms: + nausea and + constipation; no vomiting, no diarrhea, no fever, no chills, no dysuria, no hematemesis, no melena, no hematuria, no headache, no chest pain and no breathing difficulty Home Medications Medication Instructions Recorded Confirmed Type allopurinol 300 mg tablet 300 mg PO [facility] 03/31/20 02/08/25 History amlodipine 10 mg tablet (Norvasc) 5 mg PO [facility] 03/31/20 02/08/25 History cholecalciferol (vitamin D3) 50 4,000 unit PO DAILY 03/31/20 02/08/25 History mcg (2,000 unit) capsule (Vitamin D3) cyanocobalamin (vitamin B-12) 1,000 mcg PO DAILY 03/31/20 02/08/25 History 1,000 mcg tablet (Vitamin B-12) fenofibrate micronized 134 mg 145 mg PO [facility] 03/31/20 02/08/25 History capsule levothyroxine 75 mcg tablet 75 mcg PO [facility] 03/31/20 02/08/25 History magnesium oxide 400 mg PO DAILY 03/31/20 02/08/25 History metoprolol succinate 50 mg 50 mg PO QAM 03/31/20 02/08/25 History tablet,extended release 24 hr multivitamin 1 tab PO QAM 03/31/20 02/08/25 History vit C,E,zinc,copper-[id number] 250 1 cap PO HS 03/31/20 02/08/25 History mg-lutein 5 mg-zeaxanthin 1 mg capsule (Ocuvite Adult 50 Plus) finasteride 5 mg tablet 5 mg PO HS #90 tabs 07/09/21 02/08/25 Rx furosemide 20 mg tablet 20 mg PO DAILY 07/09/21 02/08/25 History metronidazole 0.75 % topical gel 1 applic topical BID 07/09/21 02/08/25 History tamsulosin 0.4 mg capsule 0.4 mg PO QAM #90 caps 07/09/21 02/08/25 Rx lisinopril 2.5 mg tablet 5 mg PO DAILY 08/19/21 02/08/25 History Allergies Allergy/AdvReac Type Severity Reaction Status Date / Time hazelnut Allergy Severe Anaphylaxis Verified 08/19/21 11:43 Penicillins Allergy Severe AMOXICILLIN Verified 08/19/21 11:43 --diarrhea oyster extract Allergy Intermediate Vomiting Verified 08/19/21 11:43 pollen extracts Allergy Intermediate TREE Verified 08/19/21 11:43 POLLEN-seasonal allergies Past Med/Surg History Problem List (Updated 02/08/25 @ 21:43 by Amador Landon MD) Status post right hip replacement BPH (benign prostatic hyperplasia) Kidney stones, calcium oxalate Diarrhea High triglycerides Hypothyroidism Hypertension (Acute) CKD (chronic kidney disease), stage IV Abdominal pain (Acute) Dehydration (Acute) Hematuria, gross Acute retention of urine (Acute) Status post total hip replacement, left Abdominal pain (Acute) Dehydration (Acute) SBO (small bowel obstruction) (Acute 10/27/14) Small bowel obstruction (Acute) Arthritis of left hip Medical History SBO (small bowel obstruction) CKD (chronic kidney disease) stage 3, GFR 30-59 ml/min Baseline creatinine ~ 2.0 Lyme disease hx Osteoarthritis Small bowel obstruction Peritonitis GERD (gastroesophageal reflux disease) diet related, no medications Skin cancer Seasonal allergies Surgical History History of total hip arthroplasty right History of esophagogastroduodenoscopy (EGD) History of colonoscopy History of cholecystectomy with colon resection surgery History of appendectomy with colon resection surgery S/P colon resection 1949's H/O exploratory laparotomy r/t peritonitis and collapsed bowel. 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 Beliefs That Will Affect Care: None marital status: Current Living Situation: Spouse Current Living Situation Comment: has dementia How many Children do You have: 1 Feels Safe at Home: Yes Assistive Devices: Walker Physical Exam 2 Vital Signs: Vital Signs - 24 hr 02/08/25 17:04 02/08/25 18:30 Temperature 36.3 C L Temperature Source Temporal Artery Sc an Pulse Rate 88 Pulse Rate [Apical ] 88 Respiratory Rate 18 18 Respiratory Effort / Characteristics Non-Labored Respiratory Depth Normal Respiratory Patter n Regular Blood Pressure 123/82 Blood Pressure [Ri ght Arm] 120/74 Blood Pressure Justine n 95 Blood Pressure Justine n [Right Arm] 89 Pulse Oximetry 97 96 Oxygen Delivery Me thod Room Air Room Air Sepsis Recent Feve r Within 48 Hours No Sepsis New/Unexpla ined Change in Men blanca Status N/A Sepsis Action Take n by Nursing No Action Required Physical Exam: Physical Exam GENERAL: oriented to person, place, and time. appears well-developed and well- nourished. She does not appear distressed. HENT: Exam performed. -Head: Normocephalic and atraumatic. -Right Ear: External ear normal. No mastoid erythema -Left Ear: External ear normal. No mastoid erythema -Mouth/Throat: The oropharynx is clear and moist. No trismus in the jaw. No dental abscesses or uvula swelling. No oropharyngeal exudate or tonsillar abscesses. EYES: Conjunctivae and EOM are normal.Right eye exhibits no discharge. Left eye exhibits no discharge. No scleral icterus. NECK: Normal range of motion. Neck supple. No JVD present. No tracheal deviation and normal range of motion present. CV: Normal rate, regular rhythm, normal heart sounds and intact distal pulses. There is no peripheral edema. Palpable radial pulses bue. PULM/CHEST: Effort normal and breath sounds normal. No respiratory distress. No stridor. no wheezes.no rales. -Chest Wall: no tenderness to palpation ABD: The abdomen is distended. Hyperactive bowel sounds. Diffuse tenderness to patient on palpation. Multiple scars of the patient's anterior abdominal wall. MUSC/SKEL: Normal range of motion. There is no peripheral edema, tenderness or deformity. NEURO: Motor and sensation grossly intact. SKIN: Skin is warm and dry. not diaphoretic. PSYCH: normal mood and affect. Behavior is normal. Judgment and thought content normal. Course Course 1708: The patient was evaluated in room A2. A complete history and physical exam was performed Cardiac monitoring: An order was placed for continuous cardiac monitoring. The monitor shows a rate of 90 with sinus rhythm interpreted by me 2024: Vital signs stable. Labs are unremarkable. Imaging viewed by me shows likely SBO. Discussed case with general surgery HAZEL Gibbs on-call for Dr. Epstein. After reviewing the scans they agreed that the patient most likely has in a bowel obstruction also. The recommended G-tube. NG tube will be placed the patient will be admitted to the medicine service. Administered Medications Sodium Chloride (Nss) 500 mls @ 80 mls/hr IV .[id number] ZAYDA Stop: 02/08/25 23:44 Last Infusion: 02/08/25 20:40 Dose: Infused Documented By: Admin: 02/08/25 17:34 Dose: 80 mls/hr Documented By: SAMMI Discontinued Medications Morphine Sulfate (Morphine Sulfate 2 Mg/Ml Carp) 2 mg IV NOW STA Stop: 02/08/25 20:35 Last Admin: 02/08/25 20:40 Dose: 2 mg Documented By: SAMMI Ondansetron HCl (Ondansetron Inj 2 Mg/Ml 2 Ml Vial) 4 mg IV NOW STA Stop: 02/08/25 17:31 Last Admin: 02/08/25 17:34 Dose: 4 mg Documented By: SAMMI Ondansetron HCl (Ondansetron Inj 2 Mg/Ml 2 Ml Vial) 4 mg IV NOW STA Stop: 02/08/25 18:31 Last Admin: 02/08/25 18:33 Dose: 4 mg Documented By: SAMMI Ondansetron HCl (Ondansetron Inj 2 Mg/Ml 2 Ml Vial) 4 mg IV NOW STA Stop: 02/08/25 20:35 Last Admin: 02/08/25 20:40 Dose: 4 mg Documented By: SAMMI Medical Decision Making Laboratory Data Attestation: I reviewed the patient's lab results. 02/08/25 17:25 02/08/25 17:25 Lab Results 02/08/25 02/08/25 Range/Units 17:25 17:30 WBC 6.61 (4.8-10.8) K/ul RBC 4.62 L (4.70-6.10) M/uL Hgb 14.1 (14.0-18.0) g/dl POC Hgb 14.6 (14.0-18.0) g/dl Hct 41.6 L (42.0-52.0) % POC Hct 43 (42-52) % MCV 90.0 (80.0-100.0) fL MCH 30.5 (25.0-34.0) pg MCHC 33.9 (32.0-36.0) g/dL RDW Std Deviation 48.5 H (36.4-46.3) fL RDW Coeff of Addie 14.7 H (11.5-14.5) % Plt Count 228 (130-400) K/uL MPV 9.9 (9.4-12.4) fL Immature Gran % (Auto) 0.3 % Neut % (Auto) 61.4 % Lymph % (Auto) 24.5 % Bandera % (Auto) 12.1 % Eos % (Auto) 1.2 % Baso % (Auto) 0.5 % Neut # (Auto) 4.06 (1.40-6.50) K/uL Lymph # (Auto) 1.62 (1.20-3.40) K/uL Bandera # (Auto) 0.80 H (0.11-0.59) K/uL Eos # (Auto) 0.08 (0.00-0.50) K/uL Baso # (Auto) 0.03 (0.00-0.20) K/uL Immature Gran # (Auto) 0.02 (0.01-0.20) K/uL PT 11.4 (9.0-12.0) Seconds INR 1.1 (0.9-1.1) APTT 28 (21-31) Seconds PTT Ratio 1.0 POC Sodium 138 (135-144) mmol/L Sodium 136 (136-145) mmol/L POC Potassium 4.5 (3.3-5.0) mmol/L Potassium 4.4 (3.5-5.1) mmol/L POC Chloride 107 (101-112) mmol/L Chloride 107 (98-107) mmol/L Carbon Dioxide 20 L (21-32) mmol/L POC Total CO2 17 L (24-31) mmol/L Anion Gap 9 (3-11) POC Anion Gap 19.0 (16-25) mmol/L POC BUN 53 H (7-18) mg/dl BUN 59 H (6-23) mg/dl Creatinine 2.29 H (0.6-1.4) mg/dl POC Creatinine 2.5 H (0.6-1.3) mg/dl Est Cr Clr Drug Dosing 24.5 ml/min eGFR 26.62 BUN/Creatinine Ratio 25.8 H (10-20) Glucose 126 H (70-99(Fasting)) mg/dl POC Glucose (other) 124 H (70-99) mg/dl Calcium 9.6 (8.6-10.3) mg/dl POC Ioniz Calcium Flower 1.26 (1.12-1.32) mmol/l Total Bilirubin 0.5 (0.2-1.0) mg/dl Direct Bilirubin 0.2 (0-0.2) mg/dl AST 18 (13-39) U/L ALT 17 (7-52) U/L Alkaline Phosphatase 53 (34-104) U/L Total Protein 7.5 (6.0-8.3) gm/dl Albumin 4.4 (3.4-5.0) gm/dl Lipase 21 (11-82) U/L Imaging Data Attestation: I personally reviewed and interpreted this imaging study as follows: My Impression: CT abdomen pelvis: Multiple air-fluid levels concerning for SBO Radiologist's Impression: Abdomen/Pelvis CT 02/08/25 17:39 CT ABDOMEN and PELVIS without INTRAVENOUS CONTRAST HISTORY: Abdominal pain TECHNIQUE: CT abdomen and pelvis without contrast. IV CONTRAST: None ENTERIC CONTRAST: None. COMPARISON: CT abdomen pelvis August 19, 2021. FINDINGS: LOWER CHEST: Cardiac enlargement. Coronary and valvular calcifications. LIVER: Hepatic steatosis and hepatomegaly. Scattered subcentimeter hypodensities are too small to complete characterize but likely represent cysts or hemangiomas. GALLBLADDER/BILIARY: Surgically absent gallbladder. No abnormal biliary dilatation. SPLEEN: Unremarkable. PANCREAS: Unremarkable. ADRENALS: Unremarkable. KIDNEYS: Cortical cysts. Nonobstructing renal calculus in the left kidney midpole measuring 4 mm. No hydronephrosis identified. PERITONEUM/RETROPERITONEUM. No lymphadenopathy by size criteria. No aortic aneurysm. GASTROINTESTINAL: No obstruction. There is moderate distention of the stomach as well as the loops of the proximal small bowel with a caliber transition point in the right hemiabdomen (series 300, image 29; series 2, image 49). There is moderate swirling of the mesentery as well as twisting of the bowel in this area suggesting adhesive changes Colonic diverticulosis without evidence of diverticulitis. REPRODUCTIVE: ABDOMINAL WALL left larger than right small fat-containing inguinal hernias. BONES: No acute findings. Bilateral hip arthroplasties. IMPRESSION: small bowel obstruction as above with transition point in the right hemiabdomen with adhesive changes. Notification to clinician of alert: [facility] ED was notified about above findings by phone on February 08, 2025 at 9:00 p.m. by Yasir Begum MD. Readback confirmation was obtained. Electronically signed by Yasir Begum 02-08-2025 9:17 PM ECG Data Attestation: I personally reviewed and interpreted this ECG as follows: Rate (beats per minute): 82 Rhythm: normal sinus Findings: no ST depression, no ST elevation or no prolonged QT MDM Narrative 1709: The patient was evaluated in room A2. A complete history and physical exam was performed Cardiac monitoring: An order was placed for continuous cardiac monitoring. The monitor shows a rate of 90 with sinus rhythm interpreted by me 2024: Vital signs stable. Labs are unremarkable. Imaging viewed by co shows likely SBO. Discussed case with general surgery HAZEL Gibbs on-call for Dr. Epstein. After reviewing the scans they agreed that the patient most likely has in a bowel obstruction also. The recommended G-tube. NG tube will be placed the patient will be admitted to the medicine service. Impression & Plan Small bowel obstruction Discharge Plan Visit Data Chief Complaint: Constipation Stated Complaint: ADHESIONS ON BOWEL, SWELL, BLOCKAGE ED Provider: Amador Landon Discharge Problem: Small bowel obstruction Patient Disposition: Admitted As Inpatient Forms Stand Alone Forms: My [facility] Prescriptions Prescriptions: No Action metronidazole 0.75 % gel 1 applic topical BID furosemide 20 mg tablet 20 mg PO DAILY tamsulosin 0.4 mg capsule 0.4 mg PO QAM Qty: 90 3RF finasteride 5 mg tablet 5 mg PO HS Qty: 90 3RF multivitamin Tablet 1 tab PO QAM metoprolol succinate 50 mg Tablet Extended Release 24 Hr 50 mg PO QAM cyanocobalamin (vitamin B-12) [Vitamin B-12] 1,000 mcg Tablet 1,000 mcg PO DAILY fenofibrate micronized 134 mg Capsule 145 mg PO QAM levothyroxine 75 mcg Tablet 75 mcg PO QAM amlodipine [Norvasc] 10 mg Tablet 5 mg PO QAM allopurinol 300 mg Tablet 300 mg PO QAM cholecalciferol (vitamin D3) [Vitamin D3] 50 mcg (2,000 unit) Capsule 4,000 unit PO DAILY Ocuvite Adult 50 Plus 250-5-1 mg Capsule 1 cap PO HS magnesium oxide 400 mg magnesium Tablet 400 mg PO DAILY lisinopril 2.5 mg tablet 5 mg PO DAILY Referrals Referrals: Celia Prajapati DO [Primary Care Provider] -
[2025-02-08] MEDS: SODIUM CHLORIDE 0.9% 500 ML IV SCH (17:34)
[2025-02-08] MEDS: ONDANSETRON INJ 2 MG/ML 2 ML VIAL IV STA ×3 (17:34→20:40)
[2025-02-08 17:42] LABS: iSTAT Creatinine 2.5 mg/dl (0.6-1.3); iSTAT Hemoglobin 14.6 g/dl (14.0-18.0); iSTAT Ionized Calcium 1.26 mmol/l (1.12-1.32); iSTAT Potassium 4.5 mmol/L (3.3-5.0)
[2025-02-08 17:47] LABS: Basophils # (auto) 0.03 K/uL (0.00-0.20); Basophils % (auto) 0.5 %; Eosinophils # (auto) 0.08 K/uL (0.00-0.50); Eosinophils % (auto) 1.2 %; Hematocrit (blood only) 41.6 % (42.0-52.0); Hemoglobin 14.1 g/dl (14.0-18.0); Immature Granulocytes # (auto) 0.02 K/uL (0.01-0.20); Immature Granulocytes % (auto) 0.3 %; Lymphocytes # (auto) 1.62 K/uL (1.20-3.40); Lymphocytes % (auto) 24.5 %; Mean Corpuscular Hemoglobin 30.5 pg (25.0-34.0); Mean Corpuscular Hgb Conc 33.9 g/dL (32.0-36.0); Mean Platelet Volume 9.9 fL (9.4-12.4); Monocytes % (auto) 12.1 %; Neutrophils # (auto) 4.06 K/uL (1.40-6.50); Neutrophils % (auto) 61.4 %; Platelet Count 228 K/uL (130-400); RDW Coefficient of Variation 14.7 % (11.5-14.5); RDW Standard Deviation 48.5 fL (36.4-46.3); Red Blood Count 4.62 M/uL (4.70-6.10); White Blood Count 6.61 K/ul (4.8-10.8)
[2025-02-08 18:09] LABS: Albumin Level 4.4 gm/dl (3.4-5.0); BUN Creatinine Ratio 25.8 (10-20); Bilirubin Direct 0.2 mg/dl (0-0.2); Bilirubin,Total 0.5 mg/dl (0.2-1.0); Calcium 9.6 mg/dl (8.6-10.3); Creatinine Clr Calc Pharmacy 24.5 ml/min; Potassium 4.4 mmol/L (3.5-5.1); Total Protein 7.5 gm/dl (6.0-8.3)
[2025-02-08 18:17] LABS: INR 1.1 (0.9-1.1); Partial Thromboplastin Time 28 Seconds (21-31); Prothrombin Time 11.4 Seconds (9.0-12.0)
[2025-02-08] MEDS: MoRPHine SULFATE 2 MG/ML CARP IV STA (20:40)
--- NOTE | 2025-02-08 21:17 | CT Scan Report ---
CT ABDOMEN and PELVIS without INTRAVENOUS CONTRAST HISTORY: Abdominal pain TECHNIQUE: CT abdomen and pelvis without contrast. IV CONTRAST: None ENTERIC CONTRAST: None. COMPARISON: CT abdomen pelvis August 19, 2021. FINDINGS: LOWER CHEST: Cardiac enlargement. Coronary and valvular calcifications. LIVER: Hepatic steatosis and hepatomegaly. Scattered subcentimeter hypodensities are too small to complete characterize but likely represent cysts or hemangiomas. GALLBLADDER/BILIARY: Surgically absent gallbladder. No abnormal biliary dilatation. SPLEEN: Unremarkable. PANCREAS: Unremarkable. ADRENALS: Unremarkable. KIDNEYS: Cortical cysts. Nonobstructing renal calculus in the left kidney midpole measuring 4 mm. No hydronephrosis identified. PERITONEUM/RETROPERITONEUM. No lymphadenopathy by size criteria. No aortic aneurysm. GASTROINTESTINAL: No obstruction. There is moderate distention of the stomach as well as the loops of the proximal small bowel with a caliber transition point in the right hemiabdomen (series 300, image 29; series 2, image 49). There is moderate swirling of the mesentery as well as twisting of the bowel in this area suggesting adhesive changes Colonic diverticulosis without evidence of diverticulitis. REPRODUCTIVE: ABDOMINAL WALL left larger than right small fat-containing inguinal hernias. BONES: No acute findings. Bilateral hip arthroplasties. IMPRESSION: small bowel obstruction as above with transition point in the right hemiabdomen with adhesive changes. Notification to clinician of alert: [facility] was notified about above findings by phone on February 08, 2025 at 9:00 p.m. by Yasir Begum MD. Readback confirmation was obtained. Electronically signed by Yasir Begum 02-08-2025 9:17 PM
--- NOTE | 2025-02-08 22:10 | History & Physical Report ---
Date of Service February 08, 2025 Assessment & Plan (1) SBO (small bowel obstruction): Plan: 89-year-old male with past medical history significant for hypertriglyceridemia, hypothyroidism, hypertension, CKD stage III, mild aortic stenosis, B12 deficiency, vitamin D deficiency, chronic diarrhea, BPH, recurrent UTI, urge incontinence, osteoarthritis, bilateral leg edema, iron deficiency anemia, history of gout comes because of abdominal pain and nausea /vomiting and found to have small bowel obstruction. Patient says since yesterday he is having abdominal pain. Today had nausea and vomiting. Pain was 8/10 in severity. Currently with NG tube pain much improved. Resting comfortably and hemodynamically stable. Denies any headache. No runny nose. No fevers. No cough. No chest pain or shortness of breath. Micturating okay. Small bowel obstruction Status post NG tube N.p.o., IV fluids Pain meds as needed IV antiemetics as needed Surgical consult Hypothyroidism On Synthyroid Hypertension On amlodipine, metoprolol succinate if not able to take po will do iv meds Holding lisinopril for PABLO Will monitor BPH On Flomax and finasteride Monitor for any retention Gout On allopurinol Bilateral leg edema Mild aortic stenosis Holding Lasix Will monitor PABLO on CKD stage III Baseline creatinine 1.5-1.7 Presented with creatinine of 2.2 Will hold lisinopril and Lasix Getting fluids Follow repeat labs DVT prophylaxis SCDs and heparin subcu Disposition Medical floor Full code. History of Present Illness Chief Complaint: Small bowel obstruction Primary Care Provider: Celia Prajapati DO 89-year-old male with past medical history significant for hypertriglyceridemia, hypothyroidism, hypertension, CKD stage III, mild aortic stenosis, B12 deficiency, vitamin D deficiency, chronic diarrhea, BPH, recurrent UTI, urge incontinence, osteoarthritis, bilateral leg edema, iron deficiency anemia, history of gout comes because of abdominal pain and nausea /vomiting and found to have small bowel obstruction. Patient says since yesterday he is having abdominal pain. Today had nausea and vomiting. Pain was 8/10 in severity. Currently with NG tube pain much improved. Resting comfortably and hemodynamically stable. Denies any headache. No runny nose. No fevers. No cough. No chest pain or shortness of breath. Micturating okay. Past medical history. As mentioned above Past surgical history. Bowel to bowel fusion. Colonoscopy. Cystourethroscopy. Cystourethroscopy with lithotripsy. EGD with transendoscopic dilatation. Bilateral cataracts. Adhesions and bowel resection. Removal of gallbladder. Right total hip replacement. Social history. No smoking. 3 standard drinks of alcohol per week. No drug use. Family history. Mother had diabetes. Heart disorder. Sister had lung disorder. Father had nephritis. Allergies Allergy/AdvReac Type Severity Reaction Status Date / Time hazelnut Allergy Severe Anaphylaxis Verified 08/19/21 11:43 Penicillins Allergy Severe AMOXICILLIN Verified 08/19/21 11:43 --diarrhea oyster extract Allergy Intermediate Vomiting Verified 08/19/21 11:43 pollen extracts Allergy Intermediate TREE Verified 08/19/21 11:43 POLLEN-seasonal allergies Home Medications Medication Instructions Recorded Confirmed Type allopurinol 300 mg tablet 300 mg PO QAM 03/31/20 02/08/25 History amlodipine 10 mg tablet (Norvasc) 5 mg PO QAM 03/31/20 02/08/25 History cholecalciferol (vitamin D3) 50 4,000 unit PO DAILY 03/31/20 02/08/25 History mcg (2,000 unit) capsule (Vitamin D3) cyanocobalamin (vitamin B-12) 1,000 mcg PO DAILY 03/31/20 02/08/25 History 1,000 mcg tablet (Vitamin B-12) fenofibrate micronized 134 mg 145 mg PO QAM 03/31/20 02/08/25 History capsule levothyroxine 75 mcg tablet 75 mcg PO QAM 03/31/20 02/08/25 History magnesium oxide 400 mg PO DAILY 03/31/20 02/08/25 History metoprolol succinate 50 mg 50 mg PO QAM 03/31/20 02/08/25 History tablet,extended release 24 hr multivitamin 1 tab PO QAM 03/31/20 02/08/25 History vit C,E,zinc,copper-phavr6c 250 1 cap PO HS 03/31/20 02/08/25 History mg-lutein 5 mg-zeaxanthin 1 mg capsule (Ocuvite Adult 50 Plus) finasteride 5 mg tablet 5 mg PO HS #90 tabs 07/09/21 02/08/25 Rx furosemide 20 mg tablet 20 mg PO DAILY 07/09/21 02/08/25 History metronidazole 0.75 % topical gel 1 applic topical BID 07/09/21 02/08/25 History tamsulosin 0.4 mg capsule 0.4 mg PO QAM #90 caps 07/09/21 02/08/25 Rx lisinopril 2.5 mg tablet 5 mg PO DAILY 08/19/21 02/08/25 History Past Med/Surg History Problem List (Updated 02/08/25 @ 21:43 by Amador Landon MD) Status post right hip replacement BPH (benign prostatic hyperplasia) Kidney stones, calcium oxalate Diarrhea High triglycerides Hypothyroidism Hypertension (Acute) CKD (chronic kidney disease), stage IV Abdominal pain (Acute) Dehydration (Acute) Hematuria, gross Acute retention of urine (Acute) Status post total hip replacement, left Abdominal pain (Acute) Dehydration (Acute) SBO (small bowel obstruction) (Acute 10/27/14) Small bowel obstruction (Acute) Arthritis of left hip Medical History SBO (small bowel obstruction) CKD (chronic kidney disease) stage 3, GFR 30-59 ml/min Baseline creatinine ~ 2.0 Lyme disease hx Osteoarthritis Small bowel obstruction Peritonitis GERD (gastroesophageal reflux disease) diet related, no medications Skin cancer Seasonal allergies Surgical History History of total hip arthroplasty right History of esophagogastroduodenoscopy (EGD) History of colonoscopy History of cholecystectomy with colon resection surgery History of appendectomy with colon resection surgery S/P colon resection 1950's H/O exploratory laparotomy r/t peritonitis and collapsed bowel. Status post Mohs surgery History of cataract surgery bilateral Family History Other Diabetes No family history of adverse response to anesthesia Social History Smoking Status: Never smoker Second Hand Exposure: No; Do You Dip or Chew Tobacco: No; Hx Alcohol Use: No Hx Substance Use: No Preferred Language: Liberian Communication Ability: Effective Visual Impairment: No Limitations Policy Value Calculator Required: No Beliefs That Will Affect Care: None marital status: Current Living Situation: Alone How many Children do You have: 1 Other Information That Helps Us Care for You: No Feels Safe at Home: Yes Safety Concerns: Feels Safe At This Time Assistive Devices: Glasses Review of Systems Review of Systems: All systems reviewed & are unremarkable except as noted in HPI & below Physical Exam Physical Exam: General- Not in distress Head- atraumatic Eyes- PERRL. ENT- oropharynx clear Neck- supple, no JVD. Lungs- clear to auscultation no wheezing or crackles Heart- regular rhythm; no murmur, no gallop. Abdomen- Surgical scars seen, sluggish bowel sounds, distended nontender. Extremities-mild pretibial edema present , no erythema seen Neuro- alert, oriented PERRL, no facial palsy; no dysarthria; moves extremities Results & Data Results & Data Vital Signs (Past 12 Hours) Vital Signs Temp Pulse Pulse Resp BP BP Pulse Ox 02/08/25 18:30 88 18 120/74 96 02/08/25 17:04 36.3 C L 88 18 123/82 97 O2 Del Method 02/08/25 18:30 Room Air 02/08/25 17:04 Room Air Diagnostic Findings Laboratory Results WBC 6.61 K/ul (4.8-10.8) 02/08/25 17: RBC 4.62 M/uL (4.70-6.10) L 02/08/25 17:25 Hgb 14.1 g/dl (14.0-18.0) 02/08/25 17:25 POC Hgb 14.6 g/dl (14.0-18.0) 02/08/25 17:30 Hct 41.6 % (42.0-52.0) L 02/08/25 17: POC Hct 43 % (42-52) 02/08/25 17:30 MCV 90.0 fL (80.0-100.0) 02/08/25 17:25 MCH 30.5 pg (25.0-34.0) 02/08/25 17: MCHC 33.9 g/dL (32.0-36.0) 02/08/25 17: RDW Std Deviation 48.5 fL (36.4-46.3) H 02/08/25 17:25 RDW Coeff of Addie 14.7 % (11.5-14.5) H 02/08/25 17: Plt Count 228 K/uL (130-400) 02/08/25 17:25 MPV 9.9 fL (9.4-12.4) 02/08/25 17: Immature Gran % (Auto) 0.3 % 02/08/25 17: Neut % (Auto) 61.4 % 02/08/25 17:25 Lymph % (Auto) 24.5 % 02/08/25 17:25 Hickman % (Auto) 12.1 % 02/08/25 17:25 Eos % (Auto) 1.2 % 02/08/25 17: Baso % (Auto) 0.5 % 02/08/25 17: Neut # (Auto) 4.06 K/uL (1.40-6.50) 02/08/25 17: Lymph # (Auto) 1.62 K/uL (1.20-3.40) 02/08/25 17: Hickman # (Auto) 0.80 K/uL (0.11-0.59) H 02/08/25 17: Eos # (Auto) 0.08 K/uL (0.00-0.50) 02/08/25 17: Baso # (Auto) 0.03 K/uL (0.00-0.20) 02/08/25 17: Immature Gran # (Auto) 0.02 K/uL (0.01-0.20) 02/08/25 17: PT 11.4 Seconds (9.0-12.0) 02/08/25: INR 1.1 (0.9-1.1) 02/08/25: APTT 28 Seconds (21-31) 02/08/25 17: PTT Ratio 1.0 02/08/25 17:25 POC Sodium 138 mmol/L (135-144) 02/08/25 17:30 Sodium 136 mmol/L (136-145) 02/08/25 17: POC Potassium 4.5 mmol/L (3.3-5.0) 02/08/25 17:30 Potassium 4.4 mmol/L (3.5-5.1) 02/08/25 17:25 POC Chloride 107 mmol/L (101-112) 02/08/25 17:30 Chloride 107 mmol/L (98-107) 02/08/25 17:25 Carbon Dioxide 20 mmol/L (21-32) L 02/08/25 17:25 POC Total CO2 17 mmol/L (24-31) L 02/08/25 17:30 Anion Gap 9 (3-11) 02/08/25 17:25 POC Anion Gap 19.0 mmol/L (16-25) 02/08/25 17:30 POC BUN 53 mg/dl (7-18) H 02/08/25 17:30 BUN 59 mg/dl (6-23) H 02/08/25 17:25 Creatinine 2.29 mg/dl (0.6-1.4) H 02/08/25 17:25 POC Creatinine 2.5 mg/dl (0.6-1.3) H 02/08/25 17:30 Est Cr Clr Drug Dosing 24.5 ml/min 02/08/25 17:25 eGFR 26.62 02/08/25 17:25 BUN/Creatinine Ratio 25.8 (10-20) H 02/08/25 17:25 Glucose 126 mg/dl (70-99(Fasting)) H 02/08/25 17:25 POC Glucose (other) 124 mg/dl (70-99) H 02/08/25 17:30 Calcium 9.6 mg/dl (8.6-10.3) 02/08/25 17:25 POC Ioniz Calcium Flower 1.26 mmol/l (1.12-1.32) 02/08/25 17:30 Total Bilirubin 0.5 mg/dl (0.2-1.0) 02/08/25 17:25 Direct Bilirubin 0.2 mg/dl (0-0.2) 02/08/25 17:25 AST 18 U/L (13-39) 02/08/25 17:25 ALT 17 U/L (7-52) 02/08/25 17:25 Alkaline Phosphatase 53 U/L (34-104) 02/08/25 17:25 Total Protein 7.5 gm/dl (6.0-8.3) 02/08/25 17:25 Albumin 4.4 gm/dl (3.4-5.0) 02/08/25 17:25 Lipase 21 U/L (11-82) 02/08/25 17:25 Impressions Abdomen/Pelvis CT 02/08/25 17:39 CT ABDOMEN and PELVIS without INTRAVENOUS CONTRAST HISTORY: Abdominal pain TECHNIQUE: CT abdomen and pelvis without contrast. IV CONTRAST: None ENTERIC CONTRAST: None. COMPARISON: CT abdomen pelvis August 19, 2021. FINDINGS: LOWER CHEST: Cardiac enlargement. Coronary and valvular calcifications. LIVER: Hepatic steatosis and hepatomegaly. Scattered subcentimeter hypodensities are too small to complete characterize but likely represent cysts or hemangiomas. GALLBLADDER/BILIARY: Surgically absent gallbladder. No abnormal biliary dilatation. SPLEEN: Unremarkable. PANCREAS: Unremarkable. ADRENALS: Unremarkable. KIDNEYS: Cortical cysts. Nonobstructing renal calculus in the left kidney midpole measuring 4 mm. No hydronephrosis identified. PERITONEUM/RETROPERITONEUM. No lymphadenopathy by size criteria. No aortic aneurysm. GASTROINTESTINAL: No obstruction. There is moderate distention of the stomach as well as the loops of the proximal small bowel with a caliber transition point in the right hemiabdomen (series 300, image 29; series 2, image 49). There is moderate swirling of the mesentery as well as twisting of the bowel in this area suggesting adhesive changes Colonic diverticulosis without evidence of diverticulitis. REPRODUCTIVE: ABDOMINAL WALL left larger than right small fat-containing inguinal hernias. BONES: No acute findings. Bilateral hip arthroplasties. IMPRESSION: small bowel obstruction as above with transition point in the right hemiabdomen with adhesive changes. Notification to clinician of alert: [facility] ED was notified about above findings by phone on February 08, 2025 at 9:00 p.m. by Yasir Begum MD. Readback confirmation was obtained. Electronically signed by Yasir Begum 02-08-2025 9:17 PM ECG Additional Comments: ECG. Sinus rhythm with PACs with rate of 82. QTc 429. Code Status & VTE Plan VTE Prophylaxis Plan VTE Prophylaxis will be ordered: Yes
--- NOTE | 2025-02-08 22:23 | Surgery Consultation ---
Date of Consultation February 08, 2025 Assessment & Plan (1) Small bowel obstruction due to adhesions: Patient with CT findings of SBO he was seen and evaluated this evening and has been admitted to the medical service. From a surgical perspective recommend the following: -Currently the patient has no signs of acute abdomen that would warrant emergent surgical intervention. Will treat conservatively for now -NGT has been placed in the emergency room, patient feeling significantly better after placement. Continue NGT to suction for now. -Keep NPO, IV hydration, and limit narcotic pain medications. Continue to monitor bowel function. -Medical management per primary team, surgery will continue to follow closely History of Present Illness Reason for Consultation: SBO History of Present Illness The patient is an 89-year-old male who presented to the emergency department with complaints of abdominal distention, nausea and vomiting. To note, the patient has been seen and evaluated previously for similar complaints and has had recurrent SBOs. The patient does have a significant surgical history of exploratory laparotomy, bowel resection with appendectomy, cholecystectomy, and ILSA. The patient states his last abdominal surgery was in 2010 for a SBO that required ILSA. Since then, the patient has had recurrent bowel obstructions that fortunately have been able to be treated with conservative measures. The patient states he did have abdominal pain and bloating yesterday and thought originally it would subside, he states he did have a bowel movement yesterday and was normal in nature. However, today the patient started with nausea and vomiting which ultimately prompted him to come to the emergency room for evaluation. Upon workup CT imaging again demonstrating a SBO. The patient was seen and evaluated this evening at bedside. NGT has been placed in the emergency room and patient states he is feeling significantly better during my evaluation. NGT is in place with gastric contents appreciated in wall canister. The patient otherwise is nontoxic appearing and VSS. Allergies Allergy/AdvReac Type Severity Reaction Status Date / Time hazelnut Allergy Severe Anaphylaxis Verified 08/19/21 11:43 Penicillins Allergy Severe AMOXICILLIN Verified 08/19/21 11:43 --diarrhea oyster extract Allergy Intermediate Vomiting Verified 08/19/21 11:43 pollen extracts Allergy Intermediate TREE Verified 08/19/21 11:43 POLLEN-seasonal allergies Home Medications Medication Instructions Recorded Confirmed Type allopurinol 300 mg tablet 300 mg PO QAM 03/31/20 02/08/25 History amlodipine 10 mg tablet (Norvasc) 5 mg PO QAM 03/31/20 02/08/25 History cholecalciferol (vitamin D3) 50 4,000 unit PO DAILY 03/31/20 02/08/25 History mcg (2,000 unit) capsule (Vitamin D3) cyanocobalamin (vitamin B-12) 1,000 mcg PO DAILY 03/31/20 02/08/25 History 1,000 mcg tablet (Vitamin B-12) fenofibrate micronized 134 mg 145 mg PO QAM 03/31/20 02/08/25 History capsule levothyroxine 75 mcg tablet 75 mcg PO QAM 03/31/20 02/08/25 History magnesium oxide 400 mg PO DAILY 03/31/20 02/08/25 History metoprolol succinate 50 mg 50 mg PO QAM 03/31/20 02/08/25 History tablet,extended release 24 hr multivitamin 1 tab PO QAM 03/31/20 02/08/25 History vit C,E,zinc,copper-rlddu1v 250 1 cap PO HS 03/31/20 02/08/25 History mg-lutein 5 mg-zeaxanthin 1 mg capsule (Ocuvite Adult 50 Plus) finasteride 5 mg tablet 5 mg PO HS #90 tabs 07/09/21 02/08/25 Rx furosemide 20 mg tablet 20 mg PO DAILY 07/09/21 02/08/25 History metronidazole 0.75 % topical gel 1 applic topical BID 07/09/21 02/08/25 History tamsulosin 0.4 mg capsule 0.4 mg PO QAM #90 caps 07/09/21 02/08/25 Rx lisinopril 2.5 mg tablet 5 mg PO DAILY 08/19/21 02/08/25 History Patient History Medical History SBO (small bowel obstruction) CKD (chronic kidney disease) stage 3, GFR 30-59 ml/min Baseline creatinine ~ 2.0 Lyme disease hx Osteoarthritis Small bowel obstruction Peritonitis GERD (gastroesophageal reflux disease) diet related, no medications Skin cancer Seasonal allergies Surgical History History of total hip arthroplasty right History of esophagogastroduodenoscopy (EGD) History of colonoscopy History of cholecystectomy with colon resection surgery History of appendectomy with colon resection surgery S/P colon resection 1949's H/O exploratory laparotomy r/t peritonitis and collapsed bowel. Status post Mohs surgery History of cataract surgery bilateral Family History Other Diabetes No family history of adverse response to anesthesia Social History Smoking Status: Never smoker Second Hand Exposure: No; Do You Dip or Chew Tobacco: No; Hx Alcohol Use: No Hx Substance Use: No Preferred Language: Liberian Communication Ability: Effective Visual Impairment: No Limitations Modeling And Simulation Analyst Required: No Beliefs That Will Affect Care: None marital status: Current Living Situation: Alone How many Children do You have: 1 Other Information That Helps Us Care for You: No Feels Safe at Home: Yes Safety Concerns: Feels Safe At This Time Assistive Devices: Glasses Review of Systems Constitutional: as per Subjective / HPI; no fever and no chills Respiratory: no cough and no dyspnea Cardiovascular: no chest pain, no palpitations and no syncope Gastrointestinal: + abdominal pain, + bloating, + nausea a nd + vomiting Physical Exam Constitutional: WD/WN, vitals as above Respiratory: normal respiratory effort, lungs clear to auscultation Cardiovascular: Rate/Rhythm: regular rate Gastrointestinal (Abdomen): Abdomen distended, nontender to palpation, no rebound or guarding. NGT in place with gastric contents in canister Multiple old surgical incisions overlying abdomen Skin: no rashes, warm and dry Results & Data Vital Signs (Past 12 Hours) Vital Signs Temp Pulse Pulse Resp BP BP Pulse Ox 02/08/25 18:30 88 18 120/74 96 02/08/25 17:04 36.3 C L 88 18 123/82 97 O2 Del Method 02/08/25 18:30 Room Air 02/08/25 17:04 Room Air Diagnostic Findings CT ABDOMEN and PELVIS without INTRAVENOUS CONTRAST HISTORY: Abdominal pain TECHNIQUE: CT abdomen and pelvis without contrast. IV CONTRAST: None ENTERIC CONTRAST: None. COMPARISON: CT abdomen pelvis August 19, 2021. FINDINGS: LOWER CHEST: Cardiac enlargement. Coronary and valvular calcifications. LIVER: Hepatic steatosis and hepatomegaly. Scattered subcentimeter hypodensities are too small to complete characterize but likely represent cysts or hemangiomas. GALLBLADDER/BILIARY: Surgically absent gallbladder. No abnormal biliary dilatation. SPLEEN: Unremarkable. PANCREAS: Unremarkable. ADRENALS: Unremarkable. KIDNEYS: Cortical cysts. Nonobstructing renal calculus in the left kidney midpole measuring 4 mm. No hydronephrosis identified. PERITONEUM/RETROPERITONEUM. No lymphadenopathy by size criteria. No aortic aneurysm. GASTROINTESTINAL: No obstruction. There is moderate distention of the stomach as well as the loops of the proximal small bowel with a caliber transition point in the right hemiabdomen (series 300, image 29; series 2, image 49). There is moderate swirling of the mesentery as well as twisting of the bowel in this area suggesting adhesive changes Colonic diverticulosis without evidence of diverticulitis. REPRODUCTIVE: ABDOMINAL WALL left larger than right small fat-containing inguinal hernias. BONES: No acute findings. Bilateral hip arthroplasties. IMPRESSION: small bowel obstruction as above with transition point in the right hemiabdomen with adhesive changes. PG Care Time/CCT Total # of Minutes Spent Total Time Spent with Patient: Total time spent is greater than 50% in coordination of care (as documented) at patient's floor/unit and/or counseling patient: [place] [address] INT INP/OBS CARE 1/40MIN Patient Type New History Problem Focused Exam Problem Focused Medical Decision Making Straight Forward Diagnoses Small bowel obstruction due to adhesions K56.50
[2025-02-08] MEDS ORDERED: HYDROmorphone INJ 0.5 MG/0.5 ML SYR IV PRN (22:46)
[2025-02-08] MEDS ORDERED: ACETAMINOPHEN 1,000 MG/100 ML VIAL IV PRN (22:46)
--- NOTE | 2025-02-08 23:09 | XRay Report ---
Exam(s): XR KUB EXAM: XR Abdomen, 1 View CLINICAL HISTORY: Reason for exam: NG placement. TECHNIQUE: Frontal supine view of the abdomen/pelvis. COMPARISON: No relevant prior studies available. IMPRESSION: Marked dilated gas-filled loops of small bowel in the upper abdomen likely related to small bowel obstruction. A gastric tube is in the stomach with the tip in the distal stomach. Electronically signed by: Michael Rush MD 02/08/25 23:08 PM
[2025-02-09] MEDS: LACTATED RINGER'S 1,000 ML IV SCH (01:41)
[2025-02-09] MEDS: LEVOTHYROXINE SODIUM 75 MCG TABLET PO SCH (05:55)
[2025-02-09 06:22] LABS: Basophils # (auto) 0.02 K/uL (0.00-0.20); Basophils % (auto) 0.4 %; Eosinophils # (auto) 0.15 K/uL (0.00-0.50); Eosinophils % (auto) 2.9 %; Hematocrit (blood only) 37.4 % (42.0-52.0); Hemoglobin 12.8 g/dl (14.0-18.0); Immature Granulocytes # (auto) 0.01 K/uL (0.01-0.20); Immature Granulocytes % (auto) 0.2 %; Lymphocytes # (auto) 1.71 K/uL (1.20-3.40); Lymphocytes % (auto) 33.3 %; Mean Corpuscular Hemoglobin 30.5 pg (25.0-34.0); Mean Corpuscular Hgb Conc 34.2 g/dL (32.0-36.0); Mean Corpuscular Volume 89.3 fL (80.0-100.0); Mean Platelet Volume 9.8 fL (9.4-12.4); Monocytes # (auto) 0.79 K/uL (0.11-0.59); Monocytes % (auto) 15.4 %; Neutrophils # (auto) 2.46 K/uL (1.40-6.50); Neutrophils % (auto) 47.8 %; Platelet Count 196 K/uL (130-400); RDW Coefficient of Variation 14.5 % (11.5-14.5); Red Blood Count 4.19 M/uL (4.70-6.10); White Blood Count 5.14 K/ul (4.8-10.8)
[2025-02-09 06:49] LABS: BUN Creatinine Ratio 26.3 (10-20); Calcium 8.9 mg/dl (8.6-10.3); Creatinine Clr Calc Pharmacy 28.3 ml/min; Magnesium 1.8 mg/dl (1.7-2.4)
[2025-02-09] MEDS ORDERED: amLODIPine BESYLATE 5 MG TAB PO SCH (09:00)
[2025-02-09] MEDS: TAMSULOSIN HCL 0.4 MG CAP PO SCH (09:02)
[2025-02-09] MEDS: METOPROLOL SUCC 50MG EXT REL TAB PO SCH (09:02)
[2025-02-09] MEDS: MAGNESIUM OXIDE 400 MG TAB PO SCH (09:02)
[2025-02-09] MEDS: allopurinoL 300 MG TAB PO SCH (09:02)
[2025-02-09] MEDS: HEPARIN SOD 5,000 UNIT/0.5 ML VIAL SQ SCH (09:08)
--- NOTE | 2025-02-09 11:52 | Surgery Progress Note ---
Date of Service February 09, 2025 Assessment & Plan (1) SBO (small bowel obstruction): Plan: No plans for any surgical intervention at this time He is still quite distended Will order a KUB to follow contrast progression for tomorrow morning Surgery will follow Admission and Anticipated Discharge Date Admission Date: February 08, 2025 Subjective Patient seen and examined. States his pain is improved. Still feels distended. Denies any flatus or BM. Review of Systems Constitutional: as per Subjective / HPI; no fever and no chills Respiratory: no cough and no dyspnea Cardiovascular: no chest pain, no palpitations and no syncope Gastrointestinal: + abdominal pain, + bloating, + nausea a nd + vomiting Integumentary: no skin ulcer and no erythema Psychiatric: no behavioral changes and no depression Hematologic / Lymphatic: no easy bleeding and no easy bruising Physical Exam Constitutional: WD/WN, vitals as above Respiratory: normal respiratory effort, lungs clear to auscultation Cardiovascular: RRR, no murmur, no edema Gastrointestinal (Abdomen): Inspection/Auscultation: abdomen normal to inspection and + abdomen distended Percussion/Palpation: abdomen soft; abdomen nontender, no guarding and no hernia Skin: no rashes, warm and dry Psychiatric: A+Ox3, euthymic affect Results & Data Vital Signs (Past 12 Hours) Vital Signs Temp Pulse Resp BP Pulse Ox O2 Del Method 02/09/25 07:18 36.7 C 71 18 118/52 L 95 Room Air PG Care Time/CCT Total # of Minutes Spent Total Time Spent with Patient: Total time spent is greater than 50% in coordination of care (as documented) at patient's floor/unit and/or counseling patient: Coding Level of Care Code 89616 SUB INP/OBS CARE 11/09MIN Diagnoses SBO (small bowel obstruction) K56.609
--- NOTE | 2025-02-09 13:18 | Electrocardiogram Report ---
Test Reason : Blood Pressure : */* mmHG Vent. Rate : 82 BPM Atrial Rate : 82 BPM P-R Int : 192 ms QRS Dur : 82 ms QT Int : 368 ms P-R-T Axes : 82 3 53 degrees QTcB Int : 429 ms Sinus rhythm with Premature atrial complexes Cannot rule out Anterior infarct , age undetermined Abnormal ECG When compared with ECG of 07-Dec-2023 15:34, No significant change Confirmed by Rodriguez Ordaz ([id number]) on 02/09/2025 1:17:59 PM Referred By: REFERRED SELF Confirmed By: Rodriguez Ordaz
--- NOTE | 2025-02-09 13:45 | Hospitalist Progress Note ---
Date of Service February 09, 2025 Assessment & Plan (1) SBO (small bowel obstruction): Plan: Mr. Booker is an 89-year-old male with past medical history significant for hypertriglyceridemia, hypothyroidism, hypertension, CKD stage III, mild aortic stenosis, B12 deficiency, vitamin D deficiency, chronic diarrhea, BPH, recurrent UTI, urge incontinence, osteoarthritis, bilateral leg edema, iron deficiency anemia, history of gout comes because of abdominal pain and nausea /vomiting and found to have small bowel obstruction. Patient has experienced SBO previously, last in 2020 iso multiple abdominal surgeries. #Small bowel obstruction iso multiple abdominal procedures Status post NG tube on LIS per chart review: [id number] had partial colectomy and terminal ileum removed; ultimately reconnected bowels; did have open abdomen for 2 mos d/t perit onitis. N.p.o., IV fluids distended abdomen, no flatus Surgery consulted: KUB in am, continue current management #Hypothyroidism On Synthyroid #Hypertension On amlodipine, metoprolol succinate holding amlodipine #BPH On Flomax and finasteride #Gout On allopurinol #Bilateral leg edema #Mild aortic stenosis Holding Lasix Will monitor #PABLO on CKD stage III Baseline creatinine 1.5-1.7 Presented with creatinine of 2.2 Will hold lisinopril and Lasix Getting gentle fluids Follow repeat labs DVT prophylaxis SCDs and heparin subcu Disposition Medical floor Full code. Admission and Anticipated Discharge Date Admission Date: February 08, 2025 Subjective Evaluated at bedside, awakened easily from sleep Reports subjective improvement, without any nausea at this time Denies flatus however, reports he has been through this so he knows what to anticipate Physical Exam Constitutional: WD/WN, vitals as above Respiratory: normal respiratory effort, lungs clear to auscultation Cardiovascular: RRR, no murmur, no edema Gastrointestinal (Abdomen): distended, nontender Results & Data Results & Data Vital Signs (Past 12 Hours) Vital Signs Temp Pulse Resp BP Pulse Ox O2 Del Method 02/09/25 07:18 36.7 C 71 18 118/52 L 95 Room Air Laboratory Results Short CBC 02/08/25 02/09/25 Range/Units 17:25 05:46 WBC 6.61 5.14 (4.8-10.8) K/ul Hgb 14.1 12.8 L (14.0-18.0) g/dl Hct 41.6 L 37.4 L (42.0-52.0) % Plt Count 228 196 (130-400) K/uL BMP 02/08/25 02/09/25 17:25 05:46 Sodium 136 138 Potassium 4.4 4.0 Chloride 107 107 Carbon Dioxide 20 L 25 BUN 59 H 52 H Creatinine 2.29 H 1.98 H D Glucose 126 H 108 H Calcium 9.6 8.9 Liver Function 02/08/25 Range/Units 17:25 Total Bilirubin 0.5 (0.2-1.0) mg/dl Direct Bilirubin 0.2 (0-0.2) mg/dl AST 18 (13-39) U/L ALT 17 (7-52) U/L Alkaline Phosphatase 53 (34-104) U/L Albumin 4.4 (3.4-5.0) gm/dl Medications Administered Home Medications Medication Instructions Recorded Confirmed Last Taken allopurinol 300 mg tablet 300 mg PO ON LICENSE OF [facility] 03/31/20 02/08/25 08/18/21 amlodipine 10 mg tablet (Norvasc) 5 mg PO ON LICENSE OF [facility] 03/31/20 02/08/25 08/18/21 cholecalciferol (vitamin D3) 50 4,000 unit PO DAILY 03/31/20 02/08/25 08/18/21 mcg (2,000 unit) capsule (Vitamin D3) cyanocobalamin (vitamin B-12) 1,000 mcg PO DAILY 03/31/20 02/08/25 08/18/21 1,000 mcg tablet (Vitamin B-12) fenofibrate micronized 134 mg 145 mg PO ON LICENSE OF [facility] 03/31/20 02/08/25 08/18/21 capsule levothyroxine 75 mcg tablet 75 mcg PO QA 03/31/20 02/08/25 08/18/21 magnesium oxide 400 mg PO DAILY 03/31/20 02/08/25 08/18/21 metoprolol succinate 50 mg 50 mg PO QA 03/31/20 02/08/25 08/18/21 tablet,extended release 24 hr multivitamin 1 tab PO QAM 03/31/20 02/08/25 08/18/21 vit C,E,zinc,copper-aesmh5d 250 1 cap PO HS 03/31/20 02/08/25 08/18/21 mg-lutein 5 mg-zeaxanthin 1 mg capsule (Ocuvite Adult 50 Plus) finasteride 5 mg tablet 5 mg PO HS #90 tabs 07/09/21 02/08/25 08/18/21 furosemide 20 mg tablet 20 mg PO DAILY 07/09/21 02/08/25 08/17/21 metronidazole 0.75 % topical gel 1 applic topical BID 07/09/21 02/08/25 Unknown tamsulosin 0.4 mg capsule 0.4 mg PO QAM #90 caps 07/09/21 02/08/25 08/18/21 lisinopril 2.5 mg tablet 5 mg PO DAILY 08/19/21 02/08/25 08/18/21 Active Medications Generic Name Dose Route Start Last Admin Trade Name Nick PRN Reason Stop Dose Admin Allopurinol 300 mg 02/09/25 09:00 02/09/25 09:02 Allopurinol 300 Mg Tab PO 03/11/25 08:59 300 mg QAM ZAYDA Administration Heparin Sodium (Porcine) 5,000 units 02/09/25 09:00 02/09/25 09:08 Heparin Sod 5,000 Unit/0.5 Ml Vial SQ 03/11/25 08:59 5,000 units Q12 ZAYDA Administration Lactated Ringer's 1,000 mls @ 100 mls/hr 02/08/25 22:46 02/09/25 09:03 Lr IV 02/10/25 21:59 100 mls/hr .Q10H ZAYDA Infusion Levothyroxine Sodium 75 mcg 02/09/25 06:30 02/09/25 05:55 Levothyroxine Sodium 75 Mcg Tablet PO 03/11/25 06:29 75 mcg DAILYBB ZAYDA Administration Magnesium Oxide 400 mg 02/09/25 09:00 02/09/25 09:02 Magnesium Oxide 400 Mg Tab PO 03/11/25 08:59 400 mg DAILY ZAYDA Administration Metoprolol Succinate 50 mg 02/09/25 09:00 02/09/25 09:02 Metoprolol Succ 50mg Ext Rel Tab PO 03/11/25 08:59 50 mg QAM ZAYDA Administration Tamsulosin HCl 0.4 mg 02/09/25 09:00 02/09/25 09:02 Tamsulosin Hcl 0.4 Mg Cap PO 03/11/25 08:59 0.4 mg QAM ZAYDA Administration
[2025-02-09] MEDS: FINASTERIDE 5 MG TAB PO SCH (20:28)
[2025-02-10] MEDS: ONDANSETRON INJ 2 MG/ML 2 ML VIAL IV PRN (05:43)
[2025-02-10 06:59] LABS: Hematocrit (blood only) 40.4 % (42.0-52.0); Hemoglobin 13.3 g/dl (14.0-18.0); Mean Corpuscular Hemoglobin 30.2 pg (25.0-34.0); Mean Corpuscular Hgb Conc 32.9 g/dL (32.0-36.0); Mean Corpuscular Volume 91.8 fL (80.0-100.0); Mean Platelet Volume 9.7 fL (9.4-12.4); Platelet Count 201 K/uL (130-400); RDW Coefficient of Variation 14.6 % (11.5-14.5); White Blood Count 6.35 K/ul (4.8-10.8)
[2025-02-10 07:18] LABS: BUN Creatinine Ratio 24.4 (10-20); Calcium 8.8 mg/dl (8.6-10.3); Creatinine Clr Calc Pharmacy 33.4 ml/min; Magnesium 1.8 mg/dl (1.7-2.4); Phosphorus 2.7 mg/dl (2.5-4.9); Potassium 3.8 mmol/L (3.5-5.1)
--- NOTE | 2025-02-10 09:16 | XRay Report ---
KUB HISTORY: Follow-up study in a patient with small bowel obstruction Follow contrast COMPARISON: CT abdomen and pelvis and KUB studies 02/08/2025 FINDINGS: Distal tip enteric tube projects over the right upper quadrant abdomen, likely within the d istal stomach or proximal duodenum. Air is noted within the large bowel. Air-filled distended small b owel loops measure up to approximately 7.3 cm within the mid abdomen, previously approximately 6 cm. No renal calculi. No ureteral calculi. No pneumoperitoneum or pneumatosis. Bilateral hip arthroplast ies. No fracture. IMPRESSION: 1. Distal tip of enteric tube projects over the distal stomach versus proximal duodenum. 2. Persistent small bowel obstruction. Continued follow-up is noted. ACT 112: Negative or not required by law. The above report was generated using voice recognition software. It may contain grammatical, syntax o r spelling errors. Electronically signed by: Boris Alvarado M.D. 02/10/2025 9:14 AM
--- NOTE | 2025-02-10 10:08 | Surgery Progress Note ---
Date of Service February 10, 2025 Assessment & Plan (1) SBO (small bowel obstruction): Plan: avss persisent SBO on KUB, small bowel distension increased compared to prior but more gas in colon flatus yesterday none today abdominal pain resolved but still distended with nausea Minimal NGT output Plan: Keep NGT to LIS Encouraged ambulating hallway to increase GI motility Continue medical management will follow Admission and Anticipated Discharge Date Admission Date: February 08, 2025 Subjective abdominal pain has resolved but still feeling bloated no flatus today, small liquid bm today has no ambulated hallway +nausea controlled with zofran no vomiting Physical Exam Constitutional: WD/WN, vitals as above cooperative and comfortable; no acute distress and not ill appearing Respiratory: normal respiratory effort; no respiratory distress and no labored breathing Gastrointestinal (Abdomen): Inspection/Auscultation: + abdomen distended and + abdominal surgical scar (laparotomy scar) Percussion/Palpation: abdomen soft; abdomen nontender, no guarding, abdomen not rigid and abdomen not firm Skin: no rashes, warm and dry Psychiatric: Orientation: alert and oriented x 3 Results & Data Vital Signs (Past 12 Hours) Vital Signs Temp Pulse Resp BP Pulse Ox O2 Del Method 02/10/25 07:31 36.4 C L 75 19 134/72 94 Room Air Laboratory Results 02/10/25 Range/Units 06:00 WBC 6.35 (4.8-10.8) K/ul RBC 4.40 L (4.70-6.10) M/uL Hgb 13.3 L (14.0-18.0) g/dl Hct 40.4 L (42.0-52.0) % MCV 91.8 (80.0-100.0) fL MCH 30.2 (25.0-34.0) pg MCHC 32.9 (32.0-36.0) g/dL RDW Std Deviation 49.0 H (36.4-46.3) fL RDW Coeff of Addie 14.6 H (11.5-14.5) % Plt Count 201 (130-400) K/uL MPV 9.7 (9.4-12.4) fL Sodium 139 (136-145) mmol/L Potassium 3.8 (3.5-5.1) mmol/L Chloride 108 H (98-107) mmol/L Carbon Dioxide 22 (21-32) mmol/L Anion Gap 9 (3-11) BUN 41 H (6-23) mg/dl Creatinine 1.68 H D (0.6-1.4) mg/dl Est Cr Clr Drug Dosing 33.4 ml/min eGFR 38.60 BUN/Creatinine Ratio 24.4 H (10-20) Glucose 82 (70-99(Fasting)) mg/dl Calcium 8.8 (8.6-10.3) mg/dl Phosphorus 2.7 (2.5-4.9) mg/dl Magnesium 1.8 (1.7-2.4) mg/dl Diagnostic Findings KUB HISTORY: Follow-up study in a patient with small bowel obstruction Follow contrast COMPARISON: CT abdomen and pelvis and KUB studies 02/08/2025 FINDINGS: Distal tip enteric tube projects over the right upper quadrant abdomen, likely within the distal stomach or proximal duodenum. Air is noted within the large bowel. Air-filled distended small bowel loops measure up to approximately 7.3 cm within the mid abdomen, previously approximately 6 cm. No renal calculi. No ureteral calculi. No pneumoperitoneum or pneumatosis. Bilateral hip arthroplasties. No fracture. IMPRESSION: 1. Distal tip of enteric tube projects over the distal stomach versus proximal duodenum. 2. Persistent small bowel obstruction. Continued follow-up is noted. Personally reviewed KUB images and concur with above findings
--- NOTE | 2025-02-10 10:13 | Hospitalist Progress Note ---
Date of Service February 10, 2025 Assessment & Plan (1) SBO (small bowel obstruction): Plan: Mr. Booker is an 89-year-old male with past medical history significant for hypertriglyceridemia, hypothyroidism, hypertension, CKD stage III, mild aortic stenosis, B12 deficiency, vitamin D deficiency, chronic diarrhea, BPH, recurrent UTI, urge incontinence, osteoarthritis, bilateral leg edema, iron deficiency anemia, history of gout comes because of abdominal pain and nausea /vomiting and found to have small bowel obstruction. Patient has experienced SBO previously, last in 2020 iso multiple abdominal surgeries. #Small bowel obstruction iso multiple abdominal procedures Status post NG tube on LIS per chart review: [id number] had partial colectomy and terminal ileum removed; ultimately reconnected bowels; did have open abdomen for 2 mos d/t perit onitis. N.p.o., IV fluids distended abdomen, no flatus Surgery consulted: KUB with more gaseous distention, continue NGT to LIS, encourage mobilization #Hypothyroidism On Synthyroid #Hypertension On amlodipine, metoprolol succinate holding amlodipine #BPH On Flomax and finasteride #Gout On allopurinol #Bilateral leg edema #Mild aortic stenosis Holding Lasix Will monitor #PABLO on CKD stage III Baseline creatinine 1.5-1.7 Presented with creatinine of 2.2 Will hold lisinopril and Lasix Getting gentle fluids Follow repeat labs DVT prophylaxis SCDs and heparin subcu Disposition Medical floor Full code. Admission and Anticipated Discharge Date Admission Date: February 08, 2025 Subjective Reports feeling very distended with increased pain in the evening however, improved this am Reports of flatus, as well as some bowel movement this am Eager to ambulate more today Physical Exam Constitutional: WD/WN, vitals as above Respiratory: normal respiratory effort, lungs clear to auscultation Cardiovascular: RRR, no murmur, no edema Gastrointestinal (Abdomen): protuberant, firm, nontender Results & Data Results & Data Vital Signs (Past 12 Hours) Vital Signs Temp Pulse Resp BP Pulse Ox O2 Del Method 02/10/25 07:31 36.4 C L 75 19 134/72 94 Room Air Laboratory Results Short CBC 02/10/25 Range/Units 06:00 WBC 6.35 (4.8-10.8) K/ul Hgb 13.3 L (14.0-18.0) g/dl Hct 40.4 L (42.0-52.0) % Plt Count 201 (130-400) K/uL BMP 02/10/25 06:00 Sodium 139 Potassium 3.8 Chloride 108 H Carbon Dioxide 22 BUN 41 H Creatinine 1.68 H D Glucose 82 Calcium 8.8 Medications Administered Home Medications Medication Instructions Recorded Confirmed Last Taken allopurinol 300 mg tablet 300 mg PO QAM 03/31/20 02/08/25 08/18/21 amlodipine 10 mg tablet (Norvasc) 5 mg PO QAM 03/31/20 02/08/25 08/18/21 cholecalciferol (vitamin D3) 50 4,000 unit PO DAILY 03/31/20 02/08/25 08/18/21 mcg (2,000 unit) capsule (Vitamin D3) cyanocobalamin (vitamin B-12) 1,000 mcg PO DAILY 03/31/20 02/08/25 08/18/21 1,000 mcg tablet (Vitamin B-12) fenofibrate micronized 134 mg 145 mg PO QA 03/31/20 02/08/25 08/18/21 capsule levothyroxine 75 mcg tablet 75 mcg PO QA 03/31/20 02/08/25 08/18/21 magnesium oxide 400 mg PO DAILY 03/31/20 02/08/25 08/18/21 metoprolol succinate 50 mg 50 mg PO QA 03/31/20 02/08/25 08/18/21 tablet,extended release 24 hr multivitamin 1 tab PO QAM 03/31/20 02/08/25 08/18/21 vit C,E,zinc,copper-tgxco0d 250 1 cap PO HS 03/31/20 02/08/25 08/18/21 mg-lutein 5 mg-zeaxanthin 1 mg capsule (Ocuvite Adult 50 Plus) finasteride 5 mg tablet 5 mg PO HS #90 tabs 07/09/21 02/08/25 08/18/21 furosemide 20 mg tablet 20 mg PO DAILY 07/09/21 02/08/25 08/17/21 metronidazole 0.75 % topical gel 1 applic topical BID 07/09/21 02/08/25 Unknown tamsulosin 0.4 mg capsule 0.4 mg PO QAM #90 caps 07/09/21 02/08/25 08/18/21 lisinopril 2.5 mg tablet 5 mg PO DAILY 08/19/21 02/08/25 08/18/21 Active Medications Generic Name Dose Route Start Last Admin Trade Name Nick PRN Reason Stop Dose Admin Allopurinol 300 mg 02/09/25 09:00 02/10/25 07:49 Allopurinol 300 Mg Tab PO 03/11/25 08:59 300 mg QAM ZAYDA Administration Finasteride 5 mg 02/09/25 21:00 02/09/25 20:28 Finasteride 5 Mg Tab PO 03/11/25 20:59 5 mg HS ZAYDA Administration Heparin Sodium (Porcine) 5,000 units 02/09/25 09:00 02/10/25 08:16 Heparin Sod 5,000 Unit/0.5 Ml Vial SQ 03/11/25 08:59 5,000 units Q12 ZAYDA Administration Lactated Ringer's 1,000 mls @ 100 mls/hr 02/08/25 22:46 02/10/25 09:06 Lr IV 02/10/25 21:59 100 mls/hr .Q10H ZAYDA Administration Levothyroxine Sodium 75 mcg 02/09/25 06:30 02/10/25 05:58 Levothyroxine Sodium 75 Mcg Tablet PO 03/11/25 06:29 Not Given DAILYBB ZAYDA Magnesium Oxide 400 mg 02/09/25 09:00 02/10/25 07:49 Magnesium Oxide 400 Mg Tab PO 03/11/25 08:59 400 mg DAILY ZAYDA Administration Metoprolol Succinate 50 mg 02/09/25 09:00 02/10/25 07:50 Metoprolol Succ 50mg Ext Rel Tab PO 03/11/25 08:59 50 mg QAM ZAYDA Administration Ondansetron HCl 4 mg 02/08/25 22:46 02/10/25 05:43 Ondansetron Inj 2 Mg/Ml 2 Ml Vial IV 03/10/25 22:45 4 mg Q6H PRN Administration Nausea Tamsulosin HCl 0.4 mg 02/09/25 09:00 02/10/25 07:50 Tamsulosin Hcl 0.4 Mg Cap PO 03/11/25 08:59 0.4 mg QAM ZAYDA Administration
[2025-02-10] MEDS ORDERED: CHLORASEPTIC (PHENOL) 1.4% SOLN 180 ML BTL MT PRN (17:23)
[2025-02-10] MEDS ORDERED: Nursing to Pharmacy Communication SCH (18:15)
[2025-02-11 04:20] LABS: Hematocrit (blood only) 37.2 % (42.0-52.0); Hemoglobin 12.4 g/dl (14.0-18.0); Mean Corpuscular Hemoglobin 30.2 pg (25.0-34.0); Mean Corpuscular Hgb Conc 33.3 g/dL (32.0-36.0); Mean Corpuscular Volume 90.7 fL (80.0-100.0); Mean Platelet Volume 9.9 fL (9.4-12.4); Platelet Count 179 K/uL (130-400); RDW Coefficient of Variation 14.6 % (11.5-14.5); RDW Standard Deviation 48.2 fL (36.4-46.3); White Blood Count 6.61 K/ul (4.8-10.8)
[2025-02-11 04:35] LABS: BUN Creatinine Ratio 21.7 (10-20); Calcium 8.8 mg/dl (8.6-10.3); Creatinine Clr Calc Pharmacy 35.7 ml/min; Magnesium 1.8 mg/dl (1.7-2.4); Potassium 3.5 mmol/L (3.5-5.1)
[2025-02-11] MEDS: POTASSIUM CHLORIDE / WTR 10 MEQ/100 ML PLCT IV SCH (07:52)
[2025-02-11] MEDS: DEXTROSE 5% 1,000 ML IV SCH (07:53)
--- NOTE | 2025-02-11 10:44 | Surgery Progress Note ---
Date of Service February 11, 2025 Assessment & Plan (1) SBO (small bowel obstruction): Plan: avss persistent SBO on KUB, small bowel distension increased compared to prior but more gas in colon (02/10/2025) flatus with liquid/watery stools abdominal pain resolved abdomen softer on examination today 2500 cc NGT output in last 24 hours Plan: Clamp trial for NGT for 4 hours, limit ice chips no water Encouraged ambulating hallway to increase GI motility Continue medical management will follow may need to consider SBFT if unable to remove NGT after clamp trial? Discussed with Dr. Jasmine who agrees with above. Admission and Anticipated Discharge Date Admission Date: February 08, 2025 Subjective feeling better no abdominal pain feeling less bloating, "feels like normal belly" passing gas with watery bowel movements, not much gas in between bowel movements no nausea or vomiting drinking some water and ice chips with his meds. NGT was clamped for a while yesterday ambulating hallway Physical Exam Constitutional: WD/WN, vitals as above cooperative and comfortable; no acute distress and not ill appearing Respiratory: normal respiratory effort; no respiratory distress and no labored breathing Gastrointestinal (Abdomen): Inspection/Auscultation: abdomen normal to inspection and + abdominal surgical scar (midline laparotomy scar); abdomen not distended Percussion/Palpation: abdomen soft; abdomen nontender, no guarding and abdomen not rigid NGT with bilious/green output, dark green/red in tubing Skin: no rashes, warm and dry Psychiatric: A+Ox3, euthymic affect Results & Data Vital Signs (Past 12 Hours) Vital Signs Temp Pulse Resp BP Pulse Ox O2 Del Method 02/11/25 07:26 36.9 C 82 16 155/73 H 93 Room Air 02/10/25 23:06 36.4 C L 85 17 120/74 96 Room Air Laboratory Results 02/11/25 Range/Units 03:34 WBC 6.61 (4.8-10.8) K/ul RBC 4.10 L (4.70-6.10) M/uL Hgb 12.4 L (14.0-18.0) g/dl Hct 37.2 L (42.0-52.0) % MCV 90.7 (80.0-100.0) fL MCH 30.2 (25.0-34.0) pg MCHC 33.3 (32.0-36.0) g/dL RDW Std Deviation 48.2 H (36.4-46.3) fL RDW Coeff of Addie 14.6 H (11.5-14.5) % Plt Count 179 (130-400) K/uL MPV 9.9 (9.4-12.4) fL Sodium 146 H (136-145) mmol/L Potassium 3.5 (3.5-5.1) mmol/L Chloride 104 (98-107) mmol/L Carbon Dioxide 28 (21-32) mmol/L Anion Gap 14 H (3-11) BUN 34 H (6-23) mg/dl Creatinine 1.57 H (0.6-1.4) mg/dl Est Cr Clr Drug Dosing 35.7 ml/min eGFR 41.87 BUN/Creatinine Ratio 21.7 H (10-20) Glucose 84 (70-99(Fasting)) mg/dl Calcium 8.8 (8.6-10.3) mg/dl Magnesium 1.8 (1.7-2.4) mg/dl
--- NOTE | 2025-02-11 11:28 | Hospitalist Progress Note ---
Date of Service February 11, 2025 Assessment & Plan (1) SBO (small bowel obstruction): Plan: Mr. Booker is an 89-year-old male with past medical history significant for hypertriglyceridemia, hypothyroidism, hypertension, CKD stage III, mild aortic stenosis, B12 deficiency, vitamin D deficiency, chronic diarrhea, BPH, recurrent UTI, urge incontinence, osteoarthritis, bilateral leg edema, iron deficiency anemia, history of gout comes because of abdominal pain and nausea /vomiting and found to have small bowel obstruction. Patient has experienced SBO previously, last in 2020 iso multiple abdominal surgeries. #Small bowel obstruction iso multiple abdominal procedures Status post NG tube on LIS per chart review: [id number] had partial colectomy and terminal ileum removed; ultimately reconnected bowels; did have open abdomen for 2 mos d/t perit onitis. N.p.o., IV fluids distended abdomen, no flatus Surgery consulted: KUB with more gaseous distention, continue NGT to LIS, encourage mobilization #Hypernatremia #hypokalemia 146 this am, start d5w repeat bmp in afternoon #Hypothyroidism On Synthyroid #Hypertension On amlodipine, metoprolol succinate holding amlodipine #BPH On Flomax and finasteride #Gout On allopurinol #Bilateral leg edema #Mild aortic stenosis Holding Lasix Will monitor #PABLO on CKD stage III *baseline Baseline creatinine 1.5-1.7 Presented with creatinine of 2.2 Will hold lisinopril and Lasix, will resume once able to take po Getting gentle fluids Follow repeat labs DVT prophylaxis SCDs and heparin subcu Disposition Medical floor Full code. Admission and Anticipated Discharge Date Admission Date: February 08, 2025 Subjective Reports notable improvement, though abdomen is still distended it is less firm and he is experiencing more BM and flatus He is mobilizing frequently, and reports ambulating the halls multiple times yesterday He denies any nausea or vomiting Physical Exam Constitutional: WD/WN, vitals as above Respiratory: normal respiratory effort, lungs clear to auscultation Cardiovascular: RRR, no murmur, no edema Gastrointestinal (Abdomen): protuberant/distended, softer than day prior Results & Data Results & Data Vital Signs (Past 12 Hours) Vital Signs Temp Pulse Resp BP Pulse Ox O2 Del Method 02/11/25 07:26 36.9 C 82 16 155/73 H 93 Room Air Laboratory Results Short CBC 02/11/25 Range/Units 03:34 WBC 6.61 (4.8-10.8) K/ul Hgb 12.4 L (14.0-18.0) g/dl Hct 37.2 L (42.0-52.0) % Plt Count 179 (130-400) K/uL BMP 02/11/25 03:34 Sodium 146 H Potassium 3.5 Chloride 104 Carbon Dioxide 28 BUN 34 H Creatinine 1.57 H Glucose 84 Calcium 8.8 Medications Administered Home Medications Medication Instructions Recorded Confirmed Last Taken allopurinol 300 mg tablet 300 mg PO QAM 03/31/20 02/08/25 08/18/21 amlodipine 10 mg tablet (Norvasc) 5 mg PO QAM 03/31/20 02/08/25 08/18/21 cholecalciferol (vitamin D3) 50 4,000 unit PO DAILY 03/31/20 02/08/25 08/18/21 mcg (2,000 unit) capsule (Vitamin D3) cyanocobalamin (vitamin B-12) 1,000 mcg PO DAILY 03/31/20 02/08/25 08/18/21 1,000 mcg tablet (Vitamin B-12) fenofibrate micronized 134 mg 145 mg PO QA 03/31/20 02/08/25 08/18/21 capsule levothyroxine 75 mcg tablet 75 mcg PO QA 03/31/20 02/08/25 08/18/21 magnesium oxide 400 mg PO DAILY 03/31/20 02/08/25 08/18/21 metoprolol succinate 50 mg 50 mg PO QAM 03/31/20 02/08/25 08/18/21 tablet,extended release 24 hr multivitamin 1 tab PO QAM 03/31/20 02/08/25 08/18/21 vit C,E,zinc,copper-wfohs1f 250 1 cap PO HS 03/31/20 02/08/25 08/18/21 mg-lutein 5 mg-zeaxanthin 1 mg capsule (Ocuvite Adult 50 Plus) finasteride 5 mg tablet 5 mg PO HS #90 tabs 07/09/21 02/08/25 08/18/21 furosemide 20 mg tablet 20 mg PO DAILY 07/09/21 02/08/25 08/17/21 metronidazole 0.75 % topical gel 1 applic topical BID 07/09/21 02/08/25 Unknown tamsulosin 0.4 mg capsule 0.4 mg PO QAM #90 caps 07/09/21 02/08/25 08/18/21 lisinopril 2.5 mg tablet 5 mg PO DAILY 08/19/21 02/08/25 08/18/21 Active Medications Generic Name Dose Route Start Last Admin Trade Name Freq PRN Reason Stop Dose Admin Allopurinol 300 mg 02/09/25 09:00 02/11/25 07:17 Allopurinol 300 Mg Tab PO 03/11/25 08:59 300 mg QAM ZAYDA Administration Finasteride 5 mg 02/09/25 21:00 02/10/25 20:12 Finasteride 5 Mg Tab PO 03/11/25 20:59 5 mg HS ZAYDA Administration Heparin Sodium (Porcine) 5,000 units 02/09/25 09:00 02/11/25 07:17 Heparin Sod 5,000 Unit/0.5 Ml Vial SQ 03/11/25 08:59 5,000 units Q12 ZAYDA Administration Dextrose 1,000 mls @ 125 mls/hr 02/11/25 07:45 02/11/25 07:53 D5w IV 02/12/25 07:44 125 mls/hr .Q8H ZAYDA Administration Levothyroxine Sodium 75 mcg 02/09/25 06:30 02/11/25 05:47 Levothyroxine Sodium 75 Mcg Tablet PO 03/11/25 06:29 75 mcg DAILYBB ZAYDA Administration Magnesium Oxide 400 mg 02/09/25 09:00 02/11/25 07:17 Magnesium Oxide 400 Mg Tab PO 03/11/25 08:59 400 mg DAILY ZAYDA Administration Metoprolol Succinate 50 mg 02/09/25 09:00 02/11/25 07:17 Metoprolol Succ 50mg Ext Rel Tab PO 03/11/25 08:59 50 mg QAM ZAYDA Administration Ondansetron HCl 4 mg 02/08/25 22:46 02/10/25 05:43 Ondansetron Inj 2 Mg/Ml 2 Ml Vial IV 03/10/25 22:45 4 mg Q6H PRN Administration Nausea Tamsulosin HCl 0.4 mg 02/09/25 09:00 02/11/25 07:17 Tamsulosin Hcl 0.4 Mg Cap PO 03/11/25 08:59 0.4 mg QAM ZAYDA Administration
[2025-02-11 16:41] LABS: BUN Creatinine Ratio 19.1 (10-20); Calcium 8.7 mg/dl (8.6-10.3); Creatinine Clr Calc Pharmacy 35.7 ml/min; Potassium 3.2 mmol/L (3.5-5.1)
[2025-02-12 09:50] LABS: Hematocrit (blood only) 38.1 % (42.0-52.0); Hemoglobin 12.9 g/dl (14.0-18.0); Mean Corpuscular Hemoglobin 30.5 pg (25.0-34.0); Mean Corpuscular Hgb Conc 33.9 g/dL (32.0-36.0); Mean Corpuscular Volume 90.1 fL (80.0-100.0); Mean Platelet Volume 9.7 fL (9.4-12.4); Platelet Count 188 K/uL (130-400); RDW Coefficient of Variation 14.6 % (11.5-14.5); RDW Standard Deviation 47.8 fL (36.4-46.3); Red Blood Count 4.23 M/uL (4.70-6.10); White Blood Count 8.09 K/ul (4.8-10.8)
--- NOTE | 2025-02-12 09:53 | Surgery Progress Note ---
Date of Service February 12, 2025 Assessment & Plan (1) SBO (small bowel obstruction): Plan: avss flatus with liquid/watery stools abdominal pain resolved abdomen softer on examination today Plan: remove NGT, sips and chips okay continue ambulating hallway to increase GI motility Continue medical management will follow Dr. Jasmine has seen and examined pt, agrees with above Admission and Anticipated Discharge Date Admission Date: February 08, 2025 Subjective feeling good no abdominal pain no nausea states continues to have watery bowel movement and gas but not passing gas in between bowel movements does not feel bloated today Physical Exam Constitutional: WD/WN, vitals as above cooperative and comfortable; no acute distress and not ill appearing Respiratory: normal respiratory effort; no respiratory distress Gastrointestinal (Abdomen): Inspection/Auscultation: + abdomen distended (moderate) and + abdominal surgical scar (midline laparotomy scar) Percussion/Palpation: abdomen soft and + abdomen firm; abdomen nontender, no guarding and abdomen not rigid Skin: no rashes, warm and dry Psychiatric: Orientation: alert and oriented x 3 Results & Data Vital Signs (Past 12 Hours) Vital Signs Temp Pulse Resp BP Pulse Ox O2 Del Method 02/12/25 07:20 36.7 C 67 16 146/79 H 97 Room Air Laboratory Results 02/12/25 02/11/25 Range/Units 08:50 15:50 WBC 8.09 (4.8-10.8) K/ul RBC 4.23 L (4.70-6.10) M/uL Hgb 12.9 L (14.0-18.0) g/dl Hct 38.1 L (42.0-52.0) % MCV 90.1 (80.0-100.0) fL MCH 30.5 (25.0-34.0) pg MCHC 33.9 (32.0-36.0) g/dL RDW Std Deviation 47.8 H (36.4-46.3) fL RDW Coeff of Addie 14.6 H (11.5-14.5) % Plt Count 188 (130-400) K/uL MPV 9.7 (9.4-12.4) fL Sodium 139 143 (136-145) mmol/L Potassium 3.0 L 3.2 L (3.5-5.1) mmol/L Chloride 98 102 (98-107) mmol/L Carbon Dioxide 35 H 29 (21-32) mmol/L Anion Gap 6 12 H (3-11) BUN 21 30 H (6-23) mg/dl Creatinine 1.46 H 1.57 H (0.6-1.4) mg/dl Est Cr Clr Drug Dosing 38.4 35.7 ml/min eGFR 45.68 41.87 BUN/Creatinine Ratio 14.4 19.1 (10-20) Glucose 108 H 124 H (70-99(Fasting)) mg/dl Calcium 8.6 8.7 (8.6-10.3) mg/dl Phosphorus 2.0 L (2.5-4.9) mg/dl Magnesium 1.8 (1.7-2.4) mg/dl
[2025-02-12 10:11] LABS: BUN Creatinine Ratio 14.4 (10-20); Calcium 8.6 mg/dl (8.6-10.3); Creatinine Clr Calc Pharmacy 38.4 ml/min; Magnesium 1.8 mg/dl (1.7-2.4)
--- NOTE | 2025-02-12 11:33 | Hospitalist Progress Note ---
Date of Service February 12, 2025 Assessment & Plan (1) SBO (small bowel obstruction): Plan: Mr. Booker is an 89-year-old male with past medical history significant for hypertriglyceridemia, hypothyroidism, hypertension, CKD stage III, mild aortic stenosis, B12 deficiency, vitamin D deficiency, chronic diarrhea, BPH, recurrent UTI, urge incontinence, osteoarthritis, bilateral leg edema, iron deficiency anemia, history of gout comes because of abdominal pain and nausea /vomiting and found to have small bowel obstruction. Patient has experienced SBO previously, last in 2020 iso multiple abdominal surgeries. Small bowel obstruction iso multiple abdominal procedures Status post NG tube per chart review: [id number] had partial colectomy and terminal ileum removed; ultimately reconnected bowels; did have open abdomen for 2 mos d/t peritonitis. N.p.o., IV fluids distended abdomen, no flatus Surgery consulted -NGT removed on 02/12 -sips and chips -ambulation Hypernatremia resolved hypokalemia replete as needed Hypothyroidism On Synthyroid Hypertension On amlodipine, metoprolol succinate holding amlodipine BPH On Flomax and finasteride Gout On allopurinol Bilateral leg edema Mild aortic stenosis Holding Lasix Will monitor PABLO on CKD stage III *baseline Baseline creatinine 1.5-1.7 Presented with creatinine of 2.2 Will hold lisinopril and Lasix, will resume once able to take po Getting gentle fluids Follow repeat labs DVT prophylaxis SCDs and heparin subcu Disposition Medical floor Full code. Admission and Anticipated Discharge Date Admission Date: February 08, 2025 Subjective Pt states that he has been having BMs, passing gas Excited about the possibility of eating today States that he was told the NG tube will be clamped Review of Systems Review of Systems: All systems reviewed & are unremarkable except as noted in Subjective Physical Exam Physical Exam: General: Alert, oriented. No acute distress HEENT: NC/AT CV: RRR, + murmur Resp: Breath sounds clear bilaterally, no increased effort of breathing Abdomen:Soft, nontender Extremities: No edema in lower extremities bilaterally. Results & Data Results & Data Vital Signs (Past 12 Hours) Vital Signs Temp Pulse Resp BP Pulse Ox O2 Del Method 02/12/25 07:20 36.7 C 67 16 146/79 H 97 Room Air
[2025-02-12] MEDS ORDERED: POTASSIUM PHOS 3 MMOL/1 ML INFUSION IV STA (11:49)
[2025-02-12] MEDS: POTASSIUM CHLORIDE CRTAB 20 MEQ TABCR PO STA (12:30)
[2025-02-12] MEDS: POTASSIUM PHOSPHATE 21 MMOL in SODIUM CHLORIDE 0.9% 500 ML IV ONE (12:48)
[2025-02-12] MEDS: POTASSIUM CHLORIDE CRTAB 20 MEQ TABCR PO SCH (14:45)
[2025-02-13 08:06] LABS: Basophils # (auto) 0.04 K/uL (0.00-0.20); Basophils % (auto) 0.5 %; Eosinophils # (auto) 0.32 K/uL (0.00-0.50); Eosinophils % (auto) 4.1 %; Hematocrit (blood only) 39.3 % (42.0-52.0); Hemoglobin 13.3 g/dl (14.0-18.0); Immature Granulocytes # (auto) 0.05 K/uL (0.01-0.20); Immature Granulocytes % (auto) 0.6 %; Lymphocytes # (auto) 1.43 K/uL (1.20-3.40); Lymphocytes % (auto) 18.5 %; Mean Corpuscular Hemoglobin 30.4 pg (25.0-34.0); Mean Corpuscular Hgb Conc 33.8 g/dL (32.0-36.0); Mean Corpuscular Volume 89.7 fL (80.0-100.0); Mean Platelet Volume 9.7 fL (9.4-12.4); Monocytes # (auto) 0.79 K/uL (0.11-0.59); Monocytes % (auto) 10.2 %; Neutrophils # (auto) 5.09 K/uL (1.40-6.50); Neutrophils % (auto) 66.1 %; Platelet Count 194 K/uL (130-400); RDW Coefficient of Variation 14.4 % (11.5-14.5); RDW Standard Deviation 47.1 fL (36.4-46.3); Red Blood Count 4.38 M/uL (4.70-6.10); White Blood Count 7.72 K/ul (4.8-10.8)
[2025-02-13 08:25] LABS: Anion Gap 6 (3-11); Blood Urea Nitrogen 18 mg/dl (6-23); Carbon Dioxide 32 mmol/L (21-32); Chloride 100 mmol/L (98-107); Sodium 138 mmol/L (136-145)
[2025-02-13 08:26] LABS: Alanine Aminotransferase 14 U/L (7-52); Albumin Globulin Ratio 1.5 (0.9-2); Albumin Level 3.8 gm/dl (3.4-5.0); Alkaline Phosphatase 48 U/L (34-104); BUN Creatinine Ratio 11.4 (10-20); Bilirubin,Total 0.6 mg/dl (0.2-1.0); Calcium 8.8 mg/dl (8.6-10.3); Creatinine Clr Calc Pharmacy 35.5 ml/min; Globulin 2.5 gm/dl (2.5-4.0); Glucose 90 mg/dl (70-99(Fasting)); Magnesium 1.8 mg/dl (1.7-2.4); Total Protein 6.3 gm/dl (6.0-8.3)
[2025-02-13 09:32] LABS: Potassium 3.5 mmol/L (3.5-5.1)
--- NOTE | 2025-02-13 10:09 | Surgery Progress Note ---
Date of Service February 13, 2025 Assessment & Plan (1) SBO (small bowel obstruction): Plan: avss flatus with liquid/watery stools abdominal pain resolved abdomen softer on examination today Plan: full liquid diet continue ambulating hallway to increase GI motility Continue medical management will follow Admission and Anticipated Discharge Date Admission Date: February 08, 2025 Subjective feeling good tolerating clear liquids x 2 (dinner and breakfast) no abdominal pain no nausea does not feel bloated had more gas and liquid stool this am ambulating hungry Physical Exam Constitutional: WD/WN, vitals as above cooperative and comfortable; no acu te distress and not ill appearing Respiratory: normal respiratory effort; no respiratory distress and no labored breathing Gastrointestinal (Abdomen): Inspection/Auscultation: abdomen normal to inspection, + abdomen distended, + abdominal surgical scar (midline laparotomy scar) and + hypoactive bowel sounds Skin: no rashes, warm and dry Psychiatric: Orientation: alert and oriented x 3 Results & Data Vital Signs (Past 12 Hours) Vital Signs Temp Pulse Resp BP Pulse Ox O2 Del Method 02/13/25 06:59 37.0 C 83 16 161/83 H 96 Room Air Laboratory Results 02/13/25 02/13/25 02/12/25 Range/Units 08:57 07:25 08:50 WBC 7.72 (4.8-10.8) K/ul RBC 4.38 L (4.70-6.10) M/uL Hgb 13.3 L (14.0-18.0) g/dl Hct 39.3 L (42.0-52.0) % MCV 89.7 (80.0-100.0) fL MCH 30.4 (25.0-34.0) pg MCHC 33.8 (32.0-36.0) g/dL RDW Std Deviation 47.1 H (36.4-46.3) fL RDW Coeff of Addie 14.4 (11.5-14.5) % Plt Count 194 (130-400) K/uL MPV 9.7 (9.4-12.4) fL Immature Gran % (Auto) 0.6 % Neut % (Auto) 66.1 % Lymph % (Auto) 18.5 % [place] % (Auto) 10.2 % Eos % (Auto) 4.1 % Baso % (Auto) 0.5 % Neut # (Auto) 5.09 (1.40-6.50) K/uL Lymph # (Auto) 1.43 (1.20-3.40) K/uL [place] # (Auto) 0.79 H (0.11-0.59) K/uL Eos # (Auto) 0.32 (0.00-0.50) K/uL Baso # (Auto) 0.04 (0.00-0.20) K/uL Immature Gran # (Auto) 0.05 (0.01-0.20) K/uL Sodium 138 139 (136-145) mmol/L Potassium 3.5 TNP 3.0 L (3.5-5.1) mmol/L Chloride 100 98 (98-107) mmol/L Carbon Dioxide 32 35 H (21-32) mmol/L Anion Gap 6 6 (3-11) BUN 18 21 (6-23) mg/dl Creatinine 1.58 H 1.46 H (0.6-1.4) mg/dl Est Cr Clr Drug Dosing 35.5 38.4 ml/min eGFR 41.55 45.68 BUN/Creatinine Ratio 11.4 14.4 (10-20) Glucose 90 108 H (70-99(Fasting)) mg/dl Calcium 8.8 8.6 (8.6-10.3) mg/dl Phosphorus 3.0 D 2.0 L (2.5-4.9) mg/dl Magnesium 1.8 1.8 (1.7-2.4) mg/dl Total Bilirubin 0.6 (0.2-1.0) mg/dl AST 21 TNP ALT 14 (7-52) U/L Alkaline Phosphatase 48 (34-104) U/L Total Protein 6.3 (6.0-8.3) gm/dl Albumin 3.8 (3.4-5.0) gm/dl Globulin 2.5 (2.5-4.0) gm/dl Albumin/Globulin Ratio 1.5 (0.9-2)
--- NOTE | 2025-02-13 15:39 | Hospitalist Progress Note ---
Date of Service February 13, 2025 Assessment & Plan (1) SBO (small bowel obstruction): Plan: Mr. Booker is an 89-year-old male with past medical history significant for hypertriglyceridemia, hypothyroidism, hypertension, CKD stage III, mild aortic stenosis, B12 deficiency, vitamin D deficiency, chronic diarrhea, BPH, recurrent UTI, urge incontinence, osteoarthritis, bilateral leg edema, iron deficiency anemia, history of gout comes because of abdominal pain and nausea /vomiting and found to have small bowel obstruction. Patient has experienced SBO previously, last in 2020 iso multiple abdominal surgeries. Small bowel obstruction iso multiple abdominal procedures Status post NG tube per chart review: [id number] had partial colectomy and terminal ileum removed; ultimately reconnected bowels; did have open abdomen for 2 mos d/t peritonitis. N.p.o., IV fluids distended abdomen, no flatus Surgery consulted -NGT removed on 02/12 -advance diet as tolerated -ambulation Hypernatremia resolved hypokalemia replete as needed Hypothyroidism On Synthyroid Hypertension On amlodipine, metoprolol succinate holding amlodipine BPH On Flomax and finasteride Gout On allopurinol Bilateral leg edema Mild aortic stenosis Holding Lasix Will monitor PABLO on CKD stage III *baseline Baseline creatinine 1.5-1.7 Presented with creatinine of 2.2 Will hold lisinopril and Lasix, will resume once able to take po Getting gentle fluids Follow repeat labs DVT prophylaxis SCDs and heparin subcu Disposition Medical floor Full code. Admission and Anticipated Discharge Date Admission Date: February 08, 2025 Subjective pt was seen with friend at bedside States he wants to eat steak Notes improvement in his symptoms, still passing gas and having BMs Review of Systems Review of Systems: All systems reviewed & are unremarkable except as noted in Subjective Physical Exam Physical Exam: General: Alert, oriented. No acute distress HEENT: NC/AT CV: RRR, + murmur Resp: Breath sounds clear bilaterally, no increased effort of breathing Abdomen:Soft, nontender Extremities: No edema in lower extremities bilaterally. Results & Data Results & Data Vital Signs (Past 12 Hours) Vital Signs Temp Pulse Resp BP Pulse Ox O2 Del Method 02/13/25 14:39 36.6 C 82 16 139/90 94 Room Air 02/13/25 06:59 37.0 C 83 16 161/83 H 96 Room Air
[2025-02-14 07:38] LABS: Basophils # (auto) 0.04 K/uL (0.00-0.20); Basophils % (auto) 0.5 %; Eosinophils # (auto) 0.36 K/uL (0.00-0.50); Eosinophils % (auto) 4.5 %; Hematocrit (blood only) 40.8 % (42.0-52.0); Hemoglobin 13.7 g/dl (14.0-18.0); Immature Granulocytes # (auto) 0.06 K/uL (0.01-0.20); Immature Granulocytes % (auto) 0.7 %; Lymphocytes # (auto) 2.02 K/uL (1.20-3.40); Lymphocytes % (auto) 25.2 %; Mean Corpuscular Hemoglobin 30.7 pg (25.0-34.0); Mean Corpuscular Hgb Conc 33.6 g/dL (32.0-36.0); Mean Corpuscular Volume 91.5 fL (80.0-100.0); Mean Platelet Volume 9.6 fL (9.4-12.4); Monocytes # (auto) 0.79 K/uL (0.11-0.59); Monocytes % (auto) 9.9 %; Neutrophils # (auto) 4.74 K/uL (1.40-6.50); Neutrophils % (auto) 59.2 %; Platelet Count 199 K/uL (130-400); RDW Coefficient of Variation 14.2 % (11.5-14.5); RDW Standard Deviation 47.6 fL (36.4-46.3); Red Blood Count 4.46 M/uL (4.70-6.10); White Blood Count 8.01 K/ul (4.8-10.8)
[2025-02-14 08:15] LABS: Albumin Globulin Ratio 1.5 (0.9-2); Albumin Level 3.7 gm/dl (3.4-5.0); Bilirubin,Total 0.5 mg/dl (0.2-1.0); Calcium 8.8 mg/dl (8.6-10.3); Creatinine Clr Calc Pharmacy 34.6 ml/min; Globulin 2.5 gm/dl (2.5-4.0); Magnesium 1.7 mg/dl (1.7-2.4); Phosphorus 2.7 mg/dl (2.5-4.9); Potassium 4.1 mmol/L (3.5-5.1); Total Protein 6.2 gm/dl (6.0-8.3)
--- NOTE | 2025-02-14 11:00 | Surgery Progress Note ---
Date of Service February 14, 2025 Assessment & Plan (1) Small bowel obstruction due to adhesions: Plan: patient reports +flatus +bms feeling bloated after low fiber diet last night woke up with gas pains , ambulation assist with passing flatus encouraged ongoing ambulation as able and increase PO fluids abd distended, soft , TTP LLQ mildly tolerated low fiber breakfast wo n/v Admission and Anticipated Discharge Date Admission Date: February 08, 2025 Supervising Physician Co-Signing Physician Notes Patient seen and examined, agree with above. Resolving small bowel obstruction, some increased discomfort and distention this morning, but passed a large amount of flatus after ambulating. He is tolerating a low fiber diet. Abdomen soft, nondistended, nontender. Continue low fiber diet, potential discharge tomorrow. Subjective pt started low fiber diet last night reports gas pains woke him up at 3am ambulated and had +flatus denies n/v Review of Systems Gastrointestinal: + bloating; no abdominal pain, no nausea and no vomiting Physical Exam Constitutional: cooperative and comfortable; no acute distress Respiratory: normal respiratory effort; no respiratory distress Gastrointestinal (Abdomen): Inspection/Auscultation: + abdomen distended and + abdominal surgical scar Percussion/Palpation: + abdomen tender (mildly LLQ) and abdomen soft Results & Data Vital Signs (Past 12 Hours) Vital Signs Temp Pulse Resp BP Pulse Ox O2 Del Method 02/14/25 07:17 98.1 F 87 16 156/87 H 95 Room Air PG Care Time/CCT Total # of Minutes Spent Total Time Spent with Patient: Total time spent is greater than 50% in coordination of care (as documented) at patient's floor/unit and/or counseling patient: Coding Level of Care Code 47246 SUB INP/OBS CARE 11/09MIN Diagnoses Small bowel obstruction due to adhesions K56.50
--- NOTE | 2025-02-14 12:31 | Hospitalist Progress Note ---
Date of Service February 14, 2025 Assessment & Plan (1) SBO (small bowel obstruction): Plan: Mr. Booker is an 89-year-old male with past medical history significant for hypertriglyceridemia, hypothyroidism, hypertension, CKD stage III, mild aortic stenosis, B12 deficiency, vitamin D deficiency, chronic diarrhea, BPH, recurrent UTI, urge incontinence, osteoarthritis, bilateral leg edema, iron deficiency anemia, history of gout comes because of abdominal pain and nausea /vomiting and found to have small bowel obstruction. Patient has experienced SBO previously, last in 2020 iso multiple abdominal surgeries. Small bowel obstruction iso multiple abdominal procedures Status post NG tube per chart review: [id number] had partial colectomy and terminal ileum removed; ultimately reconnected bowels; did have open abdomen for 2 mos d/t peritonitis. N.p.o., IV fluids distended abdomen, no flatus Surgery consulted -NGT removed on 02/12 -advance diet as tolerated -ambulation Hypernatremia resolved hypokalemia replete as needed Hypothyroidism On Synthyroid Hypertension On amlodipine, metoprolol succinate holding amlodipine BPH On Flomax and finasteride Gout On allopurinol Bilateral leg edema Mild aortic stenosis Holding Lasix Will monitor PABLO on CKD stage III *baseline Baseline creatinine 1.5-1.7 Presented with creatinine of 2.2 Will hold lisinopril and Lasix, will resume once able to take po Getting gentle fluids Follow repeat labs DVT prophylaxis SCDs and heparin subcu Disposition Medical floor Full code. Admission and Anticipated Discharge Date Admission Date: February 08, 2025 Subjective Pt was seen walking in the room States that he is not able to go home today as he had an episode of abdoominal pain overnight No BM today but passing gas Review of Systems Review of Systems: All systems reviewed & are unremarkable except as noted in Subjective Physical Exam Physical Exam: General: Alert, oriented. No acute distress HEENT: NC/AT CV: RRR, + murmur Resp: Breath sounds clear bilaterally, no increased effort of breathing Abdomen:Soft, nontender Extremities: No edema in lower extremities bilaterally. Results & Data Results & Data Vital Signs (Past 12 Hours) Vital Signs Temp Pulse Resp BP Pulse Ox O2 Del Method 02/14/25 07:17 36.7 C 87 16 156/87 H 95 Room Air
--- NOTE | 2025-02-15 06:28 | Surgery Progress Note ---
Date of Service February 15, 2025 Assessment & Plan (1) Small bowel obstruction due to adhesions: Plan: Patient tolerating low fiber diet without issues of worsening abdominal pain, N/V. Passing gas and having BMs Patient states he feels his bloating has improved since yesterday Continue to encourage OOB and ambulation Continue medical management per primary team. Admission and Anticipated Discharge Date Admission Date: February 08, 2025 Supervising Physician Co-Signing Physician Notes Patient seen and examined, agree with above. Resolved small bowel obstruction. tolerating a low fiber diet. +bm, feels better than admisison. Abdomen soft, nondistended, nontender. Continue low fiber diet, okay to d/c to home. surgery will s/o. Subjective Patient seen and examined early this morning, states he is feeling well. Tolerating low fiber diet. Continues to pass gas and having BMs Denies any abdominal pain, N/V Physical Exam Constitutional: WD/WN, vitals as above Respiratory: normal respiratory effort, lungs clear to auscultation Cardiovascular: Rate/Rhythm: regular rate Gastrointestinal (Abdomen): Abdomen soft, nondistended, nontender. No rebound or guarding Old surgical sites appreciated Skin: no rashes, warm and dry Results & Data Vital Signs (Past 12 Hours) Vital Signs Temp Pulse Resp BP Pulse Ox O2 Del Method 02/14/25 19:48 36.4 C L 66 16 135/75 96 Room Air PG Care Time/CCT Total # of Minutes Spent Total Time Spent with Patient: Total time spent is greater than 50% in coordination of care (as documented) at patient's floor/unit and/or counseling patient: [place] [address] SUB INP/OBS CARE 11/09MIN Patient Type Established Diagnoses Small bowel obstruction due to adhesions K56.50
[2025-02-15 07:57] VITALS: RESP 18; TEMP 98.1; O2SAT 98
[2025-02-15 08:27] LABS: Basophils # (auto) 0.05 K/uL (0.00-0.20); Basophils % (auto) 0.7 %; Eosinophils # (auto) 0.29 K/uL (0.00-0.50); Eosinophils % (auto) 3.9 %; Hematocrit (blood only) 40.2 % (42.0-52.0); Hemoglobin 13.4 g/dl (14.0-18.0); Immature Granulocytes # (auto) 0.05 K/uL (0.01-0.20); Immature Granulocytes % (auto) 0.7 %; Lymphocytes # (auto) 1.79 K/uL (1.20-3.40); Lymphocytes % (auto) 24.2 %; Mean Corpuscular Hemoglobin 30.2 pg (25.0-34.0); Mean Corpuscular Hgb Conc 33.3 g/dL (32.0-36.0); Mean Corpuscular Volume 90.5 fL (80.0-100.0); Mean Platelet Volume 9.5 fL (9.4-12.4); Monocytes # (auto) 0.73 K/uL (0.11-0.59); Monocytes % (auto) 9.9 %; Neutrophils # (auto) 4.48 K/uL (1.40-6.50); Neutrophils % (auto) 60.6 %; Platelet Count 197 K/uL (130-400); RDW Coefficient of Variation 14.3 % (11.5-14.5); RDW Standard Deviation 46.8 fL (36.4-46.3); Red Blood Count 4.44 M/uL (4.70-6.10); White Blood Count 7.39 K/ul (4.8-10.8)
[2025-02-15 09:51] LABS: BUN Creatinine Ratio 15.9 (10-20); Phosphorus 2.6 mg/dl (2.5-4.9); Total Protein 6.5 gm/dl (6.0-8.3)
[2025-02-15 13:14] LABS: Albumin Globulin Ratio 1.6 (0.9-2); Bilirubin,Total 0.5 mg/dl (0.2-1.0); Calcium 9.2 mg/dl (8.6-10.3); Globulin 2.5 gm/dl (2.5-4.0); Magnesium 1.7 mg/dl (1.7-2.4); Potassium 4.6 mmol/L (3.5-5.1)
--- NOTE | 2025-02-15 13:18 | Discharge Summary ---
Discharge Summary Date of Service February 15, 2025 Principal Dx & Hospital Course #1 = Principal Diagnosis (1) SBO (small bowel obstruction): Plan Mr. Booker is an 89-year-old male with past medical history significant for hypertriglyceridemia, hypothyroidism, hypertension, CKD stage III, mild aortic stenosis, B12 deficiency, vitamin D deficiency, chronic diarrhea, BPH, recurrent UTI, urge incontinence, osteoarthritis, bilateral leg edema, iron deficiency anemia, history of gout comes because of abdominal pain and nausea /vomiting and found to have small bowel obstruction. Patient has experienced SBO previously, last in 2020 in the setting of multiple abdominal surgeries. Small bowel obstruction in setting of multiple abdominal procedures distended abdomen, no flatus CT abd/pelvis noting "small bowel obstruction as above with transition point in the right hemiabdomen with adhesive changes." with KUBs noting persistence Status post NG tube per chart review: [id number] had partial colectomy and terminal ileum removed; ultimately reconnected bowels; did have open abdomen for 2 mos d/t peritonitis. N.p.o., IV fluids initially, diet advanced to eventually low fiber on discharge. Pt tolerating well on discharge Surgery consulted -NGT removed on 02/12 -advanced diet as tolerated -ambulation Continue low fiber diet on discharge. Hypernatremia resolved hypokalemia repleted as needed Hypothyroidism On Synthroid Hypertension On amlodipine, metoprolol succinate BPH On Flomax and finasteride Gout On allopurinol Bilateral leg edema Mild aortic stenosis Resume lasix on discharge PABLO on CKD stage III *baseline Baseline creatinine 1.5-1.7 Presented with creatinine of 2.2 Improved to baseline on discharge Notes For Next Care Provider As above Medication Changes From Visit None Admission HPI Per Admitting Provider 89-year-old male with past medical history significant for hypertriglyceridemia, hypothyroidism, hypertension, CKD stage III, mild aortic stenosis, B12 deficiency, vitamin D deficiency, chronic diarrhea, BPH, recurrent UTI, urge incontinence, osteoarthritis, bilateral leg edema, iron deficiency anemia, history of gout comes because of abdominal pain and nausea /vomiting and found to have small bowel obstruction. Patient says since yesterday he is having abdominal pain. Today had nausea and vomiting. Pain was 8/10 in severity. Currently with NG tube pain much improved. Resting comfortably and hemodynamically stable. Denies any headache. No runny nose. No fevers. No cough. No chest pain or shortness of breath. Micturating okay. Past medical history. As mentioned above Past surgical history. Bowel to bowel fusion. Colonoscopy. Cystourethroscopy. Cystourethroscopy with lithotripsy. EGD with transendoscopic dilatation. Bilateral cataracts. Adhesions and bowel resection. Removal of gallbladder. Right total hip replacement. Social history. No smoking. 3 standard drinks of alcohol per week. No drug use. Family history. Mother had diabetes. Heart disorder. Sister had lung disorder. Father had nephritis. Admission Exam Per Admitting Provider General- Not in distress Head- atraumatic Eyes- PERRL. ENT- oropharynx clear Neck- supple, no JVD. Lungs- clear to auscultation no wheezing or crackles Heart- regular rhythm; no murmur, no gallop. Abdomen- Surgical scars seen, sluggish bowel sounds, distended nontender. Extremities-mild pretibial edema present , no erythema seen Neuro- alert, oriented PERRL, no facial palsy; no dysarthria; moves extremities Discharge Exam General: Alert, oriented. No acute distress HEENT: NC/AT CV: RRR, + murmur Resp: Breath sounds clear bilaterally, no increased effort of breathing Abdomen:Soft, nontender Extremities: No edema in lower extremities bilaterally. Updated Medication List Medication Instructions Recorded Confirmed Type allopurinol 300 mg tablet 300 mg PO QAM 03/31/20 02/08/25 History amlodipine 10 mg tablet (Norvasc) 5 mg PO QAM 03/31/20 02/08/25 History cholecalciferol (vitamin D3) 50 4,000 unit PO DAILY 03/31/20 02/08/25 History mcg (2,000 unit) capsule (Vitamin D3) cyanocobalamin (vitamin B-12) 1,000 mcg PO DAILY 03/31/20 02/08/25 History 1,000 mcg tablet (Vitamin B-12) fenofibrate micronized 134 mg 145 mg PO QAM 03/31/20 02/08/25 History capsule levothyroxine 75 mcg tablet 75 mcg PO QAM 03/31/20 02/08/25 History magnesium oxide 400 mg PO DAILY 03/31/20 02/08/25 History metoprolol succinate 50 mg 50 mg PO QAM 03/31/20 02/08/25 History tablet,extended release 24 hr multivitamin 1 tab PO QAM 03/31/20 02/08/25 History vit C,E,zinc,copper-rylsr4l 250 1 cap PO HS 03/31/20 02/08/25 History mg-lutein 5 mg-zeaxanthin 1 mg capsule (Ocuvite Adult 50 Plus) finasteride 5 mg tablet 5 mg PO HS #90 tabs 07/09/21 02/08/25 Rx furosemide 20 mg tablet 20 mg PO DAILY 07/09/21 02/08/25 History metronidazole 0.75 % topical gel 1 applic topical BID 07/09/21 02/08/25 History tamsulosin 0.4 mg capsule 0.4 mg PO QAM #90 caps 07/09/21 02/08/25 Rx lisinopril 2.5 mg tablet 5 mg PO DAILY 08/19/21 02/08/25 History Hospital Stay Data Consultations 02/08/25 20:26 Consult General Surgery Stat ED Decision to Admit Stat Diagnostic Imagining Performed 02/08/25 17:39 CT abd pelvis oral con only Stat Abdomen/Pelvis CT 02/08/25 17:39 CT ABDOMEN and PELVIS without INTRAVENOUS CONTRAST HISTORY: Abdominal pain TECHNIQUE: CT abdomen and pelvis without contrast. IV CONTRAST: None ENTERIC CONTRAST: None. COMPARISON: CT abdomen pelvis August 19, 2021. FINDINGS: LOWER CHEST: Cardiac enlargement. Coronary and valvular calcifications. LIVER: Hepatic steatosis and hepatomegaly. Scattered subcentimeter hypodensities are too small to complete characterize but likely represent cysts or hemangiomas. GALLBLADDER/BILIARY: Surgically absent gallbladder. No abnormal biliary dilatation. SPLEEN: Unremarkable. PANCREAS: Unremarkable. ADRENALS: Unremarkable. KIDNEYS: Cortical cysts. Nonobstructing renal calculus in the left kidney midpole measuring 4 mm. No hydronephrosis identified. PERITONEUM/RETROPERITONEUM. No lymphadenopathy by size criteria. No aortic aneurysm. GASTROINTESTINAL: No obstruction. There is moderate distention of the stomach as well as the loops of the proximal small bowel with a caliber transition point in the right hemiabdomen (series 300, image 29; series 2, image 49). There is moderate swirling of the mesentery as well as twisting of the bowel in this area suggesting adhesive changes Colonic diverticulosis without evidence of diverticulitis. REPRODUCTIVE: ABDOMINAL WALL left larger than right small fat-containing inguinal hernias. BONES: No acute findings. Bilateral hip arthroplasties. IMPRESSION: small bowel obstruction as above with transition point in the right hemiabdomen with adhesive changes. Notification to clinician of alert: [facility] was notified about above findings by phone on February 08, 2025 at 9:00 p.m. by Yasir Begum MD. Readback confirmation was obtained. Electronically signed by Yasir Begum 02-08-2025 9:17 PM KUB X-Ray 02/08/25 20:45 Exam(s): XR KUB EXAM: XR Abdomen, 1 View CLINICAL HISTORY: Reason for exam: NG placement. TECHNIQUE: Frontal supine view of the abdomen/pelvis. COMPARISON: No relevant prior studies available. IMPRESSION: Marked dilated gas-filled loops of small bowel in the upper abdomen likely related to small bowel obstruction. A gastric tube is in the stomach with the tip in the distal stomach. Electronically signed by: Michael Rush MD 02/08/25 23:08 PM KUB X-Ray 02/10/25 06:52 KUB HISTORY: Follow-up study in a patient with small bowel obstruction Follow contrast COMPARISON: CT abdomen and pelvis and KUB studies 02/08/2025 FINDINGS: Distal tip enteric tube projects over the right upper quadrant abdomen, likely within the distal stomach or proximal duodenum. Air is noted within the large bowel. Air-filled distended small bowel loops measure up to approximately 7.3 cm within the mid abdomen, previously approximately 6 cm. No renal calculi. No ureteral calculi. No pneumoperitoneum or pneumatosis. Bilateral hip arthroplasties. No fracture. IMPRESSION: 1. Distal tip of enteric tube projects over the distal stomach versus proximal duodenum. 2. Persistent small bowel obstruction. Continued follow-up is noted. ACT 112: Negative or not required by law. The above report was generated using voice recognition software. It may contain grammatical, syntax or spelling errors. Electronically signed by: Boris Alvarado M.D. 02/10/2025 9:14 AM Pending Results Patient Have Any Pending Studies at Discharge: No Discharge Instructions Given to Patient (Per Discharging Provider) Enmanuel, You were admitted and treated for a small bowel obstruction. Your symptoms have improved and the General surgeon states that you can be discharged. Please continue with the low fiber diet after discharge. Please keep close follow up with your primary care provider after discharge. Please do not hesitate to come back to the emergency room if your symptoms worsen or return. It was a pleasure taking care of you while you were here. Total Time Total Time Spent Total Time Spent (In Minutes): 45
[2025-02-15 13:55] VITALS: BP 135/73; PULSE 83
== END 2025-02-15 14:52 | disposition home or self-care (01) | DRG 389 ==
LOC: ED 17:00 → 3N 21:56 → SUATTDRO 21:56 → 3N 22:28